=== PATIENT | female | born 1950 | race African-American/Black ===

== ENCOUNTER 2019-07-08 10:22 | Emergency (ER) | payer MEDICARE, SELFPAY ==
--- NOTE | ~2019-07-08 | US_ITS ---
EXAMINATION: US venous doppler [facility] DATE: 07/08/2019 11:06 INDICATION: Left lower limb swelling TECHNIQUE: Grayscale ultrasound images without and with compression and Doppler ultrasound images of the left lower extremity veins were obtained. COMPARISON: None. FINDINGS: Noncompressible occlusive appearing thrombus in the left popliteal and distal left femoral vein. The visualized portions of left common femoral vein, profunda (deep) femoral vein, proximal to mid femora l vein, peroneal veins, posterior tibial veins, gastrocnemius vein and greater saphenous vein outflow are patent. IMPRESSION: 1. Noncompressible occlusive appearing thrombus in the left popliteal and distal left femoral vein. Reviewed, dictated and finalized at location A. IMPRESSION: 1. Noncompressible occlusive appearing thrombus in the left popliteal and dist al left femoral vein.
[2019-07-08 10:25] VITALS: BP 163/91; PULSE 100; RESP 18; TEMP 36.2; O2SAT 98
--- NOTE | 2019-07-08 10:36 | ED.EXTPRO ---
HPI - Extremity Problem General Chief complaint: Extremity Problem,Nontraumatic Stated complaint: send by pcp for possible blood clot Time Seen by Provider: 07/08/19 10:23 Source: patient and RN notes reviewed Mode of arrival: ambulatory Limitations: no limitations History of Present Illness HPI Narrative: A 68 y/o female has arrived at the ED with c/o a possible blood clot in her LLE with symptoms that began 2 days ago. Pt recently saw her PCP Dr. Tran for a sprained ACL, and was told to come to the ED for her possible blood clot. Pt reports edema, peeling skin, erythema, and warmness in her LLE. Pt also reports pain in her left posterior knee. Pt states that she has past hx of these symptoms accompanying a DVT in her right leg, and notes she is concerned she may have a possible DVT currently.She reports that she had rhinorrhea last week, but it has resolved now.Pt currently denies SOB, rhinorrhea, fever, sweats, chills, hemoptysis, or chest pressure. Pt notes that she had a sinus infection a month ago and was prescribed antibiotics by Dr. Tran. Pt reports a Hx of HTN, HLD, a partial hysterectomy, lower back surgery, a tonsilectomy, and drinking occasionally. She denies having any Hx of CHF and smoking. Pt also denies any recent surgeries or travel. Pt is currently taking potassium and water pills. Complaint: extremity swelling (LLE) Onset (ago): day(s) (2) Location: left and lower extremity Associated symptoms: other (warmness in LLE, peeling skin in LLE, erythema in LLE, rhinorrhea (resolved), pain in left posterior knee) Context: history of DVT (Right leg) Related Data Home Medications Medication Instructions Recorded Confirmed aspirin 81 mg tablet,delayed 81 mg PO DAILY 05/18/19 release cartilage 40 mg-collagen II-boron tablet PO 05/18/19 5 mg-hyaluronate sod 3.3 mg tablet furosemide 20 mg tablet 20 mg PO .1-2 tablet 05/18/19 lisinopril 10 mg tablet 10 mg PO DAILY 05/18/19 potassium chloride 10 mEq 10 meq PO DAILY 05/18/19 capsule,extended release rosuvastatin 40 mg tablet 40 mg PO DAILY 05/18/19 silver sulfadiazine 1 % topical 1 applic TOPICAL BID gm 05/18/19 cream Allergies Allergy/AdvReac Type Severity Reaction Status Date / Time No Known Allergies Allergy Verified 07/08/19 10:37 Review of Systems Review of Systems: All systems reviewed & are unremarkable except as noted in HPI and below Constitutional: Constitutional: Denies chills and Denies fever(s) ENT: Reports nasal discharge (rhinorrhea (resolved)) Cardiovascular: Cardiovascular: Denies chest pain, Reports edema (LLE) and Denies dyspnea Respiratory: Respiratory: Denies hemoptysis Musculoskeletal: Musculoskeletal: Reports other (pain in posterior Left knee) Integumentary/Breasts: Skin/Breast: Reports erythema (LLE) and Reports other (warmness, skin peeling LLE) Endocrine: Endocrine: Denies excessive sweating PMFSH Past Medical History Medical History (Updated 07/08/19 @ 11:45 by Isaak Mcduffie MD) Arthritis Bilateral cataracts Essential (primary) hypertension Herniated disc lower back History of colon polyps Hx of deep venous thrombosis Hypercholesteremia Lumbar back pain with radiculopathy affecting left lower extremity Mixed hyperlipidemia 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 Post-menopausal Spinal stenosis at L4-L5 level Surgical History Surgical History (Updated 07/08/19 @ 11:13 by Poncho Mcelroy) History of back surgery History of tonsillectomy Hx of arthroscopy Hx of hysterectomy Family History Family History (Updated 07/08/19 @ 11:14 by Poncho Mcelroy) Mother Hypertension Sibling Breast cancer Other Cerebrovascular accident Diabetes mellitus Family history of arthritis Family history of cardiovascular disease Family history of coronary artery disease Family history of malignant neoplasm Family history of premature coronary heart disease Social History Social History Smoking status: Never s
--- NOTE | 2019-07-08 10:50 | PC.NURSE ---
unable to draw labs due to pt taken to us.
[2019-07-08 11:14] LABS: Basophils Percent Auto 0.7 % (0.2-1.2); Eosinophils Absolute Auto 0.1 K/mm3 (0-0.3); Eosinophils Percent Auto 1.9 % (0-4.4); Hematocrit 38.8 % (37.0-47.0); Hemoglobin 12.3 g/dL (12.0-15.0); Immature Granulocyte Absolute 0.01 K/mm3 (0.00-0.031); Immature Granulocyte Percent A 0.2 % (0-0.5); Lymphocytes Absolute Auto 1.61 K/mm3 (0.9-3.2); Lymphocytes Percent Auto 28.1 % (18.3-44.2); Mean Corpuscular HGB Conc 31.7 g/dl (32-36); Mean Corpuscular Hemoglobin 27.6 pg (26-34); Mean Corpuscular Volume 87.2 fl (80-100); Mean Platelet Volume 8.6 fl (7.4-10.4); Monocytes Absolute Auto 0.4 K/mm3 (0.1-0.6); Monocytes Percent Auto 6.8 % (2.6-8.5); Neutrophils Absolute Auto 3.6 K/mm3 (1.3-6.7); Neutrophils Percent Auto 62.3 % (45.5-73.1); Platelet Count Result 309 k/mm3 (150-375); Red Blood Count 4.45 M/mm3 (4.2-5.4); Red Cell Distribution Width 13.8 % (11.5-14.5); White Blood Count 5.7 K/mm3 (4.5-10.0)
[2019-07-08 11:24] LABS: Blood Urea Nitrogen 15 mg/dL (7-17); Calcium 9.5 mg/dL (8.4-10.2); Carbon Dioxide 25 mmol/L (22-30); Chloride 107 mmol/L (98-107); Estimated CRCL calculation 71 ml/min; Estimated Glomerular Filt Rate > 60; Glucose 95 mg/dL (65-105); Potassium 3.9 mmol/L (3.4-5.0); Sodium 137 mmol/L (137-145)
== END 2019-07-08 11:50 | disposition home or self-care (01) ==
PROVIDERS: Emergency Provider Emergency Medicine; PCP Internal Medicine
DX: I82.412 Acute embolism and thrombosis of left femoral vein (principal); I82.432 Acute embolism and thrombosis of left popliteal vein; M19.90 Unspecified osteoarthritis, unspecified site; I10 Essential (primary) hypertension; Z86.010 Personal history of colon polyps; E78.00 Pure hypercholesterolemia, unspecified; E78.2 Mixed hyperlipidemia; Z79.82 Long term (current) use of aspirin
CPT/HCPCS: 36415; 80048; 85025; 93971; 99284

== ENCOUNTER 2019-10-18 09:27 | Outpatient (CLI) | payer MEDICARE, SELFPAY ==
--- NOTE | ~2019-10-18 | XR_ITS ---
XR_CERV2-3V_CR DATE: 10/18/2019 10:06 INDICATION: Neck and back pain since fall 2 weeks ago TECHNIQUE: AP, open-mouth, odontoid, lateral views COMPARISON: None FINDINGS: There is mild reversal of cervical curvature. No fracture or dislocation or locked facet or prevertebral soft tissue swelling. 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 There is almost 2 mm anterolisthesis at C3-4. There is moderate loss of interspace height at C3-4, C4 -5 and C5-6. There is uncovertebral joint spurring, most prominent on the right at C5-6. 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 Reviewed, dictated and finalized at location B.
--- NOTE | ~2019-10-18 | XR_ITS ---
XR thoracic spine 3V DATE: 10/18/2019 10:06 INDICATION: Back pain TECHNIQUE: AP, lateral, swimmer views spine. COMPARISON: None FINDINGS: There is degenerative spurring of the thoracic spine. No fracture or bone destruction is ev ident. The thoracic pedicles are intact. No paraspinal soft tissue thickening. IMPRESSION: Degenerative spurring of the thoracic spine Reviewed, dictated and finalized at location B.
== END 2019-10-18 09:28 | disposition home or self-care (01) ==
PROVIDERS: PCP Internal Medicine; Visit Provider Internal Medicine
DX: M54.9 Dorsalgia, unspecified (principal); M77.8 Other enthesopathies, not elsewhere classified; M46.04 Spinal enthesopathy, thoracic region; M53.82 Other specified dorsopathies, cervical region; M43.22 Fusion of spine, cervical region; M50.320 Other cervical disc degeneration, mid-cervical region, unspecified level
CPT/HCPCS: 72040; 72072

== ENCOUNTER 2019-11-06 12:37 | Emergency (ER) | payer MEDICARE, SELFPAY ==
[2019-11-06] VITALS (9 sets, daily range): BP systolic 113–164; BP diastolic 69–84; PULSE 81–92; RESP 18–20; TEMP 37.1; O2SAT 97–100
--- NOTE | ~2019-11-06 | CT_ITS ---
EXAMINATION: CT abd pelvis lumbar w con DATE: 11/06/2019 13:50 INDICATION: Numbness from feet to chest TECHNIQUE: Computed tomography (CT) of the abdomen and pelvis and lumbar spine was performed with 100 cc Omnipaque 350 intravenous contrast. Automated exposure control and iterative reconstruction techn ique were employed. Exam dose: 1321.93 mGy-cm total exam DLP. COMPARISON: None. FINDINGS: There is discoid atelectasis and/or scarring in the right lower lobe. Normal heart size. No pericardial or pleural effusion. There are several up to 1 cm hepatic cysts. Otherwise the liver, gallbladder, bile and pancreatic du cts, pancreas and spleen are unremarkable. No renal mass lesion or urinary tract calculus or hydroureteronephrosis. There is diverticulosis of the colon; no evidence of diverticulitis. No bowel obstruction or intrape ritoneal free air. The urinary bladder is unremarkable. Status post hysterectomy. Normal caliber of the abdominal aorta. No intraperitoneal or retroperitoneal or pelvic mass lesion o r lymphadenopathy. Posterior spinal fusion and interbody fusion at L4-5. Severe degenerative disc disease at L5-S1. Osteitis pubis. IMPRESSION: Several 1 cm or smaller hepatic cysts Diverticulosis of the colon Status post hysterectomy Status post posterior and interbody spinal fusion at L4-5 Severe degenerative disc disease at L5-S1 Reviewed, dictated and finalized at Location [facility]. Reviewed, dictated and finalized at location A.
--- NOTE | 2019-11-06 13:02 | ECG_ITS ---
Measurements Intervals [place] Rate: 76 P: 59 TN: 186 QRS: 30 QRSD: 76 T: 76 QT: 365 QTc: 411 Interpretive Statements SINUS RHYTHM BASELINE ARTIFACT- II, III, AVR, AVF NORMAL ECG Electronically Signed On 11-06-2019 14:04:40 CDT by Obdulio Garcia D.O.
--- NOTE | 2019-11-06 13:04 | ED.ABDPAIN ---
HPI - Abdominal Pain General Chief Complaint: Weakness <ALICIA Culver Last Filed: 11/06/19 19:44> Stated Complaint: Numbness from Feet to Chest <ALICIA Culver Last Filed: 11/06/19 19:44> Time Seen by Provider: 11/06/19 12:51 <ALICIA Culver Last Filed: 11/06/19 19:44> Source: patient and old records reviewed <ALICIA Culver Last Filed: 11/06/19 19:44> Mode of arrival: ambulatory <ALICIA Culver Last Filed: 11/06/19 19:44> Limitations: no limitations <ALICIA Culver Last Filed: 11/06/19 19:44> History of Present Illness HPI narrative: Patient is a 69-year-old female who presents to emergency department for evaluation of numbness in the lower extremities up into the knee abdomen that has occurred over the last 2 weeks patient has been evaluated for low back pain with radicular symptoms by primary care in the last 2 months when she began to have radicular lumbar-like symptoms patient is also on Xarelto with a history of DVT in the left leg patient denies any new injury or trauma or illness patient know she had had constipation for which she took famy-lov-[id number] medication. Patient notes now she has more concerned with the sensation of numbness around the pelvis and up into the abdomen. Patient presents per private vehicle. Patient has been taking Tylenol with improvement of her pain which is worse in the lumbar region. Patient denies fever illness URI symptoms or sick contacts. Patient ambulates with a walking cane <ALICIA Culver Last Filed: 11/06/19 19:44> Related Data Home Medications: Home Medications Medication Instructions Recorded Confirmed cartilage 40 mg-collagen II-boron 1 tablet PO DAILY 05/18/19 10/26/19 5 mg-hyaluronate sod 3.3 mg tablet furosemide 20 mg tablet 20 mg PO DAILY tablet 05/18/19 10/26/19 lisinopril 10 mg tablet 10 mg PO DAILY 05/18/19 10/26/19 potassium chloride 10 mEq 10 meq PO DAILY 05/18/19 10/26/19 capsule,extended release rosuvastatin 40 mg tablet 40 mg PO DAILY 05/18/19 10/26/19 <Yfn Murcia PA-C - Last Filed: 11/06/19 19:44> Allergies/Adverse Reactions: Allergies Allergy/AdvReac Type Severity Reaction Status Date / Time No Known Allergies Allergy Verified 11/06/19 13:15 <Yfn Murcia PA-C - Last Filed: 11/06/19 19:44> Review of Systems Review of Systems: All systems reviewed & are unremarkable except as noted in HPI and below <Yfn Murcia PA-C - Last Filed: 11/06/19 19:44> [facility] Past Medical History Medical History: Medical History Arthritis Bilateral cataracts Essential (primary) hypertension Herniated disc lower back History of colon polyps Hx of deep venous thrombosis Hypercholesteremia Lumbar back pain with radiculopathy affecting left lower extremity Mixed hyperlipidemia On salvage determiner drug therapy Post-menopausal Spinal stenosis at L4-L5 level <Yfn Murcia PA-C - Last Filed: 11/06/19 19:44> Surgical History Surgical History: Surgical History History of back surgery History of tonsillectomy Hx of arthroscopy Hx of hysterectomy <Yfn Murcia PA-C - Last Filed: 11/06/19 19:44> Social History Social History: Social History Smoking status: Never smoker Second hand tobacco smoke exposure: No Alcohol intake: current Gender identity (if verbalized by the patient): Female <Yfn Murcia PA-C - Last Filed: 11/06/19 19:44> Exam Narrative: Exam Narrative: GENERAL: Well-appearing, obese, and in no acute distress. HEAD: Normocephalic, atraumatic. EYES: PERRLA and EOMI. ENT: Nares clear, no rhinorrhea or epistaxis. Mucous membranes moist. Oropharynx without tonsillar hypertrophy exudate or other lesions. NECK: Supple.
[2019-11-06 13:25] LABS: Basophils Percent Auto 0.4 % (0.2-1.2); Eosinophils Percent Auto 0.8 % (0-4.4); Hematocrit 38.2 % (37.0-47.0); Hemoglobin 12.6 g/dL (12.0-15.0); Immature Granulocyte Absolute 0.01 K/mm3 (0.00-0.031); Immature Granulocyte Percent A 0.2 % (0-0.5); Lymphocytes Percent Auto 28.3 % (18.3-44.2); Mean Corpuscular Hemoglobin 27.9 pg (26-34); Mean Corpuscular Volume 84.5 fl (80-100); Mean Platelet Volume 8.6 fl (7.4-10.4); Monocytes Absolute Auto 0.6 K/mm3 (0.1-0.6); Monocytes Percent Auto 10.6 % (2.6-8.5); Neutrophils Absolute Auto 3.2 K/mm3 (1.3-6.7); Neutrophils Percent Auto 59.7 % (45.5-73.1); Platelet Count Result 260 k/mm3 (150-375); Red Blood Count 4.52 M/mm3 (4.2-5.4); Red Cell Distribution Width 14.6 % (11.5-14.5); White Blood Count 5.3 K/mm3 (4.5-10.0)
[2019-11-06 13:35] LABS: INR 1.4; Prothrombin Time 16.3 Seconds (11.1-14.7)
[2019-11-06 13:36] LABS: Partial Thromboplastin Time 33.1 SECONDS (22.3-36.8)
[2019-11-06 13:39] LABS: Alanine Aminotransferase 29 U/L (4-35); Albumin Level 4.2 g/dL (3.5-5.1); Alkaline Phosphatase 188 U/L (38-126); Aspartate Amino Transferase 32 U/L (14-36); Bilirubin,Total 1.2 mg/dL (0.2-1.3); Blood Urea Nitrogen 11 mg/dL (7-17); Calcium 9.4 mg/dL (8.4-10.2); Carbon Dioxide 25 mmol/L (22-30); Chloride 104 mmol/L (98-107); Estimated CRCL calculation 79 ml/min; Estimated Glomerular Filt Rate > 60; Glucose 99 mg/dL (65-105); Sodium 137 mmol/L (137-145)
[2019-11-06 14:23] LABS: Erythrocyte Sedimentation Rate 86 mm/hr (0-20)
[2019-11-06 15:03] LABS: Add Urine Microscopic? YES; Appearance Urine Clear (Clear); Bacteria Urine Trace /hpf; Bilirubin Urine Negative (Negative); Blood Urine 1+ (Negative); Color Urine Colorless (Yellow); Glucose Urine UA Negative (Negative); Ketones Urine Negative (Negative); Leukocyte Esterase Ur Negative LEU/UL (Negative); Mucus Urine Rare /lpf; Nitrate Urine Negative (Negative); Protein Urine Negative (Negative); Squamous Epithelial Cell Urine Occasional /hpf (Few); Urobilinogen Urine Negative mg/dL (<2.0); WBC Urine 0-3 /hpf
[2019-11-06 15:04] LABS: Specific Grav Ur 1.058 (1.001-1.035)
--- NOTE | 2019-11-06 19:21 | PC.NURSE ---
CALL RECEIVED FROM [facility]. PT HAS BEEN ACCEPTED BY DR DI SARAVIA. ROOM [id number]. ATTEMPTED TO CALL REPORT TO GUIDO AT [phone]. RN UNAVAIL TO RECEIVE REORT AT THIS TIME. TO CALL RN BACK AT [phone]
--- NOTE | 2019-11-06 20:00 | PC.NURSE ---
REPORT CLALED TO GUIDO ALVARADO AT [phone]. ALL QUESTIONS ANSWERED. CALLED DISPATCH FOR EMS TO [facility]. ETA 90 MINS
--- NOTE | 2019-11-06 20:09 | PC.NURSE ---
Addendum entered by Jasmyne Andres 11/07/19 01:41: ALSO CALLED: ABDULAZIZ TERRELL (01:18) - DECLINED [facility] (01:19) - DECLINED [place] (01:21) - DECLINED Addendum entered by Jasmyne Andres 11/06/19 23:46: Mauricio called with updated ETA...approximately 02:00 Addendum entered by Jasmyne Andres 11/06/19 22:05: CALLED MAURICIO FOR ETA STATUS...APPROXIMATELY 2300 Original Note: CALLED TO TRANSPORT TO [facility] #[id number]... ETA 90 MINUTES
[2019-11-07 00:43] VITALS: BP 133/74; PULSE 87; RESP 16; O2SAT 96
[2019-11-07 01:20] VITALS: BP 125/81; PULSE 83; RESP 16; O2SAT 99
[2019-11-07 02:17] VITALS: BP 162/87; PULSE 85; RESP 16; O2SAT 99
== END 2019-11-07 02:18 | disposition short-term general hospital (02) ==
PROVIDERS: Emergency Medicine Emergency Medical Services; Emergency Provider General Practice; PCP Internal Medicine
DX: R20.2 Paresthesia of skin (principal); M54.5 Low back pain; K76.89 Other specified diseases of liver; K57.90 Diverticulosis of intestine, part unspecified, without perforation or abscess without bleeding; Z98.1 Arthrodesis status; M51.37 Other intervertebral disc degeneration, lumbosacral region
CPT/HCPCS: 36415; 72132; 74177; 80053; 81001; 85025; 85610; 85652; 85730; 86140; 93005; 96365; 99285; J0131; Q9967

== ENCOUNTER 2020-01-24 09:00 | Outpatient (RCR) | payer MEDICARE, SELFPAY ==
--- NOTE | 2019-11-28 13:08 | PCPTNOTE ---
I called surgeon's office, Dr Wylie, [facility]- to clarify any cervical precautions for pt; Our PT orders are from her general physician; Dr Wylie nurse stated pt's precautions: wear cervical collar unti 8-25-20, then can use PRN for pain control. No lifting over 5-10#, limited bend, twisting, lifting, push/pulling, can be WBAT on UE's. No neck ROM. I discussed pt with [employer] CONSULTANT Salima Quezada and PT who did the evaluation Mirta Cunningham. Mirta is PRN and not to be in the facility for a few days. We discussed the pt and she gave me permission to update the mobility goals. Pt's goals were updated by me, to reflect the above precautions from the cervical surgeon.
--- NOTE | 2019-11-29 16:39 | PCPTNOTE ---
PHYSICAL THERAPY UPDATED PLAN OF CARE 11-29-2019 Attending Provider: Belkis Singh, STRATEGIC MANAGER-C Patient:Jolie Banks Date of :1950 Jolie's plan of care has been updated, with the limitations and guidelines from her surgeon. And goals have been added for improving her LE strength and mobility skills. Thank you for referring Mrs. Banks to [facility]. Please review, sign, date and return this discharge summary FRANCESCA. I have been updated about the patient's current status and I agree with the updated plan of care. Referring Physician Date
--- NOTE | 2019-12-23 08:54 | PTOPEVAL ---
Thank you for referring Jolie Banks to [facility].? The patient is scheduled to be seen for therapy? 2 x/week for 5 weeks. Please review, sign, date and return this plan of care FRANCESCA. I agree with and certify that the following plan of care is medically necessary. Referring Physician Date Admitting Provider: Attending Provider: Belkis Singh, REJIC Physical Therapy Progress Note *PT Outpatient Evaluation Start: 11/23/19 10:30 Freq: Status: Active Protocol: Document 12/23/19 07:58 SADIQ (Rec: 12/23/19 08:54 CAP [id number]) Therapy Assessment Status Assessment Status Assessment Status Re-evaluation Outpatient Past Medical History Past Medical History No Past Medical/Surgical History Patient/Family Denies Significant Past Medical/ Surgical History Source of Past Medical History Patient Evaluation Information Problem Diagnosis Anterior cervical discectomy and fusion at C4/5 Onset November 07 2019 Additional Evaluation Detail Pt states she fell at home and had numbness and tingling in B hands end of September 2019. Pt was transferred out to [facility] where they did an MRI and performed anterior cervical discectomy and fusion on C4/5. Pt discharged from [facility] on November 09 Subjective Information Reports juan f UE cont to have Query Text:As Reported By Patient/ numbness. She also has spasms Family of trunk area that increases at the end of day. She cont to have numbness and tingling from groin into bilateral feet . She has progressed to [facility] for mobility and DC of cervical collar. She is not performing any cooking at home. She did complete the dishes for 15 min with increased LE fatigue. Her cont to perform most IADL's. Pain Assessment Timing of Pain Assessment Timing of Pain Assessment Re-assessment Pain Scale Pain Scale Used Numeric (1 - 10) Self Report Pain Assessment Generalized Reported Pain Level 6 Pain Description Numbness,Radiating,Tingling Pain Frequency Continuous Pain Behaviors None Pain Score
--- NOTE | 2020-01-24 10:58 | PTOPEVAL ---
Thank you for referring Jolie Banks to [facility].? Pt has received 16 therapy visits to address impairments related to her neck surgery. She has reached maximal potential with skilled therapy services at this time. Recommend she cont with use of walker due to decreased balance and walking speed. She is indep with her home exercise program. DC skilled physical therapy services at this time Please review, sign, date and return this plan of care FRANCESCA. I agree with and certify that the following plan of care is medically necessary. Referring Physician Date Attending Provider: ALIS Echavarria Referring Provider: *PT Outpatient Evaluation Start: 11/23/19 10:30 Freq: Status: Active Protocol: Document 01/24/20 09:03 SADIQ (Rec: 01/24/20 09:54 [facility] [id number]) Therapy Assessment Status Assessment Status Assessment Status Re-evaluation/ discharge note Evaluation Information Problem Diagnosis Anterior cervical discectomy and fusion at C4/5 Onset November 07 2019 Additional Evaluation Detail Pt states she fell at home and had numbness and tingling in B hands end of September 2019. Pt was transferred out to [facility] where they did an MRI and performed anterior cervical discectomy and fusion on C4/5. Pt discharged from [facility] on November 09 Subjective Information Reports juan f UE cont to have Query Text:As Reported By Patient/ numbness. Reports her UE cont Family to hurt with decreased sensation and roughness of her fingers. She cont to have trunk spasms of trunk area after sitting and attempting to stand. She cont to have numbness and tingling from groin into bilateral feet. She has returned to using the walker due to last fall at home. She will not use an AD in the bathroom. She is not performing any cooking at home. 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 Pain Assessment Timing of Pain Assessment Timing of Pain Assessment Re-assessment Pain Scale Pain Scale Used Numeric (1 - 10) Self Report Pain Assessment Generalized Reported Pain Level 8 Pain Description Aching,Numbness,Radiating,
== END 2020-01-27 10:48 | disposition home or self-care (01) ==
LOC: ANHPT 09:00
PROVIDERS: PCP Internal Medicine; Visit Provider Nurse Practitioner
DX: R20.0 Anesthesia of skin (principal); R20.2 Paresthesia of skin; Z98.890 Other specified postprocedural states
CPT/HCPCS: 97110; 97112; 97116; 97140; 97161; 97530

== ENCOUNTER 2020-08-09 08:04 | Outpatient (CLI) | payer MEDICARE, SELFPAY | END 2020-08-09 08:05 | disposition home or self-care (01) | LOC: ANHCOVIDVC 08:04 | PROVIDERS: PCP Internal Medicine | DX: Z23 Encounter for immunization (principal) | CPT/HCPCS: 0001A; 91300 ==

== ENCOUNTER 2020-08-30 07:57 | Outpatient (CLI) | payer MEDICARE, SELFPAY | END 2020-08-30 07:58 | disposition home or self-care (01) | LOC: ANHCOVIDVC 07:57 | PROVIDERS: PCP Internal Medicine | DX: Z23 Encounter for immunization (principal) | CPT/HCPCS: 0002A; 91300 ==

== ENCOUNTER 2020-12-07 08:30 | Outpatient (RCR) | payer MEDICARE, SELFPAY ==
--- NOTE | 2020-10-12 08:53 | PTOPEVAL ---
Thank you for referring Jolie Banks to [facility].? The patient is scheduled to be seen for therapy?2 x/week for 6 weeks. Please review, sign, date and return this plan of care FRANCESCA. I agree with and certify that the following plan of care is medically necessary. Referring Physician Date Attending Provider: David Herrera MD Arely Problem Diagnosis s/p cervical fusion Onset chronic Additional Evaluation Detail Pt had back surgery 05/24/20 for s/p neck fusion, right CTR 05/24/20 and cubital release and left CTR and cubital tunnel release 07/01. She received home health services for 2 months. Subjective Information She has been using the walker Query Text:As Reported By Patient/ for ~ 1 yr. She denies any Family falls in the past 6 months. She is able to perform light chores, ADL's, household mobility with walker. She is not driving. She c/o nerve pain in her hands and arms since surgery. She also c/o knee pain. She will usually sit for 2 hrs at a time or longer. She has 2 LUDWIN and 2 step in the house. Pain Assessment Self Report Pain Assessment Bilateral Leg(s) Reported Pain Level 0 Pain Description Aching,Soreness Pain Frequency Chronic,Intermittent Lowest Pain Intensity 0 Greatest Pain Intensity 7 Pain Aggravating Factors ADL's,Exercise/Activity Bilateral Arm(s) Reported Pain Level 9 Pain Description Numbness,Sharp,Tingling Pain Frequency Chronic,Continuous Lowest Pain Intensity 5 Greatest Pain Intensity 9 Pain Aggravating Factors ADL's,Exercise/Activity Cervical and Lumbar ROM Cervical ROM Cervical Flexion (0-60) 45 Query Text:Active in Degrees Cervical Extension (0-70) 40 Query Text:Active in Degrees Cervical Lateral Flexion Right (0-50) 20 Query Text:Active in Degrees Cervical Lateral Flexion Left (0-50) 25 Query Text:Active in Degrees Cervical ROM Comments limited from surgery Upper Extremity Range of Motion General Upper Extremity Range of Motion Reason Not Measured WFL/Left,WFL/Right Gross Upper Extremity Range of Motion no changes in pain with motion Comments Lower Extremity Muscle Strength Testing General Lower Extremity Strength Reason Not Measured
--- NOTE | 2020-11-15 10:46 | PTOPEVAL ---
Physical therapy progress note Thank you for referring Jolie Banks to [facility].? Jolie has attended 9 therapy visits to address functional limitations. She is progressing towards her therapy goals. She summary below for detail of progress. The patient is scheduled to be seen for therapy 1 x/week for 3 additional weeks. Please review, sign, date and return this plan of care FRANCESCA. I agree with and certify that the following plan of care is medically necessary. Referring Physician Date Admitting Provider: Dr. Irvin Tran MD Attending Provider: David Herrera MD Arely Diagnosis s/p cerivcal fusion Onset chronic Additional Evaluation Detail Pt had back surgery 05/24/20 for s/p neck fusion, right CTR 05/24/20 and cubital release and left CTR and cubital tunnel release 07/01. She received home health services for 2 months. Subjective Information She is using the cane at home Query Text:As Reported By Patient/ or short distance without AD. Family She is able to negotiate 2 steps at home without use of railing. She is able to perform light chores, ADL's. She is preforming light cooking task. Her does not want her performing heavier activities. She c/o nerve pain in her hands and arms since surgery. She also c/o knee pain. indep perform scar massage of juan f UE healed incisions. Pain Assessment Bilateral Leg(s) Reported Pain Level 1 Pain Description Aching Lowest Pain Intensity 1 Greatest Pain Intensity 7 Pain Aggravating Factors Exercise/Activity,Sitting, Walking,Weight Bearing/ Standing Bilateral Arm(s) Reported Pain Level 2 Pain Description Numbness,Sharp,Tingling Lowest Pain Intensity 2 Greatest Pain Intensity 8 Pain Aggravating Factors Exercise/Activity Lower Extremity Muscle Strength Testing General Lower Extremity Strength Gross Lower Extremity Strength seated right hip flex4+/5, knee ext: 5/5 and ankle DF: 5/ 5 seated left hip flex4+/5, knee ext: 5/5 and ankle DF: 5/ 5 sidelying hip abduction:3+/5,
--- NOTE | 2020-12-07 11:36 | PTOPEVAL ---
Physical Therapy Discharge Note Thank you [facility] She has received 12 therapy visits to address muscle weakness and functional limitations. As a result of therapy services she demonstrates improve strength, decreased fall risk, and improved mobility with ability to walk on all surfaces. She is indep with her HEP. Will DC skilled therapy services at this time. Please review, sign, date and return this discharge summary FRANCESCA. I agree with and certify that the following plan of care is medically necessary. Referring Physician Date Attending Provider: David Herrera MD Arely Problem Diagnosis s/p cervical fusion Onset chronic Additional Evaluation Detail Pt had back surgery 05/24/20 for s/p neck fusion, right CTR 05/24/20 and cubital release and left CTR and cubital tunnel release 07/01. She received home health services for 2 months. Subjective Information She is using the cane at home Query Text:As Reported By Patient/ and walker for distance in the Family community. She has been trying to do a walking program more consistently. Reports the resistance exercises increase her UE burning nerve pain. She is performing her HEP and scar massage. Pain Assessment Self Report Pain Assessment Bilateral Leg(s) Reported Pain Level 0 Pain Description Tightness Pain Frequency Chronic Lowest Pain Intensity 0 Greatest Pain Intensity 7 Bilateral Arm(s) Reported Pain Level 2 Pain Description Burning,Numbness,Tingling Pain Frequency Chronic Lowest Pain Intensity 2 Greatest Pain Intensity 8 Pain Aggravating Factors Exercise/Activity,Prolonged Position Special Tests-Lower Extremity Hip Special Tests Trendelenburg Sign Positive Left,Positive Right Hip Special Test Comments single leg stance: 1 sec intervals juan f without UE support, with 1 UE support: left: 26 sec, right: 22 sec Gait Assessment Gait Assessment Ambulation Assistive Devices None,Cane,Walker, Wheeled Ambulation Distance 135 Query Text:(Feet) Ambulation Destination In Corridor Ambulation Direction Forward Ambulation Surface Level Ambulation Ability Independent Additional Ambulation Comments arrived to session with walker
== END 2020-12-10 10:47 | disposition home or self-care (01) ==
LOC: ANHPT 08:30
PROVIDERS: PCP Internal Medicine
DX: Z48.89 Encounter for other specified surgical aftercare (principal); Z47.89 Encounter for other orthopedic aftercare; Z98.1 Arthrodesis status
CPT/HCPCS: 97110; 97112; 97116; 97140; 97162; 97530

== ENCOUNTER 2021-03-12 08:24 | Outpatient (CLI) | payer MEDICARE, SELFPAY ==
--- NOTE | ~2021-03-12 | MM_ITS ---
EXAMINATION: MM screening marcel BI w jahaira HISTORY: Screening mammogram TECHNIQUE: Craniocaudal and mediolateral oblique 3-D tomosynthesis images were obtained and synthetic 2-D images were generated. CAD analysis was submitted and interpreted. COMPARISON: 04/12/2019, 02/09/2017 bilateral screening and diagnostic mammogram examinations, respect ively BREAST PARENCHYMAL COMPOSITION: The breasts are almost entirely fatty. FINDINGS: .... Occasional bilateral benign calcifications... There is no evidence of suspicious mass, calcification, or architectural distortion to suggest malignancy in either breast. There has been no suspicious interval change. IMPRESSION: 1. No mammographic evidence of malignancy. 2. Recommend routine screening mammography in one year. BI-RADS Category 2: Benign finding(s). Reviewed, dictated and finalized at location A. 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
--- NOTE | ~2021-03-12 | DEXA_ITS ---
Bone Density Report Name: Jolie Banks Age: 70 Sex: Female Ethnicity: White Date of : 1950 Indication: postmenopausal; height loss; hysterectomy; Referring Provider: Belkis Singh Study: Bone densitometry was performed. Exam Date: March 12, 2021 Accession number: [id number] Bone Density: Region BMD T-score Z-score Classification AP Spine (L1, L2) 1.152 1.6 3.7 Normal Femoral Neck (Left) 0.782 -0.6 1.3 Normal Total Hip (Left) 1.051 0.9 2.5 Normal Total Hip Bilateral Avg 1.014 0.6 2.2 Normal Femoral Neck (Right) 0.756 -0.8 1.1 Normal Total Hip (Right) 0.975 0.3 1.9 Normal World Health Organization criteria for BMD impression classify patients as: Normal (T-score at or above -1.0), Osteopenia (T-score between -1.0 and -2.5), or Osteoporosis (T-score at or below -2.5). 10-year Fracture Risk: FRAX not reported because: All T-scores for Spine Total, Hip Total, Femoral Neck at or above -1.0 Previous Exams: Region Exam Age BMD T-score BMD Change BMD Change Date g/cm2 vs Baseline vs Previous AP Spine(L1, L2) 03/12/2021 70 1.152 1.6 -0.160(-12.2%) -0.160(-12.2%) 06/02/2015 64 1.312 3.0 Total Hip(Left) 03/12/2021 70 1.051 0.9 -0.113(-9.7%)* -0.113(-9.7%)* 06/02/2015 64 1.164 1.8 Total Hip(Right) 03/12/2021 70 0.975 0.3 -0.085(-8.1%)* -0.085(-8.1%)* 06/02/2015 64 1.061 1.0 *Denotes significance at 95% confidence level, LSC for AP Spine = 0.022 g/cm2, LSC for Total Hip = 0.027 g/cm2 Clinical Information Provided by Patient: Has the following medical conditions: Hysterectomy Patient maximum height was 63 Menopause Age: 48 No regular weight bearing exercise Onset of menses at age 10 Number of children 0 Impression: The patient has normal bone mass. The BMD for the AP Spine(L1, L2) decreased, changing by -12.2% since the last DXA exam. The BMD for the Total Hip(Left) decreased, changing by -9.7% since the last DXA exam. The BMD for the Total Hip(Right) decreased, changing by -8.1% since the last DXA exam. Discussion: BONE DENSITY IS ABOVE THE MINIMUM DESIRABLE LEVEL AT ALL SKELETAL SITES TESTED. This patient?s bone mineral density is above the minimum desirable level (T-score -1.0 or better) at all sites measured. The patient should follow a healthful lifestyle (good nutrition with adequate calcium and vitamin D, and appropriate weight-bearing exercise). Follow-Up: Consider repeating this study in 3 to 4 years to
== END 2021-03-12 08:25 | disposition home or self-care (01) ==
LOC: ANHIMG 08:26
PROVIDERS: PCP Internal Medicine; Visit Provider Nurse Practitioner
DX: Z12.31 Encounter for screening mammogram for malignant neoplasm of breast (principal); Z78.0 Asymptomatic menopausal state
CPT/HCPCS: 77063; 77067; 77080

== ENCOUNTER 2022-02-03 12:30 | Outpatient (CLI) | payer MEDICARE, SELFPAY ==
--- NOTE | ~2022-02-03 | US_ITS ---
EXAMINATION: US venous doppler LE RT DATE: 02/03/2022 13:48 INDICATION: Right lower limb edema TECHNIQUE: Bro scale images without and with compression and Doppler images of the right lower extre mity veins were obtained. COMPARISON: 04/30/2016 FINDINGS: The right common femoral vein, profunda femoral vein, femoral vein, popliteal vein, peronea l trunk, posterior tibial veins, and greater saphenous vein are patent. IMPRESSION: 1. Patent right lower extremity veins. No evidence of deep venous thrombosis. Reviewed, dictated and finalized at location A.
== END 2022-02-03 12:31 | disposition home or self-care (01) ==
LOC: ANHIMG 12:32
PROVIDERS: PCP Internal Medicine; Visit Provider Internal Medicine
DX: R60.9 Edema, unspecified (principal); Z86.718 Personal history of other venous thrombosis and embolism
CPT/HCPCS: 93971

== ENCOUNTER 2022-06-04 04:47 | Observation (INO) | payer MEDICARE, SELFPAY ==
[2022-06-04] VITALS (25 sets, daily range): BP systolic 107–156; BP diastolic 56–103; PULSE 65–96; RESP 9–20; TEMP 35.7–36.7; O2SAT 99–100; BMI 37.3
--- NOTE | ~2022-06-04 | CT_ITS ---
CT head without contrast Indication: Weakness Technique: Serial scans were obtained through the brain without the administration of contrast. Dose reduction technique was used on this scan by utilizing automated exposure control and iterative recon struction technique. The dose-length product (DLP) was 605.33 mGy-cm. Findings: There is no evidence of intracranial hemorrhage, mass lesion, or acute infarct. There is di ffuse dilatation of ventricular system, somewhat out of proportion to remaining subarachnoid spaces.. Minimal low attenuation regions are seen within the periventricular white matter bilaterally, likely representing changes from chronic microvascular ischemic disease. There is no evidence of edema, ma ss effect or midline shift. The visualized paranasal sinuses and mastoid air cells are clear. Impression: No intracranial hemorrhage, mass, or acute infarct. Suspected normal pressure hydrocephalus versus other communicating hydrocephalus. Minimal chronic white matter changes versus possibly transependymal edema. Reviewed, dictated and finalized at [facility]. 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 Suspected normal pressure hydrocephalus versus other communicating hydrocephalu s. Minimal chronic white matter changes versus possibly transependymal edema.
--- NOTE | ~2022-06-04 | XR_ITS ---
Portable chest x-ray Comparison: None Clinical History: Weakness Findings: Lungs are clear, without focal consolidation or pleural effusion. Cardiomediastinal silho uette is unremarkable. Bones and soft tissues are unremarkable. Impression: Normal chest. Reviewed, dictated and finalized at location . 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
--- NOTE | ~2022-06-04 | CT_ITS ---
Noncontrast CT scan of the cervical spine Technique: Multiple contiguous axial [address] images of the cervical spine were obtained and rec onstructed in 2D sagittal and coronal planes on the acquisition scanner. Dose reduction technique was used on this scan by utilizing automated exposure control, adjustment of the mA and/or kV according to patient size. Clinical History: Frequent falls Findings: No fractures or dislocations. There is posterior fusion from C3 through C6, with bilateral rods and transpedicular screws present. Laminectomies of C3, C4, and C5 are present. There is also a nterior fusion hardware from C4 to C5. There is fusion across the C4-C5 disc space. There is also par tial fusion across the C2-C3 disc space. There is moderate degenerative disc narrowing at the remaini ng intervertebral disc spaces in the cervical spine. No prevertebral soft tissue swelling. 4 mm left apical pulmonary nodule noted. Impression: No fracture or subluxation identified. Extensive postoperative changes of the cervical spine, as detailed above. 4 mm left apical pulmonary nodule. According to Fleischner Society criteria, no further follow-up req uired for a low-risk patient. For a high-risk patient, consider 12 month follow-up CT. Reviewed, dictated and finalized at location . [employer] Impression: No fracture or subluxation identified. Extensive postoperative changes of the cervical spine, as detailed above. 4 mm left apical pulmonary nodule. According to Fleischner Society criteria, no further follow-up required for a low-risk patient. For a high-risk patient, co nsider 12 month follow-up CT.
--- NOTE | ~2022-06-04 | US_ITS ---
Duplex Sonography of the bilateral lower extremities: Indication: Swelling Sagittal and transverse B-mode images as well as color-flow imaging were performed on the right and l eft femoral and popliteal veins. B-mode examination was done without and with compression in the tra nsverse plane. There is good visualization of the bilateral common femoral, proximal profunda femora l, superficial femoral, greater saphenous, and popliteal veins. There is nonocclusive thrombus in the left popliteal vein. This vessel is partially compressible. Remaining visualized deep venous structures bilaterally demonstrate normal flow and compressibility. Impression: Focal nonocclusive thrombus in the left popliteal vein. Reviewed, dictated and finalized at location M. IDE REPAIRER SPECIAL Impression: Focal nonocclusive thrombus in the left popliteal vein.
--- NOTE | 2022-06-04 04:54 | ECG_ITS ---
Measurements Intervals [place] Rate: 76 P: 62 [place]: 185 QRS: 21 QRSD: 78 T: 53 QT: 359 QTc: 406 Interpretive Statements SINUS RHYTHM NORMAL ECG COMPARED TO ECG 11/06/2019 13:21:05 NO SIGNIFICANT CHANGES Electronically Signed On 06-04-2022 13:41:00 STOPPER MAKER by Carlos Gonzalez M.D.
--- NOTE | 2022-06-04 05:10 | ED.GENADULT ---
HPI - General Adult General Chief complaint: Weakness Stated complaint: falls Time Seen by Provider: 06/04/22 04:55 History of Present Illness HPI narrative: Patient 71-year-old female who presents the emergency department with chief complaint of generalized weakness. Patient reports that she has been weaker than normal and her primary doctor has been scheduling her for some physical therapy. Family reports that today she got up and slid down the wall and they decided to call EMS. The port the patient's been a little bit less active than normal they deny fever denies vomiting denies diarrhea. Related Data Home Medications Medication Instructions Recorded Confirmed dorzolamide 22.3 mg-timolol 6.8 1 drp EACH EYE QAM AND QHS 01/28/22 03/17/22 mg/mL eye drops latanoprost 0.005 % eye drops 1 drp EACH EYE QPM 01/28/22 03/17/22 prednisolone acetate 1 % eye 1 drp EACH EYE Q12H 01/28/22 03/17/22 drops,suspension Allergies Allergy/AdvReac Type Severity Reaction Status Date / Time No Known Allergies Allergy Verified 03/14/22 13:44 Review of Systems Review of Systems: A 10 system review of systems was completed on the patient and is negative except for what is stated in the HPI. Nursing and ancillary documentation was reviewed. 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 Post-menopausal Spinal stenosis at L4-L5 level Surgical History Surgical History History of back surgery History of tonsillectomy Hx of arthroscopy Hx of hysterectomy Status post cervical discectomy Family History Family History Mother Hypertension Sibling Breast cancer Other Cerebrovascular accident Diabetes mellitus Family history of arthritis Family history of cardiovascular disease Family history of coronary artery disease Family history of malignant neoplasm Family history of premature coronary heart disease Social History Social History Smoking status: Never smoker Second hand tobacco smoke exposure: Yes Alcohol intake: current Alcohol use details: social Substance use: never Substance use type: does not use Lack of Transportation: No Lack of Food: Never True Current Housing: I Have Housing Concerned About Future Housing: No Difficulty Paying Gas/Electric Bills: No Difficulty Paying for Meds: No Currently Unemployed: No Education: High School Diploma/GED Difficulty w/ Childcare or Family Care: No Living arrangements: with family Occupation/Education: retired Gender identity (if verbalized by the patient): Female Sexual Orientation (if Verbalized by the Patient): Straight or Heterosexual Exam Narrative: GENERAL: Well-appearing, well-nourished, and in no acute distress. HEAD: Normocephalic, atraumatic. EYES: PERRLA and EOMI. ENT: Nares clear, no rhinorrhea or epistaxis. Mucous membranes moist. NECK: Supple. CHEST: Clear to auscultation. No respiratory distress. HEART: Regular rate and rhythm. No murmur heard. Normal peripheral pulses. ABDOMEN: Soft, nontender, nondistended, normal active bowel sounds. EXTREMITIES: Normal range of motion. No edema. SKIN: Warm, dry, no rash. NEURO: No focal deficits. Alert and oriented x3. PSYCH: Normal mood and affect. Course Vital Signs Vital signs: Vital Signs Temperature 36.4 C 06/04/22 04:50 Pulse Rate 76 06/04/22 04:50 Respiratory Rate 18 06/04/22 04:50 Blood Pressure 121/103 H 06/04/22 04:50 Pu
[2022-06-04 05:43] LABS: Basophils Percent Auto 0.6 % (0.2-1.2); Eosinophils Absolute Auto 0.1 K/mm3 (0-0.3); Eosinophils Percent Auto 1.2 % (0-4.4); Hematocrit 38.9 % (37.0-47.0); Hemoglobin 12.6 g/dL (12.0-15.0); Immature Granulocyte Absolute 0.02 K/mm3 (0.00-0.031); Immature Granulocyte Percent A 0.3 % (0-0.5); Lymphocytes Absolute Auto 1.42 K/mm3 (0.9-3.2); Lymphocytes Percent Auto 21.6 % (18.3-44.2); Mean Corpuscular HGB Conc 32.4 g/dl (32-36); Mean Corpuscular Hemoglobin 27.9 pg (26-34); Mean Corpuscular Volume 86.3 fl (80-100); Mean Platelet Volume 8.7 fl (7.4-10.4); Monocytes Absolute Auto 0.5 K/mm3 (0.1-0.6); Monocytes Percent Auto 7.6 % (2.6-8.5); Neutrophils Absolute Auto 4.5 K/mm3 (1.3-6.7); Neutrophils Percent Auto 68.7 % (45.5-73.1); Platelet Count Result 269 k/mm3 (150-375); Red Blood Count 4.51 M/mm3 (4.2-5.4); Red Cell Distribution Width 14.9 % (11.5-14.5); White Blood Count 6.6 K/mm3 (4.5-10.0)
[2022-06-04 05:52] LABS: Alanine Aminotransferase 15 U/L (6-35); Alkaline Phosphatase 125 U/L (38-126); Anion Gap 5 mmol/L (8-16); Aspartate Amino Transferase 22 U/L (14-36); Bilirubin,Total 0.8 mg/dL (0.2-1.3); Blood Urea Nitrogen 13 mg/dL (7-17); Calcium 9.5 mg/dL (8.4-10.2); Carbon Dioxide 27 mmol/L (22-30); Chloride 104 mmol/L (98-107); Estimated CRCL calculation 69 ml/min; Estimated Glomerular Filt Rate > 60; Glucose 94 mg/dL (65-110); Magnesium 2.2 mg/dL (1.6-2.3); Potassium 3.7 mmol/L (3.4-5.0); Sodium 136 mmol/L (137-145)
[2022-06-04 05:53] LABS: Lactic Acid Reflex 0.9 mmol/L (0.7-2.0)
[2022-06-04 05:59] LABS: INR 1.8; Prothrombin Time 20.4 Seconds (11.1-14.7)
[2022-06-04 06:00] LABS: Partial Thromboplastin Time 37.8 SECONDS (22.3-36.8)
[2022-06-04 06:01] LABS: NT Pro B Type Natriuretic Pept 97 pg/mL (19.9-100)
[2022-06-04 06:04] LABS: Troponin I < 0.012 ng/mL (0.000-0.034)
[2022-06-04 06:21] LABS: Procalcitonin 0.1 ng/mL
[2022-06-04 06:24] LABS: Influenza A QL RT-PCR Negative (Negative); Influenza B QL RT-PCR Negative (Negative); RSV RNA, RT-PCR Negative (Negative); SARS-CoV-2 RNA PCR Negative
--- NOTE | 2022-06-04 06:24 | PC.NURSE ---
Pt unable to provide urine sample but does not want a straight cath. Water given to pt per Dr. Paiz.
--- NOTE | 2022-06-04 07:10 | PC.NURSE ---
Patient report received from JENNY Rivera. All questions answered and care of patient assumed.
--- NOTE | 2022-06-04 07:11 | PC.NURSE ---
Nurse report given to Gregg RN and Urvashi ALVARADO
[2022-06-04 07:19] LABS: Appearance Urine Clear (Clear); Bilirubin Urine Negative (Negative); Blood Urine Negative (Negative); Color Urine Yellow (Yellow); Glucose Urine UA Negative (Negative); Ketones Urine Negative (Negative); Leukocyte Esterase Ur 1+ LEU/UL (Negative); Nitrate Urine Negative (Negative); Protein Urine Negative (Negative); Specific Grav Ur 1.015 (1.001-1.035); Urobilinogen Urine 0.2 mg/dL (<2.0)
[2022-06-04 07:27] LABS: Bacteria Urine Trace /hpf; RBC Urine 0-2 /hpf (0-2); Squamous Epithelial Cell Urine Many /hpf (Few)
[2022-06-04 07:33] LABS: Add Urine Microscopic? YES
--- NOTE | 2022-06-04 08:37 | PC.NURSE ---
Attempted to call patient's to update on admission status but unable to reach him. Patient aware.
--- NOTE | 2022-06-04 09:05 | PC.NURSE ---
This patient, Jolie Banks, was admitted to [facility] Surg Room 306-01. Patient/family oriented to hospital policies and general routines including ID bracelet, bed and alarms, visiting hours, pain management, procedures, bathroom and other care routines, personal items, smoking policy, room service/diet, and visiting hours. Report received from Gregg ALVARADO. Information on how to activate the Rapid Response Team has been discussed. Patient/Family are encouraged to report perceived risks to care and to ask questions if they do not understand what they are told or what they should do.
[2022-06-04 10:07] LABS: Troponin I < 0.012 ng/mL (0.000-0.034)
--- NOTE | 2022-06-04 13:50 | PM.IMHP ---
H&P: HPI History of Present Illness Date/Time: 06/04/22 13:50 Chief Complaint: Weakness Narrative: This is a 71-year-old female patient who resides with her . She came to the emergency room with chief complaint of generalized weakness. The patient stated that she has been weaker than normal and her primary care doctor's been scheduling her for some physical therapy. The patient reported that today she got up and then slid down the wall. EMS was activated. The patient has been a little bit less active than normal. She denies any fever chills or any cough. She denies any nausea vomiting or diarrhea. No decrease in appetite. Sodium was 136 with a normal baseline. Troponin nonreactive x2. The patient had 1+ leukocyte esterase with wbc's 10- 15. Many epithelial squamous cells noted. This may be a contaminate. Influenza a B RSV and COVID negative. The patient was given Rocephin in the emergency room. The patient is being admitted to observation status on the date of service of 06/04/2022 Review of Systems Review of Systems: See HPI All systems reviewed & are unremarkable except as noted in HPI and below Constitutional: Constitutional: Reports as per HPI and Reports no additional constitutional complaints Eyes: Eyes: Reports as per HPI and Reports no additional eye complaints ENT: Reports system reviewed and no additional complaints, except as documented and Reports Normal hearing present Cardiovascular: Cardiovascular: Reports no additional cardiovascular complaints Respiratory: Respiratory: Reports no additional respiratory complaints and Reports no additional respiratory complaints Gastrointestinal: Gastrointestinal: Reports as per HPI and Reports no additional gastrointestinal complaints Musculoskeletal: Musculoskeletal: Reports no additional musculoskeletal complaints Integumentary/Breasts: Skin/Breast: Reports system reviewed and no additional complaints, except as docu and Reports as per HPI Neurologic: Reports system reviewed and no additional complaints, except as documented, Reports as per HPI and Reports Normal hearing present Psychiatric: Psychiatric: Reports no additional psychiatric complaints and Reports as per HPI Endocrine: Endocrine: Reports no additional endocrine complaints Hematologic/Lymphatic: Hematologic/Lymphatic: Reports no additional hematologic/lymphatic complaints Allergic/Immunologic: Allergic/Immunologic: Reports no additional allergic/immunologic complaints [facility] Past Medical History Medical History (Updated 06/04/22 @ 16:45 by Farhana Rose NP) Arthritis Bilateral cataracts Essential (primary) hypertension Glaucoma Herniated disc lower back History of colon polyps Hx of deep venous thrombosis Hypercholesteremia Lumbar back pain with radiculopathy affecting left lower extremity Mixed hyperlipidemia 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 Post-menopausal Spinal stenosis at L4-L5 level Surgical History Surgical History (Updated 06/04/22 @ 16:37 by Farhana Rose NP) History of back surgery History of cataract extraction History of tonsillectomy Hx of arthroscopy Hx of hysterectomy Status post cervical discectomy Family History Family History Mother Diabetes mellitus Hypertension Cerebrovascular accident Sibling Breast cancer Family history of arthritis Other Family history of cardiovascular disease Family history of coronary artery disease Family history of malignant neoplasm Family history of premature coronary heart disease Social History Social History (Updated 06/04/22 @ 16:32 by Farhana Rose NP) Social History: The patient lives with her . She has no children. She is retired from [employer]. Her is a [employer] worker for healthcare. Code status full code Smoking status: Never smoker Second hand tobacco smoke exposure: Yes Alcohol intake: never Alcohol u
[2022-06-04 16:51] LABS: Glucose Point of Care 103 mg/dl (65-105)
[2022-06-04] MEDS: prednisoLONE ACETATE 1% OPHTH 5 ML 1 DROP RIGHT EYE (17:32)
[2022-06-04] MEDS: RIVAROXABAN 20 MG TABLET PO (17:32)
[2022-06-04] MEDS: ROSUVASTATIN 10 MG TABLET 40 MG PO (21:22)
[2022-06-04] MEDS: LATANOPROST 0.005% OP SOLN 2.5 ML BTL 1 DROP LEFT EYE (21:22)
[2022-06-04] MEDS: DORZOLAMIDE/TIMOLOL OPHTH SOL 10 ML BOTTLE 1 DROP EACH EYE (21:22)
[2022-06-05 04:42] VITALS: BP 124/80; PULSE 94; RESP 16; TEMP 36.7; O2SAT 100
[2022-06-05 06:28] LABS: Basophils Percent Auto 0.5 % (0.2-1.2); Eosinophils Absolute Auto 0.1 K/mm3 (0-0.3); Hematocrit 35.4 % (37.0-47.0); Hemoglobin 11.4 g/dL (12.0-15.0); Immature Granulocyte Absolute 0.02 K/mm3 (0.00-0.031); Immature Granulocyte Percent A 0.3 % (0-0.5); Lymphocytes Percent Auto 21.8 % (18.3-44.2); Mean Corpuscular HGB Conc 32.2 g/dl (32-36); Mean Corpuscular Hemoglobin 27.2 pg (26-34); Mean Corpuscular Volume 84.5 fl (80-100); Mean Platelet Volume 8.5 fl (7.4-10.4); Monocytes Absolute Auto 0.5 K/mm3 (0.1-0.6); Monocytes Percent Auto 7.9 % (2.6-8.5); Neutrophils Absolute Auto 4.1 K/mm3 (1.3-6.7); Neutrophils Percent Auto 68.5 % (45.5-73.1); Platelet Count Result 260 k/mm3 (150-375); Red Blood Count 4.19 M/mm3 (4.2-5.4); Red Cell Distribution Width 14.8 % (11.5-14.5)
[2022-06-05 06:40] LABS: Anion Gap 2 mmol/L (8-16); Blood Urea Nitrogen 12 mg/dL (7-17); Calcium 8.9 mg/dL (8.4-10.2); Carbon Dioxide 28 mmol/L (22-30); Chloride 102 mmol/L (98-107); Estimated CRCL calculation 68 ml/min; Estimated Glomerular Filt Rate > 60; Glucose 91 mg/dL (65-110); Hemoglobin A1C 5.7 % (<5.7); Lactic Acid Reflex 0.8 mmol/L (0.7-2.0); Potassium 3.7 mmol/L (3.4-5.0); Sodium 132 mmol/L (137-145)
[2022-06-05 06:41] LABS: Alanine Aminotransferase 14 U/L (6-35); Albumin Level 3.6 g/dL (3.5-5.1); Alkaline Phosphatase 118 U/L (38-126); Aspartate Amino Transferase 19 U/L (14-36); Bilirubin,Total 0.7 mg/dL (0.2-1.3); Magnesium 2.1 mg/dL (1.6-2.3)
[2022-06-05 08:03] LABS: Vitamin D 25 Hydroxy 29.8 ng/mL
--- NOTE | 2022-06-05 08:12 | PCPTNOTE ---
Pt was evaluated on 06/04/22 for PT. PT treatment orders were canceled the same day. New order for PT came through came through soon after. New PT order were cancelled (duplicate order) and treatment orders put back in.
[2022-06-05] MEDS: CHOLECALCIFEROL 1,000 UNITS TABLET 2000 UNITS PO (08:32)
[2022-06-05] MEDS: prednisoLONE ACETATE 1% OPHTH 5 ML 1 DROP RIGHT EYE ×2 (08:32→17:16)
[2022-06-05] MEDS: THIAMINE HCL 100 MG TABLET PO (08:32)
[2022-06-05] MEDS: DORZOLAMIDE/TIMOLOL OPHTH SOL 10 ML BOTTLE 1 DROP EACH EYE ×2 (08:32→20:42)
[2022-06-05 08:53] LABS: Folic Acid 5.7 ng/mL (2.76->20)
--- NOTE | 2022-06-05 11:14 | PM.IMPN ---
Progress Note: A&P Assessment and Plan (1) UTI (urinary tract infection): Code(s): N39.0 - Urinary tract infection, site not specified Status: Acute Assessment and Plan: Patient presented with c/o weakness. UA with 10-15 WBC, 1+ leukocytes, no nitrates and many epi cells. Treated with Rocephin 1 gram IV in ED. No leukocytosis, suprapubic or CVA tenderness. Hold antibiotics for now pending urine and blood culture results. (2) Generalized weakness: Code(s): R53.1 - Weakness Status: Acute Assessment and Plan: Likely secondary to deconditioning, possibly secondary to UTI. Continue PT and OT evaluation Care coordination following for SNF placement. TSH within normal limits, B12 327, Folate 5.7, Vit D 25-OH 29.8 (3) Prediabetes: Code(s): R73.03 - Prediabetes Status: Chronic Assessment and Plan: Check blood sugars a.c. and HS. Hypoglycemic protocol with sliding scale insulin. A1c 5.7%. Stable. (4) Mixed hyperlipidemia: Code(s): E78.2 - Mixed hyperlipidemia Status: Chronic Assessment and Plan: Chronic, continue with Crestor Monitor liver enzymes (5) Glaucoma: Qualifiers: Glaucoma type: unspecified Code(s): H40.9 - Unspecified glaucoma Status: Chronic Assessment and Plan: Chronic, Continue dorzolamide-timolol Q12 hours and latanoprost at HS. (6) DVT (deep venous thrombosis): Qualifiers: Affected thrombotic vein of extremity: femoral Chronicity: acute DVT location: lower extremity Laterality: left Qualified Code(s): I82.412 - Acute embolism and thrombosis of left femoral vein Code(s): I82.409 - Acute embolism and thrombosis of unspecified deep veins of unspecified lower extremity Status: Acute Assessment and Plan: H/O of DVT left femoral and popliteal veins 2019. Repeat US venous doppler negative in 01/2022. Venous doppler this admission shows focal nonocclusive thrombus thrombus in the left popliteal vein. She reports taking Xarelto as prescribed, dose is appropriate for DVT maintenance, and last refilled 04/26/22 for 90 days. Will transition to Eliquis 10 mg PO BID x 7 days, 5 mg PO BID following (7) Frequent falls: Code(s): R29.6 - Repeated falls Status: Acute Assessment and Plan: Secondary to generalized weakness. Management as above. Plan CODE STATUS: FULL CODE Disposition: plan to discharge to SNF Time Spent With Patient Time: 30 minutes time spent reviewing nursing and specialist documentation, labs, vitals, and patient assessment. Subjective Date/time seen: 06/05/22 11:14 Exam Narrative: General: No acute distress.? Well-developed older adult female sitting up in the chair. BMI 37 kg/m2. Mental Status/Psych: Awake, alert and oriented x3, forgetful, with clear speech. Neutral mood and affect. Pleasant and cooperative. Skin: Skin fair, warm, dry and intact without rashes or lesions. No open wounds. Good turgor.? HEENT: Normocephalic. Sclera is non-icteric. Pupils equal and round. Grossly normal hearing. Oral mucosa pink and moist. Oropharynx within normal limits. Neck: Supple. No JVD. Heart: S1 and S2 regular rate and rhythm. No murmurs, gallops, or rubs auscultated. Chest: Respirations even and unlabored. Lung sounds are clear to auscultation in all lobes bilaterally without wheezes, rhonchi, or rales. Abdomen: Soft, round and non-tender to palpation.? Bowel sounds present in all 4 quadrants. No suprapubic tenderness or CVA tenderness. Extremities:? Grossly normal ROM all extremities. +1 left pretibial edema. Radial and dorsalis pedis pulses +2 bilaterally. Neurological: No focal deficits. Cranial nerves 2-12 grossly intact.?No facial droop. Objective Data Vital Signs Vital Signs: Vital Signs - 24 hr 06/04/22 11:33 06/04/22 14:00 06/04/22 20:35 Temperature 96.3 F L 98.0 F Pulse Rate 87 96 Respiratory Rate 13 16
[2022-06-05 14:00] VITALS: BP 127/86; PULSE 81; RESP 20; TEMP 36.3; O2SAT 92
[2022-06-05 20:00] VITALS: PULSE 70; RESP 16; O2SAT 100
[2022-06-05] MEDS: ROSUVASTATIN 10 MG TABLET 40 MG PO (20:40)
[2022-06-05] MEDS: LATANOPROST 0.005% OP SOLN 2.5 ML BTL 1 DROP LEFT EYE (20:42)
[2022-06-05] MEDS: APIXABAN 5 MG TABLET 10 MG PO (21:00)
[2022-06-05 22:00] VITALS: BP 144/93; PULSE 70; RESP 16; TEMP 36.4; O2SAT 100
[2022-06-06 06:00] VITALS: BP 108/70; PULSE 90; RESP 16; TEMP 36.4; O2SAT 100
[2022-06-06 06:10] LABS: Hematocrit 35.5 % (37.0-47.0); Hemoglobin 11.3 g/dL (12.0-15.0); Mean Corpuscular HGB Conc 31.8 g/dl (32-36); Mean Corpuscular Hemoglobin 27.1 pg (26-34); Mean Corpuscular Volume 85.1 fl (80-100); Mean Platelet Volume 8.7 fl (7.4-10.4); Platelet Count Result 271 k/mm3 (150-375); Red Blood Count 4.17 M/mm3 (4.2-5.4)
[2022-06-06 08:32] LABS: Glucose Point of Care 102 mg/dl (65-105)
[2022-06-06] MEDS: THIAMINE HCL 100 MG TABLET PO (09:41)
[2022-06-06] MEDS: APIXABAN 5 MG TABLET 10 MG PO (09:41)
[2022-06-06] MEDS: prednisoLONE ACETATE 1% OPHTH 5 ML 1 DROP RIGHT EYE (09:41)
[2022-06-06] MEDS: CHOLECALCIFEROL 1,000 UNITS TABLET 2000 UNITS PO (09:41)
[2022-06-06] MEDS: DORZOLAMIDE/TIMOLOL OPHTH SOL 10 ML BOTTLE 1 DROP EACH EYE (09:42)
[2022-06-06 11:35] LABS: Glucose Point of Care 90 mg/dl (65-105)
[2022-06-06 14:10] VITALS: BP 127/75; PULSE 81; RESP 18; TEMP 36.6; O2SAT 100
--- NOTE | 2022-06-06 15:49 | PM.DS ---
DS: Admitting Diagnosis Discharge Date 06/06/2022 1549 Admitting Diagnosis UTI (urinary tract infection) Generalized weakness Prediabetes Mixed hyperlipidemia Hx of deep venous thrombosis DS: Discharge Diagnosis Discharge Diagnosis (1) UTI (urinary tract infection): Code(s): N39.0 - Urinary tract infection, site not specified Status: Acute Assessment and Plan: Patient presented with c/o weakness. UA with 10-15 WBC, 1+ leukocytes, no nitrates and many epi cells. Treated with Rocephin 1 gram IV in ED and given 1 dose upon admission. Antibiotic stopped 06/05/22 in absence of symptoms. No leukocytosis, suprapubic or CVA tenderness. Urine culture without growth. No further antibiotics needed. (2) Generalized weakness: Code(s): R53.1 - Weakness Status: Acute Assessment and Plan: Likely secondary to deconditioning, possibly secondary to UTI. Continue PT and OT evaluation Care coordination following for SNF placement. TSH within normal limits, B12 327, Folate 5.7, Vit D 25-OH 29.8 (3) Prediabetes: Code(s): R73.03 - Prediabetes Status: Chronic Assessment and Plan: Check blood sugars a.c. and HS. Hypoglycemic protocol with sliding scale insulin. A1c 5.7%. Stable. (4) Mixed hyperlipidemia: Code(s): E78.2 - Mixed hyperlipidemia Status: Chronic Assessment and Plan: Chronic, continue with Crestor Monitor liver enzymes (5) Glaucoma: Qualifiers: Glaucoma type: unspecified Code(s): H40.9 - Unspecified glaucoma Status: Chronic Assessment and Plan: Chronic, Continue dorzolamide-timolol Q12 hours and latanoprost at HS. (6) DVT (deep venous thrombosis): Qualifiers: Affected thrombotic vein of extremity: femoral Chronicity: acute DVT location: lower extremity Laterality: left Qualified Code(s): I82.412 - Acute embolism and thrombosis of left femoral vein Code(s): I82.409 - Acute embolism and thrombosis of unspecified deep veins of unspecified lower extremity Status: Acute Assessment and Plan: H/O of DVT left femoral and popliteal veins 2019. Repeat US venous doppler negative in 01/2022. Venous doppler this admission shows focal nonocclusive thrombus thrombus in the left popliteal vein. She reports taking Xarelto as prescribed, dose is appropriate for DVT maintenance, and last refilled 04/26/22 for 90 days. Transitioned and tolerating well Eliquis 10 mg PO BID x 7 days, 5 mg PO BID following (7) Frequent falls: Code(s): R29.6 - Repeated falls Status: Acute Assessment and Plan: Secondary to generalized weakness. Management as above. DS: Summary Hospital Course Reason for hospitalization: weakness Hospital Course: Patient is a 71-year-old female patient, from home. She came to the emergency room with chief complaint of generalized weakness.? The patient stated that she has been weaker than normal and her primary care doctor's been scheduling her for some physical therapy.? On the day of admission, she reported getting up and sliding down the wall.? EMS was activated.? The patient has been a little bit less active than normal.? She denied fever, chills, or any cough.? She denied nausea, vomiting, or diarrhea.? No decreased in appetite.? Sodium was 136 with a normal baseline.? Troponin nonreactive x2.? The patient had 1+ leukocyte esterase with wbc's 10- 15.? Many epithelial squamous cells noted.? Influenza a B RSV and COVID negative.? The patient was given Rocephin in the emergency room.? She was admitted to the medical floor and continued on IV Rocephin initially, however, the patient denied urinary symptoms and antibiotics were stopped. Urine culture was negative for bacterial growth. Blood cultures were negative to date. PT/OT was consulted and recommend rehab which the patient and spouse were agreeable to. Venous doppler US was obtained that showed new left
[2022-06-06 16:24] LABS: EDCOVIDSCREEN Negative (Negative)
== END 2022-06-06 16:50 ==
LOC: ANHED 07:29 → ANH3MEDSUR 08:34
PROVIDERS: Emergency Medicine; Nurse Practitioner; Nurse Practitioner Family; Admitting Provider Family Medicine; Emergency Provider Emergency Medicine; PCP Nurse Practitioner; Visit Provider Student in an Organized Health Care Education/Training Program
DX: N39.0 Urinary tract infection, site not specified (principal); R53.1 Weakness; R73.03 Prediabetes; H40.9 Unspecified glaucoma; I82.412 Acute embolism and thrombosis of left femoral vein; I82.432 Acute embolism and thrombosis of left popliteal vein; M19.90 Unspecified osteoarthritis, unspecified site; R29.6 Repeated falls; I10 Essential (primary) hypertension; Z20.822 Contact with and (suspected) exposure to COVID-19; E78.2 Mixed hyperlipidemia; R91.1 Solitary pulmonary nodule; M54.59 Other low back pain; M79.89 Other specified soft tissue disorders; M54.16 Radiculopathy, lumbar region; M48.061 Spinal stenosis, lumbar region without neurogenic claudication; F10.90 Alcohol use, unspecified, uncomplicated; Z79.52 Long term (current) use of systemic steroids; Z86.718 Personal history of other venous thrombosis and embolism; Z79.899 Other long term (current) drug therapy; Z82.61 Family history of arthritis; Z82.49 Family history of ischemic heart disease and other diseases of the circulatory system
CPT/HCPCS: 36415; 70450; 71045; 72125; 80053; 81001; 82306; 82607; 82746; 82948; 83036; 83605; 83735; 83880; 84145; 84443; 84484; 85025; 85027; 85610; 85730; 87040; 87086; 87426; 87637; 93005; 93970; 96365; 96366; 97110; 97116; 97161; 97165; 97530; 97535; 99285; A9270; C9803; G0378; J0696

== ENCOUNTER → 2023-02-18 07:44 | Outpatient (CLI) | payer MEDICARE, SELFPAY ==
--- NOTE | ~2023-02-18 | XR_ITS ---
Right Shoulder Technique: AP and axillary views were obtained. Clinical History: Pain Findings: No fracture or dislocation is seen. Osseous alignment is anatomic. Minimal degenerative amber nge of the glenohumeral and acromioclavicular joints noted.. Soft tissues are unremarkable. Impression: Minimal degenerative changes, as above. Reviewed, dictated and finalized at location . S AND SERVICE CONSULTANT Impression: Minimal degenerative changes, as above.
--- NOTE | ~2023-02-18 | XR_ITS ---
Left Knee Technique: AP, lateral, and sunrise views were obtained. Clinical History: Pain Findings: No fracture or dislocation is seen. Osseous alignment is anatomic. Mild to moderate tricomp artmental degenerative spurring is present. Soft tissues are unremarkable. No joint effusion is seen. Impression: [id number] tricompartmental degenerative spurring. Reviewed, dictated and finalized at location . L EXAMINER Impression: [id number] tricompartmental degenerative spurring.
--- NOTE | ~2023-02-18 | XR_ITS ---
Right Knee Technique: AP, lateral, and sunrise views were obtained. Clinical History: Pain Findings: No fracture or dislocation is seen. Osseous alignment is anatomic. Mild tricompartmental de generative spurring present. Soft tissues are unremarkable. No joint effusion is seen. Impression: Mild tricompartmental degenerative spurring. Reviewed, dictated and finalized at location . OMER SALES CONSULTANT Impression: Mild tricompartmental degenerative spurring.
== END ==
PROVIDERS: PCP Nurse Practitioner; Visit Provider Nurse Practitioner
DX: M19.011 Primary osteoarthritis, right shoulder (principal); M17.0 Bilateral primary osteoarthritis of knee
CPT/HCPCS: 73030; 73562

== ENCOUNTER 2023-03-09 07:58 | Outpatient (RCR) | payer MEDICARE, SELFPAY ==
--- NOTE | 2023-03-09 08:59 | OPREHPOC ---
Outpatient Therapy Plan of Care This is a Multidisciplinary Plan of Care that may contain components documented by all disciplines (PT, OT, and ST.) PT Problem 1 PT Problem #1 Knowledge Deficit PT Goal 1 Goal 1* indep with HEP 2* correct transfer techniques PT Problem 2 PT Problem #2 Pain PT Goal 1 Goal 1* monitor pain in knees during session PT Problem 3 PT Problem #3 Impaired Strength PT Goal 1 Goal 1* pt perform 20 reps of supine R and L LE exercises 2* sit/stand transfer with 1 UE use PT Problem 4 PT Problem #4 Impaired Functional Mobil PT Goal 1 Goal 1* TUG with wheeled walker 26 seconds 2* Tinetti balance/gait score of 21/28, to decrease fall risk
--- NOTE | 2023-03-09 09:00 | PTOPEVAL1 ---
Assessment and note entered by Bobbi Thomas, PT Evaluation Information Assessment Status Evaluation Diagnosis R shoulder, R and L knee pain Onset Dec 2022 Subjective Information having more falls, in the past 6 months about 6 times; getting out of bed, moving around her home; not sure why falling--? legs give out, legs under her and she lands on her knee; had xrays and there were not any fractures had PT about 1 year ago due to problems with legs; ACTIVITY: use wheeled walker all of the time; light meal prep, indep with bathing, dressing; have problems doing things due to legs tired and have to sit down; can use R arm but it hurts; does some sitting leg exercises; have entry ramp into her home and 2 steps into living room area GOAL: pain in legs and R arm to go away Reported Pain Level Pain Score 0,0: Self Report Additional Pain Score Comments pain range of both knees/legs in the past week 0-7 /10; pain range of R shoulder 0-10/10; Assessment PT Clinical Summary Shavonne has the diagnosis of R shoulder, R and L knee pain, with increased falls and decreased mobility. She reports 6 falls in the past 6 months--getting out of bed and walking. Lashonda- caregiver with pt today. Pt's is undergoing cancer treatments and he is the one that provides transportation for her. She does not go out into community. With the evaluation; she has decreased strength of both legs, with decreased mobility- using wheeled walker; TUG time of 34 seconds and Tinetti balance score of 14/28= high risk for falls; difficulty with supine/sit/stand transfers-- labored to perform. She has decreased R shoulder strength and ROM. Skilled PT services are indicated to increase LE strength, transfer and gait/balance skills, with education for safety, HEP. Plan of Care Interventions Gait Training,Hot Pack/Cold Pack,Neuro Re- education,Patient/Caregiver Education,Therapeutic
--- NOTE | 2023-04-10 11:12 | PTOPDC ---
Assessment and note entered by Bobbi Thomas, PT Discharge Information Assessment PT Clinical Summary Jolie received the PT evaluation on 03-09-23 and did not return for any further treatment. She will be discharged at this time. The goals were not addressed. Plan of Care PT Services Indicated No
== END 2023-04-10 14:25 | disposition home or self-care (01) ==
LOC: ANHPT 07:58
PROVIDERS: PCP Nurse Practitioner; Visit Provider Nurse Practitioner
DX: M25.511 Pain in right shoulder (principal); M25.561 Pain in right knee; M25.562 Pain in left knee
CPT/HCPCS: 97110; 97161

== ENCOUNTER 2023-05-23 05:09 | Inpatient (IN) | payer MEDICARE, SELFPAY ==
[2023-05-23] VITALS (20 sets, daily range): BP systolic 94–129; BP diastolic 52–84; PULSE 47–68; RESP 12–24; TEMP 36.6; O2SAT 98–100; BMI 46.3
--- NOTE | ~2023-05-23 | NM_ITS ---
EXAMINATION: NM renal flow and function DATE: 05/27/2023 14:17 INDICATION: Acute renal insufficiency TECHNIQUE: 7.7 mCi Tc-99m MAG3 was administered IV. The patient was scanned in the supine position. A posterior abdominal radionuclide angiogram was obtained. A subsequent time course of static images of the kidneys, ureters, and bladder was obtained. COMPARISON: CT dated 05/24/2023 FINDINGS: The posterior abdominal radionuclide angiogram and sequential static images show normal size, positio n, and morphology of the kidneys. Of note the calculated time to peak and peak to half peak values ar e obscured by the increased noise in the initial 2 minutes of imaging. The time to peak values are ob tained by direct visualization of the renograms are in the T1/2 for clearance is indirectly calculate d from the renogram curves following the initial 2 minutes of imaging. Peak renal parenchymal uptake was 4 min in left kidney and 4 min in right kidney (normal peak 3-5 minutes). The relative early jluis l uptake was 57% on the left and 43% on the right (<40% is abnormal). No abnormalities of the ureter s or bladder are seen. T1/2 for clearance of activity from the left kidney and proximal collecting system was 17 minutes. T1/2 for clearance of activity from the right kidney and proximal collecting system was 18 minutes. IMPRESSION: 1. Symmetric kidney function. 2. There delayed activity clearance from both kidneys without evident hydronephrosis on the scintigr aphic images were on the CT images from 3 days prior which suggests nonspecific nephropathy Reviewed, dictated and finalized at location A. SURGEON HELPER IMPRESSION: 1. Symmetric kidney function. 2. There delayed activity clearance from both kidneys without evident hydronep hrosis on the scintigraphic images were on the CT images from 3 days prior whic h suggests nonspecific nephropathy
--- NOTE | ~2023-05-23 | CT_ITS ---
Non-contrast CT scan of the Abdomen and Pelvis Clinical indication: Abdominal pain Technique: 2.5 mm axial scans were obtained through the abdomen and pelvis without intravenous or or al contrast. Dose reduction technique was used on this scan by utilizing automated exposure control a nd iterative reconstruction technique. The dose-length product (DLP) was 1439.25 mGy-cm. COMPARISON: 11/06/2019 Findings: Images through the lung bases reveal 6 mm pleural-based nodule the right lower lobe. There is right basilar atelectatic change. There is no evidence of renal or ureteral calculi. The kidneys and the ureters are nondilated. The liver, spleen, pancreas, gallbladder, and adrenals appear normal. There is no aortic aneurysm. There is no evidence of bowel obstruction. Images through the pelvis were performed. There is no evidence of ascites or lymphadenopathy. Urinary bladder unremarkable. Patient appears to be post hysterectomy. No pelvic mass seen. Impression: 6 mm right lower lobe pulmonary nodule. According to Fleischner Society criteria, for a low-risk kandi ent, follow-up CT scan in 6-12 months recommended, then consider additional 18-[address] For a hig h-risk patient, follow-up CT scans at both 6-12 months and 18-24 months are recommended. No other significant findings. Reviewed, dictated and finalized at location . ER/WAITRESS ROOM SERVICE Impression: 6 mm right lower lobe pulmonary nodule. According to Fleischner Society criteri a, for a low-risk patient, follow-up CT scan in 6-12 months recommended, then c onsider additional 18-[address] For a high-risk patient, follow-up CT scans at both 6-12 months and 18-24 months are recommended. No other significant findings.
--- NOTE | ~2023-05-23 | MR_ITS ---
EXAMINATION: MR pituitary wo/w con DATE: 05/27/2023 17:43 INDICATION: Diabetes insipidus. TECHNIQUE: Magnetic resonance imaging (MRI) of the abdomen was performed without and with 20 mL Multi Hemalatha intravenous contrast. COMPARISON: Head CT 06/04/2022 FINDINGS: The sella is enlarged, and the pituitary demonstrates a height of 4 mm, consistent with an empty sell a. The infundibulum is at midline. There is no intracranial hemorrhage, acute infarction, or abnormal intracranial mass lesion. There is chronic encephalomalacia in the anterior temporal lobes. There ar e scattered areas of nonspecific increased T2-weighted signal intensity in the cerebral white matter, which is within normal limits for the patient's age. The lateral and fourth ventricles are enlarged for the size of the sulci. There are likely changes of ocular lens replacement surgeries. The paranas al sinuses are clear. The mastoid air cells are normal. There are changes of anterior and posterior f usion procedures in cervical spine. IMPRESSION: 1. 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 2. Enlargement of the lateral and fourth ventricles. Correlate clinically for normal pressure hydroce phalus. 3. Empty sella. Reviewed, dictated and finalized at location A. NING CENTER COORDINATOR IMPRESSION: 1. 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 2. Enlargement of the lateral and fourth ventricles. Correlate clinically for n ormal pressure hydrocephalus. 3. Empty sella.
--- NOTE | ~2023-05-23 | US_ITS ---
EXAMINATION: US abdomen limited DATE: 05/26/2023 08:59 INDICATION: Abnormal liver function tests. TECHNIQUE: Multiple grayscale and Doppler ultrasound images of the abdomen were obtained. COMPARISON: CT abdomen and pelvis 09/22/2023 FINDINGS: The visualized portions of the head and body of the pancreas are normal. There is a 1.1 cm cyst in the liver. There is normal flow in main portal vein. The gallbladder is normal in size. No ga llstones or gallbladder wall thickening. There is no sonographic Delgado sign. The common duct is norm al and measures 5 mm. IMPRESSION: 1. No etiology for abnormal liver function tests. Reviewed, dictated and finalized at location A. ES INSPECTOR
--- NOTE | ~2023-05-23 | US_ITS ---
Renal-Bladder ultrasound Clinical History: Renal insufficiency Technique: Real-time sonographic imaging of the kidneys and urinary bladder was performed. Findings: The right kidney measures 8.9 cm in length and the left kidney measures 10.7 cm. There is n o hydronephrosis or renal calculus identified. Renal cortical echogenicity is within normal limits. N o renal mass lesion is identified. The urinary bladder is moderately distended at the time of this exam. No intraluminal echoes are iden tified. No abnormal wall thickening is seen. Impression: Unremarkable ultrasound of the kidneys and urinary bladder. Reviewed, dictated and finalized at location M. ER SPLICER Impression: Unremarkable ultrasound of the kidneys and urinary bladder.
--- NOTE | ~2023-05-23 | XR_ITS ---
EXAMINATION: XR knee RT 3V DATE: 05/23/2023 08:06 INDICATION: Right knee pain TECHNIQUE: Three views of the right knee were obtained. COMPARISON: 02/18/2023 FINDINGS: Alignment is normal. No fracture or osteochondral lesion. There is mild tricompartmental os teoarthritis characterized by tiny marginal osteophytes. There is a moderate-sized joint effusion. So ft tissue swelling surrounds the knee. IMPRESSION: 1. Osteoarthritis, joint effusion, and soft tissue swelling of the knee without acute osseous abnorma lity identified. Reviewed, dictated and finalized at location F. ADEN VESSEL PILOT IMPRESSION: 1. Osteoarthritis, joint effusion, and soft tissue swelling of the knee without acute osseous abnormality identified.
--- NOTE | ~2023-05-23 | XR_ITS ---
EXAMINATION: XR chest 1V portable INDICATION: Bradycardia TECHNIQUE: Portable AP chest at 0915 hours COMPARISON: 06/04/2022 FINDINGS: The lungs are free of acute opacities. No pleural effusion or pneumothorax. The cardiomedia stinal silhouette is normal. There are partially imaged surgical changes of the lower cervical spine. IMPRESSION: 1. No acute cardiopulmonary abnormality. Reviewed, dictated and finalized at location F. BIT ARTIST
--- NOTE | ~2023-05-23 | XR_ITS ---
EXAMINATION: XR shoulder LT min 2V DATE: 05/25/2023 15:10 INDICATION: Left shoulder pain. TECHNIQUE: 4 views of left shoulder were obtained. COMPARISON: None. FINDINGS: Bone alignment is normal. No fracture. There is mild osteoarthritis of glenohumeral joint a nd severe osteoarthritis of acromioclavicular joint. IMPRESSION: 1. Polyarticular osteoarthritis. Reviewed, dictated and finalized at location A. OCOPYING EQUIPMENT MECHANIC
--- NOTE | 2023-05-23 07:43 | ED.FALL ---
HPI - Fall General Chief Complaint: Fall Stated Complaint: GLF, right knee and shoulder pain Time Seen by Provider: 05/23/23 07:41 Source: patient History of Present Illness HPI Narrative: 72 years old white female came from home by ambulance with her , was walking out of the bathroom, a paper towel fell on the floor, bent over to catch it and holding the walker by the other hand, lost her balance and fell on her knees, complaining of right knee pain, denies any other injuries. She denies any fever, chills, nausea, vomiting, chest pain, shortness of breath, headache any pain or back pain. Patient declined to take any pain medication in the ED Related Data Home Medications Medication Instructions Recorded Confirmed latanoprost 0.005 % eye drops 1 drp LEFT EYE HS 01/28/22 02/18/23 prednisolone acetate 1 % eye 1 drp RIGHT EYE BID 01/28/22 02/18/23 drops,suspension dorzolamide 22.3 mg-timolol 6.8 1 drp EACH EYE Q12H 06/04/22 02/18/23 mg/mL eye drops Allergies Allergy/AdvReac Type Severity Reaction Status Date / Time No Known Allergies Allergy Verified 02/18/23 07:02 Review of Systems Review of Systems: All systems reviewed & are unremarkable except as noted in HPI and below PMFSH Past Medical History Medical History Arthritis Bilateral cataracts Essential (primary) hypertension Glaucoma Herniated disc lower back History of colon polyps Hx of deep venous thrombosis Hypercholesteremia Lumbar back pain with radiculopathy affecting left lower extremity Mixed hyperlipidemia On retirement drug therapy Post-menopausal Spinal stenosis at L4-L5 level Surgical History Surgical History History of back surgery History of carpal tunnel surgery History of cataract extraction History of decompression of ulnar nerve History of excision of lamina of cervical vertebra for decompression of spinal cord History of tonsillectomy Hx of arthroscopy Hx of hysterectomy Status post cervical discectomy Family History Family History Mother Diabetes mellitus Hypertension Cerebrovascular accident Sibling Breast cancer Family history of arthritis Other Family history of cardiovascular disease Family history of coronary artery disease Family history of malignant neoplasm Family history of premature coronary heart disease Social History Social History Social History: The patient lives with her . She has no children. She is retired from [employer]. 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 Code status full code Smoking status: Never smoker Second hand tobacco smoke exposure: Yes Alcohol intake: former Alcohol use details: social Substance use: never Substance use type: does not use Lack of Transportation: No Lack of Food: Never True Current Housing: I Have Housing Concerned About Future Housing: No Difficulty Paying Gas/Electric Bills: No Difficulty Paying for Meds: No Currently Unemployed: No Education: High School Diploma/GED Difficulty w/ Childcare or Family Care: No Living arrangements: with family Occupation/Education: retired Gender identity (if verbalized by the patient): Female Sexual Orientation (if Verbalized by the Patient): Straight or Heterosexual Spiritual care concerns: Yes (Jehovah witness) Exam Narrative: General appearance: Well-developed, well-nourished Skin: Normal color Head: Normocephalic, nontraumatic Eyes: Clear conjunctiva ENT: Oropharynx normal, ears normal, nose normal Neck: Supple, nontender Chest and respiratory: Airway patent, no respiratory distress, no accessory muscle use Heart: Bradycardia Abdomen: Soft, nontender, no organomegaly, quiet bowel sounds Vascular: Normal peripheral pulses, normal c
--- NOTE | 2023-05-23 09:09 | ECG_ITS ---
Measurements Intervals Council Rate: 49 P: 240 TX: 334 QRS: 35 QRSD: 82 T: 72 QT: 428 QTc: 386 Interpretive Statements SINUS RHYTHM NONSPECIFIC T-WAVE ABNORMALITY LOW QRS VOLTAGE IN PRECORDIAL LEADS [QRS DEFLECTION < 1.0 mV IN CHEST LEADS] ABNORMAL ECG COMPARED TO ECG 06/04/2022 04:54:36 NO SIGNIFICANT CHANGES Electronically Signed On 05-23-2023 10:21:01 DIRECTOR DERMATOLOGY by Carlos Gonzalez M.D.
[2023-05-23 10:03] LABS: Eosinophils Absolute Auto 0.2 K/mm3 (0-0.3); Eosinophils Percent Auto 4.1 % (0-4.4); Hematocrit 39.8 % (37.0-47.0); Hemoglobin 12.1 g/dL (12.0-15.0); Immature Granulocyte Absolute 0.01 K/mm3 (0.00-0.031); Immature Granulocyte Percent A 0.3 % (0-0.5); Lymphocytes Absolute Auto 1.63 K/mm3 (0.9-3.2); Mean Corpuscular HGB Conc 30.4 g/dl (32-36); Mean Corpuscular Hemoglobin 26.8 pg (26-34); Mean Corpuscular Volume 88.1 fl (80-100); Mean Platelet Volume 10.2 fl (7.4-10.4); Monocytes Absolute Auto 0.4 K/mm3 (0.1-0.6); Monocytes Percent Auto 11.3 % (2.6-8.5); Neutrophils Absolute Auto 1.6 K/mm3 (1.3-6.7); Neutrophils Percent Auto 41.3 % (45.5-73.1); Platelet Count Result 229 k/mm3 (150-375); Red Blood Count 4.52 M/mm3 (4.2-5.4); Red Cell Distribution Width 15.9 % (11.5-14.5); White Blood Count 3.9 K/mm3 (4.5-10.0)
[2023-05-23 10:14] LABS: INR 1.2; Prothrombin Time 16.2 Seconds (11.1-14.7)
[2023-05-23 10:18] LABS: Appearance Urine Cloudy (Clear); Bacteria Urine None Seen /hpf; Bilirubin Urine Negative (Negative); Blood Urine 3+ (Negative); Color Urine Yellow (Yellow); Glucose Urine UA Negative (Negative); Hyaline Casts Urine Present /lpf; Ketones Urine Negative (Negative); Leukocyte Esterase Ur Negative LEU/UL (Negative); Need Manual Microscopic Reviewed; Nitrate Urine Negative (Negative); Protein Urine 1+ mg/dL (Negative); RBC Urine 0-2 /hpf (0-2); Specific Grav Ur 1.003 (1.001-1.035); Squamous Epithelial Cell Urine None seen /hpf (Few); Urobilinogen Urine 0.2 mg/dL (<2.0); WBC Urine 0-5 /hpf
[2023-05-23 10:20] LABS: Add Urine Microscopic? YES
[2023-05-23 10:25] LABS: Troponin I < 0.012 ng/mL (0.000-0.034)
[2023-05-23] MEDS: SODIUM CHLORIDE 0.9% IV 1,000 ML 999 ML IV CONT (10:27)
[2023-05-23 10:29] LABS: Alanine Aminotransferase 52 U/L (6-35); Albumin Level 3.7 g/dL (3.5-5.1); Alkaline Phosphatase 155 U/L (38-126); Anion Gap 6 mmol/L (8-16); Aspartate Amino Transferase 119 U/L (14-36); Bilirubin,Total 0.9 mg/dL (0.2-1.3); Blood Urea Nitrogen 21 mg/dL (7-17); Calcium 10.4 mg/dL (8.4-10.2); Carbon Dioxide 27 mmol/L (22-30); Chloride 116 mmol/L (98-107); Estimated CRCL calculation 30 ml/min; Estimated Glomerular Filt Rate 33; Glucose 89 mg/dL (65-110); Potassium 3.6 mmol/L (3.4-5.0); Sodium 149 mmol/L (137-145)
--- NOTE | 2023-05-23 12:35 | ADMGEN ---
This patient, Jolie Banks, was admitted to Medical Room 349-01. Patient/family oriented to hospital policies and general routines including ID bracelet, bed and alarms, visiting hours, pain management, procedures, bathroom and other care routines, personal items, smoking policy, room service/diet, and visiting hours. Information on how to activate the Rapid Response Team has been discussed. Patient/Family are encouraged to report perceived risks to care and to ask questions if they do not understand what they are told or what they should do.
[2023-05-23] MEDS: SODIUM CHLORIDE 0.9% IV 1,000 ML 150 ML IV CONT ×2 (14:24→20:56)
--- NOTE | 2023-05-23 14:56 | PM.IMHP ---
H&P: HPI History of Present Illness Date/Time: 05/23/23 14:56 Chief Complaint: Mechanical fall Narrative: Patient is 72-year-old female who presented to the emergency department due to mechanical fall at home. Patient reports she walking with her walker and dropped her paper towels and turned to pick them up and fell hitting both knees. x-ray of right knee shows osteoarthritis, joint infusion, and soft tissue swelling without acute osseous abnormality. patient does have a past medical history of hypertension, DVT, and HLD. Evaluation in the ED showed patient to be bradycardic as low as 49. Labs also showed JAIRON with a Cr of 1.80. Patient denied any dizziness, syncope, SOB, CP, palpitations, or vision changes. will admit patient to [facility] bed and hold her metoprolol and start IV hydration for Jairon. 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 Post-menopausal Spinal stenosis at L4-L5 level Surgical History Surgical History History of back surgery History of carpal tunnel surgery History of cataract extraction History of decompression of ulnar nerve History of excision of lamina of cervical vertebra for decompression of spinal cord History of tonsillectomy Hx of arthroscopy Hx of hysterectomy Status post cervical discectomy Family History Family History Mother Diabetes mellitus Hypertension Cerebrovascular accident Sibling Breast cancer Family history of arthritis Other Family history of cardiovascular disease Family history of coronary artery disease Family history of malignant neoplasm Family history of premature coronary heart disease Social History Social History Social History: The patient lives with her . She has no children. She is retired from [email or web address]. Her is a durable power deputy prosecuting attorney for healthcare. Code status full code Smoking status: Never smoker Second hand tobacco smoke exposure: Yes Alcohol intake: former Alcohol use details: social Substance use: never Substance use type: does not use Do You Feel Safe in your Home?: Yes Lack of Transportation: No Lack of Food: Never True Current Housing: I Have Housing Concerned About Future Housing: No Difficulty Paying Gas/Electric Bills: No Difficulty Paying for Meds: No Currently Unemployed: No Education: High School Diploma/GED Difficulty w/ Childcare or Family Care: No Living arrangements: with family Occupation/Education: retired Gender identity (if verbalized by the patient): Female Sexual Orientation (if Verbalized by the Patient): Straight or Heterosexual Spiritual care concerns: Yes (Jehovah witness) Meds Home Medications and Allergies Home Medications Medication Instructions Recorded Confirmed Type latanoprost 0.005 % eye drops 1 drp LEFT EYE HS 01/28/22 05/23/23 History prednisolone acetate 1 % eye 1 drp RIGHT EYE DAILY 01/28/22 05/23/23 History drops,suspension cholecalciferol (vitamin D3) 50 50 mcg PO DAILY #90 tabs 04/29/22 05/23/23 Rx mcg (2,000 unit) tablet dorzolamide 22.3 mg-timolol 6.8 1 drp EACH EYE Q12H 06/04/22 05/23/23 History mg/mL eye drops metoprolol succinate 25 mg 25 mg PO BID #180 tabs 03/25/23 05/23/23 Rx tablet,extended release 24 hr apixaban 5 mg tablet (Eliquis) 5 mg PO BID 05/23/23 05/23/23 H
[2023-05-23 15:20] LABS: Magnesium 2.8 mg/dL (1.6-2.3)
[2023-05-23] MEDS: APIXABAN 5 MG TABLET PO (17:14)
[2023-05-23] MEDS: GABAPENTIN 300 MG CAPSULE PO (20:53)
[2023-05-23] MEDS: ROSUVASTATIN 20 MG TABLET 40 MG PO (20:53)
[2023-05-23] MEDS: THIAMINE HCL 100 MG TABLET PO (20:53)
[2023-05-23] MEDS: LATANOPROST 0.005% OP SOLN 2.5 ML BTL 1 DROP LEFT EYE (20:54)
[2023-05-23] MEDS: DORZOLAMIDE/TIMOLOL OPHTH SOL 10 ML BOTTLE 1 DROP EACH EYE (20:55)
[2023-05-23] MEDS: ACETAMINOPHEN 325 MG TABLET 650 MG PO (22:34)
[2023-05-24] VITALS (9 sets, daily range): BP systolic 115–150; BP diastolic 62–80; PULSE 50–75; RESP 14–18; TEMP 36.1–36.5; O2SAT 100
[2023-05-24] MEDS: SODIUM CHLORIDE 0.9% IV 1,000 ML 150 ML IV CONT (03:08)
[2023-05-24 06:13] LABS: Hematocrit 37.2 % (37.0-47.0); Hemoglobin 11.3 g/dL (12.0-15.0); Mean Corpuscular HGB Conc 30.4 g/dl (32-36); Mean Corpuscular Volume 88.8 fl (80-100); Platelet Count Result 225 k/mm3 (150-375); Red Blood Count 4.19 M/mm3 (4.2-5.4); White Blood Count 3.7 K/mm3 (4.5-10.0)
[2023-05-24 06:23] LABS: Hemoglobin A1C 5.7 % (<5.7)
[2023-05-24 06:27] LABS: Alanine Aminotransferase 41 U/L (6-35); Albumin Level 3.2 g/dL (3.5-5.1); Alkaline Phosphatase 156 U/L (38-126); Anion Gap 7 mmol/L (8-16); Aspartate Amino Transferase 95 U/L (14-36); Bilirubin,Total 0.6 mg/dL (0.2-1.3); Blood Urea Nitrogen 17 mg/dL (7-17); Calcium 9.7 mg/dL (8.4-10.2); Carbon Dioxide 20 mmol/L (22-30); Chloride 124 mmol/L (98-107); Estimated CRCL calculation 32 ml/min; Estimated Glomerular Filt Rate 36; Glucose 80 mg/dL (65-110); Potassium 2.9 mmol/L (3.4-5.0); Sodium 151 mmol/L (137-145)
--- NOTE | 2023-05-24 08:00 | ECG_ITS ---
Measurements Intervals Grant Rate: 47 P: 47 CO: 217 QRS: 48 QRSD: 82 T: 90 QT: 446 QTc: 395 Interpretive Statements SINUS BRADYCARDIA WITH FIRST DEGREE AV BLOCK WITH OCCASIONAL ECTOPIC PREMATURE COMPLEXES LOW QRS VOLTAGE IN PRECORDIAL LEADS [QRS DEFLECTION < 1.0 mV IN CHEST LEADS] NONSPECIFIC T-WAVE ABNORMALITY ABNORMAL ECG COMPARED TO ECG 05/23/2023 09:39:32 SINUS BRADYCARDIA NOW PRESENT FIRST DEGREE AV BLOCK NOW PRESENT Electronically Signed On 05-24-2023 8:22:32 DRILL DOCTOR by Carlos Gonzalez M.D.
--- NOTE | 2023-05-24 09:00 | PM.IMPN ---
Progress Note: A&P Assessment and Plan (1) Bradycardia, sinus: Code(s): R00.1 - Bradycardia, unspecified Status: Acute (2) JAIRON (acute kidney injury): Code(s): N17.9 - Acute kidney failure, unspecified Status: Acute (3) Mixed hyperlipidemia: Code(s): E78.2 - Mixed hyperlipidemia Status: Chronic (4) DVT (deep venous thrombosis): Qualifiers: Affected thrombotic vein of extremity: femoral Chronicity: acute DVT location: lower extremity Laterality: left Qualified Code(s): I82.412 - Acute embolism and thrombosis of left femoral vein Code(s): I82.409 - Acute embolism and thrombosis of unspecified deep veins of unspecified lower extremity Status: Acute (5) Essential (primary) hypertension: Code(s): I10 - Essential (primary) hypertension Status: Acute (6) Accident due to mechanical fall without injury: Code(s): W19.XXXA - Unspecified fall, initial encounter Status: Acute (7) Hypernatremia: Code(s): E87.0 - Hyperosmolality and hypernatremia Status: Acute Plan mechanical fall without injury -RT knee XRAY OA -PT/OT pending -EKG showing sinus Bradcardia -JAIRON secondary to dehydration Bradycardia -Hold metoprolol -Telemetry monitoring -EKG 05/24 still SB 47 with 1st degree - cardiology consulted - monitor electrolytes specially potassium and magnesium K+ >4.0/Mag >2.0 Acute Kidney Failure-Prerenal? - IV Discontinued -nephrology consulted -Renal US -NA 151 today -Avoid nephrotoxic drugs. -Monitor antihypertensive drug therapy. -Avoid NSAIDs. -Routine CMP monitoring GFR. -Monitor electrolytes especially potassium. -Antibiotic doses depending on creatinine clearance. -Cr 1.80 POA/1.7 -Routine follow-up with Nephrology as an outpatient. Hypernatremia -151 -K 2.9 -Cr 1.7 - nephrology consulted - serum osmole, urine osmo, and 24 hour urine pending -Possible diabetes insipidus -Renal US ordered HX DVT -resumed Eliquis Code status: Full code per patient DVT prophylaxis: Eliquis Stress ulcer prophylaxis: Protonix 40 daily PT/OT notes: PT/OT Pending Disposition: patient to the medical-surgical unit continuous telemetry monitoring will hold metoprolol PT/OT to continue Renal wrok-up and DI workup in progress will return home with when medically stable, nephrology consulted for further recommendations. Time Spent With Patient Time with patient: 25 - 35 minutes Subjective Date/time seen: 05/24/23 09:00 Interval history: Chief Complaint: Mechanical fall Narrative: Patient is 72-year-old female who presented to the emergency department due to mechanical fall at home.? Patient reports she walking with her walker and dropped her paper towels and turned to pick them up and fell hitting both knees. ? x-ray of right knee shows osteoarthritis, joint infusion, and soft tissue swelling without acute osseous abnormality. ? patient does have a past medical history of hypertension, DVT, and HLD.? Evaluation in the ED showed patient to be bradycardic as low as 49.? Labs also showed JAIRON with a Cr of 1.80.? Patient denied any dizziness, syncope, SOB, CP,? palpitations, or vision changes. ? will admit patient to [facility] bed and hold her metoprolol and start IV hydration for Jairon.? 05/24: Patient with hypernatremia 151, 2.9 K and Cr no improvement 1.7 some concern for DI, osmo and 24 HR urine pending, Nephrology consulted for further recommendations. Patient reports she drinks a large quantity of water at home. EKG this am showed SB 47 with BBB continue to hold Metoprolol and monitor on telemetry. Patient otherwise with no complaints Review of Systems Review of Systems: All systems reviewed & are unremarkable except as noted in HPI and below Exam Narrative: Physical Exam: -GENERAL: Alert and oriented x 3. Pleasant female in No acute distress. Well-nourished. -EYES: EOMI.
[2023-05-24] MEDS: prednisoLONE ACETATE 1% OPHTH 5 ML 1 DROP RIGHT EYE (09:41)
[2023-05-24] MEDS: CHOLECALCIFEROL 1,000 UNITS TABLET 2000 UNITS PO (09:41)
[2023-05-24] MEDS: PANTOPRAZOLE 40 MG TABLET PO (09:41)
[2023-05-24] MEDS: SERTRALINE HCL 25 MG TABLET PO (09:41)
[2023-05-24] MEDS: APIXABAN 5 MG TABLET PO ×2 (09:41→17:21)
[2023-05-24] MEDS: DORZOLAMIDE/TIMOLOL OPHTH SOL 10 ML BOTTLE 1 DROP EACH EYE ×2 (09:42→21:15)
[2023-05-24] MEDS: POTASSIUM CHLORIDE 20 MEQ PACKET (FOR LIQUID) PO (09:47)
[2023-05-24] MEDS: ACETAMINOPHEN 325 MG TABLET 650 MG PO ×2 (12:52→21:16)
--- NOTE | 2023-05-24 13:33 | PM.CNNEP ---
Assessment and Plan Assessment and plan (1) ELIZABETH (acute kidney injury): Code(s): N17.9 - Acute kidney failure, unspecified Status: Acute Assessment and Plan: renal function normal about a year ago unfortunately, no more recent labs to compare to follow-up on renal ultrasound check urine studies and CPK follow trend of repeat labs and UOP (2) Hypernatremia: Code(s): E87.0 - Hyperosmolality and hypernatremia Status: Acute Assessment and Plan: acute versus acute on chronic versus chronic?? may have been worsened by IV fluids/boluses of normal saline surprising this is an issue given she reports significant oral fluid/water intake possible diabetes insipidus? follow-up on serum and urine osmolality urine specific gravity somewhat suggestive follow-up on 24hr urine volume trial if D5W IVFs follow repeat sodium levels (3) Essential (primary) hypertension: Code(s): I10 - Essential (primary) hypertension Status: Chronic Assessment and Plan: reasonable control at this time follow trend of hemodynamics (4) Status post fall: Code(s): Z91.81 - History of falling Status: Acute Assessment and Plan: PT/OT following continue supportive therapy I will continue to follow the patient with you while she remains hospitalized and make further recommendations as deemed necessary. Thank you for allowing me to participate in care of this patient. History of Present Illness Reason for Consult Consult date: 05/24/23 Reason for consult: acute renal failure and hypernatremia Chief Complaint Chief complaint: Sinus Bradycardia,ELIZABETH,Dehydration,Multiple Falls History of Present Illness Narrative: The patient is a 72-year-old female with a past medical history as outlined below who presented to [facility] Emergency room status post fall. The patient states that she was walking with the assistance of her walker when she dropped some paper towels. She turned to pick them up and fell hitting both knees. Apparently, according to family, the patient has been having Arnold falls for a while and given this most recent one, she presented to the emergency room for further assessment. Workup and evaluation in the emergency room demonstrated the patient to be hemodynamically stable although she was somewhat bradycardic. Routine blood test demonstrated elevated creatinine of 1.80 mg/dL which is a change in comparison the labs done about a year ago. Her chemistry was also significant for hypernatremia. On further questioning, she reported no chest pain, shortness of breath, dizziness, palpitations, blurry vision, nausea, or vomiting. She was initiated on IV fluids and her metoprolol was placed on hold. Given her constellation of symptoms as well as her laboratory abnormalities, she was admitted to the hospital for further evaluation and therapy. Since her admission, her hypernatremia has worsened and her renal function remains unchanged. Renal consultation was requested due to her elevated creatinine and associated hypernatremia. Upon further questioning to the patient, she reports never being told that she had any issues or problems with her kidneys or for that matter any previous problems with her sodium level. She does report that she is always thirsty and drinks a lot a water to the point where even her family states that they think she is drinking too much water. She also reports significant urine output but she just assumed this was secondary to the fact that she was drinking somewhat water. She states that she is always thirsty because she always feels that her mouth and tongue are dry. She denies any hematuria, dysuria, flank pain, CVA tenderness, or foamy urine, but does admit she does have issues /problems with urinary incontinence. Currently, the time my evaluation, she appears to be in no acute distress.? Review of Systems
[2023-05-24 19:11] LABS: Albumin Level 3.4 g/dL (3.5-5.1); Anion Gap 4 mmol/L (8-16); Blood Urea Nitrogen 17 mg/dL (7-17); Calcium 9.9 mg/dL (8.4-10.2); Carbon Dioxide 25 mmol/L (22-30); Chloride 122 mmol/L (98-107); Estimated CRCL calculation 30 ml/min; Estimated Glomerular Filt Rate 33; Glucose 103 mg/dL (65-110); Phosphorus 3.9 mg/dL (2.5-4.5); Potassium 3.1 mmol/L (3.4-5.0); Sodium 151 mmol/L (137-145)
[2023-05-24] MEDS: GABAPENTIN 300 MG CAPSULE PO (21:16)
[2023-05-24] MEDS: ROSUVASTATIN 20 MG TABLET 40 MG PO (21:16)
[2023-05-24] MEDS: THIAMINE HCL 100 MG TABLET PO (21:16)
[2023-05-24] MEDS: LATANOPROST 0.005% OP SOLN 2.5 ML BTL 1 DROP LEFT EYE (21:17)
[2023-05-24] MEDS: POTASSIUM CHLORIDE 20 MEQ ER TABLET 40 MEQ PO (21:20)
[2023-05-24] MEDS: DEXTROSE 5% 1,000 ML 1,000 ML 100 ML IV CONT (21:20)
[2023-05-25] VITALS (10 sets, daily range): BP systolic 132–134; BP diastolic 81–90; PULSE 47–66; RESP 18–21; TEMP 36.1–36.5; O2SAT 100
[2023-05-25 05:54] LABS: Hematocrit 39.9 % (37.0-47.0); Hemoglobin 12.5 g/dL (12.0-15.0); Mean Corpuscular HGB Conc 31.3 g/dl (32-36); Mean Corpuscular Hemoglobin 27.4 pg (26-34); Mean Corpuscular Volume 87.5 fl (80-100); Mean Platelet Volume 9.7 fl (7.4-10.4); Platelet Count Result 233 k/mm3 (150-375); Red Blood Count 4.56 M/mm3 (4.2-5.4); Red Cell Distribution Width 16.1 % (11.5-14.5); White Blood Count 3.6 K/mm3 (4.5-10.0)
[2023-05-25 06:06] LABS: Alanine Aminotransferase 47 U/L (6-35); Albumin Level 3.5 g/dL (3.5-5.1); Alkaline Phosphatase 163 U/L (38-126); Anion Gap 7 mmol/L (8-16); Aspartate Amino Transferase 101 U/L (14-36); Bilirubin,Total 0.7 mg/dL (0.2-1.3); Blood Urea Nitrogen 16 mg/dL (7-17); Calcium 10.1 mg/dL (8.4-10.2); Carbon Dioxide 23 mmol/L (22-30); Chloride 121 mmol/L (98-107); Creatine Kinase 1201 U/L (30-135); Estimated CRCL calculation 30 ml/min; Estimated Glomerular Filt Rate 33; Glucose 86 mg/dL (65-110); Potassium 3.3 mmol/L (3.4-5.0); Sodium 151 mmol/L (137-145)
[2023-05-25 08:54] LABS: Lipase 25 U/L (23-300)
[2023-05-25] MEDS: SERTRALINE HCL 25 MG TABLET PO (08:59)
[2023-05-25] MEDS: CHOLECALCIFEROL 1,000 UNITS TABLET 2000 UNITS PO (08:59)
[2023-05-25] MEDS: PANTOPRAZOLE 40 MG TABLET PO (08:59)
[2023-05-25] MEDS: APIXABAN 5 MG TABLET PO ×2 (08:59→17:50)
[2023-05-25] MEDS: prednisoLONE ACETATE 1% OPHTH 5 ML 1 DROP RIGHT EYE (09:00)
[2023-05-25] MEDS: DORZOLAMIDE/TIMOLOL OPHTH SOL 10 ML BOTTLE 1 DROP EACH EYE ×2 (09:00→20:35)
[2023-05-25] MEDS: POTASSIUM CHLORIDE 20 MEQ ER TABLET 40 MEQ PO (09:11)
--- NOTE | 2023-05-25 11:01 | PM.CNCAR ---
Assessment and Plan Assessment and plan (1) Accident due to mechanical fall without injury: Code(s): W19.XXXA - Unspecified fall, initial encounter Status: Acute (2) Bradycardia, sinus: Code(s): R00.1 - Bradycardia, unspecified Status: Acute Plan This is a 72-year-old lady who reports a history of hypertension dyslipidemia and prior DVT with ongoing anticoagulation treatment. She has been falling frequently for approximately a year. This has become a more frequent problem recently. She is not experiencing episodes of syncope and I do not believe that her sinus bradycardia is playing a role in this. Her metoprolol has been stopped presumably because of this which I believe is appropriate. Her heart rate is currently 58 beats per minute her cardiac exam is otherwise unremarkable. At this point I do not have any additional cardiac recommendations as she is not having symptomatic bradycardia in my opinion. cardiology will sign off please ask if our services are needed Justo Hurtado MD [facility] History of Present Illness History of Present Illness Consult date/time: 05/25/23 11:01 Reason For Visit: Sinus Bradycardia,ELIZABETH,Dehydration,Multiple Falls Narrative: This is a 72-year-old woman I am seeing today at the request of the hospitalist because of bradycardia. Patient is unknown to me prior to this encounter. She is a lady that reports no prior knowledge of any cardiac problems. She says that she was brought to the hospital because of a fall that occurred over the weekend. She says that she has been falling for the last year on occasion several times in 2022 and that is becoming more frequent problem currently. During a recent weeks she had at least 5 or 6 falls. She uses a walker at home because of this lives at home with her . She says that her legs get weak at times she tripped over something and then she falls. She is clear in stating that she is not falling because of loss of consciousness lightheadedness syncope or presyncope. She reports no history of palpitations shortness of breath chest pain orthopnea or PND. She apparently has a history of chronic lower extremity venous insufficiency and has a history of prior DVT and for that reason is chronically being maintained on systemic anticoagulation with apixaban. Her principal medical problems otherwise consist of hypertension and dyslipidemia. It appears that when she was in the emergency room over the weekend she was bradycardic with a heart rate of about 50. She has been placed on telemetry and sinus bradycardia with heart rates in the high 40s to high 50s have a demonstrated most of the time there been no other arrhythmias no examples of significant pauses sinus node dysfunction or of AV node dysfunction. Her medical regimen for hypertension does consist of 50 mg per day of metoprolol which has been stopped on admission. There is no other pertinent history of which I am aware. Review of Systems Constitutional: Constitutional: Reports weakness Comments: Frequent falling as detailed above Eyes: Eyes: Reports no additional eye complaints ENT: Reports system reviewed and no additional complaints, except as documented Cardiovascular: Cardiovascular: Reports no additional cardiovascular complaints Respiratory: Respiratory: Reports no additional respiratory complaints Gastrointestinal: Gastrointestinal: Reports no additional gastrointestinal complaints Musculoskeletal: Comments: lower extremity weakness. Integumentary/Breasts: Skin/Breast: Reports system reviewed and no additional complaints, except as docu Neurologic: Reports as per HPI Endocrine: Endocrine: Reports no additional endocrine complaints Hematologic/Lymphatic: Hematologic/Lymphatic: Reports no additional hematologic/lymphatic complaints Allergic/Immunologic: Allergic/Immunologic: Reports no additional allergic/immunologic complaints PMFSH Past Medi
--- NOTE | 2023-05-25 11:05 | PM.PNNEP ---
Progress Note: A&P Assessment and Plan (1) ELIZABETH (acute kidney injury): Code(s): N17.9 - Acute kidney failure, unspecified Status: Acute Assessment and Plan: no significant change renal function normal about a year ago unfortunately, no more recent labs to compare to evaluation to date: urine electrolytes non-prerenal renal ultrasound okay CPK mildly elevated (not enough to affect renal function) urine eosinophils negative follow trend of repeat labs and UOP (2) Hypernatremia: Code(s): E87.0 - Hyperosmolality and hypernatremia Status: Acute Assessment and Plan: acute versus acute on chronic versus chronic?? may have been worsened by IV fluids/boluses of normal saline on admission surprising this is an issue given her reported significant oral fluid/water intake possible diabetes insipidus? follow-up on serum and urine osmolality urine specific gravity somewhat suggestive follow-up on 24hr urine volume continue D5W IVFs follow repeat sodium levels (3) Essential (primary) hypertension: Code(s): I10 - Essential (primary) hypertension Status: Chronic Assessment and Plan: reasonable control at this time follow trend of hemodynamics (4) Status post fall: Code(s): Z91.81 - History of falling Status: Acute Assessment and Plan: PT/OT following continue supportive therapy Will continue to follow Subjective Date/time seen: 05/25/23 11:05 Interval history: Follow-up for renal insufficiency (ELIZABETH versus ELIZABETH on CKD versus CKD?) and hypernatremia. Initiated on D5W IVFs given worsening hyernatremkia despite onservative therapy; no change in rean function/creatinine either; no apparent distress noted; no issues overnight or earlier this AM. Exam Narrative: General: elderly butWD/WN Amercian female in NAD Heart: normal S1 and S2; no rub Lungs: clear to auscultation Abdomen: soft, nontender, nondistended, positive bowel sounds Extremities: no cyanosis or clubbing; no edema Skin: warm and dry Objective Data Vital Signs Vital Signs: Vital Signs Temp Pulse Resp BP Pulse Ox O2 Del Method 05/25/23 10:50 100 Room Air 05/25/23 05:48 97.6 F 53 L 18 134/81 100 05/25/23 04:00 52 L 05/24/23 20:00 Room Air 05/25/23 00:00 54 L 05/24/23 20:00 57 L 05/24/23 20:59 97 F L 60 18 150/80 H 100 05/24/23 16:00 50 L 05/24/23 14:49 97.6 F 75 14 115/62 100 Intake/Output Intake/Output: Intake & Output 05/22/23 05/23/23 05/24/23 05/25/23 23:59 23:59 23:59 23:59 Intake Total 4320 2950 740 Output Total 1000 1550 Balance 4320 1950 -810 Meds/Results Medications: Active Medications Generic Name Dose Route Start Last Admin Trade Name Freq PRN Reason Stop Dose Admin Acetaminophen 650 mg 05/23/23 11:13 Acetaminophen 650 Mg Suppository RECTAL Q6H PRN Mild Pain (1-3) or Fever Acetaminophen 650 mg 05/23/23 12:51 05/24/23 21:16 Acetaminophen 325 Mg Tablet PO 650 mg Q4H PRN Administration Mild Pain (1-3) or Fever Apixaban 5 mg 05/23/23 17:00 05/25/23 08:59 Apixaban 5 Mg Tablet PO 5 mg BID ASHLEY Administration Dorzolamide/Timolol 1 drop 05/23/23 21:00 05/25/23 09:00 Dorzolamide/Timolol Ophth Yvonne 10 Ml Bottle EACH EYE 1 drop Q12H ASHLEY Administration Gabapentin 300 mg 05/23/23 21:00 05/24/23 21:16 Gabapentin 300 Mg Capsule PO 300 mg HS ASHLEY Administration Dextrose 1,000 mls @ 100 mls/hr 05/25/23 10:50 Dextrose 5% 1,000 Ml IV CONT .Q10H ASHLEY Latanoprost 1 drop 05/23/23 21:00 05/24/23 21:17 Latanoprost 0.005% Op Soln 2.5 Ml Btl LEFT EYE 1 drop HS ASHLEY Administration Ondansetron HCl 4 mg 05/23/23 12:51 Ondansetron Inj 4 Mg/2 Ml Vial IV PUSH Q6H PRN Nausea And Vomiting Pantoprazole Sodium 40 mg 05/24/23 09:00 05/25/23 08:59 Pantoprazole 40
--- NOTE | 2023-05-25 11:05 | P.PNNP_ITS ---
Progress Note: A&P Assessment and Plan (1) ELIZABETH (acute kidney injury): Code(s): N17.9 - Acute kidney failure, unspecified Status: Acute Assessment and Plan: * no significant change * renal function normal about a year ago * unfortunately, no more recent labs to compare to * evaluation to date: * urine electrolytes non-prerenal * renal ultrasound okay * CPK mildly elevated (not enough to affect renal function) * urine eosinophils negative * follow trend of repeat labs and UOP (2) Hypernatremia: Code(s): E87.0 - Hyperosmolality and hypernatremia Status: Acute Assessment and Plan: * acute versus acute on chronic versus chronic?? * may have been worsened by IV fluids/boluses of normal saline on admission * surprising this is an issue given her reported significant oral fluid/water intake * possible diabetes insipidus? * follow-up on serum and urine osmolality * urine specific gravity somewhat suggestive * follow-up on 24hr urine volume * continue D5W IVFs * follow repeat sodium levels (3) Essential (primary) hypertension: Code(s): I10 - Essential (primary) hypertension Status: Chronic Assessment and Plan: * reasonable control at this time * follow trend of hemodynamics (4) Status post fall: Code(s): Z91.81 - History of falling Status: Acute Assessment and Plan: * PT/OT following * continue supportive therapy Will continue to follow Subjective Date/time seen: 05/25/23 11:05 Interval history: Follow-up for renal insufficiency (ELIZABETH versus ELIZABETH on CKD versus CKD?) and hypernatremia. Initiated on D5W IVFs given worsening hyernatremkia despite onservative therapy; no change in rean function/creatinine either; no apparent distress noted; no issues overnight or earlier this AM. Exam Narrative: General: elderly butWD/WN Amercian female in NAD Heart: normal S1 and S2; no rub Lungs: clear to auscultation Abdomen: soft, nontender, nondistended, positive bowel sounds Extremities: no cyanosis or clubbing; no edema Skin: warm and dry Objective Data Vital Signs Vital Signs: Vital Signs Temp Pulse Resp BP Pulse Ox O2 Del Method 05/25/23 10:50 100 Room Air 05/25/23 05:48 97.6 F 53 L 18 134/81 100 05/25/23 04:00 52 L 05/24/23 20:00 Room Air 05/25/23 00:00 54 L 05/24/23 20:00 57 L 05/24/23 20:59 97 F L 60 18 150/80 H 100 05/24/23 16:00 50 L 05/24/23 14:49 97.6 F 75 14 115/62 100 Intake/Output Intake/Output: Intake & Output 05/22/23 05/23/23 05/24/23 05/25/23 23:59 23:59 23:59 23:59 Intake Total 4320 2950 740 Output Total 1000 1550 Balance 4320 1950 -810 Meds/Results Medications: Active Medications Generic Name Dose Route Start Last Admin Trade Name Freq PRN Reason Stop Dose Admin Acetaminophen 650 mg 05/23/23 11:13 Acetaminophen 650 Mg Suppository RECTAL Q6H PRN Mild Pain (1-3) or Fever Acetaminophen 650 mg 05/23/23 12:51 05/24/23 21:16 Acetaminophen 325 Mg Tablet PO 650 mg Q4H PRN Administration M
[2023-05-25 11:18] LABS: Creatinine Urine 10.8 mg/dL; Total Protein Urine Random 34 mg/dL; Ur Ttl Prot Creatinine Ratio 3.15 mg/mg (0-0.20)
[2023-05-25 11:21] LABS: Sodium Urine Random 26 meq/L; Total Volume Urine, Random 4700 mL
[2023-05-25 12:07] LABS: Urea Random Urine < 67 MG/DL
--- NOTE | 2023-05-25 13:55 | PM.IMPN ---
Progress Note: A&P Assessment and Plan (1) Bradycardia, sinus: Code(s): R00.1 - Bradycardia, unspecified Status: Acute (2) JAIRON (acute kidney injury): Code(s): N17.9 - Acute kidney failure, unspecified Status: Acute (3) Mixed hyperlipidemia: Code(s): E78.2 - Mixed hyperlipidemia Status: Chronic (4) DVT (deep venous thrombosis): Qualifiers: Affected thrombotic vein of extremity: femoral Chronicity: acute DVT location: lower extremity Laterality: left Qualified Code(s): I82.412 - Acute embolism and thrombosis of left femoral vein Code(s): I82.409 - Acute embolism and thrombosis of unspecified deep veins of unspecified lower extremity Status: Acute (5) Essential (primary) hypertension: Code(s): I10 - Essential (primary) hypertension Status: Acute (6) Accident due to mechanical fall without injury: Code(s): W19.XXXA - Unspecified fall, initial encounter Status: Acute (7) Hypernatremia: Code(s): E87.0 - Hyperosmolality and hypernatremia Status: Acute Plan mechanical fall without injury -RT knee XRAY OA -PT/OT pending -EKG showing sinus Bradcardia -JAIRON secondary to dehydration Bradycardia -Hold metoprolol -Telemetry monitoring -EKG 05/24 still SB 47 with 1st degree - cardiology consulted - monitor electrolytes specially potassium and magnesium K+ >4.0/Mag >2.0 Acute Kidney Failure-Prerenal? - D5W due to hypernatremia -nephrology consulted -Renal US no acute findings -NA 151 05/24 no improvement -Avoid nephrotoxic drugs. -Monitor antihypertensive drug therapy. -Avoid NSAIDs. -Routine CMP monitoring GFR. -Monitor electrolytes especially potassium. -Antibiotic doses depending on creatinine clearance. -Cr 1.80 POA/1.7/1.8 -Routine follow-up with Nephrology as an outpatient. Transaminitis -LFTs and alkphos trending up -CT ABD no acute issues -does not appear to be medication induced -US pending -Hep panel pending Hypernatremia -151 -K 2.9 -Cr 1.8 -D5W - nephrology consulted - serum osmole, urine osmo, and 24 hour urine pending -Renal US no acute findings HX DVT -resumed Eliquis LT Shoulder pain -LT XRAY pending -pain control -NSAIDS PRN -OT following Code status: Full code per patient DVT prophylaxis: Eliquis Stress ulcer prophylaxis: Protonix 40 daily PT/OT notes: PT/OT Pending Disposition: patient to the medical-surgical unit continuous telemetry monitoring will hold metoprolol PT/OT to continue Renal wrok-up in progress will return home with when medically stable, nephrology consulted for further recommendations. Time Spent With Patient Time with patient: 25 - 35 minutes Subjective Date/time seen: 05/25/23 13:55 Interval history: Chief Complaint: Mechanical fall Narrative: Patient is 72-year-old female who presented to the emergency department due to mechanical fall at home.? Patient reports she walking with her walker and dropped her paper towels and turned to pick them up and fell hitting both knees. ? x-ray of right knee shows osteoarthritis, joint infusion, and soft tissue swelling without acute osseous abnormality. ? patient does have a past medical history of hypertension, DVT, and HLD.? Evaluation in the ED showed patient to be bradycardic as low as 49.? Labs also showed JAIRON with a Cr of 1.80.? Patient denied any dizziness, syncope, SOB, CP,? palpitations, or vision changes. ? will admit patient to [facility] bed and hold her metoprolol and start IV hydration for Jairon.? 05/24: Patient with hypernatremia 151, 2.9 K and Cr no improvement 1.7 some concern for DI, osmo and 24 HR urine pending, Nephrology consulted for further recommendations. Patient reports she drinks a large quantity of water at home. EKG this am showed SB 47 with BBB continue to hold Metoprolol and monitor on telemetry. Patient otherwise with no complaints 05/25: Patient
[2023-05-25] MEDS: DEXTROSE 5% 1,000 ML 1,000 ML 100 ML IV CONT ×2 (15:45→20:35)
[2023-05-25 18:48] LABS: Anion Gap 6 mmol/L (8-16); Blood Urea Nitrogen 15 mg/dL (7-17); Calcium 10.2 mg/dL (8.4-10.2); Carbon Dioxide 23 mmol/L (22-30); Chloride 119 mmol/L (98-107); Estimated CRCL calculation 30 ml/min; Estimated Glomerular Filt Rate 33; Glucose 101 mg/dL (65-110); Potassium 3.9 mmol/L (3.4-5.0); Sodium 148 mmol/L (137-145)
[2023-05-25] MEDS: ACETAMINOPHEN 325 MG TABLET 650 MG PO (19:02)
[2023-05-25] MEDS: ROSUVASTATIN 20 MG TABLET 40 MG PO (20:35)
[2023-05-25] MEDS: THIAMINE HCL 100 MG TABLET PO (20:35)
[2023-05-25] MEDS: GABAPENTIN 300 MG CAPSULE PO (20:35)
[2023-05-25] MEDS: LATANOPROST 0.005% OP SOLN 2.5 ML BTL 1 DROP LEFT EYE (20:35)
[2023-05-26] VITALS (9 sets, daily range): BP systolic 118–135; BP diastolic 68–94; PULSE 52–71; RESP 15–21; TEMP 36.3–36.4; O2SAT 100
--- NOTE | 2023-05-26 | ECHO_ITS ---
Patient Info Name: Jolie Banks Age: 72 years : 1950 Gender: Female Ht: 62 in Wt: 250 lbs BSA: 2.30 m2 HR: 63 bpm BP: 132 / 83 mmHg Heart Rhythm: Sinus Rhythm Technical Quality: Poor Exam Date: 05/26/2023 11:28 AM Exam Location: Echo Lab Patient Status: Inpatient Admit Date: 05/25/2023 Staff Ordering Physician: Ni Gan APRN Surgical Scheduler: Brady Barriga RDCS Attending Provider: Ewa Otto MD Referring Physician: Malik SAUER; Exam Type: CA echo dop color flow w con Study Info Indications - bradycardia Complete two-dimensional, color flow and Doppler transthoracic echocardiogram is performed with contrast to opacify the left ventricle and to improve the deliniation of the left ventricle endocardial borders. Contrast/Agitated Saline Contrast/Ag. Saline: Definity Amount: 3.00 ml Reason for Poor Study: poor echocardiographic windows Summary 1. Left ventricular chamber dimension is normal. 2. Left ventricular systolic function is normal, estimated at 60-65%. 3. There is mildly increased left ventricular wall thickness. 4. The left ventricular diastolic function is grade I diastolic dysfunction. 5. Right ventricular systolic function is normal. 6. There is mild tricuspid valve regurgitation. Left Ventricle Left ventricular chamber dimension is normal. Left ventricular systolic function is normal, estimated at 60-65%. There is mildly increased left ventricular wall thickness. The left ventricular diastolic function is grade I diastolic dysfunction. Right Ventricle Right ventricular chamber dimension is normal. Right ventricular systolic function is normal. Left Atria Left atrial chamber dimension is normal. Right Atria Right atrial chamber dimension is normal. Atrial Septum Interatrial septum was not well visualized. Aortic Valve The aortic valve is not well visualized. There is no aortic valve stenosis. There is no aortic valve regurgitation. Pulmonic Valve The pulmonic valve is not well visualized. Mitral Valve There is trace mitral valve regurgitation. Tricuspid Valve There is mild tricuspid valve regurgitation. Pericardium/Pleural There is no pericardial effusion. Inferior Vena Cava Inferior vena cava is not well visualized. Aorta The aortic root size at the sinus of Valsalva is normal. Left Ventricular Outflow Tract Name Value Normal LVOT 2D LVOT Diameter 1.88 cm LVOT Doppler LVOT Peak Gradient 3 mmHg LVOT Mean Gradient 1 mmHg LVOT VTI 19.66 cm LVOT VTI/AV VTI Ratio 0.83 LVOT Stroke Volume 54.47 ml LVOT CO 2.61 l/min LVOT CI 1.14 L/min/m2 Pulmonic Valve Name Value Normal RVOT Doppler RVOT Peak Gradient 1 mmHg
[2023-05-26] MEDS: ACETAMINOPHEN 325 MG TABLET 650 MG PO ×2 (05:51→21:32)
[2023-05-26 07:00] LABS: Hematocrit 38.3 % (37.0-47.0); Hemoglobin 11.7 g/dL (12.0-15.0); Mean Corpuscular HGB Conc 30.5 g/dl (32-36); Mean Corpuscular Hemoglobin 26.9 pg (26-34); Mean Platelet Volume 9.9 fl (7.4-10.4); Platelet Count Result 210 k/mm3 (150-375); Red Blood Count 4.35 M/mm3 (4.2-5.4); Red Cell Distribution Width 16.2 % (11.5-14.5); White Blood Count 4.1 K/mm3 (4.5-10.0)
[2023-05-26 07:09] LABS: Alanine Aminotransferase 43 U/L (6-35); Albumin Level 3.3 g/dL (3.5-5.1); Alkaline Phosphatase 157 U/L (38-126); Anion Gap 4 mmol/L (8-16); Aspartate Amino Transferase 86 U/L (14-36); Bilirubin,Total 0.7 mg/dL (0.2-1.3); Blood Urea Nitrogen 16 mg/dL (7-17); Calcium 10.1 mg/dL (8.4-10.2); Carbon Dioxide 26 mmol/L (22-30); Chloride 120 mmol/L (98-107); Estimated CRCL calculation 28 ml/min; Estimated Glomerular Filt Rate 31; Glucose 90 mg/dL (65-110); Potassium 3.5 mmol/L (3.4-5.0); Sodium 150 mmol/L (137-145)
--- NOTE | 2023-05-26 10:47 | PM.PNNEP ---
Progress Note: A&P Assessment and Plan (1) ELIZABETH (acute kidney injury): Code(s): N17.9 - Acute kidney failure, unspecified Status: Acute Assessment and Plan: no significant change renal function normal about a year ago unfortunately, no more recent labs to compare to element of CKD present?? evaluation to date: urine electrolytes non-prerenal renal ultrasound okay CPK mildly elevated (not enough to affect renal function) proteinuria noted by 24hr urine check renal scan follow trend of repeat labs and UOP (2) Hypernatremia: Code(s): E87.0 - Hyperosmolality and hypernatremia Status: Acute Assessment and Plan: acute versus acute on chronic versus chronic?? may have been worsened by IV fluids/boluses of normal saline on admission surprising this is an issue given her reported significant oral fluid/water intake possible diabetes insipidus: urine specific gravity somewhat suggestive 24hr urine volume 4.7L (suggestive as well) serum and urine osmolality pending continue D5W IVFs follow repeat sodium levels (3) Essential (primary) hypertension: Code(s): I10 - Essential (primary) hypertension Status: Chronic Assessment and Plan: reasonable control at this time follow trend of hemodynamics (4) Status post fall: Code(s): Z91.81 - History of falling Status: Acute Assessment and Plan: PT/OT following continue supportive therapy Will continue to follow Subjective Date/time seen: 05/26/23 10:47 Interval history: Follow-up for renal insufficiency (ELIZABETH versus ELIZABETH on CKD versus CKD?) and hypernatremia. Despite D5W IVFs in the last 24 - 48 hours, sodium level remains elevated; nursing reports that she is drinking a lot of fluid as well; no other acute complaints other than her arthritis is acting up; no apparent distress noted. Exam Narrative: General: elderly butWD/WN Amercian female in NAD Heart: normal S1 and S2; no rub Lungs: clear to auscultation Abdomen: soft, nontender, nondistended, positive bowel sounds Extremities: no cyanosis or clubbing; no edema Skin: warm and intact Objective Data Vital Signs Vital Signs: Vital Signs Temp Pulse Resp BP Pulse Ox O2 Del Method 05/26/23 08:00 Room Air 05/26/23 08:00 71 05/26/23 06:00 97.3 F L 56 L 21 H 134/68 100 05/26/23 04:00 63 05/26/23 00:00 54 L 05/25/23 22:00 97.7 F 61 21 H 132/83 100 05/25/23 20:00 Room Air 05/25/23 20:00 57 L 05/25/23 16:00 52 L 05/25/23 14:00 97.0 F L 57 L 18 132/90 100 Intake/Output Intake/Output: Intake & Output 05/23/23 05/24/23 05/25/23 05/26/23 23:59 23:59 23:59 23:59 Intake Total 4320 2950 3320 800 Output Total 1000 1550 Balance 4320 1950 1770 800 Meds/Results Medications: Active Medications Generic Name Dose Route Start Last Admin Trade Name Freq PRN Reason Stop Dose Admin Acetaminophen 650 mg 05/23/23 11:13 Acetaminophen 650 Mg Suppository RECTAL Q6H PRN Mild Pain (1-3) or Fever Acetaminophen 650 mg 05/23/23 12:51 05/26/23 05:51 Acetaminophen 325 Mg Tablet PO 650 mg Q4H PRN Administration Mild Pain (1-3) or Fever Apixaban 5 mg 05/23/23 17:00 05/25/23 17:50 Apixaban 5 Mg Tablet PO 5 mg BID ASHLEY Administration Dorzolamide/Timolol 1 drop 05/23/23 21:00 05/25/23 20:35 Dorzolamide/Timolol Ophth Yvonne 10 Ml Bottle EACH EYE 1 drop Q12H ASHLEY Administration Gabapentin 300 mg 05/23/23 21:00 05/25/23 20:35 Gabapentin 300 Mg Capsule PO 300 mg HS ASHLEY Administration Dextrose 1,000 mls @ 100 mls/hr 05/25/23 10:50 05/25/23 20:35 Dextrose 5% 1,000 Ml IV CONT 100 mls/hr .Q10H ASHLEY Administration Latanoprost 1 drop 05/23/23 21:00 05/25/23 20:35 Latanoprost 0.005% Op Soln 2.5 Ml Btl LEFT EYE 1 drop HS ASHLEY Administration Ondansetron HCl 4 mg 05/23
--- NOTE | 2023-05-26 10:47 | P.PNNP_ITS ---
Progress Note: A&P Assessment and Plan (1) ELIZABETH (acute kidney injury): Code(s): N17.9 - Acute kidney failure, unspecified Status: Acute Assessment and Plan: * no significant change * renal function normal about a year ago * unfortunately, no more recent labs to compare to * element of CKD present?? * evaluation to date: * urine electrolytes non-prerenal * renal ultrasound okay * CPK mildly elevated (not enough to affect renal function) * proteinuria noted by 24hr urine * check renal scan * follow trend of repeat labs and UOP (2) Hypernatremia: Code(s): E87.0 - Hyperosmolality and hypernatremia Status: Acute Assessment and Plan: * acute versus acute on chronic versus chronic?? * may have been worsened by IV fluids/boluses of normal saline on admission * surprising this is an issue given her reported significant oral fluid/water intake * possible diabetes insipidus: * urine specific gravity somewhat suggestive * 24hr urine volume 4.7L (suggestive as well) * serum and urine osmolality pending * continue D5W IVFs * follow repeat sodium levels (3) Essential (primary) hypertension: Code(s): I10 - Essential (primary) hypertension Status: Chronic Assessment and Plan: * reasonable control at this time * follow trend of hemodynamics (4) Status post fall: Code(s): Z91.81 - History of falling Status: Acute Assessment and Plan: * PT/OT following * continue supportive therapy Will continue to follow Subjective Date/time seen: 05/26/23 10:47 Interval history: Follow-up for renal insufficiency (ELIZABETH versus ELIZABETH on CKD versus CKD?) and hypernatremia. Despite D5W IVFs in the last 24 - 48 hours, sodium level remains elevated; nursing reports that she is drinking a lot of fluid as well; no other acute complaints other than her arthritis is acting up; no apparent distress noted. Exam Narrative: General: elderly butWD/WN Amercian female in NAD Heart: normal S1 and S2; no rub Lungs: clear to auscultation Abdomen: soft, nontender, nondistended, positive bowel sounds Extremities: no cyanosis or clubbing; no edema Skin: warm and intact Objective Data Vital Signs Vital Signs: Vital Signs Temp Pulse Resp BP Pulse Ox O2 Del Method 05/26/23 08:00 Room Air 05/26/23 08:00 71 05/26/23 06:00 97.3 F L 56 L 21 H 134/68 100 05/26/23 04:00 63 05/26/23 00:00 54 L 05/25/23 22:00 97.7 F 61 21 H 132/83 100 05/25/23 20:00 Room Air 05/25/23 20:00 57 L 05/25/23 16:00 52 L 05/25/23 14:00 97.0 F L 57 L 18 132/90 100 Intake/Output Intake/Output: Intake & Output 05/23/23 05/24/23 05/25/23 05/26/23 23:59 23:59 23:59 23:59 Intake Total 4320 2950 3320 800 Output Total 1000 1550 Balance 4320 1950 1770 800 Meds/Results Medications: Active Medications Generic Name Dose Route Start Last Admin Trade Name Freq PRN Reason Stop Dose Admin Acetaminophen 650 mg 05/23/23 11:13 Acetaminophen 650 Mg Suppository RECTAL Q6H PRN Mild Pain (1-3) or Fever Acet
[2023-05-26] MEDS: PERFLUTREN LIPID MICROSPHERES 1.5 ML VIAL DILUTED TO 10 ML TOTAL VOLUME IV PUSH (11:45)
--- NOTE | 2023-05-26 12:11 | PM.IMPN ---
Progress Note: A&P Assessment and Plan (1) Bradycardia, sinus: Code(s): R00.1 - Bradycardia, unspecified Status: Acute (2) JAIRON (acute kidney injury): Code(s): N17.9 - Acute kidney failure, unspecified Status: Acute (3) Mixed hyperlipidemia: Code(s): E78.2 - Mixed hyperlipidemia Status: Chronic (4) DVT (deep venous thrombosis): Qualifiers: Affected thrombotic vein of extremity: femoral Chronicity: acute DVT location: lower extremity Laterality: left Qualified Code(s): I82.412 - Acute embolism and thrombosis of left femoral vein Code(s): I82.409 - Acute embolism and thrombosis of unspecified deep veins of unspecified lower extremity Status: Acute (5) Essential (primary) hypertension: Code(s): I10 - Essential (primary) hypertension Status: Acute (6) Accident due to mechanical fall without injury: Code(s): W19.XXXA - Unspecified fall, initial encounter Status: Acute (7) Hypernatremia: Code(s): E87.0 - Hyperosmolality and hypernatremia Status: Acute Plan mechanical fall without injury -RT knee XRAY OA -PT/OT pending -EKG showing sinus Bradcardia -JAIRON secondary to dehydration Bradycardia -Hold metoprolol -Telemetry monitoring -EKG 05/24 still SB 47 with 1st degree - cardiology consulted - monitor electrolytes specially potassium and magnesium K+ >4.0/Mag >2.0 Acute Kidney Failure-Prerenal? - D5W due to hypernatremia -nephrology consulted -Renal US no acute findings -NA 151 05/24 no improvement -Avoid nephrotoxic drugs. -Monitor antihypertensive drug therapy. -Avoid NSAIDs. -Routine CMP monitoring GFR. -Monitor electrolytes especially potassium. -Antibiotic doses depending on creatinine clearance. -Cr 1.80 POA/1.7/1.8/1.9 -Routine follow-up with Nephrology as an outpatient. Transaminitis -LFTs and alkphos trending up -CT ABD no acute issues -does not appear to be medication induced -US No issues -Hep panel pending Hypernatremia -150 today no improvement -Cr trending up -D5W - nephrology consulted - serum osmole, urine osmo, normal and 24 hour urine pending -Renal US no acute findings HX DVT -resumed Eliquis LT Shoulder pain -LT XRAY pending -pain control -NSAIDS PRN -OT following Code status: Full code per patient DVT prophylaxis: Eliquis Stress ulcer prophylaxis: Protonix 40 daily PT/OT notes: PT/OT Pending Disposition: Patient continues admission for JAIRON and hypernatremia nephrology following unknown etiology at this time. Patient to return home with at discharge. Time Spent With Patient Time with patient: 15 - 25 minutes Subjective Date/time seen: 05/26/23 12:11 Interval history: Chief Complaint: Mechanical fall Narrative: Patient is 72-year-old female who presented to the emergency department due to mechanical fall at home.? Patient reports she walking with her walker and dropped her paper towels and turned to pick them up and fell hitting both knees. ? x-ray of right knee shows osteoarthritis, joint infusion, and soft tissue swelling without acute osseous abnormality. ? patient does have a past medical history of hypertension, DVT, and HLD.? Evaluation in the ED showed patient to be bradycardic as low as 49.? Labs also showed JAIRON with a Cr of 1.80.? Patient denied any dizziness, syncope, SOB, CP,? palpitations, or vision changes. ? [facility] and hold her metoprolol and start IV hydration for Jairon.? 05/24: Patient with hypernatremia 151, 2.9 K and Cr no improvement 1.7 some concern for DI, osmo and 24 HR urine pending, Nephrology consulted for further recommendations. Patient reports she drinks a large quantity of water at home. EKG this am showed SB 47 with BBB continue to hold Metoprolol and monitor on telemetry. Patient otherwise with no complaints 05/25: Patient NA still 151 d5w started, nephrology following
--- NOTE | 2023-05-26 12:42 | IVDEFINITY ---
Prior to administration of IV Definity the patient was educated on the risks and benefits of the imaging enhancing agent including potential adverse side effects. The patient verbalized understanding. Allergies were verified. No exclusion criteria were identified and at least one of the following inclusion criteria were met: 1) physician request, 2) patient technically difficult to image (per the [place] [employer] guidelines of two or more segments not discernable within the apical view), or 3) questionable left ventricular function. ?
[2023-05-26] MEDS: PANTOPRAZOLE 40 MG TABLET PO (12:48)
[2023-05-26] MEDS: SERTRALINE HCL 25 MG TABLET PO (12:48)
[2023-05-26] MEDS: CHOLECALCIFEROL 1,000 UNITS TABLET 2000 UNITS PO (12:48)
[2023-05-26] MEDS: APIXABAN 5 MG TABLET PO ×2 (12:48→17:10)
[2023-05-26] MEDS: prednisoLONE ACETATE 1% OPHTH 5 ML 1 DROP RIGHT EYE (12:49)
[2023-05-26] MEDS: DORZOLAMIDE/TIMOLOL OPHTH SOL 10 ML BOTTLE 1 DROP EACH EYE ×2 (12:49→21:31)
[2023-05-26 13:22] LABS: Hepatitis B Surface Antigen Negative (Negative)
[2023-05-26 13:28] LABS: HAV RESULT Negative (Negative); Hepatitis B Core IgM Result Negative (Negative)
[2023-05-26 13:33] LABS: Influenza A QL RT-PCR Negative (Negative); Influenza B QL RT-PCR Negative (Negative); RSV RNA, RT-PCR Negative (Negative); SARS-CoV-2 RNA PCR Negative (Negative)
[2023-05-26 13:40] LABS: Hepatitis C Virus Antibody Negative (Negative)
--- NOTE | 2023-05-26 15:52 | PCCCNOTE ---
On 05/26/23, the student, [Macey Dinh], provided care and completed [facility] documentation on this patient. I have reviewed the student's documentation and agree with the findings.
[2023-05-26] MEDS: LATANOPROST 0.005% OP SOLN 2.5 ML BTL 1 DROP LEFT EYE (21:31)
[2023-05-26] MEDS: ROSUVASTATIN 20 MG TABLET 40 MG PO (21:32)
[2023-05-26] MEDS: THIAMINE HCL 100 MG TABLET PO (21:32)
[2023-05-26] MEDS: GABAPENTIN 300 MG CAPSULE PO (21:33)
[2023-05-27] VITALS (9 sets, daily range): BP systolic 125–139; BP diastolic 69–86; PULSE 56–69; RESP 16–21; TEMP 36.1–36.6; O2SAT 99–100
[2023-05-27 05:47] LABS: Hematocrit 37.1 % (37.0-47.0); Hemoglobin 11.3 g/dL (12.0-15.0); Mean Corpuscular HGB Conc 30.5 g/dl (32-36); Mean Corpuscular Hemoglobin 27.1 pg (26-34); Platelet Count Result 216 k/mm3 (150-375); Red Blood Count 4.17 M/mm3 (4.2-5.4); Red Cell Distribution Width 16.5 % (11.5-14.5); White Blood Count 3.5 K/mm3 (4.5-10.0)
[2023-05-27 06:01] LABS: Alanine Aminotransferase 44 U/L (6-35); Albumin Level 3.5 g/dL (3.5-5.1); Alkaline Phosphatase 146 U/L (38-126); Anion Gap 3 mmol/L (8-16); Aspartate Amino Transferase 97 U/L (14-36); Bilirubin,Total 0.7 mg/dL (0.2-1.3); Blood Urea Nitrogen 16 mg/dL (7-17); Calcium 10.5 mg/dL (8.4-10.2); Carbon Dioxide 27 mmol/L (22-30); Chloride 124 mmol/L (98-107); Estimated CRCL calculation 27 ml/min; Estimated Glomerular Filt Rate 30; Glucose 86 mg/dL (65-110); Potassium 3.5 mmol/L (3.4-5.0); Sodium 154 mmol/L (137-145)
--- NOTE | 2023-05-27 08:27 | P.CDI_ITS ---
CDI Query Clarification Request Documentation in the medical record indicates that this patient has: BMI 46.3 Based on your medical judgement, can you further clarify, if known, in the progress notes the diagnosis associated with these findings, such as: * Overweight * Obesity * Morbid Obesity * Other condition ( Please specify) * None of the above/ Not applicable <Ni Bruce RN - Last Filed: 05/27/23 08:33> Clarified Diagnosis Clarified Diagnosis: Morbid obesity <Vinh Garcia APRN - Last Filed: 05/27/23 11:00>
[2023-05-27] MEDS: APIXABAN 5 MG TABLET PO ×2 (09:18→17:59)
[2023-05-27] MEDS: SERTRALINE HCL 25 MG TABLET PO (09:18)
[2023-05-27] MEDS: DORZOLAMIDE/TIMOLOL OPHTH SOL 10 ML BOTTLE 1 DROP EACH EYE ×2 (09:18→21:10)
[2023-05-27] MEDS: PANTOPRAZOLE 40 MG TABLET PO (09:18)
[2023-05-27] MEDS: CHOLECALCIFEROL 1,000 UNITS TABLET 2000 UNITS PO (09:18)
[2023-05-27] MEDS: prednisoLONE ACETATE 1% OPHTH 5 ML 1 DROP RIGHT EYE (09:18)
[2023-05-27] MEDS: DEXTROSE 5% 1,000 ML 1,000 ML 100 ML IV CONT (09:23)
--- NOTE | 2023-05-27 13:40 | PM.PNNEP ---
Progress Note: A&P Assessment and Plan (1) ELIZABETH (acute kidney injury): Code(s): N17.9 - Acute kidney failure, unspecified Status: Acute Assessment and Plan: no significant change renal function normal about a year ago unfortunately, no more recent labs to compare to element of CKD present?? evaluation to date: urine electrolytes non-prerenal renal ultrasound okay CPK mildly elevated (not enough to affect renal function) proteinuria noted by 24hr urine follow-up on renal scan follow trend of repeat labs and UOP (2) Hypernatremia: Code(s): E87.0 - Hyperosmolality and hypernatremia Status: Acute Assessment and Plan: acute versus acute on chronic versus chronic?? may have been worsened by IV fluids/boluses of normal saline on admission surprising this is an issue given her reported significant oral fluid/water intake possible diabetes insipidus - evidence to date suggestive urine specific gravity on the low end of normal 24hr urine volume with a total of 4.7L serum and urine osmolality pending check MRI of brain continue D5W IVFs - will increase rate follow repeat sodium levels (3) Essential (primary) hypertension: Code(s): I10 - Essential (primary) hypertension Status: Chronic Assessment and Plan: reasonable control at this time follow trend of hemodynamics (4) Status post fall: Code(s): Z91.81 - History of falling Status: Acute Assessment and Plan: PT/OT following continue supportive therapy Discussed case extensively with RITO Levy Will continue to follow Subjective Date/time seen: 05/27/23 13:40 Interval history: Follow-up for renal insufficiency (ELIZABETH versus ELIZABETH on CKD versus CKD?) and hypernatremia. Sodium remains elevated despite D5W IVFs for the last few days; interestingly, she continues to feel quite thirsty despite IVFs along with significant oral fluid intake; no apparent distress voiced at the time pf my visit. Exam Narrative: General: elderly but WD/WN Amercian female in NAD Heart: normal S1 and S2; no rub Lungs: clear to auscultation Abdomen: soft, nontender, nondistended, positive bowel sounds Extremities: no cyanosis or clubbing; no edema Skin: no rash Objective Data Vital Signs Vital Signs: Vital Signs Temp Pulse Resp BP Pulse Ox O2 Del Method 05/27/23 13:33 97.0 F L 56 L 16 137/86 99 05/27/23 12:00 57 L 05/27/23 08:00 60 05/27/23 09:20 Room Air 05/27/23 06:00 97.8 F 56 L 21 H 125/69 100 05/27/23 04:00 69 05/27/23 00:00 57 L 05/26/23 23:47 97.5 F L 61 21 H 135/84 100 05/26/23 20:00 Room Air 05/26/23 20:00 58 L Intake/Output Intake/Output: Intake & Output 05/24/23 05/25/23 05/26/23 05/27/23 23:59 23:59 23:59 23:59 Intake Total 2950 3320 2470 480 Output Total 1000 1550 800 Balance 1950 1770 1670 480 Meds/Results Medications: Active Medications Generic Name Dose Route Start Last Admin Trade Name Freq PRN Reason Stop Dose Admin Acetaminophen 650 mg 05/23/23 11:13 Acetaminophen 650 Mg Suppository RECTAL Q6H PRN Mild Pain (1-3) or Fever Acetaminophen 650 mg 05/23/23 12:51 05/26/23 21:32 Acetaminophen 325 Mg Tablet PO 650 mg Q4H PRN Administration Mild Pain (1-3) or Fever Apixaban 5 mg 05/23/23 17:00 05/27/23 09:18 Apixaban 5 Mg Tablet PO 5 mg BID ASHLEY Administration Dorzolamide/Timolol 1 drop 05/23/23 21:00 05/27/23 09:18 Dorzolamide/Timolol Ophth Yvonne 10 Ml Bottle EACH EYE 1 drop Q12H ASHLEY Administration Gabapentin 300 mg 05/23/23 21:00 05/26/23 21:33 Gabapentin 300 Mg Capsule PO 300 mg HS ASHLEY Administration Dextrose 1,000 mls @ 150 mls/hr 05/25/23 10:50 05/27/23 09:23 Dextrose 5% 1,000 Ml IV CONT 100 mls/hr .Q6H40M ASHLEY Administration Latanoprost 1 drop 05/23/23 21:00 05/26/23 21:31
--- NOTE | 2023-05-27 13:40 | P.PNNP_ITS ---
Progress Note: A&P Assessment and Plan (1) ELIZABETH (acute kidney injury): Code(s): N17.9 - Acute kidney failure, unspecified Status: Acute Assessment and Plan: * no significant change * renal function normal about a year ago * unfortunately, no more recent labs to compare to * element of CKD present?? * evaluation to date: * urine electrolytes non-prerenal * renal ultrasound okay * CPK mildly elevated (not enough to affect renal function) * proteinuria noted by 24hr urine * follow-up on renal scan * follow trend of repeat labs and UOP (2) Hypernatremia: Code(s): E87.0 - Hyperosmolality and hypernatremia Status: Acute Assessment and Plan: * acute versus acute on chronic versus chronic?? * may have been worsened by IV fluids/boluses of normal saline on admission * surprising this is an issue given her reported significant oral fluid/water intake * possible diabetes insipidus - evidence to date suggestive * urine specific gravity on the low end of normal * 24hr urine volume with a total of 4.7L * serum and urine osmolality pending * check MRI of brain * continue D5W IVFs - will increase rate * follow repeat sodium levels (3) Essential (primary) hypertension: Code(s): I10 - Essential (primary) hypertension Status: Chronic Assessment and Plan: * reasonable control at this time * follow trend of hemodynamics (4) Status post fall: Code(s): Z91.81 - History of falling Status: Acute Assessment and Plan: * PT/OT following * continue supportive therapy Discussed case extensively with RITO Levy Will continue to follow Subjective Date/time seen: 05/27/23 13:40 Interval history: Follow-up for renal insufficiency (ELIZABETH versus ELIZABETH on CKD versus CKD?) and hypernatremia. Sodium remains elevated despite D5W IVFs for the last few days; interestingly, she continues to feel quite thirsty despite IVFs along with significant oral flu id intake; no apparent distress voiced at the time pf my visit. Exam Narrative: General: elderly but WD/WN Amercian female in NAD Heart: normal S1 and S2; no rub Lungs: clear to auscultation Abdomen: soft, nontender, nondistended, positive bowel sounds Extremities: no cyanosis or clubbing; no edema Skin: no rash Objective Data Vital Signs Vital Signs: Vital Signs Temp Pulse Resp BP Pulse Ox O2 Del Method 05/27/23 13:33 97.0 F L 56 L 16 137/86 99 05/27/23 12:00 57 L 05/27/23 08:00 60 05/27/23 09:20 Room Air 05/27/23 06:00 97.8 F 56 L 21 H 125/69 100 05/27/23 04:00 69 05/27/23 00:00 57 L 05/26/23 23:47 97.5 F L 61 21 H 135/84 100 05/26/23 20:00 Room Air 05/26/23 20:00 58 L Intake/Output Intake/Output: Intake & Output 05/24/23 05/25/23 05/26/23 05/27/23 23:59 23:59 23:59 23:59 Intake Total 2950 3320 2470 480 Output Total 1000 1550 800 Balance 1950 1770 1670 480 Meds/Results Medications: Active Medications Generic Name Dose Route Start Last Admin Trade Name Shabana PRN Reason Stop Dose Admin Acetaminophen 650 mg 05/23/23 11:13
--- NOTE | 2023-05-27 14:35 | PM.IMPN ---
Progress Note: A&P Assessment and Plan (1) Hypernatremia: Code(s): E87.0 - Hyperosmolality and hypernatremia Status: Acute Assessment and Plan: -154 today -Cr trending up -D5W continued -nephrology consulted appreciate recommendations -serum osmole, urine osmo, normal and 24 hour urine pending -Renal US no acute findings -Renal nuclear medicine scan showing delayed activity clearance -MRI for pituitary evaluation for positive DI (2) ELIZABETH (acute kidney injury): Code(s): N17.9 - Acute kidney failure, unspecified Status: Acute Assessment and Plan: -D5W due to hypernatremia -nephrology consulted And appreciate recommendations -Renal US no acute findings -Avoid nephrotoxic drugs. -Monitor electrolytes especially potassium. -Cr 1.80, 1.7, 1.8, 1.9, 2.0 -Routine follow-up with Nephrology as an outpatient. -renal nuc med scan (3) Bradycardia, sinus: Code(s): R00.1 - Bradycardia, unspecified Status: Acute Assessment and Plan: -Hold metoprolol -Telemetry monitoring -EKG 05/24 still SB 47 with 1st degree -cardiology consulted -monitor electrolytes specially potassium and magnesium K+ >4.0/Mag >2.0 (4) DVT (deep venous thrombosis): Qualifiers: Affected thrombotic vein of extremity: femoral Chronicity: acute DVT location: lower extremity Laterality: left Qualified Code(s): I82.412 - Acute embolism and thrombosis of left femoral vein Code(s): I82.409 - Acute embolism and thrombosis of unspecified deep veins of unspecified lower extremity Status: Acute Assessment and Plan: -resumed Eliquis (5) Essential (primary) hypertension: Code(s): I10 - Essential (primary) hypertension Status: Chronic (6) Accident due to mechanical fall without injury: Code(s): W19.XXXA - Unspecified fall, initial encounter Status: Acute Assessment and Plan: -RT knee XRAY OA -PT/OT Ordered for the patient. Plan for discharge home with home health. -EKG showing sinus Bradcardia -ELIZABETH secondary to dehydration Subjective Date/time seen: 05/27/23 14:35 Interval history: Patient feeling well today. She is is not experiencing any neurological symptoms of her elevated sodium. She does states that she is extremely thirsty and at home she had been drinking 10-15 16oz water bottles per day. She cannot recall if she has had increased urination. According to the nurse she has continued her excess thirst while here in the hospital even while on IV fluids. Discussed with structural shop helper for 25 minutes. Exam Narrative: GENERAL: Comfortable, no acute distress HENMT: moist mucous membranes EYES: EOM intact b/l NECK: no lymphadenopathy RESPIRATORY: clear to auscultation CARDIO: RRR GI: soft, nontender, bowel sounds present SKIN: no rashes EXTREMITIES: no edema, redness or tenderness Objective Data Vital Signs Vital Signs: Vital Signs - 24 hr 05/26/23 16:00 05/26/23 20:00 05/26/23 20:00 Temperature Pulse Rate 54 L 58 L Respiratory Rate Blood Pressure Pulse Oximetry Oxygen Delivery Room Air 05/26/23 23:47 05/27/23 00:00 05/27/23 04:00 Temperature 97.5 F L Pulse Rate 61 57 L 69 Respiratory Rate 21 H Blood Pressure 135/84 Pulse Oximetry 100 Oxygen Delivery 05/27/23 06:00 05/27/23 09:20 05/27/23 08:00 Temperature 97.8 F Pulse Rate 56 L 60 Respiratory Rate 21 H Blood Pressure 125/69 Pulse Oximetry 100 Oxygen Delivery Room Air 05/27/23 12:00 Temperature Pulse Rate 57 L Respiratory Rate Blood Pressure Pulse Oximetry Oxygen Delivery Intake/Output Intake/Output: Intake & Output 05/24/23 05/25/23 05/26/23 05/27/23 23:59 23:59 23:59 23:59 Intake Total 2950 3320 2470 480 Output Total 1000 1550 800 Balance 1950 1770 1670 480 Meds/Results Medications: Active Medications Generic Name Dose Route Start Last A
[2023-05-27 16:35] LABS: Osmolality, Urine 85 mOsm/kg (50-1200)
--- NOTE | 2023-05-27 18:46 | PC.NURSE ---
This nurse has reviewed the charting assessment for this pt.
[2023-05-27] MEDS: GABAPENTIN 300 MG CAPSULE PO (21:10)
[2023-05-27] MEDS: THIAMINE HCL 100 MG TABLET PO (21:10)
[2023-05-27] MEDS: ROSUVASTATIN 20 MG TABLET 40 MG PO (21:10)
[2023-05-27] MEDS: LATANOPROST 0.005% OP SOLN 2.5 ML BTL 1 DROP LEFT EYE (21:10)
[2023-05-27] MEDS: ACETAMINOPHEN 325 MG TABLET 650 MG PO (22:45)
[2023-05-27 23:11] LABS: Anion Gap 5 mmol/L (8-16); Blood Urea Nitrogen 17 mg/dL (7-17); Calcium 10.6 mg/dL (8.4-10.2); Carbon Dioxide 29 mmol/L (22-30); Chloride 117 mmol/L (98-107); Estimated CRCL calculation 30 ml/min; Estimated Glomerular Filt Rate 33; Glucose 89 mg/dL (65-110); Potassium 3.7 mmol/L (3.4-5.0); Sodium 151 mmol/L (137-145)
[2023-05-28] VITALS (7 sets, daily range): BP systolic 116–133; BP diastolic 63–71; PULSE 54–58; RESP 16–18; TEMP 36.1–36.7; O2SAT 98–100
[2023-05-28 05:41] LABS: Hematocrit 36.4 % (37.0-47.0); Hemoglobin 10.9 g/dL (12.0-15.0); Mean Corpuscular HGB Conc 29.9 g/dl (32-36); Mean Corpuscular Hemoglobin 26.8 pg (26-34); Mean Corpuscular Volume 89.7 fl (80-100); Mean Platelet Volume 9.5 fl (7.4-10.4); Platelet Count Result 201 k/mm3 (150-375); Red Blood Count 4.06 M/mm3 (4.2-5.4); Red Cell Distribution Width 16.4 % (11.5-14.5)
[2023-05-28 05:58] LABS: Alanine Aminotransferase 42 U/L (6-35); Albumin Level 3.2 g/dL (3.5-5.1); Alkaline Phosphatase 138 U/L (38-126); Anion Gap 3 mmol/L (8-16); Aspartate Amino Transferase 99 U/L (14-36); Bilirubin,Total 1.2 mg/dL (0.2-1.3); Blood Urea Nitrogen 17 mg/dL (7-17); Carbon Dioxide 29 mmol/L (22-30); Chloride 116 mmol/L (98-107); Estimated CRCL calculation 30 ml/min; Estimated Glomerular Filt Rate 33; Glucose 104 mg/dL (65-110); Potassium 3.6 mmol/L (3.4-5.0); Sodium 148 mmol/L (137-145)
[2023-05-28] MEDS: DEXTROSE 5% 1,000 ML 1,000 ML 150 ML IV CONT ×3 (06:48→20:32)
[2023-05-28] MEDS: APIXABAN 5 MG TABLET PO ×2 (08:54→17:49)
[2023-05-28] MEDS: SERTRALINE HCL 25 MG TABLET PO (08:54)
[2023-05-28] MEDS: CHOLECALCIFEROL 1,000 UNITS TABLET 2000 UNITS PO (08:54)
[2023-05-28] MEDS: PANTOPRAZOLE 40 MG TABLET PO (08:54)
[2023-05-28] MEDS: prednisoLONE ACETATE 1% OPHTH 5 ML 1 DROP RIGHT EYE (08:54)
[2023-05-28] MEDS: DORZOLAMIDE/TIMOLOL OPHTH SOL 10 ML BOTTLE 1 DROP EACH EYE ×2 (08:55→20:27)
--- NOTE | 2023-05-28 12:51 | PM.PNNEP ---
Progress Note: A&P Assessment and Plan (1) ELIZABETH (acute kidney injury): Code(s): N17.9 - Acute kidney failure, unspecified Status: Acute Assessment and Plan: no significant change renal function normal about a year ago unfortunately, no more recent labs to compare to element of CKD present?? evaluation to date: urine electrolytes non-prerenal renal ultrasound okay CPK mildly elevated (not enough to affect renal function) proteinuria noted by 24hr urine renal scan results noted will proceed with further serological testing follow trend of repeat labs and UOP (2) Hypernatremia: Code(s): E87.0 - Hyperosmolality and hypernatremia Status: Acute Assessment and Plan: acute versus acute on chronic versus chronic?? may have been worsened by IV fluids/boluses of normal saline on admission surprising this is an issue given her reported significant oral fluid/water intake possible diabetes insipidus - evidence to date suggestive urine specific gravity on the low end of normal 24hr urine volume with a total of 4.7L serum osmolality 316 with a urine osmolaltiy of 95 MRI of brain results noted...would this explain her elevated sodium level? Neurology consulted continue D5W IVFs - will try to decrease the rate later today depending on repeat sodium level follow repeat sodium levels (3) Essential (primary) hypertension: Code(s): I10 - Essential (primary) hypertension Status: Chronic Assessment and Plan: reasonable control at this time follow trend of hemodynamics (4) Status post fall: Code(s): Z91.81 - History of falling Status: Acute Assessment and Plan: PT/OT following continue supportive therapy Discussed case extensively with RITO Levy Will continue to follow. Subjective Date/time seen: 05/28/23 12:51 Interval history: Follow-up for renal insufficiency (ELIZABETH versus ELIZABETH on CKD versus CKD?) and hypernatremia. Some improvement in sodium with initiation of higher IVF rate; still remains quite thirsty and relates that her tongue feels quite dry; no new issues or events voiced at the time of my visit; no apparent distress. Exam Narrative: General: elderly but WD/WN Amercian female in NAD Heart: normal S1 and S2; no rub Lungs: clear to auscultation Abdomen: soft, nontender, nondistended, positive bowel sounds Extremities: no cyanosis or clubbing; no edema Skin: no nodules Objective Data Vital Signs Vital Signs: Vital Signs Temp Pulse Resp BP Pulse Ox O2 Del Method 05/28/23 08:00 58 L 05/28/23 09:00 98 Room Air 05/28/23 05:46 97.9 F 58 L 18 116/65 98 05/28/23 00:00 56 L 05/27/23 20:00 58 L 05/27/23 20:42 97.8 F 60 16 139/84 100 05/27/23 16:00 56 L 05/27/23 15:33 97.0 F L 56 L 16 137/86 99 Intake/Output Intake/Output: Intake & Output 05/25/23 05/26/23 05/27/23 05/28/23 23:59 23:59 23:59 23:59 Intake Total 3320 2470 3820 1100 Output Total 1550 800 150 300 Balance 1770 1670 3670 800 Meds/Results Medications: Active Medications Generic Name Dose Route Start Last Admin Trade Name Freq PRN Reason Stop Dose Admin Acetaminophen 650 mg 05/23/23 11:13 Acetaminophen 650 Mg Suppository RECTAL Q6H PRN Mild Pain (1-3) or Fever Acetaminophen 650 mg 05/23/23 12:51 05/27/23 22:45 Acetaminophen 325 Mg Tablet PO 650 mg Q4H PRN Administration Mild Pain (1-3) or Fever Apixaban 5 mg 05/23/23 17:00 05/28/23 08:54 Apixaban 5 Mg Tablet PO 5 mg BID ASHLEY Administration Dorzolamide/Timolol 1 drop 05/23/23 21:00 05/28/23 08:55 Dorzolamide/Timolol Ophth Yvonne 10 Ml Bottle EACH EYE 1 drop Q12H ASHLEY Administration Gabapentin 300 mg 05/23/23 21:00 05/27/23 21:10 Gabapentin 300 Mg Capsule PO 300 mg HS ASHLEY Administration Dextrose 1,000 mls @ 150 mls/hr 05/25/23 10:50
--- NOTE | 2023-05-28 12:51 | P.PNNP_ITS ---
Progress Note: A&P Assessment and Plan (1) ELIZABETH (acute kidney injury): Code(s): N17.9 - Acute kidney failure, unspecified Status: Acute Assessment and Plan: * no significant change * renal function normal about a year ago * unfortunately, no more recent labs to compare to * element of CKD present?? * evaluation to date: * urine electrolytes non-prerenal * renal ultrasound okay * CPK mildly elevated (not enough to affect renal function) * proteinuria noted by 24hr urine * renal scan results noted * will proceed with further serological testing * follow trend of repeat labs and UOP (2) Hypernatremia: Code(s): E87.0 - Hyperosmolality and hypernatremia Status: Acute Assessment and Plan: * acute versus acute on chronic versus chronic?? * may have been worsened by IV fluids/boluses of normal saline on admission * surprising this is an issue given her reported significant oral fluid/water intake * possible diabetes insipidus - evidence to date suggestive * urine specific gravity on the low end of normal * 24hr urine volume with a total of 4.7L * serum osmolality 316 with a urine osmolaltiy of 95 * MRI of brain results noted...would this explain her elevated sodium level? * Neurology consulted * continue D5W IVFs - will try to decrease the rate later today depending on repeat sodium level * follow repeat sodium levels (3) Essential (primary) hypertension: Code(s): I10 - Essential (primary) hypertension Status: Chronic Assessment and Plan: * reasonable control at this time * follow trend of hemodynamics (4) Status post fall: Code(s): Z91.81 - History of falling Status: Acute Assessment and Plan: * PT/OT following * continue supportive therapy Discussed case extensively with RITO Levy Will continue to follow. Subjective Date/time seen: 05/28/23 12:51 Interval history: Follow-up for renal insufficiency (ELIZABETH versus ELIZABETH on CKD versus CKD?) and hypernatremia. Some improvement in sodium with initiation of higher IVF rate; still remains quite thirsty and relates that her tongue feels quite dry; no new issues or events voiced at the time of my visit; no apparent distress. Exam Narrative: General: elderly but WD/WN Amercian female in NAD Heart: normal S1 and S2; no rub Lungs: clear to auscultation Abdomen: soft, nontender, nondistended, positive bowel sounds Extremities: no cyanosis or clubbing; no edema Skin: no nodules Objective Data Vital Signs Vital Signs: Vital Signs Temp Pulse Resp BP Pulse Ox O2 Del Method 05/28/23 08:00 58 L 05/28/23 09:00 98 Room Air 05/28/23 05:46 97.9 F 58 L 18 116/65 98 05/28/23 00:00 56 L 05/27/23 20:00 58 L 05/27/23 20:42 97.8 F 60 16 139/84 100 05/27/23 16:00 56 L 05/27/23 15:33 97.0 F L 56 L 16 137/86 99 Intake/Output Intake/Output: Intake & Output 05/25/23 05/26/23 05/27/23 05/28/23 23:59 23:59 23:59 23:59 Intake Total 3320 2470 3820 1100 Output Total 1550 800 150 300 Balance 1770 1670 3670 800 Meds/Results Medications: Active Medications Generic Name Dose
--- NOTE | 2023-05-28 16:03 | PM.IMPN ---
Progress Note: A&P Assessment and Plan (1) Hypernatremia: Code(s): E87.0 - Hyperosmolality and hypernatremia Status: Acute Assessment and Plan: -148 today -D5W continued -nephrology consulted appreciate recommendations -serum osmole of 316, urine Osmo of 85 -Patient did have high volume output during 24 hour urine test of almost 5 L -Excess amount of water consumption noted in patient's history. -Renal US no acute findings -Renal nuclear medicine scan showing delayed activity clearance -MRI showing normal pressure hydrocephalus. This was discussed with Neurosurgery and Neurology and Neurosurgery believes that this would not have anything to do with patient's current symptoms that can be worked up as an outpatient. (2) ELIZABETH (acute kidney injury): Code(s): N17.9 - Acute kidney failure, unspecified Status: Acute Assessment and Plan: -D5W due to hypernatremia -nephrology consulted And appreciate recommendations -Renal US no acute findings -Avoid nephrotoxic drugs. -Monitor electrolytes especially potassium. -Cr 1.80, 1.7, 1.8, 1.9, 2.0, 1.8 -Routine follow-up with Nephrology as an outpatient. -renal nuc med scan (3) Bradycardia, sinus: Code(s): R00.1 - Bradycardia, unspecified Status: Acute Assessment and Plan: -Hold metoprolol -Telemetry monitoring -EKG 05/24 still SB 47 with 1st degree -cardiology consulted -monitor electrolytes specially potassium and magnesium K+ >4.0/Mag >2.0 (4) DVT (deep venous thrombosis): Qualifiers: Affected thrombotic vein of extremity: femoral Chronicity: acute DVT location: lower extremity Laterality: left Qualified Code(s): I82.412 - Acute embolism and thrombosis of left femoral vein Code(s): I82.409 - Acute embolism and thrombosis of unspecified deep veins of unspecified lower extremity Status: Acute Assessment and Plan: -resumed Eliquis (5) Essential (primary) hypertension: Code(s): I10 - Essential (primary) hypertension Status: Chronic (6) Accident due to mechanical fall without injury: Code(s): W19.XXXA - Unspecified fall, initial encounter Status: Acute Assessment and Plan: -RT knee XRAY OA -PT/OT Ordered for the patient. Plan for discharge home with home health. -EKG showing sinus Bradcardia -ELIZABETH secondary to dehydration Subjective Date/time seen: 05/28/23 16:03 Interval history: Patient emotional today due to continual stay in hospital. Patient did have some abnormal MRI results that will require further workup. Have discussed also personally with Nephrology, Neurology and Neurosurgery. Neurosurgery does not believe patient need acute intervention at this time but can follow-up as an outpatient for possible normal pressure hydrocephalus. Neurosurgery did not believe it is causing patient's current symptoms at this time. Continue workup for diabetes insipidus at this time. Patient is experiencing some gait instability, incontinence and memory problems. Exam Narrative: GENERAL: Comfortable, no acute distress, obese HENMT: moist mucous membranes EYES: EOM intact b/l NECK: no lymphadenopathy RESPIRATORY: clear to auscultation CARDIO: RRR GI: soft, nontender, bowel sounds present SKIN: no rashes EXTREMITIES: no edema, redness or tenderness Objective Data Vital Signs Vital Signs: Vital Signs - 24 hr 05/27/23 20:42 05/27/23 20:00 05/28/23 00:00 Temperature 97.8 F Pulse Rate 60 58 L 56 L Respiratory Rate 16 Blood Pressure 139/84 Pulse Oximetry 100 Oxygen Delivery 05/28/23 05:46 05/28/23 09:00 05/28/23 08:00 Temperature 97.9 F Pulse Rate 58 L 58 L Respiratory Rate 18 Blood Pressure 116/65 Pulse Oximetry 98 98 Oxygen Delivery Room Air Intake/Output Intake/Output: Intake & Output 05/25/23 05/26/23 05/27/23 05/28/23 23:59 23:59 23:59 23:59 Intake Total 6337 0328
--- NOTE | 2023-05-28 18:41 | PC.NURSE ---
This nurse has reviewed the chart for this pt.
[2023-05-28] MEDS: THIAMINE HCL 100 MG TABLET PO (20:23)
[2023-05-28] MEDS: GABAPENTIN 300 MG CAPSULE PO (20:23)
[2023-05-28] MEDS: ROSUVASTATIN 20 MG TABLET 40 MG PO (20:23)
[2023-05-28] MEDS: LATANOPROST 0.005% OP SOLN 2.5 ML BTL 1 DROP LEFT EYE (20:26)
[2023-05-29 00:01] LABS: Anion Gap 5 mmol/L (8-16); Blood Urea Nitrogen 16 mg/dL (7-17); Calcium 9.6 mg/dL (8.4-10.2); Carbon Dioxide 27 mmol/L (22-30); Chloride 109 mmol/L (98-107); Estimated CRCL calculation 32 ml/min; Estimated Glomerular Filt Rate 36; Glucose 83 mg/dL (65-110); Potassium 3.4 mmol/L (3.4-5.0); Sodium 141 mmol/L (137-145)
[2023-05-29 05:16] VITALS: BP 110/72; PULSE 53; RESP 18; TEMP 36.1; O2SAT 100
[2023-05-29] MEDS: DEXTROSE 5% 1,000 ML 1,000 ML 100 ML IV CONT (05:31)
[2023-05-29 06:36] LABS: Hematocrit 34.4 % (37.0-47.0); Hemoglobin 10.6 g/dL (12.0-15.0); Mean Corpuscular HGB Conc 30.8 g/dl (32-36); Mean Corpuscular Hemoglobin 27.2 pg (26-34); Mean Corpuscular Volume 88.2 fl (80-100); Platelet Count Result 193 k/mm3 (150-375); Red Cell Distribution Width 16.1 % (11.5-14.5); White Blood Count 3.9 K/mm3 (4.5-10.0)
[2023-05-29 06:40] LABS: Creatine Kinase 361 U/L (30-135)
[2023-05-29 06:44] LABS: Alanine Aminotransferase 38 U/L (6-35); Albumin Level 3.2 g/dL (3.5-5.1); Alkaline Phosphatase 135 U/L (38-126); Anion Gap 3 mmol/L (8-16); Aspartate Amino Transferase 93 U/L (14-36); Bilirubin,Total 0.8 mg/dL (0.2-1.3); Blood Urea Nitrogen 15 mg/dL (7-17); Calcium 9.4 mg/dL (8.4-10.2); Carbon Dioxide 28 mmol/L (22-30); Chloride 110 mmol/L (98-107); Estimated CRCL calculation 32 ml/min; Estimated Glomerular Filt Rate 36; Glucose 86 mg/dL (65-110); Sodium 141 mmol/L (137-145)
[2023-05-29 06:49] LABS: Complement C3 124 mg/dL (88-165)
--- NOTE | 2023-05-29 08:17 | P.PNNP_ITS ---
Progress Note: A&P Assessment and Plan (1) ELIZABETH (acute kidney injury): Code(s): N17.9 - Acute kidney failure, unspecified Status: Acute Assessment and Plan: * the patient has acute kidney injury. * renal function normal about a year ago * unfortunately, no more recent labs to compare to * element of CKD present?? * evaluation to date: * urine electrolytes non-prerenal * renal ultrasound okay * CPK mildly elevated (not enough to affect renal function) * 3150 mg protein/24h in urine * renal scan results noted * Serology and immunofixation ordered * complements normal. * Will check a sed rate * creatinine came down just a little bit. * She seems better hydrated right now. * Since she is eating will cut down the fluids. * long discussion with the patient (2) Hypernatremia: Code(s): E87.0 - Hyperosmolality and hypernatremia Status: Acute Assessment and Plan: * acute versus acute on chronic versus chronic?? * By history it seems like the polyuria goes back about 6 months. * possible diabetes insipidus - evidence to date suggestive * urine specific gravity on the low end of normal * 24hr urine volume with a total of 4.7L * serum osmolality 316 with a urine osmolaltiy of 95 While sodium was elevated. * The not maximally dilute urine is possibly due to the renal insufficiency or her age. * MRI of brain results noted...would this explain her elevated sodium level? * Neurology consulted * TSH is normal * Prolactin was ordered. Will also check FSH, LH, cortisol level and ADH level. * The latter might not be helpful at this point because her sodium is normal but if it is high then we know it is not central DI. * Her sodium level is now normal. Will cut the D5W and half and see how she does. * follow repeat sodium levels (3) Essential (primary) hypertension: Code(s): I10 - Essential (primary) hypertension Status: Chronic Assessment and Plan: * Systolic between 101 40 (4) Status post fall: Code(s): Z91.81 - History of falling Status: Acute Assessment and Plan: * PT/OT following * continue supportive therapy Subjective Date/time seen: 05/29/23 08:17 Interval history: patient is alert. She feels okay today. She is eating and drinking. She says that she has been thirsty and getting up at night to urinate for about 6 months Exam Narrative: General: elderly but WD/WN Amercian female in NAD Heart: normal S1 and S2; no rub or gallop Lungs: clear Abdomen: soft, nontender, nondistended, positive bowel sounds Extremities: no cyanosis or clubbing; no edema Skin: no nodules Objective Data Vital Signs Vital Signs: Vital Signs - 24 hr 05/28/23 09:00 05/28/23 16:19 05/28/23 20:16 Temperature 98.1 F 97.0 F L Pulse Rate 58 L 54 L Respiratory Rate 16 18 Blood Pressure 127/63 133/71 Pulse Oximetry 98 100 100 Oxygen Delivery Room Air 05/28/23 20:00 05/29/23 05:16 Temperature 97.0 F L Pulse Rate 54 L 53 L Respiratory Rate 18 18 Blood Pressure 110/72 Pulse Oximetry 100 100 Oxygen Delivery Room Air Intake/Output Intake/Output: Intake & Output
--- NOTE | 2023-05-29 08:17 | PM.PNNEP ---
Progress Note: A&P Assessment and Plan (1) ELIZABETH (acute kidney injury): Code(s): N17.9 - Acute kidney failure, unspecified Status: Acute Assessment and Plan: the patient has acute kidney injury. renal function normal about a year ago unfortunately, no more recent labs to compare to element of CKD present?? evaluation to date: urine electrolytes non-prerenal renal ultrasound okay CPK mildly elevated (not enough to affect renal function) 3150 mg protein/24h in urine renal scan results noted Serology and immunofixation ordered complements normal. Will check a sed rate creatinine came down just a little bit. She seems better hydrated right now. Since she is eating will cut down the fluids. long discussion with the patient (2) Hypernatremia: Code(s): E87.0 - Hyperosmolality and hypernatremia Status: Acute Assessment and Plan: acute versus acute on chronic versus chronic?? By history it seems like the polyuria goes back about 6 months. possible diabetes insipidus - evidence to date suggestive urine specific gravity on the low end of normal 24hr urine volume with a total of 4.7L serum osmolality 316 with a urine osmolaltiy of 95 While sodium was elevated. The not maximally dilute urine is possibly due to the renal insufficiency or her age. MRI of brain results noted...would this explain her elevated sodium level? Neurology consulted TSH is normal Prolactin was ordered. Will also check FSH, LH, cortisol level and ADH level. The latter might not be helpful at this point because her sodium is normal but if it is high then we know it is not central DI. Her sodium level is now normal. Will cut the D5W and half and see how she does. follow repeat sodium levels (3) Essential (primary) hypertension: Code(s): I10 - Essential (primary) hypertension Status: Chronic Assessment and Plan: Systolic between 101 40 (4) Status post fall: Code(s): Z91.81 - History of falling Status: Acute Assessment and Plan: PT/OT following continue supportive therapy Subjective Date/time seen: 05/29/23 08:17 Interval history: patient is alert. She feels okay today. She is eating and drinking. She says that she has been thirsty and getting up at night to urinate for about 6 months Exam Narrative: General: elderly but WD/WN Amercian female in NAD Heart: normal S1 and S2; no rub or gallop Lungs: clear Abdomen: soft, nontender, nondistended, positive bowel sounds Extremities: no cyanosis or clubbing; no edema Skin: no nodules Objective Data Vital Signs Vital Signs: Vital Signs - 24 hr 05/28/23 09:00 05/28/23 16:19 05/28/23 20:16 Temperature 98.1 F 97.0 F L Pulse Rate 58 L 54 L Respiratory Rate 16 18 Blood Pressure 127/63 133/71 Pulse Oximetry 98 100 100 Oxygen Delivery Room Air 05/28/23 20:00 05/29/23 05:16 Temperature 97.0 F L Pulse Rate 54 L 53 L Respiratory Rate 18 18 Blood Pressure 110/72 Pulse Oximetry 100 100 Oxygen Delivery Room Air Intake/Output Intake/Output: Intake & Output 05/26/23 05/27/23 05/28/23 05/29/23 23:59 23:59 23:59 23:59 Intake Total 2470 3820 4090 1000 Output Total 800 150 900 Balance 1670 3670 3190 1000 Meds/Results Medications: Active Medications Generic Name Dose Route Start Last Admin Trade Name Freq PRN Reason Stop Dose Admin Acetaminophen 650 mg 05/23/23 11:13 Acetaminophen 650 Mg Suppository RECTAL Q6H PRN Mild Pain (1-3) or Fever Acetaminophen 650 mg 05/23/23 12:51 05/27/23 22:45 Acetaminophen 325 Mg Tablet PO 650 mg Q4H PRN Administration Mild Pain (1-3) or Fever Apixaban 5 mg 05/23/23 17:00 05/28/23 17:49 Apixaban 5 Mg Tablet PO 5 mg BID ASHLEY Administration Dorzolamide/Timolol 1 drop 05/23/23 21:00 05/28/23 20:27 Dorzolamide/Timolo
[2023-05-29] MEDS: CHOLECALCIFEROL 1,000 UNITS TABLET 2000 UNITS PO (08:47)
[2023-05-29] MEDS: APIXABAN 5 MG TABLET PO ×2 (08:47→17:22)
[2023-05-29] MEDS: PANTOPRAZOLE 40 MG TABLET PO (08:47)
[2023-05-29] MEDS: SERTRALINE HCL 25 MG TABLET PO (08:47)
[2023-05-29] MEDS: prednisoLONE ACETATE 1% OPHTH 5 ML 1 DROP RIGHT EYE (08:48)
[2023-05-29] MEDS: DORZOLAMIDE/TIMOLOL OPHTH SOL 10 ML BOTTLE 1 DROP EACH EYE ×2 (08:48→20:16)
[2023-05-29] MEDS: POTASSIUM CHLORIDE 20 MEQ ER TABLET 40 MEQ PO (08:51)
[2023-05-29 09:19] LABS: Cortisol Random 2.26 ug/dL
[2023-05-29 09:37] LABS: Anion Gap 4 mmol/L (8-16); Blood Urea Nitrogen 17 mg/dL (7-17); Calcium 9.5 mg/dL (8.4-10.2); Carbon Dioxide 28 mmol/L (22-30); Chloride 108 mmol/L (98-107); Estimated CRCL calculation 33 ml/min; Estimated Glomerular Filt Rate 38; Glucose 84 mg/dL (65-110); Sodium 140 mmol/L (137-145)
[2023-05-29 09:44] LABS: Potassium 3.6 mmol/L (3.4-5.0)
[2023-05-29] MEDS: POTASSIUM CHLORIDE INJ 40 MEQ in SODIUM CHLORIDE 0.9% IV 500 ML 130 MEQ IVPB (10:11)
--- NOTE | 2023-05-29 10:16 | WPDNEURCNPN ---
Assessment and Plan Assessment and plan (1) Status post fall: Code(s): Z91.81 - History of falling Status: Acute (2) Hypernatremia: Code(s): E87.0 - Hyperosmolality and hypernatremia Status: Acute (3) Cognitive dysfunction: Code(s): F09 - Unspecified mental disorder due to known physiological condition Status: Acute (4) Urinary incontinence: Code(s): R32 - Unspecified urinary incontinence Status: Acute Plan Jolie Banks is a 72 year old female with a history of spinal stenosis, lumbar radiculopathy, HLD, HTN, glaucoma, DVT presenting for recurrent falls, in the setting of cognitive impairment, and urinary incontinence. Constellation of symptoms along with imaging findings are concerning for normal pressure hydrocephalus. She does have some degree of mild cognitive impairment on exam, especially with short term memory recall. As for the hypernatremia, NPH seems unlikely to be the cause. ORTHO NURSE disease can cause cerebral salt wasting resulting in hyponatremia, but central diabetes insipidus would be related to hypothalamic/ pituitary dysfunction. Other causes can include TBI, neurosurgery, stroke, infiltrative disorder, or malignancy, none of which seem to be present in patient's history. A subset of patient's can have idiopathic central DI. - Will have patient follow-up as outpatient for NPH evaluation - Check B12, folate; B12 was in the lower end of normal last year - As for central DI evaluation -- if no other etiology is found, can check serum/CSF LENNY, AFP, beta hCG to evaluate for sarcoidosis and histiocytosis, both of which can cause infiltrative pituitary disease, CXR to evaluate for sarcoidosis, serum IgG4 level to evaluate for IgG4 related disease - If above testing is unrevealing -- can use PET to evaluate for bony lesions associated with Langerhans cell histocytosis, check rabphilin 3A antibodies which can cause autoimmune neurohypophysis Consult date: 05/30/23 Reason for consult: NPH, central cause of hypernatremia HPI: Jolie Banks is a 72 year old female with a history of spinal stenosis, lumbar radiculopathy, HLD, HTN, glaucoma, DVT presenting for recurrent falls. Patient presented to [place] ED where she was documented as AOx3. Her BP was in the 90s systolic. She had sinus bradycardia to the 50s. Labs weree significant for hypernatremia of 149 and she had evidence of ELIZABETH as well. On history patient does report polydipsia. Nephrology and hospitalists are trying to determine the cause of her hypernatremia -- possible related to diabetes insipidus. As part of work up for DI, MRI brain was obtained which showed enlargement of the bilateral lateral and fourth ventricle, raising concerning for normal pressure hydrocephalus. As above, there have been concerns for recurrent falls, some degree of cognitive impairment, and urinary incontinence. On discussion with the hospitalist, patient seems to be well oriented, but gives wrong answers to basic questions. She also mentioned that patient has lost bladder control with standing up during this admission. Sodium at its highest from this admission was 154 but is normal today at 140. B12 from 2022 was 327. Folate from 2022 was 5.7. TSH form this admission is normal. Of note, she had a CT head done in 2022 that was read as possible NPH. Per patient, her gait issues started in December 2022. She started to have falls around this time. She denies any lightheadedness, dizziness, numbness/tingling in her legs. She has been using a walker at home since December 2022. She is no longer able to help around the house due to her fall risk. She denies any tremors in her hands. 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 She feels that her short term memory is normal. As for urinary incontinence, this started in the end of 2022. She does not feel the urge to urinate, and then it just happens. It
--- NOTE | 2023-05-29 13:27 | PM.IMPN ---
Progress Note: A&P Assessment and Plan (1) Hypernatremia: Code(s): E87.0 - Hyperosmolality and hypernatremia Status: Acute Assessment and Plan: -nephrology consulted appreciate recommendation -serum osmole of 316, urine Osmo of 85 -Patient did have high volume output during 24 hour urine test of almost 5 L -Excess amount of water consumption noted in patient's history. -Renal US no acute findings -Renal nuclear medicine scan showing delayed activity clearance -MRI showing normal pressure hydrocephalus. This was discussed with Neurosurgery and Neurology and Neurosurgery believes that this would not have anything to do with patient's current symptoms that can be worked up as an outpatient. -141 today -discontinued d5w today and will trial how patient does without fluids. -pt suspected to have diabetes insipidus (2) ELIZABETH (acute kidney injury): Code(s): N17.9 - Acute kidney failure, unspecified Status: Acute Assessment and Plan: -nephrology consulted and appreciate recommendations -Renal US no acute findings -Avoid nephrotoxic drugs. -Monitor electrolytes especially potassium. -Cr 1.80, 1.7, 1.8, 1.9, 2.0, 1.8, 1.7 (3) Bradycardia, sinus: Code(s): R00.1 - Bradycardia, unspecified Status: Acute Assessment and Plan: -Hold metoprolol -Telemetry monitoring -EKG 05/24 still SB 47 with 1st degree -cardiology consulted -monitor electrolytes specially potassium and magnesium K+ >4.0/Mag >2.0 (4) DVT (deep venous thrombosis): Qualifiers: Affected thrombotic vein of extremity: femoral Chronicity: acute DVT location: lower extremity Laterality: left Qualified Code(s): I82.412 - Acute embolism and thrombosis of left femoral vein Code(s): I82.409 - Acute embolism and thrombosis of unspecified deep veins of unspecified lower extremity Status: Acute Assessment and Plan: -resumed Eliquis (5) Essential (primary) hypertension: Code(s): I10 - Essential (primary) hypertension Status: Chronic (6) Accident due to mechanical fall without injury: Code(s): W19.XXXA - Unspecified fall, initial encounter Status: Acute Assessment and Plan: -RT knee XRAY OA -PT/OT Ordered for the patient. Plan for discharge home with home health. -EKG showing sinus Bradcardia -ELIZABETH secondary to dehydration Subjective Date/time seen: 05/29/23 13:27 Interval history: patient doing well today with no complaints at this time. She continues to have increased thirst but appear/dry today. Discussed with Nephrology and will do trial of discontinuation of IV fluids see how patient's sodium response. If patient's sodium goes back up plan to do a trial of DDAVP. Still plan to do outpatient follow-up for patient's NPH findings. Exam Narrative: GENERAL: Comfortable, no acute distress, obese HENMT: semi-moist mucous membranes EYES: EOM intact b/l NECK: no lymphadenopathy RESPIRATORY: clear to auscultation CARDIO: RRR GI: soft, nontender, bowel sounds present SKIN: no rashes EXTREMITIES: no edema, redness or tenderness Objective Data Vital Signs Vital Signs: Vital Signs - 24 hr 05/28/23 16:19 05/28/23 20:16 05/28/23 20:00 Temperature 98.1 F 97.0 F L Pulse Rate 58 L 54 L 54 L Respiratory Rate 16 18 18 Blood Pressure 127/63 133/71 Pulse Oximetry 100 100 100 Oxygen Delivery Room Air 05/29/23 05:16 Temperature 97.0 F L Pulse Rate 53 L Respiratory Rate 18 Blood Pressure 110/72 Pulse Oximetry 100 Oxygen Delivery Intake/Output Intake/Output: Intake & Output 05/26/23 05/27/23 05/28/23 05/29/23 23:59 23:59 23:59 23:59 Intake Total 2470 3820 4090 1740 Output Total 800 150 900 300 Balance 1670 3670 3190 1440 Meds/Results Medications: Active Medications Generic Name Dose Route Start Last Admin Trade Name Freq PRN Reason Stop Dose Admin Acetaminophen 650 mg 05/23
[2023-05-29 14:00] VITALS: BP 112/63; PULSE 58; RESP 16; O2SAT 100
[2023-05-29 20:04] LABS: Sodium 142 mmol/L (137-145)
[2023-05-29 20:13] VITALS: BP 138/89; PULSE 65; RESP 16; TEMP 36.6; O2SAT 100
[2023-05-29] MEDS: THIAMINE HCL 100 MG TABLET PO (20:15)
[2023-05-29] MEDS: GABAPENTIN 300 MG CAPSULE PO (20:15)
[2023-05-29] MEDS: ROSUVASTATIN 20 MG TABLET 40 MG PO (20:15)
[2023-05-29] MEDS: LATANOPROST 0.005% OP SOLN 2.5 ML BTL 1 DROP LEFT EYE (20:16)
[2023-05-30 05:36] VITALS: BP 121/77; PULSE 58; RESP 16; TEMP 36.4; O2SAT 100
[2023-05-30 06:23] LABS: Alanine Aminotransferase 45 U/L (6-35); Albumin Level 3.4 g/dL (3.5-5.1); Alkaline Phosphatase 138 U/L (38-126); Anion Gap 4 mmol/L (8-16); Aspartate Amino Transferase 102 U/L (14-36); Bilirubin,Total 0.8 mg/dL (0.2-1.3); Blood Urea Nitrogen 17 mg/dL (7-17); Calcium 9.7 mg/dL (8.4-10.2); Carbon Dioxide 26 mmol/L (22-30); Chloride 115 mmol/L (98-107); Estimated CRCL calculation 33 ml/min; Estimated Glomerular Filt Rate 38; Glucose 82 mg/dL (65-110); Potassium 3.9 mmol/L (3.4-5.0); Sodium 145 mmol/L (137-145)
[2023-05-30 06:24] LABS: Hemoglobin 10.9 g/dL (12.0-15.0); Mean Corpuscular HGB Conc 30.3 g/dl (32-36); Mean Corpuscular Hemoglobin 27.1 pg (26-34); Mean Corpuscular Volume 89.6 fl (80-100); Mean Platelet Volume 10.2 fl (7.4-10.4); Platelet Count Result 196 k/mm3 (150-375); Red Blood Count 4.02 M/mm3 (4.2-5.4); White Blood Count 3.4 K/mm3 (4.5-10.0)
[2023-05-30 09:24] LABS: Erythrocyte Sedimentation Rate 59 mm/hr (0-20)
[2023-05-30] MEDS: PANTOPRAZOLE 40 MG TABLET PO (10:05)
[2023-05-30] MEDS: SERTRALINE HCL 25 MG TABLET PO (10:05)
[2023-05-30] MEDS: APIXABAN 5 MG TABLET PO ×2 (10:05→16:16)
[2023-05-30] MEDS: CHOLECALCIFEROL 1,000 UNITS TABLET 2000 UNITS PO (10:05)
[2023-05-30] MEDS: prednisoLONE ACETATE 1% OPHTH 5 ML 1 DROP RIGHT EYE (10:08)
[2023-05-30] MEDS: DORZOLAMIDE/TIMOLOL OPHTH SOL 10 ML BOTTLE 1 DROP EACH EYE ×2 (10:08→21:02)
--- NOTE | 2023-05-30 10:46 | P.PNNP_ITS ---
Progress Note: A&P Assessment and Plan (1) ELIZABETH (acute kidney injury): Code(s): N17.9 - Acute kidney failure, unspecified Status: Acute Assessment and Plan: * the patient has acute kidney injury . * renal function normal about a year ago * unfortunately, no more recent labs to compare to * She likely does have chronic kidney disease, as evidenced by the proteinuria. However we do not know her baseline creatinine. * evaluation to date: * urine electrolytes non-prerenal * renal ultrasound okay * CPK mildly elevated (not enough to affect renal function) * 3150 mg protein/24h in urine * renal scan results showed uptake without excretion consistent with ATN. * Serology and immunofixation ordered * complements normal. * creatinine seems to be reaching a plateau around 1.6. * She seems better hydrated right now. * Fluids were discontinued after discussion with RITO Levy yesterday. (2) Hypernatremia: Code(s): E87.0 - Hyperosmolality and hypernatremia Status: Acute Assessment and Plan: * acute versus acute on chronic versus chronic?? * By history it seems like the polyuria goes back about 6 months. * possible diabetes insipidus - evidence to date suggestive * urine specific gravity on the low end of normal * 24hr urine volume with a total of 4.7L * serum osmolality 316 with a urine osmolaltiy of 95 While sodium was elevated. * The not maximally dilute urine is possibly due to the renal insufficiency or her age. * MRI of brain results noted...would this explain her elevated sodium level? * Neurology consulted * TSH is normal * Prolactin was ordered. Will also check FSH, LH, cortisol level and ADH level. * The latter might not be helpful at this point because her sodium is normal but if it is high then we know it is not central DI. * Fluids were discontinued after discussion with RITO Levy yesterday. * long discussion with the patient Yesterday and today, as well as with RITO Levy yesterday. * the sodium level has risen somewhat from 141-145 without D5W. She is thirsty and is drinking fluid. Typically people with diabetes insipidus will drink to there baseline sodium which may be a little on the high side. So she will continue to have polyuria and polydipsia, the former because of the DI and the latter because of the thirst driven by the high sodium. * We do not know if this is nephrogenic or central DI. The empty sella could be I suggestion that it is central but we do not have an ADH level. * Therefore we do not know if DDAVP would work. * I weeks suggest waiting until the sodium level is above 145 and try the DDAVP and see if this works. Typically DDAVP is used for symptoms. We would give it in the evening to help reduce the number of trips to the bathroom. And then if the polyuria is unmanageable during the day we could add a daytime dose down the line as an outpatient. It will be preferable not to use it at all if the patient can maintain their sodium with their water drinking. The risk of DDAVP is hyponatremia if suddenly she stops drinking so was not a benign medicine and also may be expensive. Because we do not have a final diagnosis she should see an mushroom spawn maker to finish up the evaluation. If she does go home she will need frequent sodium draws probably daily for a few days and then every other day for a few days to monitor the sodium and see what happens and to manage dosing with DDAVP if it works at all. * Will see what her sodium is this evening. If it is above normal we can draw another ADH leve
--- NOTE | 2023-05-30 10:46 | PM.PNNEP ---
Progress Note: A&P Assessment and Plan (1) ELIZABETH (acute kidney injury): Code(s): N17.9 - Acute kidney failure, unspecified Status: Acute Assessment and Plan: the patient has acute kidney injury . renal function normal about a year ago unfortunately, no more recent labs to compare to She likely does have chronic kidney disease, as evidenced by the proteinuria. However we do not know her baseline creatinine. evaluation to date: urine electrolytes non-prerenal renal ultrasound okay CPK mildly elevated (not enough to affect renal function) 3150 mg protein/24h in urine renal scan results showed uptake without excretion consistent with ATN. Serology and immunofixation ordered complements normal. creatinine seems to be reaching a plateau around 1.6. She seems better hydrated right now. Fluids were discontinued after discussion with RITO Levy yesterday. (2) Hypernatremia: Code(s): E87.0 - Hyperosmolality and hypernatremia Status: Acute Assessment and Plan: acute versus acute on chronic versus chronic?? By history it seems like the polyuria goes back about 6 months. possible diabetes insipidus - evidence to date suggestive urine specific gravity on the low end of normal 24hr urine volume with a total of 4.7L serum osmolality 316 with a urine osmolaltiy of 95 While sodium was elevated. The not maximally dilute urine is possibly due to the renal insufficiency or her age. MRI of brain results noted...would this explain her elevated sodium level? Neurology consulted TSH is normal Prolactin was ordered. Will also check FSH, LH, cortisol level and ADH level. The latter might not be helpful at this point because her sodium is normal but if it is high then we know it is not central DI. Fluids were discontinued after discussion with RITO Levy yesterday. long discussion with the patient Yesterday and today, as well as with RITO Levy yesterday. the sodium level has risen somewhat from 141-145 without D5W. She is thirsty and is drinking fluid. Typically people with diabetes insipidus will drink to there baseline sodium which may be a little on the high side. So she will continue to have polyuria and polydipsia, the former because of the DI and the latter because of the thirst driven by the high sodium. We do not know if this is nephrogenic or central DI. The empty sella could be I suggestion that it is central but we do not have an ADH level. Therefore we do not know if DDAVP would work. I weeks suggest waiting until the sodium level is above 145 and try the DDAVP and see if this works. Typically DDAVP is used for symptoms. We would give it in the evening to help reduce the number of trips to the bathroom. And then if the polyuria is unmanageable during the day we could add a daytime dose down the line as an outpatient. It will be preferable not to use it at all if the patient can maintain their sodium with their water drinking. The risk of DDAVP is hyponatremia if suddenly she stops drinking so was not a benign medicine and also may be expensive. Because we do not have a final diagnosis she should see an inside contractor sales to finish up the evaluation. If she does go home she will need frequent sodium draws probably daily for a few days and then every other day for a few days to monitor the sodium and see what happens and to manage dosing with DDAVP if it works at all. Will see what her sodium is this evening. If it is above normal we can draw another ADH level and start DDAVP this evening. We can also check a urine osmolality a couple of hours after the DDAVP is given to see if it helps. (3) Essential (primary) hypertension: Code(s): I10 - Essential (primary) hypertension Status: Chronic Assessment and Plan: Systolic between 100 and 140 (4) Status post fall: Code(s): Z91.81 - History of falling Sta
--- NOTE | 2023-05-30 10:58 | PM.EVENT ---
Event Note Event Note Event Note: discussions with pt twice and with RITO Levy took 25 min besides clinical activities
[2023-05-30 14:00] VITALS: BP 133/69; PULSE 62; RESP 16; TEMP 36.2; O2SAT 100
--- NOTE | 2023-05-30 15:19 | PM.IMPN ---
Progress Note: A&P Assessment and Plan (1) Hypernatremia: Code(s): E87.0 - Hyperosmolality and hypernatremia Status: Acute Assessment and Plan: -nephrology consulted appreciate recommendation -serum osmole of 316, urine Osmo of 85 -Patient did have high volume output during 24 hour urine test of almost 5 L -Excess amount of water consumption noted in patient's history. -Renal US no acute findings -Renal nuclear medicine scan showing delayed activity clearance -MRI showing normal pressure hydrocephalus.? This was discussed with Neurosurgery and Neurology and Neurosurgery believes that this would not have anything to do with patient's current symptoms that can be worked up as an outpatient. -discontinued d5w 05/29/23 and will trial how patient does without fluids. -pt suspected to have diabetes insipidus -Na 145 today -trial of DDAVP once sodium above 145 (2) ELIZABETH (acute kidney injury): Code(s): N17.9 - Acute kidney failure, unspecified Status: Acute Assessment and Plan: -D5W due to hypernatremia -nephrology consulted And appreciate recommendations -Renal US no acute findings -Avoid nephrotoxic drugs. -Monitor electrolytes especially potassium. -Cr 1.80, 1.7, 1.8, 1.9, 2.0, 1.7, 1.6 -Routine follow-up with Nephrology as an outpatient. -renal nuc med scan (3) Bradycardia, sinus: Code(s): R00.1 - Bradycardia, unspecified Status: Acute Assessment and Plan: -Hold metoprolol -Telemetry monitoring -EKG 05/24 still SB 47 with 1st degree -cardiology consulted -monitor electrolytes specially potassium and magnesium K+ >4.0/Mag >2.0 (4) DVT (deep venous thrombosis): Qualifiers: Affected thrombotic vein of extremity: femoral Chronicity: acute DVT location: lower extremity Laterality: left Qualified Code(s): I82.412 - Acute embolism and thrombosis of left femoral vein Code(s): I82.409 - Acute embolism and thrombosis of unspecified deep veins of unspecified lower extremity Status: Acute Assessment and Plan: -resumed Eliquis (5) Essential (primary) hypertension: Code(s): I10 - Essential (primary) hypertension Status: Chronic (6) Accident due to mechanical fall without injury: Code(s): W19.XXXA - Unspecified fall, initial encounter Status: Acute Assessment and Plan: -RT knee XRAY OA -PT/OT Ordered for the patient. Plan for discharge home with home health. -EKG showing sinus Bradcardia -ELIZABETH secondary to dehydration Subjective Date/time seen: 05/30/23 15:19 Interval history: Patient doing well today. She remains stable. Continue supportive care at this time. Continue working with Nephrology and hopes to diagnose diabetes insipidus cause. Plan on DDAVP trial at some point during hospitalization. Exam Narrative: GENERAL: Comfortable, no acute distress, obese HENMT:dry mucous membranes EYES: EOM intact b/l NECK: no lymphadenopathy RESPIRATORY: clear to auscultation CARDIO: RRR GI: soft, nontender, bowel sounds present SKIN: no rashes EXTREMITIES: no edema, redness or tenderness Objective Data Vital Signs Vital Signs: Vital Signs - 24 hr 05/29/23 20:13 05/29/23 20:00 05/30/23 05:36 Temperature 97.9 F 97.6 F Pulse Rate 65 58 L Respiratory Rate 16 16 Blood Pressure 138/89 121/77 Pulse Oximetry 100 100 Oxygen Delivery Room Air Intake/Output Intake/Output: Intake & Output 05/27/23 05/28/23 05/29/23 05/30/23 23:59 23:59 23:59 23:59 Intake Total 3820 4090 2220 990 Output Total 150 900 300 Balance 3670 3190 1920 990 Meds/Results Medications: Active Medications Generic Name Dose Route Start Last Admin Trade Name Freq PRN Reason Stop Dose Admin Acetaminophen 650 mg 05/23/23 11:13 Acetaminophen 650 Mg Suppository RECTAL Q6H PRN Mild Pain (1-3) or Fever Acetaminophen 650 mg 05/23/23 12:51 05/27/23 22:45 Acetamin
[2023-05-30 19:37] LABS: Anion Gap 4 mmol/L (8-16); Blood Urea Nitrogen 16 mg/dL (7-17); Carbon Dioxide 29 mmol/L (22-30); Chloride 113 mmol/L (98-107); Estimated CRCL calculation 33 ml/min; Estimated Glomerular Filt Rate 38; Glucose 181 mg/dL (65-110); Potassium 3.5 mmol/L (3.4-5.0); Sodium 146 mmol/L (137-145)
[2023-05-30] MEDS: ROSUVASTATIN 20 MG TABLET 40 MG PO (21:01)
[2023-05-30] MEDS: GABAPENTIN 300 MG CAPSULE PO (21:01)
[2023-05-30] MEDS: DESMOPRESSIN ACETATE 0.1 MG TABLET PO (21:02)
[2023-05-30] MEDS: LATANOPROST 0.005% OP SOLN 2.5 ML BTL 1 DROP LEFT EYE (21:04)
[2023-05-30] MEDS: THIAMINE HCL 100 MG TABLET PO (21:04)
[2023-05-30 21:27] VITALS: BP 130/79; PULSE 62; RESP 16; TEMP 36.6; O2SAT 100
[2023-05-30] MEDS: ACETAMINOPHEN 325 MG TABLET 650 MG PO (23:31)
--- NOTE | 2023-05-31 03:40 | PC.NURSE ---
Patient needing UA x2. At this time this nurse is unable to obtain UAs due to multiple incontinent episodes.
[2023-05-31 06:00] VITALS: BP 100/62; PULSE 62; RESP 14; TEMP 36.8; O2SAT 100
[2023-05-31 06:05] LABS: Hematocrit 34.9 % (37.0-47.0); Hemoglobin 10.5 g/dL (12.0-15.0); Mean Corpuscular HGB Conc 30.1 g/dl (32-36); Mean Corpuscular Hemoglobin 27.1 pg (26-34); Mean Corpuscular Volume 89.9 fl (80-100); Platelet Count Result 187 k/mm3 (150-375); Red Blood Count 3.88 M/mm3 (4.2-5.4); White Blood Count 3.6 K/mm3 (4.5-10.0)
[2023-05-31 06:17] LABS: Albumin Level 3.3 g/dL (3.5-5.1); Anion Gap 4 mmol/L (8-16); Blood Urea Nitrogen 17 mg/dL (7-17); Calcium 9.7 mg/dL (8.4-10.2); Carbon Dioxide 27 mmol/L (22-30); Chloride 114 mmol/L (98-107); Estimated CRCL calculation 33 ml/min; Estimated Glomerular Filt Rate 38; Glucose 84 mg/dL (65-110); Phosphorus 4.4 mg/dL (2.5-4.5); Potassium 3.6 mmol/L (3.4-5.0); Sodium 145 mmol/L (137-145)
--- NOTE | 2023-05-31 09:40 | P.PNNP_ITS ---
Progress Note: A&P Assessment and Plan (1) ELIZABETH (acute kidney injury): Code(s): N17.9 - Acute kidney failure, unspecified Status: Acute Assessment and Plan: * the patient has acute kidney injury . * renal function normal about a year ago * unfortunately, no more recent labs to compare to * She likely does have chronic kidney disease, as evidenced by the proteinuria. However we do not know her baseline creatinine. * evaluation to date: * urine electrolytes non-prerenal * renal ultrasound okay * CPK mildly elevated (not enough to affect renal function) * 3150 mg protein/24h in urine * renal scan results showed uptake without excretion consistent with ATN. * Serology and immunofixation ordered * complements normal. * creatinine seems to be reaching a plateau around 1.6. * the patient is still off of IV fluids. * Consider a biopsy down the line to investigate the elevated creatinine and proteinuria? (2) Hypernatremia: Code(s): E87.0 - Hyperosmolality and hypernatremia Status: Acute Assessment and Plan: * acute versus acute on chronic versus chronic?? * By history it seems like the polyuria goes back about 6 months. * possible diabetes insipidus - evidence to date suggestive * urine specific gravity on the low end of normal * 24hr urine volume with a total of 4.7L * serum osmolality 316 with a urine osmolaltiy of 95 While sodium was elevated. * The not maximally dilute urine is possibly due to the renal insufficiency or her age. * MRI of brain results noted...would this explain her elevated sodium level? * Neurology consulted * TSH is normal * Prolactin was ordered. Will also check FSH, LH, cortisol level and ADH level. * The latter might not be helpful at this point because her sodium is normal but if it is high then we know it is not central DI. * Over the last few days the sodium was trending upwards. it chicho from 140- 145 and last evening it was up to 146 which is abnormal. Therefore she was not keeping up with her fluids to accommodate her high urine output from the DI. Since the sodium was high, I repeated the urine osmolality and checked a Copeptin which is a surrogate for an ADH level. ([facility] is are send out lab.) . This should help us whether this is nephrogenic versus central DI. I gave her a dose of DDAVP last night and her sodium this morning had come down even though she did not drink much fluid. So it seems like she responded fairly well. * We have to be careful not to over do the DDAVP. The primary focus is relief of symptoms as long as the sodium level stays okay. So I think she could probably go home on 0.1mg every evening. She will need to sodium levels frequently once she goes home to make sure that her sodium does not drop any more. * long discussion with the patient and will with RITO Levy * it looks like the urine output responded to the DDAVP. The sodium level opped from 146 (3) Essential (primary) hypertension: Code(s): I10 - Essential (primary) hypertension Status: Chronic Assessment and Plan: * Systolic between 100 and 140 (4) Status post fall: Code(s): Z91.81 - History of falling Status: Acute Assessment and Plan: * PT/OT following * fewer trips to the bathroom might help this. * continue supportive therapy Subjective Date/time seen: 05/31/23 09:40 Interval history: Jolie is feeling better today. She says she she is not quite is thirsty and als
--- NOTE | 2023-05-31 09:40 | PM.PNNEP ---
Progress Note: A&P Assessment and Plan (1) ELIZABETH (acute kidney injury): Code(s): N17.9 - Acute kidney failure, unspecified Status: Acute Assessment and Plan: the patient has acute kidney injury . renal function normal about a year ago unfortunately, no more recent labs to compare to She likely does have chronic kidney disease, as evidenced by the proteinuria. However we do not know her baseline creatinine. evaluation to date: urine electrolytes non-prerenal renal ultrasound okay CPK mildly elevated (not enough to affect renal function) 3150 mg protein/24h in urine renal scan results showed uptake without excretion consistent with ATN. Serology and immunofixation ordered complements normal. creatinine seems to be reaching a plateau around 1.6. the patient is still off of IV fluids. Consider a biopsy down the line to investigate the elevated creatinine and proteinuria? (2) Hypernatremia: Code(s): E87.0 - Hyperosmolality and hypernatremia Status: Acute Assessment and Plan: acute versus acute on chronic versus chronic?? By history it seems like the polyuria goes back about 6 months. possible diabetes insipidus - evidence to date suggestive urine specific gravity on the low end of normal 24hr urine volume with a total of 4.7L serum osmolality 316 with a urine osmolaltiy of 95 While sodium was elevated. The not maximally dilute urine is possibly due to the renal insufficiency or her age. MRI of brain results noted...would this explain her elevated sodium level? Neurology consulted TSH is normal Prolactin was ordered. Will also check FSH, LH, cortisol level and ADH level. The latter might not be helpful at this point because her sodium is normal but if it is high then we know it is not central DI. Over the last few days the sodium was trending upwards. it chicho from 140-145 and last evening it was up to 146 which is abnormal. Therefore she was not keeping up with her fluids to accommodate her high urine output from the DI. Since the sodium was high, I repeated the urine osmolality and checked a Copeptin which is a surrogate for an ADH level. ([facility] is are send out lab.) . This should help us whether this is nephrogenic versus central DI. I gave her a dose of DDAVP last night and her sodium this morning had come down even though she did not drink much fluid. So it seems like she responded fairly well. We have to be careful not to over do the DDAVP. The primary focus is relief of symptoms as long as the sodium level stays okay. So I think she could probably go home on 0.1mg every evening. She will need to sodium levels frequently once she goes home to make sure that her sodium does not drop any more. long discussion with the patient and will with RITO Levy it looks like the urine output responded to the DDAVP. The sodium level dropped from 146 (3) Essential (primary) hypertension: Code(s): I10 - Essential (primary) hypertension Status: Chronic Assessment and Plan: Systolic between 100 and 140 (4) Status post fall: Code(s): Z91.81 - History of falling Status: Acute Assessment and Plan: PT/OT following fewer trips to the bathroom might help this. continue supportive therapy Subjective Date/time seen: 05/31/23 09:40 Interval history: Jolie is feeling better today. She says she she is not quite is thirsty and also urinated fever times last night. The intake/ output says she only voided once overnight. Exam Narrative: General: elderly but WD/WN Amercian female in NAD Heart: normal S1 and S2; no rub or gallop Lungs: clear to auscultation Abdomen: soft, nontender, nondistended, positive bowel sounds Extremities: no cyanosis or clubbing; no edema Skin: no nodules or rash Objective Data Vital Signs Vital Signs: Vital Signs - 24 hr 05/30/23 1
[2023-05-31] MEDS: PANTOPRAZOLE 40 MG TABLET PO (10:02)
[2023-05-31] MEDS: SERTRALINE HCL 25 MG TABLET PO (10:02)
[2023-05-31] MEDS: CHOLECALCIFEROL 1,000 UNITS TABLET 2000 UNITS PO (10:02)
[2023-05-31] MEDS: APIXABAN 5 MG TABLET PO (10:02)
[2023-05-31] MEDS: prednisoLONE ACETATE 1% OPHTH 5 ML 1 DROP RIGHT EYE (10:03)
[2023-05-31] MEDS: DORZOLAMIDE/TIMOLOL OPHTH SOL 10 ML BOTTLE 1 DROP EACH EYE (10:03)
--- NOTE | 2023-05-31 12:18 | PM.DS ---
DS: Admitting Diagnosis Discharge Date 05/31/23 Admitting Diagnosis frequent falls, hypernatremia DS: Discharge Diagnosis Discharge Diagnosis (1) Hypernatremia: Code(s): E87.0 - Hyperosmolality and hypernatremia Status: Acute (2) ELIZABETH (acute kidney injury): Code(s): N17.9 - Acute kidney failure, unspecified Status: Acute (3) Bradycardia, sinus: Code(s): R00.1 - Bradycardia, unspecified Status: Acute (4) DVT (deep venous thrombosis): Qualifiers: Affected thrombotic vein of extremity: femoral Chronicity: acute DVT location: lower extremity Laterality: left Qualified Code(s): I82.412 - Acute embolism and thrombosis of left femoral vein Code(s): I82.409 - Acute embolism and thrombosis of unspecified deep veins of unspecified lower extremity Status: Acute (5) Essential (primary) hypertension: Code(s): I10 - Essential (primary) hypertension Status: Chronic (6) Accident due to mechanical fall without injury: Code(s): W19.XXXA - Unspecified fall, initial encounter Status: Acute DS: Summary Hospital Course Hospital Course: This is a 72-year-old female with a past medical history of glaucoma, urinary incontinence, pre diabetes, neuropathy and DVT history that presents to the ED on 05/23/2023 due to having a fall at home. Patient had been having increased falls and patient's wanted her to be evaluated at the hospital. She was found to be bradycardic creatinine of 1.8 and hypernatremic with sodium of 149. patient was started on IV D5W and Nephrology was consulted. Patient also exhibited symptoms of extreme thirst drinking approximately 15 16 oz water bottles daily. patient had complete kidney workup including labs, ultrasound and 24 hour urine. Patient also had urine and serum osmolalities drawn. It was suspected that patient was experiencing symptoms of diabetes insipidus. Brain MRI performed which showed signs of normal pressure hydrocephalus. Neurosurgery was called and they stated that this is an outpatient workup. NPH could be what patient experiencing in addition to DI due to her frequent falls, slight confusion the patient's family said that she has early-onset dementia as well as incontinence. Patient was started on DDAVP in the evenings and her polydipsia improved as well as her Serum sodium. patient was closely followed by Nephrology during hospital stay. Is agreed upon that patient will be discharged with strict orders to repeat labs for 3 days straight and a close follow-up with Nephrology as well as a endocrinology referral. Her labs and vital signs are stable and she is medically clear for discharge at this time. Time Spent with Patient Time attestation: Total time spent providing and/or coordinating discharge services: Exam Narrative: GENERAL: Comfortable, no acute distress, obese HENMT: moist mucous membranes EYES: EOM intact b/l NECK: no lymphadenopathy RESPIRATORY: clear to auscultation CARDIO: RRR GI: soft, nontender, bowel sounds present SKIN: no rashes EXTREMITIES: no edema, redness or tenderness DS: Data Data Completed and Pending Labs on day of discharge: Labs from last 24 hours 05/31/23 05/31/23 05/31/23 10:38 10:22 05:35 WBC 3.6 L RBC 3.88 L Hgb 10.5 L Hct 34.9 L MCV 89.9 MCH 27.1 MCHC 30.1 L RDW 16.0 H Plt Count 187 MPV 10.0 Sodium Pending 145 Potassium Pending 3.6 Chloride Pending 114 H Carbon Dioxide Pending 27 Anion Gap Pending 4 L BUN Pending 17 Creatinine Pending 1.60 H Estim Creat Clear Calc Pending 33 Estimated GFR Pending 38 L Glucose Pending 84 Calcium Pending 9.7 Phosphorus 4.4 Albumin 3.3 L Copeptin Urine Osmolality Pending 05/30/23 05/30/23 19:21 05:30 WBC RBC Hgb Hct MCV MCH MCHC RDW Plt Count MPV Sodium 146 H Potassium 3.5 Chloride 113 H Carbo
[2023-05-31 13:57] LABS: Kappa\\Lambda Light Chains 1.86 (0.26-1.65); Lambda Light Chain 32.8 mg/L (5.7-26.3)
[2023-06-02 03:44] LABS: Angiotensin Converting Enzyme 19.7 U/L (9-67)
[2023-06-02 10:26] LABS: Osmolality, Urine 267 mOsm/kg (50-1200)
[2023-06-02 13:29] LABS: Albumin 2.9 g/dL (3.8-4.8); Alpha 1 Globulin 0.3 g/dL (0.2-0.3); Alpha 2 Globulin 0.7 g/dL (0.5-0.9); Beta 1 Globulin 0.3 g/dL (0.4-0.6); Gamma Globulin 1.2 g/dL (0.8-1.7); Protein, Total 5.8 g/dL (6.1-8.1)
[2023-06-02 14:25] LABS: Complement Total CH50 >60 U/mL (31-60)
[2023-06-02 19:38] LABS: Adrenocorticotropic Hormone 9 pg/mL (6-50)
[2023-06-03 06:35] LABS: Prolactin 84.2 ng/mL (***)
[2023-06-03 06:35] LABS: FSH <0.7 mIU/mL (***); LH <0.2 mIU/mL (***)
--- NOTE | 2023-06-03 15:28 | PCCCNOTE ---
Addendum entered by INDIANA Umanzor 06/05/23 08:40: 06/05 Received call from [facility] Rep Gallego who reports she has received SNF authorization reference #[id number] and had several questions, answers were provided. Further clinicals were faxed to [facility]. Daly aware that SNF request is still in review. He was provided with Ellen Crawford at [facility] phone number to discuss private pay rates. Original Note: Received call from Dodie at [facility] who reports they attempted to reach out to pt. and her Daly on 06/01 and was informed that pt. has had multiple falls since returning home and he wishes to seek rehab/NH placement instead of Home Health services. Left message for Daly at [phone]. Received call back from Daly who is wanting SNF placement. Explained process and he reports he is not willing to private pay, he wants pt.'s insurance to cover. Sent SNF list but did explain if [facility] denies unfortunately there would be out of pocket costs. He then ended the call. 06/03 Received call from Daly requesting CC fax referral to [facility] and attempt for SNF authorization. Spoke with Ellen at [facility] and faxed referral. She will reach out to Daly and submit for insurance authorization on their end. PASRR was completed and letter faxed to [facility].
[2023-06-03 21:49] LABS: Anti Glomerular Basement Memb <1.0 AI (<1.0)
[2023-06-04 00:05] LABS: Creatinine, Random Urine 19 mg/dL (20-275); Total Protein/Creatinine Ratio 1053 mg/g creat (24-184)
[2023-06-06 14:29] LABS: ANCA Screen P-ANCA POS (Negative)
[2023-06-06 14:30] LABS: Anti Nuclear Antibody Pattern Mitotic, NuMA-like
[2023-06-06 14:41] LABS: P-ANCA Titer Reflex Chg Test YES
[2023-06-11 13:57] LABS: Copeptin 5.4 pmol/L (< OR = 13.7)
== END 2023-05-31 14:08 | disposition home health service (06) | DRG 644 ==
LOC: ANHED 11:13 → ANH3MED 12:08
PROVIDERS: Internal Medicine Nephrology; Nurse Practitioner Family; Admitting Provider General Practice; Emergency Provider Emergency Medicine; PCP Nurse Practitioner; Visit Provider Internal Medicine Critical Care Medicine
DX: E23.2 Diabetes insipidus (principal); N17.9 Acute kidney failure, unspecified; Z68.42 Body mass index [BMI] 45.0-49.9, adult; E86.0 Dehydration; E66.01 Morbid (severe) obesity due to excess calories; E78.2 Mixed hyperlipidemia; F03.90 Unspecified dementia, unspecified severity, without behavioral disturbance, psychotic disturbance, mood disturbance, and anxiety; H40.9 Unspecified glaucoma; I10 Essential (primary) hypertension; M17.11 Unilateral primary osteoarthritis, right knee; R00.1 Bradycardia, unspecified; R74.01 Elevation of levels of liver transaminase levels; M19.012 Primary osteoarthritis, left shoulder; R29.6 Repeated falls; R93.89 Abnormal findings on diagnostic imaging of other specified body structures; R26.9 Unspecified abnormalities of gait and mobility; R32 Unspecified urinary incontinence; W19.XXXA Unspecified fall, initial encounter; Z98.49 Cataract extraction status, unspecified eye; Z86.718 Personal history of other venous thrombosis and embolism; Z79.01 Long term (current) use of anticoagulants; Z79.899 Other long term (current) drug therapy; Z20.822 Contact with and (suspected) exposure to COVID-19; Z90.710 Acquired absence of both cervix and uterus
CPT/HCPCS: 36415; 70553; 71045; 73030; 73562; 74176; 76705; 76775; 78707; 80048; 80053; 80069; 80074; 81001; 81050; 82024; 82164; 82248; 82533; 82550; 82570; 83001; 83002; 83036; 83520; 83690; 83735; 83883; 83930; 83935; 84146; 84155; 84156; 84165; 84166; 84295; 84300; 84443; 84484; 84540; 85025; 85027; 85610; 85652; 85730; 86036; 86038; 86039; 86160; 86162; 86225; 86235; 86255; 86334; 86335; 87637; 93005; 96361; 96365; 96366; 96376; 97110; 97116; 97161; 97165; 97530; 97535; 99285; A9270; A9562; A9577; C8929; G0378; J3480; J7030; J7040; J7070; Q9957

== ENCOUNTER 2023-06-01 05:26 | Emergency (ER) | payer MEDICARE, SELFPAY ==
[2023-06-01] VITALS (9 sets, daily range): BP systolic 107–165; BP diastolic 42–84; PULSE 61–66; RESP 12–22; TEMP 36.8; O2SAT 96–100
--- NOTE | ~2023-06-01 | CT_ITS ---
Non-contrast Head CT History: Head injury COMPARISON: 06/04/2022 Technique: Axial non-contrast imaging of the brain was performed. Dose reduction technique was used on this scan by utilizing automated exposure control and iterative reconstruction technique. The dose -length product (DLP) was 605.33 mGy-cm. Findings: There is no evidence of intracranial hemorrhage, mass lesion, or acute infarct. Brain par enchyma appears normal. The ventricles and subarachnoid spaces are normal in size. The calvarium ap pears normal. The visualized paranasal sinuses and mastoid air cells are clear. Impression: No significant abnormality seen. Reviewed, dictated and finalized at location . ICAL DATA ASSISTANT Impression: No significant abnormality seen.
[2023-06-01 08:38] LABS: Basophils Percent Auto 0.6 % (0.2-1.2); Eosinophils Absolute Auto 0.1 K/mm3 (0-0.3); Eosinophils Percent Auto 2.1 % (0-4.4); Hematocrit 33.6 % (37.0-47.0); Hemoglobin 10.3 g/dL (12.0-15.0); Immature Granulocyte Absolute 0.01 K/mm3 (0.00-0.031); Immature Granulocyte Percent A 0.2 % (0-0.5); Lymphocytes Absolute Auto 1.55 K/mm3 (0.9-3.2); Lymphocytes Percent Auto 32.8 % (18.3-44.2); Mean Corpuscular HGB Conc 30.7 g/dl (32-36); Mean Corpuscular Hemoglobin 27.2 pg (26-34); Mean Corpuscular Volume 88.7 fl (80-100); Mean Platelet Volume 9.6 fl (7.4-10.4); Monocytes Absolute Auto 0.6 K/mm3 (0.1-0.6); Monocytes Percent Auto 12.9 % (2.6-8.5); Neutrophils Absolute Auto 2.4 K/mm3 (1.3-6.7); Neutrophils Percent Auto 51.4 % (45.5-73.1); Platelet Count Result 177 k/mm3 (150-375); Red Blood Count 3.79 M/mm3 (4.2-5.4); Red Cell Distribution Width 15.9 % (11.5-14.5); White Blood Count 4.7 K/mm3 (4.5-10.0)
[2023-06-01 08:49] LABS: Alanine Aminotransferase 38 U/L (6-35); Albumin Level 3.4 g/dL (3.5-5.1); Alkaline Phosphatase 147 U/L (38-126); Anion Gap 3 mmol/L (8-16); Aspartate Amino Transferase 96 U/L (14-36); Bilirubin,Total 0.8 mg/dL (0.2-1.3); Blood Urea Nitrogen 17 mg/dL (7-17); Calcium 9.7 mg/dL (8.4-10.2); Carbon Dioxide 28 mmol/L (22-30); Chloride 110 mmol/L (98-107); Estimated CRCL calculation 32 ml/min; Estimated Glomerular Filt Rate 36; Glucose 87 mg/dL (65-110); Potassium 3.5 mmol/L (3.4-5.0); Sodium 141 mmol/L (137-145)
[2023-06-01 08:52] LABS: INR 1.5; Prothrombin Time 18.8 Seconds (11.1-14.7)
[2023-06-01 08:53] LABS: Partial Thromboplastin Time 39.5 SECONDS (22.3-36.8)
[2023-06-01 10:10] LABS: Add Urine Microscopic? YES; Appearance Urine Clear (Clear); Bacteria Urine None Seen /hpf; Bilirubin Urine Negative (Negative); Blood Urine Negative (Negative); Color Urine Yellow (Yellow); Glucose Urine UA Negative (Negative); Ketones Urine Negative (Negative); Leukocyte Esterase Ur Negative LEU/UL (Negative); Nitrate Urine Negative (Negative); Protein Urine 1+ mg/dL (Negative); RBC Urine 0-2 /hpf (0-2); Specific Grav Ur 1.008 (1.001-1.035); Squamous Epithelial Cell Urine None seen /hpf (Few); Urobilinogen Urine 0.2 mg/dL (<2.0); WBC Urine 0-5 /hpf; pH Urine 5.5 (5.0-9.0)
[2023-06-01] MEDS: SODIUM CHLORIDE 0.9% IV 1,000 ML 999 ML IV CONT (11:26)
--- NOTE | 2023-06-01 12:59 | ED.GENADULT ---
HPI - General Adult General Chief complaint: Fall Stated complaint: r knee pain Time Seen by Provider: 06/01/23 07:02 History of Present Illness HPI narrative: Patient is a 72-year-old female who presents ER with weakness in right knee pain. Patient was just discharged from rehab yesterday. Her physical therapy note shows she could ambulate 80 ft. She reports she has had weakness since had a fall where she struck her knee. She also believes that she struck her head but did not lose consciousness. She has no fevers or chills or sweats. She reports no other acute changes since going home. Related Data Home Medications Medication Instructions Recorded Confirmed latanoprost 0.005 % eye drops 1 drp LEFT EYE HS 01/28/22 05/23/23 prednisolone acetate 1 % eye 1 drp RIGHT EYE DAILY 01/28/22 05/23/23 drops,suspension dorzolamide 22.3 mg-timolol 6.8 1 drp EACH EYE Q12H 06/04/22 05/23/23 mg/mL eye drops apixaban 5 mg tablet (Eliquis) 5 mg PO BID 05/23/23 05/23/23 docusate sodium 100 mg PO DAILY 05/23/23 05/23/23 gabapentin 300 mg capsule 300 mg PO HS 05/23/23 05/23/23 rosuvastatin 40 mg tablet 40 mg PO HS 05/23/23 05/23/23 sertraline 25 mg tablet 25 mg PO QAM 05/23/23 05/23/23 thiamine HCl (vitamin B1) 100 mg 100 mg PO HS 05/23/23 05/23/23 tablet Allergies Allergy/AdvReac Type Severity Reaction Status Date / Time No Known Allergies Allergy Verified 05/23/23 13:03 Review of Systems Review of Systems: All systems reviewed & are unremarkable except as noted in HPI and below Constitutional: Constitutional: Reports fatigue and Reports weakness ENT: Reports system reviewed and no additional complaints, except as documented Respiratory: Respiratory: Reports no additional respiratory complaints Gastrointestinal: Gastrointestinal: Reports no additional gastrointestinal complaints Musculoskeletal: Musculoskeletal: Denies back pain, Denies myalgias, Reports arthralgias and Denies joint swelling Neurologic: Denies syncope, Denies headache(s), Denies focal weakness and Denies numbness [facility] Past Medical History Medical History Arthritis Bilateral cataracts Essential (primary) hypertension Glaucoma Herniated disc lower back History of colon polyps Hx of deep venous thrombosis Hypercholesteremia Lumbar back pain with radiculopathy affecting left lower extremity Mixed hyperlipidemia 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 Post-menopausal Spinal stenosis at L4-L5 level Surgical History Surgical History History of back surgery History of carpal tunnel surgery History of cataract extraction History of decompression of ulnar nerve History of excision of lamina of cervical vertebra for decompression of spinal cord History of tonsillectomy Hx of arthroscopy Hx of hysterectomy Status post cervical discectomy Family History Family History Mother Diabetes mellitus Hypertension Cerebrovascular accident Sibling Breast cancer Family history of arthritis Other Family history of cardiovascular disease Family history of coronary artery disease Family history of malignant neoplasm Family history of premature coronary heart disease Social History Social History Social History: The patient lives with her . She has no children. She is retired from [employer]. Her is a durable power county attorney for healthcare. Code status full code Smoking status: Never smoker Second hand tobacco smoke exposure: Yes Alcohol intake: former Alcohol use details: social Substance use: never Substance use type: does not use Do You Feel Safe in your Home?: Yes Lack of Transportation: No Lack of Food: Never True Current Housing: I Have Housing Concerned About Future Housing: No Difficulty Paying Gas/E
--- NOTE | 2023-06-01 13:56 | PC.NURSE ---
Called pts to see about a ride home since pt is up for discharged. Pts stated, she couldn't even stand up this morning. This RN explained lab results and head CT results to pts . This RN also told pts that the pt was able to ambulate with a walker, pts then hung up on this RN.
--- NOTE | 2023-06-01 14:47 | PC.NURSE ---
Pt ambulated with walker without difficulty.
== END 2023-06-01 14:49 | disposition home or self-care (01) ==
PROVIDERS: Emergency Provider Emergency Medicine; PCP Nurse Practitioner
DX: R53.1 Weakness (principal); I10 Essential (primary) hypertension; E78.2 Mixed hyperlipidemia; H40.9 Unspecified glaucoma; M19.90 Unspecified osteoarthritis, unspecified site; Z86.010 Personal history of colon polyps; Z86.718 Personal history of other venous thrombosis and embolism; Z98.49 Cataract extraction status, unspecified eye; Z90.710 Acquired absence of both cervix and uterus; Z79.01 Long term (current) use of anticoagulants
CPT/HCPCS: 36415; 70450; 80053; 81001; 85025; 85610; 85730; 96360; 99284; J7030

== ENCOUNTER 2023-07-03 07:26 | Inpatient (IN) | payer MEDICARE, SELFPAY ==
[2023-07-03] VITALS (62 sets, daily range): BP systolic 90–151; BP diastolic 35–109; PULSE 57–86; RESP 12–33; TEMP 34–36.9; O2SAT 90–100; BMI 44.3
--- NOTE | ~2023-07-03 | MR_ITS ---
EXAMINATION: MR brain/brain stem wo/w con DATE: 07/07/2023 17:36 INDICATION: Confusion. TECHNIQUE: Magnetic resonance imaging (MRI) of the brain and brainstem was performed without and with 20 mL MultiHance intravenous contrast. COMPARISON: Head CT 07/03/2023, brain MRI 05/27/2023 FINDINGS: There are scattered areas of nonspecific increased T2-weighted signal intensity in the cere bral white matter, which is within normal limits for the patient's age. There is an empty sella. Ther e is no intracranial hemorrhage, acute infarction, or abnormal intracranial mass lesion. The lateral and fourth ventricles are enlarged out of portion of the size of the sulci. There is mild mucosal thi ckening in the ethmoid sinuses. There are likely changes of ocular lens replacement surgeries. The ma stoid air cells are normal. IMPRESSION: 1. Stable ventriculomegaly. Correlate clinically for normal pressure hydrocephalus. Reviewed, dictated and finalized at location A. IMPRESSION: 1. Stable ventriculomegaly. Correlate clinically for normal pressure hydrocepha joel.
--- NOTE | ~2023-07-03 | CT_ITS ---
EXAMINATION: CT brain wo con DATE: 07/03/2023 08:36 INDICATION: Altered mental status. Found unresponsive. TECHNIQUE: Computed tomography (CT) of the head was performed without intravenous contrast. The mA wa s adjusted according to patient size. Iterative reconstruction technique was employed. Exam dose: 98 3.67 mGy-cm total exam DLP. COMPARISON: June 01, 2023 CT brain FINDINGS: There is moderately prominent dilatation of the cerebral ventricles and relative effacement of the cortical sulci bilaterally. Consider communicating hydrocephalus, which may be associated wit h a classic triad of dementia, gait disturbance and urinary incontinence. Clinical correlation is adv ised. No intracranial mass lesion or hemorrhage, midline shift or mass effect is noted. No subdural or epidural hematoma. No fracture or bone destruction of the cranial vault. The mastoid air cells and paranasal sinuses are normally developed and aerated. IMPRESSION: Prominence of cerebral ventricles and effaced cortical sulci; recommend clinical correla tion for possible communicating hydrocephalus No acute intracranial finding Reviewed, dictated and finalized at Location [facility]. Reviewed, dictated and finalized at location B. IMPRESSION: Prominence of cerebral ventricles and effaced cortical sulci; candace mmend clinical correlation for possible communicating hydrocephalus No acute intracranial finding
--- NOTE | ~2023-07-03 | XR_ITS ---
XR chest 1V DATE: 07/03/2023 08:42 INDICATION: Altered mental status TECHNIQUE: AP chest on 07/03/2023 at 0839 hours COMPARISON: 05/23/2023 portable AP chest FINDINGS: There is cardiomegaly. Mild infiltrate or atelectasis, left lower lung. No other pulmonary infiltrate or consolidation, pulmonary vascular congestion or pleural effusion or pneumothorax. Postoperative change from cervical and lumbar spinal fusion. IMPRESSION: Cardiomegaly Mild infiltrate or atelectasis, left lower lung Reviewed, dictated and finalized at location B.
--- NOTE | ~2023-07-03 | XR_ITS ---
EXAMINATION: XR tibia fibula LT 2V DATE: 07/09/2023 13:36 INDICATION: Left alvarado pain. TECHNIQUE: 2 views of left tibia and fibula were obtained. COMPARISON: Left knee radiographs 02/18/2023 FINDINGS: Bone alignment is normal. No fracture. There is moderate left knee osteoarthritis. IMPRESSION: 1. Moderate left knee osteoarthritis. Reviewed, dictated and finalized at location A.
--- NOTE | 2023-07-03 07:37 | ECG_ITS ---
Measurements Intervals [place] Rate: 57 P: 56 [place]: 204 QRS: 41 QRSD: 85 T: 153 QT: 414 QTc: 406 Interpretive Statements SINUS BRADYCARDIA BORDERLINE AV CONDUCTION DELAY LOW VOLTAGE IN PRECORDIAL LEADS BORDERLINE ST-T WAVE ABNORMALITY- ANTEROLAT/INF LEADS BASELINE ARTIFACT- I, II, III, AVR, AVL, AVF, V1-V6 BORDERLINE ECG COMPARED TO ECG 05/24/2023 08:09:38 HEART RATE HAS INCREASED Electronically Signed On 07-03-2023 7:55:31 CDT by Obdulio Garcia D.O.
--- NOTE | 2023-07-03 07:46 | ED.AMS ---
HPI - Altered Mental Status General Chief Complaint: Altered Mental Status Stated Complaint: ams Limitations: altered mental status History of Present Illness HPI narrative: HPI limited by the patient's altered mental status This is a 72-year-old female, with history of renal failure and DVT on Eliquis, on DNR comfort orders, brought in by EMS from her nursing for altered mental status. EMS reports nursing staff woke and dressed the patient approximately an hour half prior to arrival. Approximately 45 minutes prior to arrival, they re-evaluated the patient and found her unresponsive and reportedly pulseless. EMS reports nursing staff started CPR with recovery of a pulse. On their arrival, EMS reports the patient is moving all 4 extremities and would not hold still for vitals. Related Data Home Medications Medication Instructions Recorded Confirmed latanoprost 0.005 % eye drops 1 drp LEFT EYE HS 01/28/22 07/03/23 prednisolone acetate 1 % eye 1 drp RIGHT EYE HS 01/28/22 07/03/23 drops,suspension dorzolamide 22.3 mg-timolol 6.8 1 drp EACH EYE Q12H 06/04/22 07/03/23 mg/mL eye drops apixaban 5 mg tablet (Eliquis) 5 mg PO BID 05/23/23 07/03/23 docusate sodium 100 mg PO DAILY 05/23/23 07/03/23 gabapentin 300 mg capsule 300 mg PO HS 05/23/23 07/03/23 rosuvastatin 40 mg tablet 40 mg PO HS 05/23/23 07/03/23 sertraline 25 mg tablet 25 mg PO QAM 05/23/23 07/03/23 thiamine HCl (vitamin B1) 100 mg 100 mg PO HS 05/23/23 07/03/23 tablet Allergies Allergy/AdvReac Type Severity Reaction Status Date / Time No Known Allergies Allergy Verified 05/23/23 13:03 Review of Systems Review of Systems: Unable to obtain review of systems due to altered mental status [facility] Past Medical History Medical History (Updated 07/03/23 @ 14:40 by Kady Yuan PA-C) Arthritis Deep venous thrombosis 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 Post-menopausal Prediabetes Spinal stenosis at L4-L5 level Surgical History Surgical History (Updated 07/03/23 @ 14:14 by Kady Yuan PA-C) History of back surgery History of carpal tunnel surgery History of cataract extraction History of cervical discectomy History of colonoscopy with polypectomy History of decompression of ulnar nerve History of excision of lamina of cervical vertebra for decompression of spinal cord History of hysterectomy History of tonsillectomy Family History Family History Mother Diabetes mellitus Hypertension Cerebrovascular accident Sibling Breast cancer Family history of arthritis Other Family history of cardiovascular disease Family history of coronary artery disease Family history of malignant neoplasm Family history of premature coronary heart disease Social History Social History (Updated 07/03/23 @ 14:39 by Kady Yuan PA-C) Social History: Surrogate medical decision maker: Daly Jaramillo, spouse. Code status: Do not resuscitate. Smoking status: Never smoker Second hand tobacco smoke exposure: Yes Alcohol intake: never Alcohol use details: social Substance use: never Substance use type: does not use Do You Feel Safe in your Home?: Yes Lack of Transportation: No Lack of Food: Never True Current Housing: I Have Housing Concerned About Future Housing: No Difficulty Paying Gas/Electric Bills: No Difficulty Paying for Meds: No Currently Unemployed: No Education: High School Diploma/GED Difficulty w/ Childcare or Family Care: No Living arrangements: with family Occupation/Education: retired Spiritual care concerns: Yes (Jain) Exam Narrative: GENERAL: Well-d
[2023-07-03 07:48] LABS: Glucose Point of Care 76 mg/dl (65-105)
[2023-07-03] MEDS: SODIUM CHLORIDE 0.9% IV 3,300 ML/1,000 ML BAG 999 ML IV CONT ×3 (08:00→10:17)
[2023-07-03] MEDS: DEXTROSE 50% 25 GM/50 ML SYRINGE IV PUSH (08:08)
[2023-07-03 08:29] LABS: Appearance Urine Cloudy (Clear); Bacteria Urine 4+ /hpf; Bilirubin Urine Negative (Negative); Blood Urine Trace (Negative); Color Urine Yellow (Yellow); Glucose Urine UA Negative (Negative); Ketones Urine Negative (Negative); Leukocyte Esterase Ur 3+ LEU/UL (Negative); Nitrate Urine Positive (Negative); Non Pathogenic Casts 0-2; Protein Urine 1+ mg/dL (Negative); RBC Urine 0-2 /hpf (0-2); Specific Grav Ur 1.006 (1.001-1.035); Squamous Epithelial Cell Urine None Seen /hpf (Few); Urobilinogen Urine 0.2 mg/dL (<2.0); WBC Urine >100 /hpf (0-3); pH Urine 6.5 (5.0-9.0)
[2023-07-03 08:50] LABS: Glucose Point of Care 123 mg/dl (65-105)
[2023-07-03 08:51] LABS: Add Urine Microscopic? YES
--- NOTE | 2023-07-03 09:31 | PC.NURSE ---
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
[2023-07-03 09:32] LABS: Eosinophils Absolute Auto 0.1 K/mm3 (0-0.3); Eosinophils Percent Auto 3.8 % (0-4.4); Hematocrit 31.4 % (37.0-47.0); Hemoglobin 9.4 g/dL (12.0-15.0); Lymphocytes Absolute Auto 1.11 K/mm3 (0.9-3.2); Lymphocytes Percent Auto 38.5 % (18.3-44.2); Mean Corpuscular HGB Conc 29.9 g/dl (32-36); Mean Corpuscular Hemoglobin 26.9 pg (26-34); Monocytes Absolute Auto 0.4 K/mm3 (0.1-0.6); Monocytes Percent Auto 12.2 % (2.6-8.5); Neutrophils Absolute Auto 1.3 K/mm3 (1.3-6.7); Neutrophils Percent Auto 44.5 % (45.5-73.1); Platelet Count Result 259 k/mm3 (150-375); Red Blood Count 3.49 M/mm3 (4.2-5.4); Red Cell Distribution Width 16.9 % (11.5-14.5); White Blood Count 2.9 K/mm3 (4.5-10.0)
[2023-07-03 09:42] LABS: Acetaminophen < 10 ug/mL (10-30); Alanine Aminotransferase 14 U/L (6-35); Albumin Level 2.9 g/dL (3.5-5.1); Alkaline Phosphatase 237 U/L (38-126); Ammonia < 9 umol/L (9-30); Anion Gap 0 mmol/L (8-16); Aspartate Amino Transferase 40 U/L (14-36); Bilirubin,Total 0.6 mg/dL (0.2-1.3); Blood Urea Nitrogen 8 mg/dL (7-17); Calcium 8.8 mg/dL (8.4-10.2); Carbon Dioxide 29 mmol/L (22-30); Chloride 110 mmol/L (98-107); Creatine Kinase 100 U/L (30-135); Estimated Glomerular Filt Rate > 60; Ethanol < 10 mg/dL (<10); Glucose 107 mg/dL (65-110); Potassium 3.3 mmol/L (3.4-5.0); Salicylate < 1.0 mg/dL (2-20); Sodium 139 mmol/L (137-145)
[2023-07-03 09:43] LABS: Lactic Acid Reflex 1.1 mmol/L (0.7-2.0)
[2023-07-03 09:43] LABS: Barbiturate Screen Urine Negative (Negative)
[2023-07-03 09:45] LABS: Cannabinoid Screen Urine Negative (Negative); Opiate Screen Urine Negative (Negative)
[2023-07-03 09:49] LABS: Benzodiazepines Screen Urine Negative (Negative)
[2023-07-03 09:53] LABS: Troponin I < 0.012 ng/mL (0.000-0.034)
[2023-07-03 09:54] LABS: Platelet Estimate Adequate (Adequate)
[2023-07-03 09:56] LABS: Amphetamine Screen Urine Negative (Negative); Cocaine Screen Urine Negative (Negative); Methadone Screen Urine Negative (Negative); Phencyclidine Screen Urine Negative (Negative)
[2023-07-03 09:57] LABS: Hypochromasia 1+; Ovalocytes 1+
[2023-07-03 09:58] LABS: Schistocytes None Seen
--- NOTE | 2023-07-03 10:19 | PC.NURSE ---
Dr. Jaquez verbal order to give 3000ml of NS
--- NOTE | 2023-07-03 10:36 | PC.NURSE ---
Per ERP Dr. Jaquez, only 3000mls fluids given, do not give additional 300mls.
[2023-07-03 12:38] LABS: Glucose Point of Care 65 mg/dl (65-105)
--- NOTE | 2023-07-03 12:43 | PC.NURSE ---
pt drinking applejuice for BS of 65, ERP Dr Jaquez aware.
[2023-07-03 13:13] LABS: Glucose Point of Care 77 mg/dl (65-105)
--- NOTE | 2023-07-03 13:54 | PC.NURSE ---
Patient more awake and alert.
--- NOTE | 2023-07-03 14:09 | PM.IMHP ---
H&P: HPI History of Present Illness Date/Time: 07/03/23 14:45 Chief Complaint: Unresponsive. Narrative: This is a 72-year-old female with prediabetes, deep venous thrombosis on apixaban, suspected normal pressure hydrocephalus, diabetes insipidus, glaucoma, and neuropathy who presented to the emergency department via EMS from her nursing facility for evaluation after she was found unresponsive. She is not able to provide an accurate history and a majority the following is obtained via a review of her EMR. According to documentation she seemed to be in her usual state of health this morning when jail staff got her up in dressed for the day. About 45 minutes thereafter she was found unresponsive and reportedly pulseless. Nursing staff started CPR with recovery of a pulse within an unknown length of time. On EMS arrival she was alert, moving all 4 extremities, and would not hold still for vital signs. At the time my evaluation she is alert and oriented to person. She is not alert to situation and can provide no history as to how she has been feeling the last couple of days or how she got here today. She falls asleep during the middle of our conversations but arouses easily. She denies headache, chest pain, shortness of breath, abdominal pain, nausea, vomiting, diarrhea, and dysuria. On arrival to the ED her blood pressure was 90/60, pulse 60, respiratory 20, SpO2 100% on room air, and temperature was 95.5?. She was given 30 mg/kg normal saline bolus with improvement in her blood pressures. Initial workup was significant for a WBC count of 2.9, hemoglobin 9.4, potassium 3.3, creatinine 1.00, lactic acid 1.1, troponin less than 0.012. Urine was positive for nitrates, leukocyte esterase, 4+ bacteria, and greater than [address] showed prominence of cerebral ventricles and face cortical sulci with no acute findings. Chest x-ray showed cardiomegaly with mild infiltrate or atelectasis of the left lower lung. EKG showed sinus bradycardia with borderline AV conduction delay and borderline ST T-wave abnormalities in the anterolateral/inferior leads which appear unchanged compared to prior tracings. She was given a dose of ceftriaxone is being admitted in this setting for further treatment and evaluation. Of note, the patient was hospitalized last month after presenting to the emergency department for evaluation of increased falls. At that time she was found to have an acute kidney injury, hypernatremia (presumed diabetes insipidus), and findings of suspected normal pressure hydrocephalus with enlarged ventricles an empty sella. Many lab tests were pending at the time of her discharge and is noted that her BECCA screen came back positive with a titer of 1:160 in a mytotic, NuMA-like pattern and a positive p-ANCA with a titer of 1:320. She was also noted to have increased free light chains. Review of Systems Review of Systems: Unable to be obtained accurately given clinical condition. 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 Post-menopausal Prediabetes Spinal stenosis at L4-L5 level Surgical History Surgical History (Updated 07/03/23 @ 14:14 by Kady Yuan PA-C) History of back surgery History of carpal tunnel surgery History of cataract extraction History of cervical discectomy History of colonoscopy with polypectomy History of decompression of ulnar nerve History of excision of lamina of cervical vertebra for decompression of spinal cord History of hysterectomy History of tonsillectomy Family History Family History (Reviewed 07/03/23 @ 14:14 by Acosta
[2023-07-03 15:11] LABS: Glucose Point of Care 77 mg/dl (65-105)
--- NOTE | 2023-07-03 15:12 | PC.NURSE ---
Marco avalos placed on patient due to low rectal temp. Provider and charge entry specialist aware
--- NOTE | 2023-07-03 15:40 | PC.NURSE ---
Temp sensing regalado placed per verbal order from provider
--- NOTE | 2023-07-03 18:29 | ADMGEN ---
This patient, Jolie Banks, was admitted to IMU Room 206-02. Patient/family oriented to hospital policies and general routines including ID bracelet, bed and alarms, visiting hours, pain management, procedures, bathroom and other care routines, personal items, smoking policy, room service/diet, and visiting hours. Information on how to activate the Rapid Response Team has been discussed. Patient/Family are encouraged to report perceived risks to care and to ask questions if they do not understand what they are told or what they should do.
[2023-07-03 20:01] LABS: Alveolar/Arterial O2 Gradient 28.4 mmHg; Base Excess ABG 0.8 mEq/l (+/-2.0); Carboxyhemoglobin 0.3 % THb (0-2.0); Fractional Inspired Oxygen 21 %; HCO3 ABG 25.2 mEq/l (22.0-26.0); Methemoglobin ABG 0.4 %THb (0-1.5); Oxygen Content ABG 14.1 %vol (16.0-22.0); Oxygen Saturation ABG 95.2 % (95.0-100.0); Oxyhemoglobin 93.8 % THb (90.0-100.0); PCO2 ABG 39.6 mmHg (35.0-45.0); PO2 ABG 73.9 mmHg (80.0-100.0); PO2 FiO2 Ratio Arterial Blood 3.52 %; Reduced Hemoglobin 5.5 %THb (0-5.0); Total Hemoglobin 10.6 g/dL (12.0-18.0); pH ABG 7.422 (7.350-7.450)
[2023-07-03 20:13] LABS: Device ROOM AIR; Modified Allen's Test Pass; Site Drawn RIGHT BRACHIAL
[2023-07-03 20:22] LABS: Ammonia < 9 umol/L (9-30)
[2023-07-03] MEDS: ROSUVASTATIN 10 MG TABLET 40 MG PO (23:12)
[2023-07-03] MEDS: THIAMINE HCL 100 MG TABLET PO (23:13)
[2023-07-03] MEDS: prednisoLONE ACETATE 1% OPHTH 5 ML 1 DROP RIGHT EYE (23:14)
[2023-07-03] MEDS: LATANOPROST 0.005% OP SOLN 2.5 ML BTL 1 DROP LEFT EYE (23:14)
[2023-07-03] MEDS: DORZOLAMIDE/TIMOLOL OPHTH SOL 10 ML BOTTLE 1 DROP EACH EYE (23:14)
[2023-07-04] VITALS (14 sets, daily range): BP systolic 107–126; BP diastolic 57–80; PULSE 80–91; RESP 16–20; TEMP 36.1–36.8; O2SAT 95–100
[2023-07-04 04:39] LABS: Basophils Percent Auto 0.7 % (0.2-1.2); Eosinophils Absolute Auto 0.1 K/mm3 (0-0.3); Eosinophils Percent Auto 1.7 % (0-4.4); Hemoglobin 10.1 g/dL (12.0-15.0); Immature Granulocyte Absolute 0.01 K/mm3 (0.00-0.031); Immature Granulocyte Percent A 0.2 % (0-0.5); Lymphocytes Absolute Auto 1.17 K/mm3 (0.9-3.2); Lymphocytes Percent Auto 28.8 % (18.3-44.2); Mean Corpuscular HGB Conc 30.6 g/dl (32-36); Mean Corpuscular Hemoglobin 27.4 pg (26-34); Mean Corpuscular Volume 89.4 fl (80-100); Mean Platelet Volume 8.8 fl (7.4-10.4); Monocytes Absolute Auto 0.4 K/mm3 (0.1-0.6); Monocytes Percent Auto 9.1 % (2.6-8.5); Neutrophils Absolute Auto 2.4 K/mm3 (1.3-6.7); Neutrophils Percent Auto 59.5 % (45.5-73.1); Platelet Count Result 289 k/mm3 (150-375); Red Blood Count 3.69 M/mm3 (4.2-5.4); Red Cell Distribution Width 16.8 % (11.5-14.5); White Blood Count 4.1 K/mm3 (4.5-10.0)
[2023-07-04 04:55] LABS: Anion Gap 5 mmol/L (8-16); Blood Urea Nitrogen 7 mg/dL (7-17); CRP 5.3 mg/dL (<1.0); Calcium 9.5 mg/dL (8.4-10.2); Carbon Dioxide 26 mmol/L (22-30); Chloride 114 mmol/L (98-107); Estimated CRCL calculation 51 ml/min; Estimated Glomerular Filt Rate > 60; Glucose 74 mg/dL (65-110); Magnesium 2.1 mg/dL (1.6-2.3); Potassium 3.4 mmol/L (3.4-5.0); Sodium 145 mmol/L (137-145)
[2023-07-04 05:17] LABS: Erythrocyte Sedimentation Rate 108 mm/hr (0-20)
--- NOTE | 2023-07-04 09:22 | P.PNIM_ITS ---
Progress Note: A&P Assessment and Plan (1) Unresponsive episode: Code(s): R40.4 - Transient alteration of awareness Status: Acute (2) Urinary tract infection: Code(s): N39.0 - Urinary tract infection, site not specified Status: Acute (3) Altered mental status: Qualifiers: Altered mental status type: delirium Qualified Code(s): R41.0 - Disorientation, unspecified Code(s): R41.82 - Altered mental status, unspecified Status: Acute (4) Positive P-ANCA titer: Code(s): R76.8 - Other specified abnormal immunological findings in serum Status: Acute (5) Normocytic anemia: Code(s): D64.9 - Anemia, unspecified Status: Acute (6) Chronic anticoagulation: 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 She is not able to provide an accurate history and a majority the following is obtained via a review of her EMR. According to documentation she seemed to be in her usual state of health this morning when detention staff got her up in dressed for the day. About 45 minutes thereafter she was found unresponsive and reportedly pulseless. Nursing staff started CPR with recovery of a pulse within an unknown length of time. On EMS arrival she was alert, moving all 4 extremities, and would not hold still for vital signs. At the time my evaluation she is alert and oriented to person. She is not alert to situation and can provide no history as to how she has been feeling the last couple of days or how she got here today. She falls asleep during the middle of our conversations but arouses easily. She denies headache, chest pain, shortness of breath, abdominal pain, nausea, vomiting, diarrhea, and dysuria. On arrival to the ED her blood pressure was 90/60, pulse 60, respiratory 20, SpO2 100% on room air, and temperature was 95.5?. She was given 30 mg/kg normal saline bolus with improvement in her blood pressures. Initial workup was significant for a WBC count of 2.9, hemoglobin 9.4, potassium 3.3, creatinine 1.00, lactic acid 1.1, troponin less than 0.012. Urine was positive for nitrates, leukocyte esterase, 4+ bacteria, and greater than [address] showed prominence of cerebral ventricles and face cortical sulci with no acute findings. Chest x-ray showed cardiomegaly with mild infiltrate or atelectasis of the left lower lung. EKG showed sinus bradycardia with borderline AV conduction delay and borderline ST T-wave abnormalities in the anterolateral/inferior leads which appear unchanged compared to prior tracings. She was given a dose of ceftriaxone is being admitted in this setting for further treatment and evaluation. Of note, the patient was hospitalized last month after presenting to the emergency department for evaluation of increased falls. At that time she was found to have an acute kidney injury, hypernatremia (presumed diabetes insipidus), and findings of suspected normal pressure hydrocephalus with enlarged ventricles an empty sella. Many lab tests were pending at the time of her discharge and is noted that her BECCA screen came back positive with a titer of 1:160 in a mytotic, NuMA-like pattern and a positive p-ANCA with a titer of 1:320. She was also noted to have increased free light chains. At baseline she is reportedly alert and oriented x4 however she is alert to self only at the time of my evaluation.
--- NOTE | 2023-07-04 15:06 | WPDNEURCNPN ---
Assessment and Plan Assessment and plan (1) Unresponsive episode: Code(s): R40.4 - Transient alteration of awareness Status: Acute Plan 1. Episode of being found unresponsive but at this stage she is awake alert and follow the instruction rule out the possibility of unwitnessed seizure question has been raised regarding possible clue of ventriculomegaly on the CT scan which is chronic process at this stage does not need to pursue further with more information to be obtained from the family 2. Will need observation today and we will obtain the EEG if any change in status is noted further investigation will be ordered. Consult date: 07/04/23 HPI: Jolie Banks is a 72 year old female Admitted to the hospital through the emergency room for the complaints of change in the mental status with ongoing diagnosis of 1. Renal failure 2. DVT for which patient receiving Eliquis and 3. DNR with comfort orders she was brought in by the EMS from the correction for the complaint of change in the mental status reportedly nursing staff woke and dressed her an hour before arrival to the ER he was found to be unresponsive and pulseless this started the CPR with recovery of the pulse he was able to move all 4 extremities on arrival of the EMS. Her medications at that time included apixaban 5mg twice a day, gabapentin 3mg at night, rosuvastatin 40mg at night, sertraline 25mg in the morning and thiamine 100mg at night, she has ongoing history of diabetes mellitus with hypertension, coma, and spinal stenosis at the level of L4-5 but she has undergone multiple surgeries as outlined particularly lower back surgery, cervical surgery, and abdominal surgery as well she has never alcohol drinker she does not smoke and on initial exam in the emergency room she was found to have sluggish in responses but able to move all 4 extremities, her initia vital signs were normal, CBC was abnormal with WBC is 2.9 hemoglobin 9.4, BMP with potassium 3.3, UA abnormal in the drug screen negative EKG revealed no atrial fibrillation except sinus bradycardia and CT scan of the head documented only prominence of the cerebral ventricles and E faced cortical sulci but no evidence of epidural or subdural raise the question about the communicating hydrocephalus chest x-ray with mild cardiomegaly PMFSH Past Medical History Medical History Arthritis Deep venous thrombosis 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 Post-menopausal Prediabetes Spinal stenosis at L4-L5 level Surgical History Surgical History History of back surgery History of carpal tunnel surgery History of cataract extraction History of cervical discectomy History of colonoscopy with polypectomy History of decompression of ulnar nerve History of excision of lamina of cervical vertebra for decompression of spinal cord History of hysterectomy History of tonsillectomy Family History Family History Mother Diabetes mellitus Hypertension Cerebrovascular accident Sibling Breast cancer Family history of arthritis Other Family history of cardiovascular disease Family history of coronary artery disease Family history of malignant neoplasm Family history of premature coronary heart disease Social History Social History Social History: Surrogate medical decision maker: Daly Jaramillo, spouse. Code status: Do not resuscitate. Smoking status: Never smoker Second hand tobacco smoke exposure: Yes Alcohol intake: never Alcohol use details: social Substance use
[2023-07-04] MEDS: POTASSIUM CHLORIDE INJ 40 MEQ in SODIUM CHLORIDE 0.9% IV 500 ML 130 MEQ IVPB (15:55)
[2023-07-04 16:12] LABS: Cortisol Baseline 5.98 ug/dL
[2023-07-04] MEDS: prednisoLONE ACETATE 1% OPHTH 5 ML 1 DROP RIGHT EYE (21:00)
[2023-07-04] MEDS: DORZOLAMIDE/TIMOLOL OPHTH SOL 10 ML BOTTLE 1 DROP EACH EYE (21:00)
[2023-07-04] MEDS: LATANOPROST 0.005% OP SOLN 2.5 ML BTL 1 DROP LEFT EYE (21:00)
[2023-07-05] VITALS (18 sets, daily range): BP systolic 103–130; BP diastolic 56–73; PULSE 72–100; RESP 12–20; TEMP 36.1–37.7; O2SAT 97–100
[2023-07-05] MEDS: ACETAMINOPHEN 325 MG TABLET 650 MG PO (04:05)
[2023-07-05 05:03] LABS: Basophils Percent Auto 0.4 % (0.2-1.2); Eosinophils Absolute Auto 0.1 K/mm3 (0-0.3); Hematocrit 33.9 % (37.0-47.0); Hemoglobin 10.6 g/dL (12.0-15.0); Immature Granulocyte Absolute 0.01 K/mm3 (0.00-0.031); Immature Granulocyte Percent A 0.2 % (0-0.5); Lymphocytes Absolute Auto 1.71 K/mm3 (0.9-3.2); Mean Corpuscular HGB Conc 31.3 g/dl (32-36); Mean Corpuscular Hemoglobin 26.9 pg (26-34); Monocytes Absolute Auto 0.6 K/mm3 (0.1-0.6); Monocytes Percent Auto 12.1 % (2.6-8.5); Neutrophils Absolute Auto 2.5 K/mm3 (1.3-6.7); Neutrophils Percent Auto 51.3 % (45.5-73.1); Platelet Count Result 311 k/mm3 (150-375); Red Blood Count 3.94 M/mm3 (4.2-5.4); Red Cell Distribution Width 16.9 % (11.5-14.5); White Blood Count 4.9 K/mm3 (4.5-10.0)
[2023-07-05 05:17] LABS: Alanine Aminotransferase 15 U/L (6-35); Albumin Level 3.4 g/dL (3.5-5.1); Alkaline Phosphatase 310 U/L (38-126); Anion Gap 7 mmol/L (8-16); Aspartate Amino Transferase 41 U/L (14-36); Bilirubin,Total 0.7 mg/dL (0.2-1.3); Blood Urea Nitrogen 8 mg/dL (7-17); Carbon Dioxide 21 mmol/L (22-30); Chloride 120 mmol/L (98-107); Estimated CRCL calculation 43 ml/min; Estimated Glomerular Filt Rate 53; Glucose 81 mg/dL (65-110); Magnesium 2.2 mg/dL (1.6-2.3); Potassium 3.5 mmol/L (3.4-5.0); Sodium 148 mmol/L (137-145)
--- NOTE | 2023-07-05 07:54 | PC.NURSE ---
at 500 this RN entered the patient room due to the tele monitor and begin to assess the patient. patient denied distress and noted to be shivering. Patient did have fever given Tylenol. business performance advisor entered the patient room came out of the patient room and stated the leads are everywhere and went to a second RN to discuss the tele monitor. Leads where checked at 2000 assessment. Sitter was noted at the bedside until 2300 see tele strips. Lead where changed per storage battery charger and this RN checked leads. Temp resolved no further shivering noted.
[2023-07-05] MEDS: SERTRALINE HCL 25 MG TABLET PO (09:19)
[2023-07-05] MEDS: DOCUSATE SODIUM 100 MG CAPSULE PO (09:20)
[2023-07-05] MEDS: PANTOPRAZOLE 40 MG TABLET PO (09:21)
[2023-07-05] MEDS: DEXTROSE 5%/0.45% SOD CHL 1,000 ML 75 ML IV CONT ×2 (10:42→23:27)
[2023-07-05] MEDS: METOPROLOL SUCCINATE EXT REL 25 MG TABCR PO (16:16)
[2023-07-05] MEDS: DORZOLAMIDE/TIMOLOL OPHTH SOL 10 ML BOTTLE 1 DROP EACH EYE ×2 (16:16→20:08)
[2023-07-05] MEDS: ROSUVASTATIN 10 MG TABLET 40 MG PO (20:08)
[2023-07-05] MEDS: prednisoLONE ACETATE 1% OPHTH 5 ML 1 DROP RIGHT EYE (20:09)
[2023-07-05] MEDS: THIAMINE HCL 100 MG TABLET PO (20:09)
[2023-07-05] MEDS: LATANOPROST 0.005% OP SOLN 2.5 ML BTL 1 DROP LEFT EYE (20:09)
[2023-07-06] VITALS (12 sets, daily range): BP systolic 93–148; BP diastolic 54–79; PULSE 64–79; RESP 16–20; TEMP 35.8–36.8; O2SAT 99–100
[2023-07-06 05:09] LABS: Basophils Percent Auto 0.8 % (0.2-1.2); Eosinophils Absolute Auto 0.1 K/mm3 (0-0.3); Hematocrit 33.7 % (37.0-47.0); Hemoglobin 10.2 g/dL (12.0-15.0); Immature Granulocyte Absolute 0.01 K/mm3 (0.00-0.031); Immature Granulocyte Percent A 0.2 % (0-0.5); Lymphocytes Absolute Auto 1.57 K/mm3 (0.9-3.2); Lymphocytes Percent Auto 31.7 % (18.3-44.2); Mean Corpuscular HGB Conc 30.3 g/dl (32-36); Mean Corpuscular Hemoglobin 26.8 pg (26-34); Mean Corpuscular Volume 88.5 fl (80-100); Mean Platelet Volume 9.1 fl (7.4-10.4); Monocytes Absolute Auto 0.6 K/mm3 (0.1-0.6); Monocytes Percent Auto 12.1 % (2.6-8.5); Neutrophils Absolute Auto 2.6 K/mm3 (1.3-6.7); Neutrophils Percent Auto 53.2 % (45.5-73.1); Platelet Count Result 280 k/mm3 (150-375); Red Blood Count 3.81 M/mm3 (4.2-5.4); Red Cell Distribution Width 17.4 % (11.5-14.5)
[2023-07-06 05:19] LABS: Alanine Aminotransferase 14 U/L (6-35); Albumin Level 3.3 g/dL (3.5-5.1); Alkaline Phosphatase 275 U/L (38-126); Anion Gap 4 mmol/L (8-16); Aspartate Amino Transferase 39 U/L (14-36); Bilirubin,Total 0.6 mg/dL (0.2-1.3); Blood Urea Nitrogen 7 mg/dL (7-17); Calcium 9.9 mg/dL (8.4-10.2); Carbon Dioxide 26 mmol/L (22-30); Chloride 117 mmol/L (98-107); Estimated CRCL calculation 39 ml/min; Estimated Glomerular Filt Rate 49; Glucose 101 mg/dL (65-110); Magnesium 2.1 mg/dL (1.6-2.3); Potassium 3.3 mmol/L (3.4-5.0); Sodium 147 mmol/L (137-145)
[2023-07-06] MEDS: DORZOLAMIDE/TIMOLOL OPHTH SOL 10 ML BOTTLE 1 DROP EACH EYE ×2 (09:07→21:28)
[2023-07-06] MEDS: PANTOPRAZOLE 40 MG TABLET PO (09:07)
[2023-07-06] MEDS: POTASSIUM CHLORIDE 20 MEQ ER TABLET 40 MEQ PO (09:07)
[2023-07-06] MEDS: CHOLECALCIFEROL 1,000 UNITS TABLET 2000 UNITS PO (09:07)
[2023-07-06] MEDS: SERTRALINE HCL 25 MG TABLET PO (09:07)
[2023-07-06] MEDS: DOCUSATE SODIUM 100 MG CAPSULE PO (09:07)
[2023-07-06] MEDS: METOPROLOL SUCCINATE EXT REL 25 MG TABCR PO ×2 (09:07→17:11)
--- NOTE | 2023-07-06 09:40 | WPDNEUROPN ---
Progress Note: A&P Assessment and Plan (1) Unresponsive episode: Code(s): R40.4 - Transient alteration of awareness Status: Acute (2) Normal pressure hydrocephalus: Onset Date: 05/2023 Code(s): G91.2 - (Idiopathic) normal pressure hydrocephalus Status: Acute (3) Altered mental status: Qualifiers: Altered mental status type: delirium Qualified Code(s): R41.0 - Disorientation, unspecified Code(s): R41.82 - Altered mental status, unspecified Status: Acute (4) Acute UTI: Code(s): N39.0 - Urinary tract infection, site not specified Status: Acute Plan Ms. Jaramillo is a 72 year old female assisted resident with a history of prediabetes, DVT, suspected NPH, diabetes insipidus, glaucoma presenting for evaluation of episode of unresponsiveness. She was ultimately found to have a UTI. There have been ongoing concerns for NPH given patients cognitive issues and gait instability. Her last MRI brain was done in May 2023, and has not been done during this admission. She is already established with a Neurologist at [facility] for her cognitive concerns, per . The episode of unresponsiveness likely unrelated to NPH concerns, but could be related to UTI. Recommend routine EEG and MRI brain during this admission given the acute clinical change since last imaging that was done. If testing is unrevealing, recommend close follow-up with her Neurologist. Subjective Date/time seen: 07/06/23 09:40 Interval history: Ms. Jaramillo is a 72 year old female assisted resident with a history of prediabetes, DVT, suspected NPH, diabetes insipidus, glaucoma presenting for evaluation of episode of unresponsiveness. On day of presentation, patient appeared to be in her typical state of health. However, later in the morning, she was found unresponsive and reportedly pulseless. Nursing staff started CPR. EMS was called and on their arrival, she was alert and moving all four extremities. It is unclear how long patient was pulseless. In the ED her BP was 90/60. Her temperature was 95.5 degrees F. Her UA was concerning for UTI. Brain CT showed prominent cerebral ventricles wit effacement of cortical sulci, concerning for possible NPH. EKG showed sinus bradycardia. Of note, patient was hospitalized last month after presenting to ER for increased falls. She had an MRI brain done in May 2022 that showed findings suggestive of NPH - enlarged ventricle and empty sella. From this admission, B12, folate and TSH levels have been normal. is at beside. He reports that patient is already established with a Neurologist at [facility] for evaluation of dementia. Review of Systems Review of Systems: All systems reviewed & are unremarkable except as noted in HPI and below Exam Const: General: comfortable and no acute distress HENMT: Mouth: Yes moist mucous membranes Eyes: Pupils: Equal, round and reactive pupils present EOM: EOMs intact bilaterally Resp: Effort & Inspection: normal respiratory effort Skin: General skin exam: normal color Neuro: Other: AOx2 (self and location) -- recognized her and was able to tell his name, Pupils equal and reactive bilaterally, EOMI, face symmetric, moving upper extremities against gravity and resistance, and some antigravity movement in the lower extremities -- LLe 4/5 and RLE 3/5. Sensation appears to be symmetric as well. Able to perform FNF without ataxia. Did not speak much, but no obvious aphasic. Gait deferred. Extrem: Other: RLE with discoloration from reportedly prior cellulitis Psych: Other: flat affect Objective Data Vital Signs Vital Signs: Vital Signs - 24 hr 07/05/23 12:00 07/05/23 16:16 07/05/23 16:00 Temperature 36.3 C L 36.3 C L Pulse Rate 85 85 84 Respiratory Rate 12 12 Blood Pressure 113/56 L 107/68 Pulse Oximetry 99 99 07/05/23 10:00 07/05/23 12:00 07/05/23 14:00 Temperat
[2023-07-06] MEDS: DEXTROSE 5%/0.45% SOD CHL 1,000 ML 75 ML IV CONT (15:21)
--- NOTE | 2023-07-06 20:32 | PC.NURSE ---
2031: Daly Benjamin, next of kin, notified of patient moving to [facility].
[2023-07-06] MEDS: THIAMINE HCL 100 MG TABLET PO (21:27)
[2023-07-06] MEDS: APIXABAN 5 MG TABLET PO (21:27)
[2023-07-06] MEDS: CEPHALEXIN 500 MG CAPSULE PO (21:28)
[2023-07-06] MEDS: ACETAMINOPHEN 325 MG TABLET 650 MG PO (21:28)
[2023-07-06] MEDS: prednisoLONE ACETATE 1% OPHTH 5 ML 1 DROP RIGHT EYE (21:28)
[2023-07-06] MEDS: LATANOPROST 0.005% OP SOLN 2.5 ML BTL 1 DROP LEFT EYE (21:28)
[2023-07-06] MEDS: ROSUVASTATIN 10 MG TABLET 40 MG PO (21:28)
[2023-07-06 21:38] LABS: Glucose Point of Care 73 mg/dl (65-105)
[2023-07-07 05:15] VITALS: BP 121/86; PULSE 64; RESP 20; TEMP 36.6; O2SAT 100
[2023-07-07] MEDS: CEPHALEXIN 500 MG CAPSULE PO ×3 (06:08→20:35)
[2023-07-07 07:04] LABS: Basophils Percent Auto 0.4 % (0.2-1.2); Eosinophils Absolute Auto 0.2 K/mm3 (0-0.3); Eosinophils Percent Auto 3.9 % (0-4.4); Hematocrit 32.5 % (37.0-47.0); Hemoglobin 9.7 g/dL (12.0-15.0); Immature Granulocyte Absolute 0.01 K/mm3 (0.00-0.031); Immature Granulocyte Percent A 0.2 % (0-0.5); Lymphocytes Absolute Auto 1.73 K/mm3 (0.9-3.2); Lymphocytes Percent Auto 37.4 % (18.3-44.2); Mean Corpuscular HGB Conc 29.8 g/dl (32-36); Mean Corpuscular Hemoglobin 27.3 pg (26-34); Mean Corpuscular Volume 91.5 fl (80-100); Mean Platelet Volume 8.9 fl (7.4-10.4); Monocytes Absolute Auto 0.6 K/mm3 (0.1-0.6); Monocytes Percent Auto 12.8 % (2.6-8.5); Neutrophils Absolute Auto 2.1 K/mm3 (1.3-6.7); Neutrophils Percent Auto 45.3 % (45.5-73.1); Nucleated Red Blood Cells Perc 0.4 % (0.0-0.2); Platelet Count Result 216 k/mm3 (150-375); Red Blood Count 3.55 M/mm3 (4.2-5.4); Red Cell Distribution Width 17.7 % (11.5-14.5); White Blood Count 4.6 K/mm3 (4.5-10.0)
[2023-07-07 07:28] LABS: Alanine Aminotransferase 13 U/L (6-35); Albumin Level 3.2 g/dL (3.5-5.1); Alkaline Phosphatase 262 U/L (38-126); Anion Gap 5 mmol/L (8-16); Aspartate Amino Transferase 41 U/L (14-36); Bilirubin,Total 0.6 mg/dL (0.2-1.3); Blood Urea Nitrogen 6 mg/dL (7-17); Calcium 9.3 mg/dL (8.4-10.2); Carbon Dioxide 22 mmol/L (22-30); Chloride 111 mmol/L (98-107); Estimated CRCL calculation 43 ml/min; Estimated Glomerular Filt Rate 53; Glucose 80 mg/dL (65-110); Magnesium 2.1 mg/dL (1.6-2.3); Potassium 3.7 mmol/L (3.4-5.0); Sodium 138 mmol/L (137-145)
[2023-07-07] MEDS: SERTRALINE HCL 25 MG TABLET PO (08:58)
[2023-07-07] MEDS: PANTOPRAZOLE 40 MG TABLET PO (08:58)
[2023-07-07] MEDS: METOPROLOL SUCCINATE EXT REL 25 MG TABCR PO ×2 (08:58→16:25)
[2023-07-07] MEDS: DOCUSATE SODIUM 100 MG CAPSULE PO (08:59)
[2023-07-07] MEDS: APIXABAN 5 MG TABLET PO ×2 (08:59→20:35)
[2023-07-07] MEDS: DORZOLAMIDE/TIMOLOL OPHTH SOL 10 ML BOTTLE 1 DROP EACH EYE ×2 (08:59→20:43)
[2023-07-07] MEDS: CHOLECALCIFEROL 1,000 UNITS TABLET 2000 UNITS PO (08:59)
--- NOTE | 2023-07-07 12:18 | PM.IMPN ---
Progress Note: A&P Assessment and Plan (1) Unresponsive episode: Code(s): R40.4 - Transient alteration of awareness Status: Acute (2) Urinary tract infection: Code(s): N39.0 - Urinary tract infection, site not specified Status: Acute (3) Altered mental status: Qualifiers: Altered mental status type: delirium Qualified Code(s): R41.0 - Disorientation, unspecified Code(s): R41.82 - Altered mental status, unspecified Status: Acute (4) Positive P-ANCA titer: Code(s): R76.8 - Other specified abnormal immunological findings in serum Status: Acute (5) Normocytic anemia: Code(s): D64.9 - Anemia, unspecified Status: Acute (6) Chronic anticoagulation: Code(s): Z79.01 - nursing home (current) use of anticoagulants Status: Acute Plan This is a 72-year-old female with prediabetes, deep venous thrombosis on apixaban, suspected normal pressure hydrocephalus, diabetes insipidus, glaucoma, and neuropathy who presented to the emergency department via EMS from her nursing facility for evaluation after she was found unresponsive. She is not able to provide an accurate history and a majority the following is obtained via a review of her EMR. According to documentation she seemed to be in her usual state of health this morning when senior care staff got her up in dressed for the day. About 45 minutes thereafter she was found unresponsive and reportedly pulseless. Nursing staff started CPR with recovery of a pulse within an unknown length of time. On EMS arrival she was alert, moving all 4 extremities, and would not hold still for vital signs. At the time my evaluation she is alert and oriented to person. She is not alert to situation and can provide no history as to how she has been feeling the last couple of days or how she got here today. She falls asleep during the middle of our conversations but arouses easily. She denies headache, chest pain, shortness of breath, abdominal pain, nausea, vomiting, diarrhea, and dysuria. On arrival to the ED her blood pressure was 90/60, pulse 60, respiratory 20, SpO2 100% on room air, and temperature was 95.5?. She was given 30 mg/kg normal saline bolus with improvement in her blood pressures. Initial workup was significant for a WBC count of 2.9, hemoglobin 9.4, potassium 3.3, creatinine 1.00, lactic acid 1.1, troponin less than 0.012. Urine was positive for nitrates, leukocyte esterase, 4+ bacteria, and greater than [address] showed prominence of cerebral ventricles and face cortical sulci with no acute findings. Chest x-ray showed cardiomegaly with mild infiltrate or atelectasis of the left lower lung. EKG showed sinus bradycardia with borderline AV conduction delay and borderline ST T-wave abnormalities in the anterolateral/inferior leads which appear unchanged compared to prior tracings. She was given a dose of ceftriaxone is being admitted in this setting for further treatment and evaluation. Of note, the patient was hospitalized last month after presenting to the emergency department for evaluation of increased falls. At that time she was found to have an acute kidney injury, hypernatremia (presumed diabetes insipidus), and findings of suspected normal pressure hydrocephalus with enlarged ventricles an empty sella. Many lab tests were pending at the time of her discharge and is noted that her BECCA screen came back positive with a titer of 1:160 in a mytotic, NuMA-like pattern and a positive p-ANCA with a titer of 1:320. She was also noted to have increased free light chains. At baseline she is reportedly alert and oriented x4 however she is alert to self only at the time of my evaluation. She was hypothermic on arrival to the ED and she has had a few blood pressures at the lower end of normal. She is currently under a Santos Hugger and blood pressures have improved with IV fluids. Urinalysis is consistent with urinary tract infection and she has
--- NOTE | 2023-07-07 12:39 | WPDNEUROLOGY ---
Neurology EEG Report General Information Date of Study: 07/07/23 TEST eeg DIAGNOSIS Confusion CONDITION OF RECORDING awake drowsy and sleep EEG NUMBER [id number] CLINICAL HISTORY patient does not know why she is here in the hospice. EEG DESCRIPTION Background rhythm consists of low to medium voltage 3 to 4 hertz per 2nd delta admixed with 5 to 7 hertz per 2nd theta activity during wakefulness. Bilateral symmetrical sleep activity is noted with fair anteroposterior gradient and also multiple movements artifacts. Hyperventilation not done . Photic stimulation not done. Non paroxysmal. Nonfocal. Nonlateralizing. IMPRESSION Abnormal record due to the presence of the bihemispheric theta and delta activity. These abnormalities are suggestive of 0 underlying organic or metabolic encephalopathy. there is no evidence of any paroxysmal activity ,clinical correlation recommend.
[2023-07-07 14:00] VITALS: BP 119/60; PULSE 62; RESP 16; TEMP 35.7; O2SAT 100
[2023-07-07 16:25] VITALS: PULSE 64
[2023-07-07] MEDS: ACETAMINOPHEN 325 MG TABLET 650 MG PO (17:41)
[2023-07-07 20:25] VITALS: BP 129/77; PULSE 70; RESP 18; TEMP 36.6; O2SAT 100
[2023-07-07] MEDS: THIAMINE HCL 100 MG TABLET PO (20:35)
[2023-07-07] MEDS: ROSUVASTATIN 10 MG TABLET 40 MG PO (20:36)
[2023-07-07] MEDS: prednisoLONE ACETATE 1% OPHTH 5 ML 1 DROP RIGHT EYE (20:40)
[2023-07-07] MEDS: LATANOPROST 0.005% OP SOLN 2.5 ML BTL 1 DROP LEFT EYE (20:42)
[2023-07-08 05:15] VITALS: BP 132/80; PULSE 60; RESP 20; TEMP 36.6; O2SAT 100
[2023-07-08] MEDS: CEPHALEXIN 500 MG CAPSULE PO ×2 (05:48→13:25)
[2023-07-08 07:39] LABS: Basophils Percent Auto 0.7 % (0.2-1.2); Eosinophils Absolute Auto 0.2 K/mm3 (0-0.3); Eosinophils Percent Auto 4.3 % (0-4.4); Hematocrit 36.8 % (37.0-47.0); Hemoglobin 11.1 g/dL (12.0-15.0); Immature Granulocyte Absolute 0.01 K/mm3 (0.00-0.031); Immature Granulocyte Percent A 0.2 % (0-0.5); Lymphocytes Absolute Auto 1.53 K/mm3 (0.9-3.2); Lymphocytes Percent Auto 36.2 % (18.3-44.2); Mean Corpuscular HGB Conc 30.2 g/dl (32-36); Mean Corpuscular Hemoglobin 26.9 pg (26-34); Mean Corpuscular Volume 89.1 fl (80-100); Mean Platelet Volume 9.4 fl (7.4-10.4); Monocytes Absolute Auto 0.5 K/mm3 (0.1-0.6); Monocytes Percent Auto 10.6 % (2.6-8.5); Nucleated Red Blood Cells Perc 0.5 % (0.0-0.2); Platelet Count Result 251 k/mm3 (150-375); Red Blood Count 4.13 M/mm3 (4.2-5.4); Red Cell Distribution Width 17.3 % (11.5-14.5); White Blood Count 4.2 K/mm3 (4.5-10.0)
[2023-07-08 07:54] LABS: Alanine Aminotransferase 17 U/L (6-35); Albumin Level 3.4 g/dL (3.5-5.1); Alkaline Phosphatase 284 U/L (38-126); Anion Gap 8 mmol/L (4-12); Aspartate Amino Transferase 60 U/L (14-36); Bilirubin,Total 0.7 mg/dL (0.2-1.3); Blood Urea Nitrogen 8 mg/dL (7-17); Calcium 9.6 mg/dL (8.4-10.2); Carbon Dioxide 23 mmol/L (22-30); Chloride 109 mmol/L (98-107); Estimated CRCL calculation 42 ml/min; Estimated Glomerular Filt Rate 53; Glucose 77 mg/dL (65-110); Magnesium 2.2 mg/dL (1.6-2.3); Potassium 3.5 mmol/L (3.4-5.0); Sodium 140 mmol/L (137-145)
[2023-07-08 08:40] VITALS: O2SAT 100
[2023-07-08] MEDS: PANTOPRAZOLE 40 MG TABLET PO (08:40)
[2023-07-08] MEDS: DOCUSATE SODIUM 100 MG CAPSULE PO (08:40)
[2023-07-08] MEDS: METOPROLOL SUCCINATE EXT REL 25 MG TABCR PO ×2 (08:40→16:20)
[2023-07-08] MEDS: APIXABAN 5 MG TABLET PO (08:40)
[2023-07-08] MEDS: SERTRALINE HCL 25 MG TABLET PO (08:40)
[2023-07-08] MEDS: CHOLECALCIFEROL 1,000 UNITS TABLET 2000 UNITS PO (08:40)
[2023-07-08] MEDS: DORZOLAMIDE/TIMOLOL OPHTH SOL 10 ML BOTTLE 1 DROP EACH EYE ×2 (08:41→21:26)
--- NOTE | 2023-07-08 12:22 | PM.IMPN ---
Progress Note: A&P Assessment and Plan (1) Unresponsive episode: Code(s): R40.4 - Transient alteration of awareness <Nicole Briseno, Student - Last Filed: 07/08/23 14:40> Status: Acute <Nicole Briseno, Student - Last Filed: 07/08/23 14:40> Assessment and Plan: Per chart review, she seemed to be in her usual state of health (the morning before she came to the hospital) when [facility] staff got her up in dressed for the day. About 45 minutes thereafter she was found unresponsive and reportedly pulseless. Nursing staff started CPR with recovery of a pulse within an unknown length of time. On EMS arrival she was alert, moving all 4 extremities, and would not hold still for vital signs. 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 infection vs. seizure New CT brain showed no acute findings, enlarged ventricles with findings concerning for underlying NPH Initial ABG was within normal limits Neurology consulted EEG ordered -- Abnormal record due to the presence of the bihemispheric theta and delta activity.? These abnormalities are suggestive of underlying organic or metabolic encephalopathy per neurology report MRI brain showed stable ventriculomegaly and old infarcts ACTH and morning cortisol is low -- could suggest adrenal insufficiency with known empty sella syndrome BPs were low on arrival but have uptrended to normal limits TSH is normal Follow-up on cortisol level <Nicole Briseno, Student - Last Filed: 07/08/23 14:40> Per chart review, she seemed to be in her usual state of health (the morning before she came to the hospital) when [facility] staff got her up in dressed for the day. About 45 minutes thereafter she was found unresponsive and reportedly pulseless. Nursing staff started CPR with recovery of a pulse within an unknown length of time. On EMS arrival she was alert, moving all 4 extremities, and would not hold still for vital signs. 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 infection vs. seizure New CT brain showed no acute findings, enlarged ventricles with findings concerning for underlying NPH Initial ABG was within normal limits Neurology consulted EEG ordered -- Abnormal record due to the presence of the bihemispheric theta and delta activity.? These abnormalities are suggestive of underlying organic or metabolic encephalopathy per neurology report MRI brain showed stable ventriculomegaly; Sella Turcica MRI showing chronic encephalomalacia in the ant temproal lobes ACTH and morning cortisol was low last admission -- could suggest adrenal insufficiency with known empty sella syndrome triggered by UTI BPs were low on arrival but have uptrended to normal limits. Temperature more stable TSH is normal Perform cosyntropin stimulation test. Repeat ACTH. May need hydrocortisone treatment. <Mike Morton MD - Last Filed: 07/08/23 18:42> (2) Urinary tract infection: Code(s): N39.0 - Urinary tract infection, site not specified <Tatum Ramos - Last Filed: 07/08/23 14:40> Status: Acute <Nicole Briseno Student - Last Filed: 07/08/23 14:40> Assessment and Plan: Patient reports no urinary symptoms UA shows 3+ LE, >100 WBCs, and 4+ bacteria Urine culture grew E. Coli Blood culture shows NGTD Started on ceftriaxone (07/02-07/05) Switched to Keflex (07/05-07/07) D/C keflex today 06/12
[2023-07-08 13:56] VITALS: BP 130/86; PULSE 64; RESP 16; TEMP 35.6; O2SAT 98
[2023-07-08 16:20] VITALS: PULSE 70
[2023-07-08 20:00] VITALS: PULSE 64; RESP 16; O2SAT 99
[2023-07-08 20:40] VITALS: BP 124/94; PULSE 64; RESP 16; TEMP 36.7; O2SAT 99
[2023-07-08] MEDS: ROSUVASTATIN 10 MG TABLET 40 MG PO (21:23)
[2023-07-08] MEDS: DESMOPRESSIN ACETATE 0.1 MG TABLET PO (21:23)
[2023-07-08] MEDS: THIAMINE HCL 100 MG TABLET PO (21:23)
[2023-07-08] MEDS: LATANOPROST 0.005% OP SOLN 2.5 ML BTL 1 DROP LEFT EYE (21:26)
[2023-07-08] MEDS: prednisoLONE ACETATE 1% OPHTH 5 ML 1 DROP RIGHT EYE (21:27)
[2023-07-08] MEDS: ACETAMINOPHEN 325 MG TABLET 650 MG PO (21:33)
[2023-07-09 05:00] VITALS: BP 135/67; PULSE 63; RESP 18; TEMP 36.4; O2SAT 100
[2023-07-09] MEDS: COSYNTROPIN 0.25 MG/ML VIAL IV PUSH (05:23)
[2023-07-09 05:35] LABS: Basophils Percent Auto 0.8 % (0.2-1.2); Eosinophils Absolute Auto 0.2 K/mm3 (0-0.3); Eosinophils Percent Auto 3.9 % (0-4.4); Hematocrit 33.7 % (37.0-47.0); Hemoglobin 10.5 g/dL (12.0-15.0); Immature Granulocyte Absolute 0.02 K/mm3 (0.00-0.031); Immature Granulocyte Percent A 0.5 % (0-0.5); Lymphocytes Percent Auto 39.1 % (18.3-44.2); Mean Corpuscular HGB Conc 31.2 g/dl (32-36); Mean Corpuscular Hemoglobin 27.2 pg (26-34); Mean Corpuscular Volume 87.3 fl (80-100); Mean Platelet Volume 9.1 fl (7.4-10.4); Monocytes Absolute Auto 0.4 K/mm3 (0.1-0.6); Monocytes Percent Auto 10.7 % (2.6-8.5); Neutrophils Absolute Auto 1.7 K/mm3 (1.3-6.7); Platelet Count Result 212 k/mm3 (150-375); Red Blood Count 3.86 M/mm3 (4.2-5.4); Red Cell Distribution Width 17.4 % (11.5-14.5); White Blood Count 3.8 K/mm3 (4.5-10.0)
[2023-07-09 05:48] LABS: Alanine Aminotransferase 15 U/L (6-35); Albumin Level 3.2 g/dL (3.5-5.1); Alkaline Phosphatase 267 U/L (38-126); Anion Gap 4 mmol/L (4-12); Aspartate Amino Transferase 50 U/L (14-36); Bilirubin,Total 0.6 mg/dL (0.2-1.3); Blood Urea Nitrogen 9 mg/dL (7-17); Calcium 9.7 mg/dL (8.4-10.2); Carbon Dioxide 26 mmol/L (22-30); Chloride 106 mmol/L (98-107); Estimated CRCL calculation 42 ml/min; Estimated Glomerular Filt Rate 53; Glucose 92 mg/dL (65-110); Potassium 3.4 mmol/L (3.4-5.0); Sodium 136 mmol/L (137-145)
[2023-07-09 06:18] LABS: Cortisol Baseline 1.72 ug/dL
--- NOTE | 2023-07-09 08:42 | PM.IMPN ---
Progress Note: A&P Assessment and Plan (1) Unresponsive episode: Code(s): R40.4 - Transient alteration of awareness <Nicole Briseno, Student - Last Filed: 07/09/23 13:48> Status: Acute <Nicole Briseno, Student - Last Filed: 07/09/23 13:48> Assessment and Plan: Per chart review, she seemed to be in her usual state of health (the morning before she came to the hospital) when group home staff got her up in dressed for the day. About 45 minutes thereafter she was found unresponsive and reportedly pulseless. Nursing staff started CPR with recovery of a pulse within an unknown length of time. On EMS arrival she was alert, moving all 4 extremities, and would not hold still for vital signs. 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 infection vs. seizure New CT brain showed no acute findings, enlarged ventricles with findings concerning for underlying NPH Initial ABG was within normal limits Neurology consulted EEG ordered -- Abnormal record due to the presence of the bihemispheric theta and delta activity.? These abnormalities are suggestive of underlying organic or metabolic encephalopathy per neurology report MRI brain showed stable ventriculomegaly; Sella Turcica MRI showing chronic encephalomalacia in the ant temporal lobes ACTH and morning cortisol was low last admission -- could suggest adrenal insufficiency with known empty sella syndrome triggered by UTI BPs were low on arrival but have uptrended to normal limits. Temperature more stable TSH is normal Perform cosyntropin stimulation test. Repeat ACTH. May need hydrocortisone treatment. Cosyntropin stim test: Baseline cortisol was low at 1.72, 30 mints (11.20), and 60 mins (13.30) Test suggests adrenal insufficiency; repeat ACTH will determine further delineation of the insufficiency ESR of 109 Repeat ACTH pending Start hydrocortisone PT/OT <Nicole Briseno, Student - Last Filed: 07/09/23 13:48> Per chart review, she seemed to be in her usual state of health (the morning before she came to the hospital) when group home staff got her up in dressed for the day. About 45 minutes thereafter she was found unresponsive and reportedly pulseless. Nursing staff started CPR with recovery of a pulse within an unknown length of time. On EMS arrival she was alert, moving all 4 extremities, and would not hold still for vital signs. 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 infection vs. seizure New CT brain showed no acute findings, enlarged ventricles with findings concerning for underlying NPH Initial ABG was within normal limits Neurology consulted EEG ordered -- Abnormal record due to the presence of the bihemispheric theta and delta activity.? These abnormalities are suggestive of underlying organic or metabolic encephalopathy per neurology report MRI brain showed stable ventriculomegaly; Sella Turcica MRI showing chronic encephalomalacia in the ant temporal lobes ACTH and morning cortisol was low last admission -- could suggest adrenal insufficiency with known empty sella syndrome triggered by UTI BPs were low on arrival but have uptrended to normal limits. Temperature more stable TSH is normal Cosyntropin stim test: Baseline cortisol was low at 1.72, 30 mints (11.20), and 60 mins (13.30) Test suggests adrenal insufficiency; repeat ACTH will determine further delineation of the insufficiency ESR of
[2023-07-09 08:46] LABS: Erythrocyte Sedimentation Rate 109 mm/hr (0-20)
[2023-07-09] MEDS: METOPROLOL SUCCINATE EXT REL 25 MG TABCR PO ×2 (09:15→17:21)
[2023-07-09] MEDS: PANTOPRAZOLE 40 MG TABLET PO (09:15)
[2023-07-09] MEDS: SERTRALINE HCL 25 MG TABLET PO (09:15)
[2023-07-09] MEDS: DORZOLAMIDE/TIMOLOL OPHTH SOL 10 ML BOTTLE 1 DROP EACH EYE ×2 (09:15→20:35)
[2023-07-09] MEDS: DOCUSATE SODIUM 100 MG CAPSULE PO (09:15)
[2023-07-09] MEDS: CHOLECALCIFEROL 1,000 UNITS TABLET 2000 UNITS PO (09:15)
--- NOTE | 2023-07-09 10:39 | PM.CNNEP ---
Assessment and Plan Assessment and plan (1) Proteinuria: Code(s): R80.9 - Proteinuria, unspecified Status: Acute Assessment and Plan: The patient has proteinuria. She also has a variable creatinine. The patient has a positive BECCA but a negative DNA. She also has a positive ANCA level. Her urinalysis this admission is active because she has a UTI but generally only has proteinuria Because of the proteinuria plus the positive ANCA level think we ought to do a kidney biopsy. This would have to wait until her UTI is treated though. So will wait until next week. Since the creatinine is stable I think it is okay to wait. Will follow the creatinine over the weekend. Recheck a urinalysis on and probably biopsy on Thursday if things are clearer. 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 She has a low FSH and LH and also adrenal insufficiency. I think that the diabetes insipidus and these phenomena are all because of her empty sella syndrome. I think it would be prudent for her to see an sourcing engineer as an outpatient to address all these issues. She has mild adrenal insufficiency with a peak cortisol level of less than 18 but above 10. She does not have hyperkalemia nor hyponatremia nor persistent hypotension so she may not need prednisone supplements. For her DI she should get DDAVP to control her polyuria. Just 1 dose at bedtime seems to control her sodium level pretty well. (3) Mixed hyperlipidemia: Code(s): E78.2 - Mixed hyperlipidemia Status: Chronic Assessment and Plan: The patient is on rosuvastatin (4) Essential (primary) hypertension: Code(s): I10 - Essential (primary) hypertension Status: Chronic Assessment and Plan: Blood pressure is well controlled (5) UTI (urinary tract infection): Code(s): N39.0 - Urinary tract infection, site not specified Status: Acute Assessment and Plan: The patient is on ceftriaxone (6) Confusion: Code(s): R41.0 - Disorientation, unspecified Status: Acute Assessment and Plan: The patient has normal pressure hydrocephalus and now has a UTI probably contributing to her mental status changes. Ultimately evaluation of this is up to the hospitalists. History of Present Illness Reason for Consult Consult date: 07/09/23 Chief Complaint Chief complaint: UTI/Sepsis/AMS History of Present Illness Narrative: Jolie is a very pleasant 72-year-old lady who has hypernatremia, possible diabetes insipidus, proteinuria, history of acute kidney injury, DVT, number pressure hydrocephalus, hypertension, glaucoma, hyperlipidemia, prediabetes, anal stenosis. The patient was in the hospital in May with hypernatremia. She was evaluated and found to have diabetes insipidus. She was treated with nightly DDAVP orally. The DDAVP seem to improve her sodium level by discharge. She was sent home. She was instructed to see Dr. Gutierrez as an outpatient and also to see endocrinology to finish out the diagnosis of the DDAVP. She did get another sodium level checked later in May and was okay. I do not think she came to see Dr. Spain ago as an outpatient. The patient was admitted to the hospital on the because of unresponsiveness. She was at a healthcare facility. Nursing staff started CPR and center here. She was evaluated in the ER. Her blood pressure was low. Her sodium was normal on admission. It did rise a couple days later and now the patient is back on her DDAVP in the sodium level is normal. MRI of the brain showed empty sella. FSH and LH were both low. Cortrosyn stim test was suboptimal. TSH was normal. Acth was 9 but at that particular point in time her sodium level was normal. Her creatinine on admission was 1.0.
[2023-07-09] MEDS: HYDROCORTISONE 5 MG TABLET PO ×2 (13:36→17:21)
[2023-07-09 14:00] VITALS: BP 130/70; PULSE 63; RESP 18; TEMP 36.4; O2SAT 94
--- NOTE | 2023-07-09 15:30 | PCPTNOTE ---
Attempted PT evaluation, pt very concern about a baby being at the end of her bed. Therapist attempted to orient pt, but pt too focused on baby being at the end of the bed to participate in skilled therapy. RN aware.
[2023-07-09] MEDS: DESMOPRESSIN ACETATE 0.1 MG TABLET PO (20:33)
[2023-07-09] MEDS: ROSUVASTATIN 10 MG TABLET 40 MG PO (20:33)
[2023-07-09] MEDS: APIXABAN 5 MG TABLET PO (20:33)
[2023-07-09] MEDS: THIAMINE HCL 100 MG TABLET PO (20:33)
[2023-07-09] MEDS: prednisoLONE ACETATE 1% OPHTH 5 ML 1 DROP RIGHT EYE (20:35)
[2023-07-09] MEDS: LATANOPROST 0.005% OP SOLN 2.5 ML BTL 1 DROP LEFT EYE (20:35)
[2023-07-09 21:40] VITALS: BP 122/78; PULSE 65; RESP 16; TEMP 36.6; O2SAT 100
[2023-07-10 00:32] LABS: Appearance Urine Clear (Clear); Bacteria Urine None Seen /hpf; Bilirubin Urine Negative (Negative); Blood Urine 1+ (Negative); Color Urine Yellow (Yellow); Glucose Urine UA Negative (Negative); Ketones Urine Negative (Negative); Leukocyte Esterase Ur Negative LEU/UL (Negative); Nitrate Urine Negative (Negative); Protein Urine 2+ mg/dL (Negative); RBC Urine 0-2 /hpf (0-2); Specific Grav Ur 1.014 (1.001-1.035); Squamous Epithelial Cell Urine Occasional /hpf (Few); WBC Urine 0-5 /hpf (0-3); pH Urine 7.5 (5.0-9.0)
[2023-07-10 00:37] LABS: Add Urine Microscopic? YES
[2023-07-10 01:13] LABS: Creatinine Urine 57.8 mg/dL; Total Protein Urine Random 179 mg/dL
[2023-07-10 04:30] VITALS: BP 137/73; PULSE 63; RESP 18; TEMP 36.1; O2SAT 100
[2023-07-10 07:15] LABS: Albumin Level 3.4 g/dL (3.5-5.1); Anion Gap 3 mmol/L (4-12); Blood Urea Nitrogen 10 mg/dL (7-17); Calcium 9.3 mg/dL (8.4-10.2); Carbon Dioxide 26 mmol/L (22-30); Chloride 102 mmol/L (98-107); Estimated CRCL calculation 49 ml/min; Estimated Glomerular Filt Rate > 60; Glucose 89 mg/dL (65-110); Phosphorus 3.1 mg/dL (2.5-4.5); Potassium 3.3 mmol/L (3.4-5.0); Sodium 131 mmol/L (137-145)
[2023-07-10] MEDS: POTASSIUM CHLORIDE 20 MEQ ER TABLET 40 MEQ PO (08:50)
[2023-07-10] MEDS: DOCUSATE SODIUM 100 MG CAPSULE PO (08:50)
[2023-07-10] MEDS: APIXABAN 5 MG TABLET PO ×2 (08:50→20:23)
[2023-07-10 08:51] VITALS: PULSE 63
[2023-07-10] MEDS: CHOLECALCIFEROL 1,000 UNITS TABLET 2000 UNITS PO (08:51)
[2023-07-10] MEDS: SERTRALINE HCL 25 MG TABLET PO (08:51)
[2023-07-10] MEDS: PANTOPRAZOLE 40 MG TABLET PO (08:51)
[2023-07-10] MEDS: METOPROLOL SUCCINATE EXT REL 25 MG TABCR PO ×2 (08:51→17:08)
[2023-07-10] MEDS: HYDROCORTISONE 10 MG TABLET PO (08:51)
[2023-07-10] MEDS: DORZOLAMIDE/TIMOLOL OPHTH SOL 10 ML BOTTLE 1 DROP EACH EYE ×2 (08:52→20:23)
--- NOTE | 2023-07-10 09:37 | PM.PNNEP ---
Progress Note: A&P Assessment and Plan (1) Proteinuria: Code(s): R80.9 - Proteinuria, unspecified Status: Acute Assessment and Plan: The patient has proteinuria. This is in the nephrotic range. She also has a variable creatinine. Today it returned to normal The patient has a positive BECCA but a negative DNA. She also has a positive ANCA level. Her urinalysis this admission is active because she has a UTI but generally only has proteinuria Because of the proteinuria plus the positive ANCA level think we ought to do a kidney biopsy. Will repeat the urinalysis to see how it is doing. 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 She has a low FSH and LH and also adrenal insufficiency. I think that the diabetes insipidus and these phenomena are all because of her empty sella syndrome. I think it would be prudent for her to see an caretaker as an outpatient to address all these issues. She has mild adrenal insufficiency with a peak cortisol level of less than 18 but above 10. She does not have hyperkalemia nor hyponatremia nor persistent hypotension so she may not need prednisone supplements. Her sodium level was low today. Will change the desmopressin to every other day (3) Mixed hyperlipidemia: Code(s): E78.2 - Mixed hyperlipidemia Status: Chronic Assessment and Plan: The patient is on rosuvastatin (4) Essential (primary) hypertension: Code(s): I10 - Essential (primary) hypertension Status: Chronic Assessment and Plan: Blood pressure is well controlled (5) UTI (urinary tract infection): Code(s): N39.0 - Urinary tract infection, site not specified Status: Acute Assessment and Plan: The patient is on ceftriaxone (6) Confusion: Code(s): R41.0 - Disorientation, unspecified Status: Acute Assessment and Plan: The patient has normopressure hydrocephalus and now has a UTI probably contributing to her mental status changes. Ultimately evaluation of this is up to the hospitalists. Subjective Date/time seen: 07/10/23 09:37 Interval history: Patient is feeling okay. Eating okay. Breathing okay. Review of Systems Cardiovascular: Cardiovascular: Reports no additional cardiovascular complaints Respiratory: Respiratory: Reports no additional respiratory complaints Gastrointestinal: Gastrointestinal: Reports no additional gastrointestinal complaints Genitourinary: Genitourinary: Reports no additional female genitourinary complaints Exam Narrative: WDWN in NAD skin no rash head ncat lungs clear cor reg no rub abd BS+ nontender and soft ext no edema. Objective Data Vital Signs Vital Signs: Vital Signs - 24 hr 07/09/23 14:00 07/09/23 20:00 07/09/23 21:40 Temperature 97.6 F 97.9 F Pulse Rate 63 65 Respiratory Rate 18 16 Blood Pressure 130/70 122/78 Pulse Oximetry 94 100 Oxygen Delivery Room Air 07/10/23 04:30 07/10/23 08:51 Temperature 97 F L Pulse Rate 63 63 Respiratory Rate 18 Blood Pressure 137/73 Pulse Oximetry 100 Oxygen Delivery Intake/Output Intake/Output: Intake & Output 07/07/23 07/08/23 07/09/23 07/10/23 23:59 23:59 23:59 23:59 Intake Total 138 812 8658 150 Output Total 1300 2800 500 475 Balance -910 -2428 2296 -325 Meds/Results Medications: Active Medications Generic Name Dose Route Start Last Admin Trade Name Freq PRN Reason Stop Dose Admin Acetaminophen 650 mg 07/03/23 21:50 07/08/23 21:33 Acetaminophen 325 Mg Tablet PO 650 mg Q6H PRN Administration Mild Pain (1-3) or Fever Apixaban 5 mg 07/06/23 21:00 07/10/23 08:50 Apixaban 5 Mg Tablet PO 5 mg Q12HR ASHLEY Administration Desmopressin Solo
--- NOTE | 2023-07-10 10:45 | PM.IMPN ---
Progress Note: A&P Assessment and Plan (1) Unresponsive episode: Code(s): R40.4 - Transient alteration of awareness <Nicole Mataryanne, Student - Last Filed: 07/10/23 15:33> Status: Acute <Nicole Briseno, Student - Last Filed: 07/10/23 15:33> Assessment and Plan: Per chart review, she seemed to be in her usual state of health (the morning before she came to the hospital) when detention staff got her up in dressed for the day. About 45 minutes thereafter she was found unresponsive and reportedly pulseless. Nursing staff started CPR with recovery of a pulse within an unknown length of time. On EMS arrival she was alert, moving all 4 extremities, and would not hold still for vital signs. 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 These abnormalities are suggestive of underlying organic or metabolic encephalopathy per neurology report -- likely from UTI MRI brain showed stable ventriculomegaly; Sella Turcica MRI showing chronic encephalomalacia in the ant temporal lobes ACTH and morning cortisol was low last admission -- could suggest adrenal insufficiency with known empty sella syndrome triggered by UTI BPs were low on arrival but have uptrended to normal limits. Temperature more stable TSH is normal Cosyntropin stim test: Baseline cortisol was low at 1.72, 30 mints (11.20), and 60 mins (13.30) Test suggests adrenal insufficiency; repeat ACTH will determine further delineation of the insufficiency ESR of 109 Start hydrocortisone on 07/08 since she was HoTN on admission and possible the cause of her unresponsive episode PT/OT Continue treatment for UTI and adrenal insufficiency Continue to monitor mental status <Nicole Li Suzanna, Student - Last Filed: 07/10/23 15:33> (2) Urinary tract infection: Code(s): N39.0 - Urinary tract infection, site not specified <Nicole Briseno, Student - Last Filed: 07/10/23 15:33> Status: Acute <Nicole Briseno, Student - Last Filed: 07/10/23 15:33> Assessment and Plan: Patient reports no urinary symptoms UA shows 3+ LE, >100 WBCs, and 4+ bacteria Urine culture grew E. Coli Blood culture shows NGTD Started on ceftriaxone (07/02-07/05) Switched to Keflex (07/05-07/07) but changed back to Rocephin to complete coarse given the HoTN and altered mental status making this potentially more than simple cystitis Continue Rocephin <Nicole Briseno, Student - Last Filed: 07/10/23 15:33> (3) Altered mental status: Qualifiers: Altered mental status type: delirium Qualified Code(s): R41.0 - Disorientation, unspecified <Nicole Briseno, Student - Last Filed: 07/10/23 15:33> Code(s): R41.82 - Altered mental status, unspecified <Nicole Briseno, Student - Last Filed: 07/10/23 15:33> Status: Acute <Nicole Briseno, Student - Last Filed: 07/10/23 15:33> Assessment and Plan: Consider related to UTI causing HoTN and hypothermia with exaggerated response due to adrenal insufficiency HoTN in turn could be the etiology of her episode of unresponsiveness As above <Nicole Briseno, Student - Last Filed: 07/10/23 15:33> (4) Positive P-ANCA titer: Code(s): R76.8 - Other specified abnormal immunological findings in serum <Nicole Briseno, Student - Last Filed: 07/10/23 15:33> Status: A
[2023-07-10 14:00] VITALS: BP 142/83; PULSE 60; RESP 18; O2SAT 100
--- NOTE | 2023-07-10 15:04 | WPDNEUROPN ---
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 Patient has an appointment to be seen at [facility]. I personally feel that we can start her on Aricept or Namenda or both and start the physical therapy for gait strengthening however I shall leave this up to you Concha glad to discuss this further with you. Subjective Date/time seen: 07/10/23 15:04 Interval history: the patient has history of memory loss and passing out spell and change in mental status at BT urinary tract infection. CT scan of brain as was MRI of the brain has shown findings suggestive of mild norm with hydrocephalus. She apparently has an appointment to be seen at [facility]. Patient is not able to tell me much else and was not around at this time. She has a urinary catheter in place and she does not know if she has any problems before the catheter was placed. She is quite vague about her ability to walk or having any memory problems. Review of Systems Review of Systems: ROS unobtainable: Yes other ( Unreliable) Exam Narrative: follicles alert however seems to be vague in answering questions. She is unable to tell me the month or the year her current whereabouts. No aphasia or dysarthria. Extraocular movements are intact. She is able to move her both upper and lower limbs. No cogwheeling or involuntary movements are seen. Objective Data Vital Signs Vital Signs: Vital Signs - 24 hr 07/09/23 20:00 07/09/23 21:40 07/10/23 04:30 Temperature 36.6 C 36.1 C L Pulse Rate 65 63 Respiratory Rate 16 18 Blood Pressure 122/78 137/73 Pulse Oximetry 100 100 Oxygen Delivery Room Air 07/10/23 08:51 07/10/23 09:29 07/10/23 08:50 Temperature Pulse Rate 63 Respiratory Rate Blood Pressure Pulse Oximetry Oxygen Delivery Room Air Room Air 07/10/23 14:00 Temperature Pulse Rate 60 Respiratory Rate 18 Blood Pressure 142/83 H Pulse Oximetry 100 Oxygen Delivery Intake/Output Intake/Output: Intake & Output 07/07/23 07/08/23 07/09/2307/09/24 23:59 23:59 23:59 23:59 Intake Total 639 614 1034 390 Output Total 1300 2800 500 569 [facility]929 -[id number] 2296 -09 Meds/Results Medications: Active Medications Generic Name Dose Route Start Last Admin Trade Name Freq PRN Reason Stop Dose Admin Acetaminophen 650 mg 07/03/23 21:50 07/08/23 21:33 Acetaminophen 325 Mg Tablet PO 650 mg Q6H PRN Administration Mild Pain (1-3) or Fever Apixaban 5 mg 07/06/23 21:00 07/10/23 08:50 Apixaban 5 Mg Tablet PO 5 mg Q12HR ASHLEY Administration Desmopressin Acetate 0.1 mg 07/12/23 20:00 Desmopressin Acetate 0.1 Mg Tablet PO Q48HR ASHLEY Dextrose 12.5 gm 07/09/23 12:39 Dextrose 50% 25 Gm/50 Ml Syringe IV PUSH PRN PRN Hypoglycemia Protocol Docusate Sodium 100 mg 07/04/23 09:00 07/10/23 08:50 Docusate Sodium 100 Mg Capsule PO 100 mg DAILY ASHLEY Administration Dorzolamide/Timolol 1 drop 07/03/23 21:55 07/10/23 08:52 Dorzolamide/Timolol Ophth Yvonne 10 Ml Bottle EACH EYE 1 drop Q12HR ASHLEY Administration Glucagon 1 mg 07/09/23 12:39 Glucagon For Inj 1 Mg Vial IM PRN PRN Hypoglycemia Protocol Glucose 15 gm 07/09/23 12:39 Glucose Oral Gel 15 Gm Of Glucse In 37.5 Gm Tube PO PRN PRN Hypoglycemia Protocol Hydrocortisone 10 mg 07/10/23 08:00 07/10/23 08:51 Hydrocortisone 10 Mg Tablet PO 10 mg DAILY@0800 ASHLEY Administration Hydrocortisone 5 mg 07/09/23 16:00 07/09/23 17:21 Hydrocortisone 5 Mg Tablet PO 5 mg 1600 ASHLEY Administration Ceftriaxone Sodium 1 gm in 50 m
[2023-07-10 17:08] VITALS: PULSE 64
[2023-07-10] MEDS: HYDROCORTISONE 5 MG TABLET PO (17:08)
[2023-07-10] MEDS: ROSUVASTATIN 10 MG TABLET 40 MG PO (20:23)
[2023-07-10] MEDS: THIAMINE HCL 100 MG TABLET PO (20:23)
[2023-07-10] MEDS: LATANOPROST 0.005% OP SOLN 2.5 ML BTL 1 DROP LEFT EYE (20:23)
[2023-07-10] MEDS: prednisoLONE ACETATE 1% OPHTH 5 ML 1 DROP RIGHT EYE (20:23)
[2023-07-10 21:52] VITALS: BP 111/59; PULSE 83; RESP 20; TEMP 36.4; O2SAT 100
[2023-07-11 05:13] VITALS: BP 128/82; PULSE 62; RESP 18; TEMP 35.7; O2SAT 100
[2023-07-11 07:04] LABS: Hematocrit 33.6 % (37.0-47.0); Hemoglobin 10.5 g/dL (12.0-15.0); Mean Corpuscular HGB Conc 31.3 g/dl (32-36); Mean Corpuscular Hemoglobin 26.7 pg (26-34); Mean Corpuscular Volume 85.5 fl (80-100); Mean Platelet Volume 9.6 fl (7.4-10.4); Platelet Count Result 268 k/mm3 (150-375); Red Blood Count 3.93 M/mm3 (4.2-5.4); Red Cell Distribution Width 15.9 % (11.5-14.5); White Blood Count 5.3 K/mm3 (4.5-10.0)
[2023-07-11 07:17] LABS: Albumin Level 3.6 g/dL (3.5-5.1); Anion Gap 4 mmol/L (4-12); Blood Urea Nitrogen 13 mg/dL (7-17); Calcium 9.6 mg/dL (8.4-10.2); Carbon Dioxide 26 mmol/L (22-30); Chloride 106 mmol/L (98-107); Estimated CRCL calculation 50 ml/min; Estimated Glomerular Filt Rate > 60; Glucose 90 mg/dL (65-110); Magnesium 2.2 mg/dL (1.6-2.3); Potassium 3.5 mmol/L (3.4-5.0); Sodium 136 mmol/L (137-145)
[2023-07-11] MEDS: CHOLECALCIFEROL 1,000 UNITS TABLET 2000 UNITS PO (08:55)
[2023-07-11 08:56] VITALS: PULSE 65
[2023-07-11] MEDS: DOCUSATE SODIUM 100 MG CAPSULE PO (08:56)
[2023-07-11] MEDS: METOPROLOL SUCCINATE EXT REL 25 MG TABCR PO (08:56)
[2023-07-11] MEDS: APIXABAN 5 MG TABLET PO (08:56)
[2023-07-11] MEDS: ACETAMINOPHEN 325 MG TABLET 650 MG PO (08:56)
[2023-07-11] MEDS: HYDROCORTISONE 10 MG TABLET PO (08:56)
[2023-07-11] MEDS: PANTOPRAZOLE 40 MG TABLET PO (08:56)
[2023-07-11] MEDS: SERTRALINE HCL 25 MG TABLET PO (08:56)
[2023-07-11] MEDS: DORZOLAMIDE/TIMOLOL OPHTH SOL 10 ML BOTTLE 1 DROP EACH EYE (09:10)
--- NOTE | 2023-07-11 09:41 | PM.PNNEP ---
Progress Note: A&P Assessment and Plan (1) Proteinuria: Code(s): R80.9 - Proteinuria, unspecified Status: Acute Assessment and Plan: The patient has proteinuria. This is in the nephrotic range. She also has a variable creatinine. Today it returned to normal The patient has a positive BECCA but a negative DNA. She also has a positive ANCA level. Her urinalysis this admission is active because she has a UTI but generally only has proteinuria Because of the proteinuria plus the positive ANCA level think we ought to do a kidney biopsy. Will repeat the urinalysis tomorrow morning to see how it is doing. She is not on any blood thinner consider a biopsy on Thursday or Thursday. 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 She has a low FSH and LH and also adrenal insufficiency. I think that the diabetes insipidus and these phenomena are all because of her empty sella syndrome. I think it would be prudent for her to see an boarder steam as an outpatient to address all these issues. She has mild adrenal insufficiency with a peak cortisol level of less than 18 but above 10. She does not have hyperkalemia nor hyponatremia nor persistent hypotension so she may not need prednisone supplements. The sodium level is up to 136. Will continue every other day desmopressin. Start date is tomorrow evening. (3) Mixed hyperlipidemia: Code(s): E78.2 - Mixed hyperlipidemia Status: Chronic Assessment and Plan: The patient is on rosuvastatin (4) Essential (primary) hypertension: Code(s): I10 - Essential (primary) hypertension Status: Chronic Assessment and Plan: Blood pressure is well controlled (5) UTI (urinary tract infection): Code(s): N39.0 - Urinary tract infection, site not specified Status: Acute Assessment and Plan: The patient is on ceftriaxone (6) Confusion: Code(s): R41.0 - Disorientation, unspecified Status: Acute Assessment and Plan: The patient has normopressure hydrocephalus and now has a UTI probably contributing to her mental status changes. Ultimately evaluation of this is up to the hospitalists. Subjective Date/time seen: 07/11/23 09:41 Interval history: The patient feels okay. Lying in bed comfortably. Exam Narrative: WDWN in NAD skin no rash head ncat lungs clear bilaterally cor reg no rub abd BS+ nontender and soft ext no edema or cyanosis. Objective Data Vital Signs Vital Signs: Vital Signs - 24 hr 07/10/23 14:00 07/10/23 17:08 07/10/23 21:52 Temperature 97.5 F L Pulse Rate 60 64 83 Respiratory Rate 18 20 Blood Pressure 142/83 H 111/59 L Pulse Oximetry 100 100 Oxygen Delivery 07/10/23 20:00 07/11/23 05:13 07/11/23 08:56 Temperature 96.3 F L Pulse Rate 62 65 Respiratory Rate 18 Blood Pressure 128/82 Pulse Oximetry 100 Oxygen Delivery Room Air Intake/Output Intake/Output: Intake & Output 07/08/23 07/09/23 07/10/23 07/11/23 23:59 23:59 23:59 23:59 Intake Total 372 2846 1380 50 Output Total 2800 500 1475 350 Balance -2428 2346 -95 -300 Meds/Results Medications: Active Medications Generic Name Dose Route Start Last Admin Trade Name Freq PRN Reason Stop Dose Admin Acetaminophen 650 mg 07/03/23 21:50 07/11/23 08:56 Acetaminophen 325 Mg Tablet PO 650 mg Q6H PRN Administration Mild Pain (1-3) or Fever Apixaban 5 mg 07/06/23 21:00 07/11/23 08:56 Apixaban 5 Mg Tablet PO 5 mg Q12HR ASHLEY Administration Desmopressin Acetate 0.1 mg 07/12/23 20:00 Desmopressin Acetate 0.1 Mg Tablet PO Q48HR ASHLEY Dextrose 12.5 gm 07/09/23 12:39 Dextrose 50% 25 Gm/50 Ml Syringe IV PUSH PRN PRN Hypoglycemia Protocol Docus
--- NOTE | 2023-07-11 10:27 | PM.DS ---
DS: Admitting Diagnosis Discharge Date 07/11/23 Admitting Diagnosis Unresponsive DS: Discharge Diagnosis Discharge Diagnosis (1) Unresponsive episode: Code(s): R40.4 - Transient alteration of awareness Status: Acute (2) Urinary tract infection: Code(s): N39.0 - Urinary tract infection, site not specified Status: Acute (3) Altered mental status: Qualifiers: Altered mental status type: delirium Qualified Code(s): R41.0 - Disorientation, unspecified Code(s): R41.82 - Altered mental status, unspecified Status: Acute (4) Positive P-ANCA titer: Code(s): R76.8 - Other specified abnormal immunological findings in serum Status: Acute (5) Normal pressure hydrocephalus: Onset Date: 05/2023 Code(s): G91.2 - (Idiopathic) normal pressure hydrocephalus Status: Acute (6) Diabetes insipidus: Onset Date: 05/2023 Code(s): E23.2 - Diabetes insipidus Status: Acute (7) Adrenal insufficiency: Code(s): E27.40 - Unspecified adrenocortical insufficiency Status: Acute (8) Urine retention: Code(s): R33.9 - Retention of urine, unspecified Status: Acute DS: Summary Hospital Course Reason for hospitalization: 72yo female with PMHx of NPH and DI presents after being found unresponsive at residential. Please see H&P for details. Hospital Course: Patient brought in for unresponsiveness and possible Code Blue. After ROSC, patient was very active and EMS had trouble obtaining vital signs. Patient was HoTN and hypothermic on arrival treated with IV fluids and jaden hugger in the ED. Troponin was negative. Patient here last month and found to have ELIZABETH, hypernatremia (presumed DI), findings of suspected NPH with empty sella syndrome. UA concerning for UTI. Rocephin started. Urine culture grew E. Coli sensitive to Rocephin. Blood culture shows NGTD. For her confusion, CT brain showed no acute findings but continued to show enlarged ventricles with findings concerning for underlying NPH. Initial ABG was within normal limits. Neurology consulted and EEG performed: Abnormal record due to the presence of the bihemispheric theta and delta activity.? These abnormalities are suggestive of underlying organic or metabolic encephalopathy. Possibly related to the UTI. MRI brain showed stable ventriculomegaly; Last admission, S[facility] MRI showing chronic encephalomalacia in the anterior temporal lobes. TSH normal. Cortisol was low last admission (2.26). Concern that she has adrenal insufficiency with crisis triggered by UTI causing the HoTN and hypothermia. Random cortisol was 5.98 on admission but was low on repeat. Cosyntropin stim test performed with baseline cortisol was low at 1.72, 30 min (11.2), and 60 min (13.3) -- cortisol <3 at baseline and <14 with ACTH stim test c/w with adrenal insufficiency. ACTH pending wut was low-normal last admission. Adrenal insufficiency by testing and symptomatic due to UTI with know cause of empty sella syndrome so opted for treatment. She was started on hydrocortisone. Many lab tests were pending at the time of her discharge last month: BECCA screen came back positive with a titer of 1:160 in a mytotic, NuMA-like pattern and a positive p-ANCA with a titer of 1:320. She was also noted to have increased free light chains. SIF, UIF negative for bands. Sm Ab, GBM, anti-DNA and mitochondrial Ab negative. ESR 109. Patient does have mild renal insufficiency with proteinuria. Nephrology consult and appreciate their input. Discussed with nephrology who felt renal bx being considered once her UTI is cleared. Discussed with patient and . states patient is set up for a neuro follow-up for her possible normal pressure hydrocephalus with an appointment in October. Patient's sodium was normal on admission but climbed to 148. She was not on the Desmopressin. She was treated with D5-1/2NS and desmopressin resumed. Morgan
[2023-07-11 10:40] VITALS: O2SAT 96
[2023-07-11 13:41] LABS: SARS-CoV-2 RNA PCR Negative (Negative)
[2023-07-11 14:39] VITALS: BP 118/71; PULSE 57; RESP 20; TEMP 36.6; O2SAT 100
[2023-07-13 11:21] LABS: Adrenocorticotropic Hormone 7 pg/mL (6-50)
--- NOTE | 2023-07-14 07:55 | PC.NURSE ---
ACTH- 7. (6-50 ) Dr. Praveen solis.
== END 2023-07-11 16:45 | DRG 690 ==
LOC: ANHED 10:38 → ANH2MED 15:11 → ANHIMU 16:59 → ANH3MEDSUR 07-06 21:13
PROVIDERS: Internal Medicine Nephrology; Physician Assistant; Admitting Provider Internal Medicine; Emergency Provider Preventive Medicine Aerospace Medicine; PCP Nurse Practitioner; Visit Provider Internal Medicine
DX: N39.0 Urinary tract infection, site not specified (principal); E23.2 Diabetes insipidus; N17.9 Acute kidney failure, unspecified; E87.0 Hyperosmolality and hypernatremia; G91.2 (Idiopathic) normal pressure hydrocephalus; E27.40 Unspecified adrenocortical insufficiency; Z68.41 Body mass index [BMI] 40.0-44.9, adult; B96.20 Unspecified Escherichia coli [E. coli] as the cause of diseases classified elsewhere; D64.9 Anemia, unspecified; E78.2 Mixed hyperlipidemia; M19.90 Unspecified osteoarthritis, unspecified site; H40.9 Unspecified glaucoma; M48.061 Spinal stenosis, lumbar region without neurogenic claudication; R68.0 Hypothermia, not associated with low environmental temperature; E87.6 Hypokalemia; G62.9 Polyneuropathy, unspecified; R76.8 Other specified abnormal immunological findings in serum; G30.9 Alzheimer's disease, unspecified; E23.6 Other disorders of pituitary gland; F02.80 Dementia in other diseases classified elsewhere, unspecified severity, without behavioral disturbance, psychotic disturbance, mood disturbance, and anxiety; R80.9 Proteinuria, unspecified; R33.9 Retention of urine, unspecified; I10 Essential (primary) hypertension; R91.1 Solitary pulmonary nodule; R40.4 Transient alteration of awareness; Z66 Do not resuscitate; Z11.52 Encounter for screening for COVID-19; Z79.01 Long term (current) use of anticoagulants; Z86.718 Personal history of other venous thrombosis and embolism
CPT/HCPCS: 36415; 36600; 70450; 70553; 71045; 73590; 80048; 80053; 80069; 80307; 81001; 82024; 82140; 82375; 82533; 82550; 82570; 82607; 82805; 82948; 83050; 83605; 83735; 84156; 84443; 84484; 85025; 85027; 85652; 86140; 87040; 87077; 87086; 87088; 87186; 87635; 93005; 95816; 96361; 96365; 96366; 96367; 96375; 97110; 97161; 97166; 99285; A9270; A9577; G0378; J0696; J0834; J3480; J7030; J7040

== ENCOUNTER 2023-07-13 08:12 | Emergency (ER) | payer MEDICARE, SELFPAY ==
--- NOTE | ~2023-07-13 | CT_ITS ---
EXAMINATION: CT brain wo con DATE: 07/13/2023 10:58 INDICATION: Head injury. TECHNIQUE: Computed tomography (CT) of the head was performed without intravenous contrast. The mA wa s adjusted according to patient size. Iterative reconstruction technique was employed. The dose-lengt h product was 605.33 mGy-cm. COMPARISON: Head CT 07/03/2023 FINDINGS: There is no intracranial hemorrhage, acute infarction, or abnormal intracranial mass lesion . There are scattered areas of low attenuation in the cerebral white matter, which is within normal l imits for the patient's age. The ventricles are normal in size. There are likely changes of ocular le ns replacement surgeries. There is an implant lateral to right ocular globe. There is mild mucosal th ickening in the ethmoid sinuses. The mastoid air cells are normal. There is right frontal scalp soft tissue swelling. IMPRESSION: 1. Normal aging brain. Reviewed, dictated and finalized at location A. IMPRESSION: 1. Normal aging brain.
[2023-07-13 07:58] VITALS: BP 107/81; PULSE 56; RESP 12; TEMP 36.6; O2SAT 100
--- NOTE | 2023-07-13 08:12 | ECG_ITS ---
Measurements Intervals [place] Rate: 54 P: 52 GA: 210 QRS: 23 QRSD: 82 T: 52 QT: 427 QTc: 405 Interpretive Statements SINUS BRADYCARDIA WITH FIRST DEGREE AV BLOCK LOW QRS VOLTAGE IN PRECORDIAL LEADS [QRS DEFLECTION < 1.0 mV IN CHEST LEADS] NONSPECIFIC T-WAVE ABNORMALITY COMPARED TO ECG 07/03/2023 07:44:55 NO SIGNIFICANT CHANGES Electronically Signed On 07-14-2023 8:42:49 CDT by Rudy Carrillo M.D.
[2023-07-13 09:12] VITALS: BP 82/61; PULSE 58; RESP 18; O2SAT 96
[2023-07-13 09:45] LABS: Appearance Urine Cloudy (Clear); Bacteria Urine None Seen /hpf; Bilirubin Urine Negative (Negative); Blood Urine 1+ (Negative); Color Urine Yellow (Yellow); Glucose Urine UA Negative (Negative); Hyaline Casts Urine Present /lpf; Ketones Urine Negative (Negative); Leukocyte Esterase Ur 2+ LEU/UL (Negative); Need Manual Microscopic Reviewed; Nitrate Urine Negative (Negative); Non Pathogenic Casts >20; Protein Urine 2+ mg/dL (Negative); RBC Urine 0-2 /hpf (0-2); Specific Grav Ur 1.012 (1.001-1.035); Squamous Epithelial Cell Urine Few /hpf (Few); Urobilinogen Urine 0.2 mg/dL (<2.0); WBC Urine 21-50 /hpf (0-3)
[2023-07-13 09:51] LABS: Add Urine Microscopic? YES
--- NOTE | 2023-07-13 10:36 | ED.FALL ---
HPI - Fall General Chief Complaint: Fall Stated Complaint: fall Time Seen by Provider: 07/13/23 08:13 Source: EMS Mode of arrival: EMS Limitations: dementia History of Present Illness HPI Narrative: 72-year-old with a history of hypertension, DVT, dementia was brought in from a long term with complaints of fall this morning. Patient was forewarned face down. Upon arrival to the ER patient denies having any headache neck pain or chest pain. She is not quite sure how she fell or not she remembers falling. Related Data Home Medications Medication Instructions Recorded Confirmed latanoprost 0.005 % eye drops 1 drp LEFT EYE HS 01/28/22 07/03/23 prednisolone acetate 1 % eye 1 drp RIGHT EYE HS 01/28/22 07/03/23 drops,suspension dorzolamide 22.3 mg-timolol 6.8 1 drp EACH EYE Q12H 06/04/22 07/03/23 mg/mL eye drops docusate sodium 100 mg PO DAILY 05/23/23 07/03/23 gabapentin 300 mg capsule 300 mg PO HS 05/23/23 07/03/23 rosuvastatin 40 mg tablet 40 mg PO HS 05/23/23 07/03/23 sertraline 25 mg tablet 25 mg PO QAM 05/23/23 07/03/23 thiamine HCl (vitamin B1) 100 mg 100 mg PO HS 05/23/23 07/03/23 tablet Allergies Allergy/AdvReac Type Severity Reaction Status Date / Time No Known Allergies Allergy Verified 05/23/23 13:03 Review of Systems Review of Systems: ROS unobtainable: Yes unobtainable due to medical condition [facility] Past Medical History Medical History Arthritis Deep venous thrombosis 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 Post-menopausal Prediabetes Spinal stenosis at L4-L5 level Surgical History Surgical History History of back surgery History of carpal tunnel surgery History of cataract extraction History of cervical discectomy History of colonoscopy with polypectomy History of decompression of ulnar nerve History of excision of lamina of cervical vertebra for decompression of spinal cord History of hysterectomy History of tonsillectomy Family History Family History Mother Diabetes mellitus Hypertension Cerebrovascular accident Sibling Breast cancer Family history of arthritis Other Family history of cardiovascular disease Family history of coronary artery disease Family history of malignant neoplasm Family history of premature coronary heart disease Social History Social History Social History: Surrogate medical decision maker: Daly Jaramillo, spouse. Code status: Do not resuscitate. Smoking status: Never smoker Second hand tobacco smoke exposure: Yes Alcohol intake: never Alcohol use details: social Substance use: never Substance use type: does not use Do You Feel Safe in your Home?: Yes Lack of Transportation: No Lack of Food: Never True Current Housing: I Have Housing Concerned About Future Housing: No Difficulty Paying Gas/Electric Bills: No Difficulty Paying for Meds: No Currently Unemployed: No Education: High School Diploma/GED Difficulty w/ Childcare or Family Care: No Living arrangements: with family Occupation/Education: retired Spiritual care concerns: Yes (Christian) Exam Narrative: GENERAL: Well-appearing, well-nourished, and in no acute distress. HEAD: Normocephalic, atraumatic. small frontal hematoma EYES: PERRLA and EOMI. ENT: Nares clear, no rhinorrhea or epistaxis. Mucous membranes moist. NECK: Supple. CHEST: Clear to auscultation. No respiratory distress. HEART: Regular rate and rhythm. No murmur heard. Normal peripheral pulses. ABDO
== END 2023-07-13 11:20 ==
PROVIDERS: Emergency Provider Family Medicine; PCP Nurse Practitioner
DX: S00.83XA Contusion of other part of head, initial encounter (principal); I10 Essential (primary) hypertension; F03.90 Unspecified dementia, unspecified severity, without behavioral disturbance, psychotic disturbance, mood disturbance, and anxiety; E78.2 Mixed hyperlipidemia; H40.9 Unspecified glaucoma; R73.03 Prediabetes; M19.90 Unspecified osteoarthritis, unspecified site; Z66 Do not resuscitate; Z86.718 Personal history of other venous thrombosis and embolism; Z98.49 Cataract extraction status, unspecified eye; Z90.710 Acquired absence of both cervix and uterus; Z77.22 Contact with and (suspected) exposure to environmental tobacco smoke (acute) (chronic); R00.1 Bradycardia, unspecified; I44.0 Atrioventricular block, first degree; W19.XXXA Unspecified fall, initial encounter
CPT/HCPCS: 70450; 81001; 87086; 87088; 93005; 99284

== ENCOUNTER 2023-07-16 08:40 | Emergency (ER) | payer MEDICARE, SELFPAY ==
[2023-07-16 08:53] VITALS: BP 102/76; PULSE 52; RESP 16; TEMP 36.8; O2SAT 100
[2023-07-16 09:31] LABS: Appearance Urine Clear (Clear); Bilirubin Urine Negative (Negative); Blood Urine 1+ (Negative); Color Urine Yellow (Yellow); Glucose Urine UA Negative (Negative); Ketones Urine Negative (Negative); Leukocyte Esterase Ur 2+ LEU/UL (Negative); Nitrate Urine Negative (Negative); Protein Urine 1+ mg/dL (Negative); Specific Grav Ur 1.013 (1.001-1.035); Urobilinogen Urine 0.2 mg/dL (<2.0)
[2023-07-16 09:33] LABS: Alanine Aminotransferase 39 U/L (6-35); Albumin Level 3.6 g/dL (3.5-5.1); Alkaline Phosphatase 261 U/L (38-126); Anion Gap 4 mmol/L (4-12); Aspartate Amino Transferase 85 U/L (14-36); Bilirubin,Total 0.7 mg/dL (0.2-1.3); Blood Urea Nitrogen 11 mg/dL (7-17); Calcium 9.4 mg/dL (8.4-10.2); Carbon Dioxide 29 mmol/L (22-30); Chloride 103 mmol/L (98-107); Estimated Glomerular Filt Rate > 60; Glucose 84 mg/dL (65-110); Lipase 29 U/L (23-300); Potassium 3.2 mmol/L (3.4-5.0); Sodium 136 mmol/L (137-145)
[2023-07-16 09:35] VITALS: BP 108/70; PULSE 52; RESP 16; TEMP 36.4; O2SAT 100
[2023-07-16 09:38] LABS: Basophils Percent Auto 0.8 % (0.2-1.2); Eosinophils Absolute Auto 0.1 K/mm3 (0-0.3); Eosinophils Percent Auto 1.9 % (0-4.4); Hematocrit 32.7 % (37.0-47.0); Hemoglobin 10.2 g/dL (12.0-15.0); Immature Granulocyte Absolute 0.01 K/mm3 (0.00-0.031); Immature Granulocyte Percent A 0.2 % (0-0.5); Lymphocytes Absolute Auto 1.34 K/mm3 (0.9-3.2); Lymphocytes Percent Auto 25.2 % (18.3-44.2); Mean Corpuscular HGB Conc 31.2 g/dl (32-36); Mean Corpuscular Hemoglobin 27.1 pg (26-34); Mean Platelet Volume 9.7 fl (7.4-10.4); Monocytes Absolute Auto 0.5 K/mm3 (0.1-0.6); Monocytes Percent Auto 8.6 % (2.6-8.5); Neutrophils Absolute Auto 3.4 K/mm3 (1.3-6.7); Neutrophils Percent Auto 63.3 % (45.5-73.1); Platelet Count Result 297 k/mm3 (150-375); Red Blood Count 3.76 M/mm3 (4.2-5.4); Red Cell Distribution Width 16.7 % (11.5-14.5); White Blood Count 5.3 K/mm3 (4.5-10.0)
[2023-07-16 09:49] LABS: Add Urine Microscopic? YES
[2023-07-16 09:51] LABS: Bacteria Urine Trace /hpf; Mucus Urine Few /lpf; RBC Urine 0-2 /hpf (0-2); Squamous Epithelial Cell Urine Few /hpf (Few); WBC Clumps Urine Present /hpf
[2023-07-16 09:52] LABS: Hyaline Casts Urine 0-2 /lpf
[2023-07-16 10:16] VITALS: BP 109/71; PULSE 51; RESP 16; TEMP 36.6; O2SAT 97
[2023-07-16 10:32] VITALS: BP 113/68; PULSE 52; RESP 16
--- NOTE | 2023-07-16 10:41 | ED.AMS ---
HPI - Altered Mental Status General Chief Complaint: Altered Mental Status Stated Complaint: altered LOC Time Seen by Provider: 07/16/23 08:41 History of Present Illness HPI narrative: Patient is a 72-year-old female who presents ER from senior care for reports of increased confusion. Patient has dementia and is oriented x2 at this time. No reports of pain. She does have a chronic indwelling Costa. She had an E coli infection weeks ago. Urine culture from 07/12 is negative. No additional complaints. Related Data Home Medications Medication Instructions Recorded Confirmed latanoprost 0.005 % eye drops 1 drp LEFT EYE HS 01/28/22 07/03/23 prednisolone acetate 1 % eye 1 drp RIGHT EYE HS 01/28/22 07/03/23 drops,suspension dorzolamide 22.3 mg-timolol 6.8 1 drp EACH EYE Q12H 06/04/22 07/03/23 mg/mL eye drops docusate sodium 100 mg PO DAILY 05/23/23 07/03/23 gabapentin 300 mg capsule 300 mg PO HS 05/23/23 07/03/23 rosuvastatin 40 mg tablet 40 mg PO HS 05/23/23 07/03/23 sertraline 25 mg tablet 25 mg PO QAM 05/23/23 07/03/23 thiamine HCl (vitamin B1) 100 mg 100 mg PO HS 05/23/23 07/03/23 tablet Allergies Allergy/AdvReac Type Severity Reaction Status Date / Time No Known Allergies Allergy Verified 05/23/23 13:03 Review of Systems Review of Systems: ROS unobtainable: Yes unobtainable due to mental status PMFSH Past Medical History Medical History Arthritis Deep venous thrombosis 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 Post-menopausal Prediabetes Spinal stenosis at L4-L5 level Surgical History Surgical History History of back surgery History of carpal tunnel surgery History of cataract extraction History of cervical discectomy History of colonoscopy with polypectomy History of decompression of ulnar nerve History of excision of lamina of cervical vertebra for decompression of spinal cord History of hysterectomy History of tonsillectomy Family History Family History Mother Diabetes mellitus Hypertension Cerebrovascular accident Sibling Breast cancer Family history of arthritis Other Family history of cardiovascular disease Family history of coronary artery disease Family history of malignant neoplasm Family history of premature coronary heart disease Social History Social History Social History: Surrogate medical decision maker: Daly Jaramillo, spouse. Code status: Do not resuscitate. Smoking status: Never smoker Second hand tobacco smoke exposure: Yes Alcohol intake: never Alcohol use details: social Substance use: never Substance use type: does not use Do You Feel Safe in your Home?: Yes Lack of Transportation: No Lack of Food: Never True Current Housing: I Have Housing Concerned About Future Housing: No Difficulty Paying Gas/Electric Bills: No Difficulty Paying for Meds: No Currently Unemployed: No Education: High School Diploma/GED Difficulty w/ Childcare or Family Care: No Living arrangements: with family Occupation/Education: retired Spiritual care concerns: Yes (Yarsani) Exam Narrative: GENERAL: Well-appearing, well-nourished, and in no acute distress. HEAD: Normocephalic, atraumatic. ENT: Mucous membranes moist. NECK: Supple. CHEST: Clear to auscultation. No respiratory distress. HEART: Regular rate and rhythm. Normal peripheral pulses. ABDOMEN: Soft, nontender, nondistended. EXTREMITIES: Normal range of motion. No edema. SKIN: Warm, dry, no rash. NE
[2023-07-16 11:31] VITALS: BP 112/78; PULSE 53; RESP 14; TEMP 36.8
[2023-07-16 11:56] VITALS: BP 121/83; PULSE 52; RESP 16; TEMP 36.6; O2SAT 98
== END 2023-07-16 12:09 ==
PROVIDERS: Emergency Provider Emergency Medicine; PCP Nurse Practitioner
DX: N39.0 Urinary tract infection, site not specified (principal); E78.2 Mixed hyperlipidemia; E23.2 Diabetes insipidus; M19.90 Unspecified osteoarthritis, unspecified site; H40.9 Unspecified glaucoma; Z66 Do not resuscitate; Z86.718 Personal history of other venous thrombosis and embolism; Z86.010 Personal history of colon polyps; Z98.49 Cataract extraction status, unspecified eye; Z90.710 Acquired absence of both cervix and uterus; Z79.01 Long term (current) use of anticoagulants
CPT/HCPCS: 36415; 80053; 81001; 83690; 85025; 87077; 87086; 87186; 99283

== ENCOUNTER 2023-07-17 09:02 | Inpatient (IN) | payer MEDICARE, SELFPAY ==
[2023-07-17] VITALS (36 sets, daily range): BP systolic 88–143; BP diastolic 42–123; PULSE 54–82; RESP 12–24; TEMP 33.6–36.6; O2SAT 95–100
--- NOTE | ~2023-07-17 | CT_ITS ---
EXAMINATION: CT brain wo con DATE: 07/17/2023 10:42 INDICATION: Altered mental state. Loss of consciousness. Dementia. TECHNIQUE: Computed tomography (CT) of the head was performed without intravenous contrast. The mA wa s adjusted according to patient size. Iterative reconstruction technique was employed. Exam dose: 60 5.33 mGy-cm total exam DLP. COMPARISON: July 13, 2023 CT brain FINDINGS: Prominent bilateral carotid siphon internal carotid artery calcifications. There is nonspecific diminished attenuation of the cerebral white matter, likely due to chronic small vessel ischemic changes. There is prominence of the fourth, third and lateral ventricles without apparent obstruction; recomme nd clinical correlation to exclude communicating hydrocephalus, which is associated with a classic tr iad of dementia, gait disturbance and urinary incontinence. No intracranial mass lesion or hemorrhage, midline shift or mass effect. Included mastoid air cells and paranasal sinuses are unremarkable. No fracture or bone destruction of the cranial vault. IMPRESSION: Prominent size of the fourth, third and lateral ventricles without apparent obstruction; recommend clinical correlation for possible communicating hydrocephalus Cerebral atherosclerosis and chronic small vessel ischemic changes of the cerebral white matter Reviewed, dictated and finalized at [facility]. Reviewed, dictated and finalized at [facility]. IMPRESSION: Prominent size of the fourth, third and lateral ventricles without apparent obstruction; recommend clinical correlation for possible communicatin g hydrocephalus Cerebral atherosclerosis and chronic small vessel ischemic changes of the cereb ral white matter
--- NOTE | 2023-07-17 09:18 | ECG_ITS ---
Measurements Intervals [place] Rate: 57 P: 39 SC: 198 QRS: 30 QRSD: 80 T: 62 QT: 417 QTc: 408 Interpretive Statements POOR DATA QUALITY/BASELINE ARTIFACT SINUS BRADYCARDIA WITH 1ST DEGREE AV BLOCK NONSPECIFIC ST & T-WAVE ABNORMALITY ABNORMAL ECG COMPARED TO ECG 07/13/2023 08:19:10 NO SIGNIFICANT CHANGES Electronically Signed On 07-17-2023 12:31:59 CDT by Justo Hurtado M.D.
[2023-07-17 09:24] LABS: Glucose Point of Care 84 mg/dl (65-105)
--- NOTE | 2023-07-17 09:26 | ED.AMS ---
HPI - Altered Mental Status General Chief Complaint: Altered Mental Status <Reagan Mascorro APRN - Last Filed: 07/17/23 17:45> Stated Complaint: AMS <Reagan Mascorro APRN - Last Filed: 07/17/23 17:45> Time Seen by Provider: 07/17/23 09:10 <Reagan Mascorro APRN - Last Filed: 07/17/23 17:45> Source: patient <Reagan Mascorro APRN - Last Filed: 07/17/23 17:45> Mode of arrival: ambulatory <Reagan Mascorro APRN - Last Filed: 07/17/23 17:45> Limitations: no limitations <Reagan Mascorro APRN - Last Filed: 07/17/23 17:45> History of Present Illness HPI narrative: Jolie is a 72-year-old female patient presenting to the emergency room today with complaints of altered mental status. Patient is coming from a local long-term via EMS with complaints of a short period of unresponsiveness while the patient was at the nurse's station sitting in wheelchair. They report that the patient was not responsive in then afterwards acting confused. No prior history of seizures. Patient was in the ER yesterday for similar symptoms and was discharged home. Initial blood sugar was 100 for EMS. Patient is alert oriented x2 at this time-per her normal. Patient just had CT of the brain completed on July 12 and it shows a normal aging brain. Was discharged yesterday for urinary tract infection. Was placed on cephalexin patient has chronic indwelling Costa catheter. <Reagan Mascorro APRN - Last Filed: 07/17/23 17:45> Related Data Home Medications: Home Medications Medication Instructions Recorded Confirmed latanoprost 0.005 % eye drops 1 drp LEFT EYE HS 01/28/22 07/03/23 prednisolone acetate 1 % eye 1 drp RIGHT EYE HS 01/28/22 07/03/23 drops,suspension dorzolamide 22.3 mg-timolol 6.8 1 drp EACH EYE Q12H 06/04/22 07/03/23 mg/mL eye drops docusate sodium 100 mg PO DAILY 05/23/23 07/03/23 gabapentin 300 mg capsule 300 mg PO HS 05/23/23 07/03/23 rosuvastatin 40 mg tablet 40 mg PO HS 05/23/23 07/03/23 sertraline 25 mg tablet 25 mg PO QAM 05/23/23 07/03/23 thiamine HCl (vitamin B1) 100 mg 100 mg PO HS 05/23/23 07/03/23 tablet <Reagan Mascorro APRN - Last Filed: 07/17/23 17:45> Allergies/Adverse Reactions: Allergies Allergy/AdvReac Type Severity Reaction Status Date / Time No Known Allergies Allergy Verified 05/23/23 13:03 <Reagan Mascorro APRN - Last Filed: 07/17/23 17:45> Review of Systems Review of Systems: Pertinent positives per HPI. Patient denies any fever, chills, rash, headache, visual changes, dizziness, cough, runny nose, sore throat, shortness of breath, chest pain, palpitations, nausea, vomiting, diarrhea, constipation, abdominal pain <Reagan Mascorro APRN - Last Filed: 07/17/23 17:45> PMF Past Medical History Medical History: Medical History Arthritis Deep venous thrombosis 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 Post-menopausal Prediabetes Spinal stenosis at L4-L5 level <Reagan Mascorro APRN - Last Filed: 07/17/23 17:45> Surgical History Surgical History: Surgical History History of back surgery History of carpal tunnel surgery History of cataract extraction History of cervical discectomy History of colonoscopy with polypectomy History of decompression of ulnar nerve History of excision of lamina of cervical vertebra for decompression of spinal cord History of hysterectomy History of tonsillectomy <Reagan Mascorro APRN - Last Filed: 07/17/23 17:45> Family History Family History: Family History (Reviewed 07/17/23 @ 10:16
[2023-07-17 09:50] LABS: Appearance Urine Cloudy (Clear); Bacteria Urine None Seen /hpf; Bilirubin Urine Negative (Negative); Blood Urine 2+ (Negative); Color Urine Yellow (Yellow); Glucose Urine UA Negative (Negative); Ketones Urine Negative (Negative); Leukocyte Esterase Ur 2+ LEU/UL (Negative); Need Manual Microscopic Reviewed; Nitrate Urine Negative (Negative); Non Pathogenic Casts >20; Protein Urine 2+ mg/dL (Negative); Specific Grav Ur 1.018 (1.001-1.035); Squamous Epithelial Cell Urine Few /hpf (Few); Urobilinogen Urine 0.2 mg/dL (<2.0); WBC Urine 51-100 /hpf (0-3)
[2023-07-17 09:54] LABS: Add Urine Microscopic? YES
[2023-07-17] MEDS: SODIUM CHLORIDE 0.9% IV 1,000 ML 999 ML IV CONT ×2 (10:01→10:35)
[2023-07-17 10:14] LABS: Basophils Percent Auto 0.7 % (0.2-1.2); Eosinophils Absolute Auto 0.1 K/mm3 (0-0.3); Eosinophils Percent Auto 1.6 % (0-4.4); Hematocrit 31.3 % (37.0-47.0); Hemoglobin 9.8 g/dL (12.0-15.0); Immature Granulocyte Absolute 0.01 K/mm3 (0.00-0.031); Immature Granulocyte Percent A 0.2 % (0-0.5); Lymphocytes Absolute Auto 0.98 K/mm3 (0.9-3.2); Lymphocytes Percent Auto 22.4 % (18.3-44.2); Mean Corpuscular HGB Conc 31.3 g/dl (32-36); Mean Corpuscular Hemoglobin 27.1 pg (26-34); Mean Corpuscular Volume 86.5 fl (80-100); Mean Platelet Volume 9.1 fl (7.4-10.4); Monocytes Absolute Auto 0.4 K/mm3 (0.1-0.6); Monocytes Percent Auto 8.4 % (2.6-8.5); Neutrophils Absolute Auto 2.9 K/mm3 (1.3-6.7); Neutrophils Percent Auto 66.7 % (45.5-73.1); Platelet Count Result 270 k/mm3 (150-375); Red Blood Count 3.62 M/mm3 (4.2-5.4); White Blood Count 4.4 K/mm3 (4.5-10.0)
[2023-07-17 10:34] LABS: Alanine Aminotransferase 36 U/L (6-35); Albumin Level 3.5 g/dL (3.5-5.1); Alkaline Phosphatase 256 U/L (38-126); Anion Gap 2 mmol/L (4-12); Aspartate Amino Transferase 77 U/L (14-36); Bilirubin,Total 0.6 mg/dL (0.2-1.3); Blood Urea Nitrogen 11 mg/dL (7-17); Calcium 9.6 mg/dL (8.4-10.2); Carbon Dioxide 30 mmol/L (22-30); Chloride 106 mmol/L (98-107); Estimated CRCL calculation 57 ml/min; Estimated Glomerular Filt Rate > 60; Glucose 81 mg/dL (65-110); Sodium 138 mmol/L (137-145)
--- NOTE | 2023-07-17 10:36 | PC.NURSE ---
Pt to CT scan via stretcher at this time.
[2023-07-17 10:44] LABS: Troponin I < 0.012 ng/mL (0.000-0.034)
[2023-07-17 10:50] LABS: Amphetamine Screen Urine Negative (Negative); Barbiturate Screen Urine Negative (Negative); Benzodiazepines Screen Urine Negative (Negative); Cannabinoid Screen Urine Negative (Negative); Cocaine Screen Urine Negative (Negative); Methadone Screen Urine Negative (Negative); Opiate Screen Urine Negative (Negative); Phencyclidine Screen Urine Negative (Negative)
[2023-07-17 12:06] LABS: Lactic Acid Reflex 0.8 mmol/L (0.7-2.0)
[2023-07-17] MEDS: POTASSIUM CHLORIDE 20 MEQ PACKET (FOR LIQUID) 40 MEQ PO (13:26)
--- NOTE | 2023-07-17 16:12 | PM.IMHP ---
H&P: HPI History of Present Illness Date/Time: 07/17/23 16:12 Chief Complaint: AMS Narrative: 72 y/o F presents here with AMS with PMH of DVT, diabetes insipidus (05/2023), HTN, HLD, normal pressure hydrocephalus (05/2023), and prediabetes. Patient presented here from [place] via EMS for further evaluation of AMS and brief unresponsive episode. Patient was sitting in her wheelchair near the nurse's station when she stopped responding, was more confused after she aroused. No history of seizures. No tonic-clonic movements, gaze deviation, or abnormal movements reported to EMS. Patient's baseline orientation is alert and orientated x2. Seen here yesterday and was diagnosed with a UTI and discharged home with Keflex 500 mg b.i.d. (#7). After arrival to the ED, patient was at baseline (A/Ox2). Patient has had unresponsive episodes previously with last admission for similar from 07/03/23-07/11/23. HPI obtained through chart review due to patient's current mental status. Initial VS at presentation:97.8? F, HR 82, RR 16, 132/93, and 98% on RA. ED workup showed: WBC 4.4, Hgb 9.8, K 3.0, creatinine 0.9 with GFR >60, AST 77, ALT 36, alk-phos 256, and initial troponin negative. UA consistent with UTI. UDS negative. CT brain showed prominent size of the 4th, 3rd, and lateral ventricles that apparent obstruction, possible communicating hydrocephalus. Previously seen on 07/13/2023, per Radiology review. Review of Systems Review of Systems: ROS unobtainable: Yes unobtainable due to mental status [facility] Past Medical History Medical History Arthritis Deep venous thrombosis 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 Post-menopausal Prediabetes Spinal stenosis at L4-L5 level Surgical History Surgical History History of back surgery History of carpal tunnel surgery History of cataract extraction History of cervical discectomy History of colonoscopy with polypectomy History of decompression of ulnar nerve History of excision of lamina of cervical vertebra for decompression of spinal cord History of hysterectomy History of tonsillectomy Family History Family History Mother Diabetes mellitus Hypertension Cerebrovascular accident Sibling Breast cancer Family history of arthritis Other Family history of cardiovascular disease Family history of coronary artery disease Family history of malignant neoplasm Family history of premature coronary heart disease Social History Social History Social History: Surrogate medical decision maker: Daly Clint, spouse. Code status: Do not resuscitate. Smoking status: Never smoker Second hand tobacco smoke exposure: No Alcohol intake: never Alcohol use details: social Substance use: never Substance use type: does not use Do You Feel Safe in your Home?: Yes Lack of Transportation: No Lack of Food: Never True Current Housing: I Have Housing Concerned About Future Housing: No Difficulty Paying Gas/Electric Bills: No Difficulty Paying for Meds: No Currently Unemployed: No Education: High School Diploma/GED Difficulty w/ Childcare or Family Care: No Living arrangements: with family Occupation/Education: retired Spiritual care concerns: No Meds Home Medications and Allergies Home Medications Medication Instructions Recorded Confirmed Type latanoprost 0.005 % eye drops 1 drp LEFT EYE HS 01/28/22 07/17/23 History prednisolone acetate 1 % eye 1 drp RIGHT EYE HS 01/28/22
--- NOTE | 2023-07-17 16:40 | PC.NURSE ---
This patient, Jolie Banks, was admitted to [facility] Room 333-01. Patient/family oriented to hospital policies and general routines including ID bracelet, bed and alarms, visiting hours, pain management, procedures, bathroom and other care routines, personal items, smoking policy, room service/diet, and visiting hours. Information on how to activate the Rapid Response Team has been discussed. Patient/Family are encouraged to report perceived risks to care and to ask questions if they do not understand what they are told or what they should do.
[2023-07-17] MEDS: DORZOLAMIDE/TIMOLOL OPHTH SOL 10 ML BOTTLE 1 DROP EACH EYE (21:40)
[2023-07-17] MEDS: HYDROCORTISONE 5 MG TABLET PO (21:48)
[2023-07-17 22:09] LABS: Glucose Point of Care 76 mg/dl (65-105)
[2023-07-17] MEDS: DEXTROSE 5%/LACTATED RINGERS 500 ML 100 ML IV CONT (22:30)
[2023-07-17 23:34] LABS: Glucose Point of Care 82 mg/dl (65-105)
[2023-07-18] VITALS: TEMP 36.1
[2023-07-18] MEDS: LATANOPROST 0.005% OP SOLN 2.5 ML BTL 1 DROP LEFT EYE ×2 (00:37→21:30)
[2023-07-18 04:34] VITALS: BP 119/67; PULSE 84; RESP 16; TEMP 36.6; O2SAT 97
[2023-07-18 06:05] LABS: Basophils Percent Auto 0.7 % (0.2-1.2); Eosinophils Absolute Auto 0.1 K/mm3 (0-0.3); Hematocrit 32.5 % (37.0-47.0); Hemoglobin 10.2 g/dL (12.0-15.0); Immature Granulocyte Absolute 0.01 K/mm3 (0.00-0.031); Immature Granulocyte Percent A 0.2 % (0-0.5); Lymphocytes Absolute Auto 0.86 K/mm3 (0.9-3.2); Lymphocytes Percent Auto 21.2 % (18.3-44.2); Mean Corpuscular HGB Conc 31.4 g/dl (32-36); Mean Corpuscular Hemoglobin 26.9 pg (26-34); Mean Corpuscular Volume 85.8 fl (80-100); Monocytes Absolute Auto 0.3 K/mm3 (0.1-0.6); Monocytes Percent Auto 7.6 % (2.6-8.5); Neutrophils Absolute Auto 2.8 K/mm3 (1.3-6.7); Neutrophils Percent Auto 68.3 % (45.5-73.1); Platelet Count Result 285 k/mm3 (150-375); Red Blood Count 3.79 M/mm3 (4.2-5.4); Red Cell Distribution Width 17.2 % (11.5-14.5); White Blood Count 4.1 K/mm3 (4.5-10.0)
[2023-07-18 06:17] LABS: Alanine Aminotransferase 29 U/L (6-35); Albumin Level 3.2 g/dL (3.5-5.1); Alkaline Phosphatase 229 U/L (38-126); Anion Gap 6 mmol/L (4-12); Aspartate Amino Transferase 55 U/L (14-36); Bilirubin,Total 0.5 mg/dL (0.2-1.3); Blood Urea Nitrogen 8 mg/dL (7-17); Calcium 9.4 mg/dL (8.4-10.2); Carbon Dioxide 25 mmol/L (22-30); Chloride 116 mmol/L (98-107); Estimated CRCL calculation 57 ml/min; Estimated Glomerular Filt Rate > 60; Glucose 92 mg/dL (65-110); Magnesium 2.3 mg/dL (1.6-2.3); Phosphorus 4.4 mg/dL (2.5-4.5); Potassium 3.7 mmol/L (3.4-5.0); Sodium 147 mmol/L (137-145)
[2023-07-18 06:51] LABS: Cortisol Random 5.99 ug/dL
--- NOTE | 2023-07-18 07:36 | P.PNIM_ITS ---
Progress Note: A&P Assessment and Plan (1) Unresponsive episode: Code(s): R40.4 - Transient alteration of awareness Status: Acute (2) Altered mental status: Qualifiers: Altered mental status type: disorientation Qualified Code(s): R41.0 - Disorientation, unspecified Code(s): R41.82 - Altered mental status, unspecified Status: Acute (3) Urinary tract infection: Qualifiers: Hematuria presence: with hematuria Urinary tract infection type: acute cystitis Qualified Code(s): N30.01 - Acute cystitis with hematuria Code(s): N39.0 - Urinary tract infection, site not specified Status: Acute (4) Adrenal insufficiency: Code(s): E27.40 - Unspecified adrenocortical insufficiency Status: Acute (5) Normal pressure hydrocephalus: Onset Date: 05/2023 Code(s): G91.2 - (Idiopathic) normal pressure hydrocephalus Status: Acute (6) Essential (primary) hypertension: Code(s): I10 - Essential (primary) hypertension Status: Chronic Plan Altered mental status with reports of unresponsiveness * troponin <0.012 * EKG, initial: sinus bradycardia with first-degree AV block, nonspecific ST and T-wave abnormality, when compared to EKG done on 07/13/2023 there are no significant changes. * Head CT 1. Prominent size of the fourth, third and lateral ventricles without molly arent obstruction; recommend clinical correlation for possible communicating hydrocephalus 2. Cerebral atherosclerosis and chronic small vessel ischemic changes of the cerebral white matter * ED spoke with Dr. Nash at [facility], reviewed imaging and unchanged from prior on Dec 2022, believes it is chronic NPH * has suspected NPH w/empty sella syndrome * MRI, previous (07/08/23): Stable ventriculomegaly. Correlate clinically for normal pressure hydrocephalus. * EEG, previous (07/07/23): Abnormal record due to the presence of the bihemispheric theta and delta activity.? * UA UTI * ceftriaxone IV pending cultures * TSH, previous (07/03/23): 2.420 * repeat cortisol 5.99 * started on hydrocortisone on 07/08 * neurochecks QShift UTI * Urine cultures Proteus mirabilis * Continue IV hydration. * Monitor CBC, CMP watch for sepsis. * Monitor vital signs. * Rocephin switched to Bactrim per sensitivities * Start probiotics to prevent antibiotic induced diarrhea * Monitor for obstructive uropathy and pyelonephritis Adrenal insufficiency * dx with adrenal insufficiency during last admission, * cosyntropin stim test, previous (07/09/23): Baseline cortisol was low at 1.72, 30 min (11.2), and 60 min (13.3) * suspected secondary to empty sella syndrome * started on hydrocortisone 10 mg at 0900 and 5 mg PO at 1600 daily, continue * random cortisol 07/17: 5.99 * Hypothermia prior to arrival beear hugger placed missed am dose improved 98 F * POC glucose Q6H, hypoglycemia protocol ordered Hydrocephalus * Normal Pressure * CT Head: Prominent size of the fourth, third and lateral ventricles without apparent obstruction; recommend clinical correlation for possible communicating hydrocephalus * unchanged from prior in Dec per patient's neurosurgical team ([facility]). ED provider spoke with Dr. Nash. * neurochecks Qshit * has follow-up with Neuro Surgery at [place] Diabetes insipidus * Moniter NA levels 147 * Resumed Desmopressin MWF * gave one dose now patient missed her Thursday dose HX HTN: was hypotensive on arrival holding metoprolol HX vitamin-D deficiency: Resume supplement HX DVT: Resume patient's
--- NOTE | 2023-07-18 07:36 | PM.IMPN ---
Progress Note: A&P Assessment and Plan (1) Unresponsive episode: Code(s): R40.4 - Transient alteration of awareness Status: Acute (2) Altered mental status: Qualifiers: Altered mental status type: disorientation Qualified Code(s): R41.0 - Disorientation, unspecified Code(s): R41.82 - Altered mental status, unspecified Status: Acute (3) Urinary tract infection: Qualifiers: Hematuria presence: with hematuria Urinary tract infection type: acute cystitis Qualified Code(s): N30.01 - Acute cystitis with hematuria Code(s): N39.0 - Urinary tract infection, site not specified Status: Acute (4) Adrenal insufficiency: Code(s): E27.40 - Unspecified adrenocortical insufficiency Status: Acute (5) Normal pressure hydrocephalus: Onset Date: 05/2023 Code(s): G91.2 - (Idiopathic) normal pressure hydrocephalus Status: Acute (6) Essential (primary) hypertension: Code(s): I10 - Essential (primary) hypertension Status: Chronic Plan Altered mental status with reports of unresponsiveness troponin <0.012 EKG, initial: sinus bradycardia with first-degree AV block, nonspecific ST and T-wave abnormality, when compared to EKG done on 07/13/2023 there are no significant changes. Head CT 1. Prominent size of the fourth, third and lateral ventricles without apparent obstruction; recommend clinical correlation for possible communicating hydrocephalus 2. Cerebral atherosclerosis and chronic small vessel ischemic changes of the cerebral white matter ED spoke with Dr. Nash at [facility], reviewed imaging and unchanged from prior on Dec 2022, believes it is chronic NPH has suspected NPH w/empty sella syndrome MRI, previous (07/08/23): Stable ventriculomegaly. Correlate clinically for normal pressure hydrocephalus. EEG, previous (07/07/23): Abnormal record due to the presence of the bihemispheric theta and delta activity.? UA UTI ceftriaxone IV pending cultures TSH, previous (07/03/23): 2.420 repeat cortisol 5.99 started on hydrocortisone on 07/08 neurochecks QShift UTI Urine cultures Proteus mirabilis Continue IV hydration. Monitor CBC, CMP watch for sepsis. Monitor vital signs. Rocephin switched to Bactrim per sensitivities Start probiotics to prevent antibiotic induced diarrhea Monitor for obstructive uropathy and pyelonephritis Adrenal insufficiency dx with adrenal insufficiency during last admission, cosyntropin stim test, previous (07/09/23): Baseline cortisol was low at 1.72, 30 min (11.2), and 60 min (13.3) suspected secondary to empty sella syndrome started on hydrocortisone 10 mg at 0900 and 5 mg PO at 1600 daily, continue random cortisol 4/6: 5.99 Hypothermia prior to arrival beear hugger placed missed am dose improved 98 F POC glucose Q6H, hypoglycemia protocol ordered Hydrocephalus Normal Pressure CT Head: Prominent size of the fourth, third and lateral ventricles without apparent obstruction; recommend clinical correlation for possible communicating hydrocephalus unchanged from prior in Dec per patient's neurosurgical team ([facility]). ED provider [facility] at [place] Diabetes insipidus Moniter NA levels 147 Resumed Desmopressin MWF gave one dose now patient missed her Thursday dose HX HTN: was hypotensive on arrival holding metoprolol HX vitamin-D deficiency: Resume supplement HX DVT: Resume patient's Eliquis Code status: Full code per patient DVT prophylaxis: Eliquis Stress ulcer prophylaxis: Protonix 40 daily PT/OT notes: PT/OT pending Disposition: Patient continues admission to the medical-surgical unit for further evaluation and treatment altered mental status and unresponsive episode x1. Currently symptoms have resolved and her sodium levels are 147 patient does have history diabetes insipidus. P.T
[2023-07-18 08:00] VITALS: PULSE 84; RESP 16; O2SAT 97
[2023-07-18] MEDS: METOPROLOL SUCCINATE EXT REL 25 MG TABCR PO ×2 (08:34→21:29)
[2023-07-18] MEDS: APIXABAN 5 MG TABLET PO ×2 (08:34→21:28)
[2023-07-18] MEDS: SERTRALINE HCL 25 MG TABLET PO (08:34)
[2023-07-18] MEDS: HYDROCORTISONE 10 MG TABLET PO (08:34)
[2023-07-18] MEDS: PANTOPRAZOLE 40 MG TABLET PO (08:34)
[2023-07-18] MEDS: CHOLECALCIFEROL 1,000 UNITS TABLET 2000 UNITS PO (08:34)
[2023-07-18] MEDS: DOCUSATE SODIUM 100 MG CAPSULE PO (08:34)
[2023-07-18] MEDS: polyethylene glycoL 3350 17 GM POWD.PACK PO (08:36)
[2023-07-18] MEDS: DORZOLAMIDE/TIMOLOL OPHTH SOL 10 ML BOTTLE 1 DROP EACH EYE ×2 (08:36→21:30)
[2023-07-18] MEDS: DESMOPRESSIN ACETATE 0.1 MG TABLET PO (08:36)
[2023-07-18] MEDS: SODIUM CHLORIDE 0.9% IV 1,000 ML 125 ML IV CONT ×2 (11:39→21:27)
[2023-07-18 11:55] LABS: Glucose Point of Care 87 mg/dl (65-105)
[2023-07-18 14:30] VITALS: BP 115/66; PULSE 86; RESP 16; TEMP 37.2; O2SAT 99
[2023-07-18] MEDS: SULFAMETHOXAZOLE/TRIMETHOPRIM 800/160 MG DS TABLET 1 TAB PO ×2 (15:12→21:28)
[2023-07-18] MEDS: HYDROCORTISONE 5 MG TABLET PO (15:12)
[2023-07-18 20:00] VITALS: O2SAT 100
[2023-07-18] MEDS: ROSUVASTATIN 10 MG TABLET 40 MG PO (21:28)
[2023-07-18] MEDS: GABAPENTIN 300 MG CAPSULE PO (21:28)
[2023-07-18] MEDS: THIAMINE HCL 100 MG TABLET PO (21:28)
[2023-07-18 21:33] VITALS: BP 110/69; PULSE 79; RESP 20; TEMP 36.6; O2SAT 100
[2023-07-19 00:21] LABS: Glucose Point of Care 94 mg/dl (65-105)
[2023-07-19 00:21] LABS: Glucose Point of Care 68 mg/dl (65-105)
[2023-07-19 06:00] VITALS: BP 111/68; PULSE 72; RESP 16; TEMP 36.6; O2SAT 98
[2023-07-19 06:03] LABS: Glucose Point of Care 73 mg/dl (65-105)
[2023-07-19 07:39] LABS: Glucose Point of Care 79 mg/dl (65-105)
[2023-07-19 08:09] LABS: Hematocrit 32.2 % (37.0-47.0); Hemoglobin 10.1 g/dL (12.0-15.0); Mean Corpuscular HGB Conc 31.4 g/dl (32-36); Mean Corpuscular Hemoglobin 26.9 pg (26-34); Mean Corpuscular Volume 85.9 fl (80-100); Mean Platelet Volume 9.1 fl (7.4-10.4); Platelet Count Result 278 k/mm3 (150-375); Red Blood Count 3.75 M/mm3 (4.2-5.4); Red Cell Distribution Width 17.6 % (11.5-14.5); White Blood Count 3.9 K/mm3 (4.5-10.0)
[2023-07-19 08:23] LABS: Alanine Aminotransferase 29 U/L (6-35); Albumin Level 3.1 g/dL (3.5-5.1); Alkaline Phosphatase 225 U/L (38-126); Anion Gap 6 mmol/L (4-12); Aspartate Amino Transferase 67 U/L (14-36); Bilirubin,Total 0.5 mg/dL (0.2-1.3); Blood Urea Nitrogen 8 mg/dL (7-17); Calcium 9.4 mg/dL (8.4-10.2); Carbon Dioxide 24 mmol/L (22-30); Chloride 115 mmol/L (98-107); Estimated CRCL calculation 44 ml/min; Estimated Glomerular Filt Rate 53; Glucose 85 mg/dL (65-110); Potassium 3.3 mmol/L (3.4-5.0); Sodium 145 mmol/L (137-145)
[2023-07-19] MEDS: DORZOLAMIDE/TIMOLOL OPHTH SOL 10 ML BOTTLE 1 DROP EACH EYE ×2 (09:00→20:36)
[2023-07-19] MEDS: CHOLECALCIFEROL 1,000 UNITS TABLET 2000 UNITS PO (09:05)
[2023-07-19] MEDS: PANTOPRAZOLE 40 MG TABLET PO (09:06)
[2023-07-19] MEDS: SERTRALINE HCL 25 MG TABLET PO (09:06)
[2023-07-19] MEDS: POTASSIUM CHLORIDE 20 MEQ PACKET (FOR LIQUID) 40 MEQ PO (09:06)
[2023-07-19] MEDS: APIXABAN 5 MG TABLET PO ×2 (09:06→20:34)
[2023-07-19] MEDS: polyethylene glycoL 3350 17 GM POWD.PACK PO (09:06)
[2023-07-19] MEDS: DOCUSATE SODIUM 100 MG CAPSULE PO (09:06)
[2023-07-19] MEDS: SULFAMETHOXAZOLE/TRIMETHOPRIM 800/160 MG DS TABLET 1 TAB PO ×2 (09:06→20:34)
[2023-07-19] MEDS: HYDROCORTISONE 10 MG TABLET PO (09:06)
--- NOTE | 2023-07-19 09:08 | PCOTNOTE ---
Attempted OT eval. Pt is not appropriate at this time. Pt is very confused and declines wanting to get up. Per RN, pt is still confused and family reports she has only been getting up by wheelchair, in which she has struggled with this past week. Will follow and attempt OT eval again.
[2023-07-19] MEDS: METOPROLOL SUCCINATE EXT REL 25 MG TABCR PO ×2 (09:12→20:34)
[2023-07-19 12:54] LABS: Glucose Point of Care 69 mg/dl (65-105)
[2023-07-19 13:14] LABS: Glucose Point of Care 100 mg/dl (65-105)
[2023-07-19 14:00] VITALS: BP 114/68; PULSE 71; RESP 22; TEMP 36; O2SAT 99
--- NOTE | 2023-07-19 14:07 | P.PNIM_ITS ---
Progress Note: A&P Assessment and Plan (1) Unresponsive episode: Code(s): R40.4 - Transient alteration of awareness Status: Acute (2) Altered mental status: Qualifiers: Altered mental status type: disorientation Qualified Code(s): R41.0 - Disorientation, unspecified Code(s): R41.82 - Altered mental status, unspecified Status: Acute (3) Urinary tract infection: Qualifiers: Hematuria presence: with hematuria Urinary tract infection type: acute cystitis Qualified Code(s): N30.01 - Acute cystitis with hematuria Code(s): N39.0 - Urinary tract infection, site not specified Status: Acute (4) Adrenal insufficiency: Code(s): E27.40 - Unspecified adrenocortical insufficiency Status: Acute (5) Normal pressure hydrocephalus: Onset Date: 05/2023 Code(s): G91.2 - (Idiopathic) normal pressure hydrocephalus Status: Acute (6) Essential (primary) hypertension: Code(s): I10 - Essential (primary) hypertension Status: Chronic Plan Altered mental status with reports of unresponsiveness * troponin <0.012 * EKG, initial: sinus bradycardia with first-degree AV block, nonspecific ST and T-wave abnormality, when compared to EKG done on 07/13/2023 there are no significant changes. * Head CT 1. Prominent size of the fourth, third and lateral ventricles without molly arent obstruction; recommend clinical correlation for possible communicating hydrocephalus 2. Cerebral atherosclerosis and chronic small vessel ischemic changes of the cerebral white matter * ED spoke with Dr. Nash at [facility], reviewed imaging and unchanged from prior on Dec 2022, believes it is chronic NPH * has suspected NPH w/empty sella syndrome * MRI, previous (07/08/23): Stable ventriculomegaly. Correlate clinically for normal pressure hydrocephalus. * EEG, previous (07/07/23): Abnormal record due to the presence of the bihemispheric theta and delta activity.? * UA UTI * ceftriaxone IV pending cultures * TSH, previous (07/03/23): 2.420 * repeat cortisol 5.99 * started on hydrocortisone on 07/08 * neurochecks QShift UTI * Urine cultures Proteus mirabilis * Continue IV hydration. * Monitor CBC, CMP watch for sepsis. * Monitor vital signs. * Rocephin switched to Bactrim per sensitivities * Start probiotics to prevent antibiotic induced diarrhea * Monitor for obstructive uropathy and pyelonephritis Adrenal insufficiency * dx with adrenal insufficiency during last admission, * cosyntropin stim test, previous (07/09/23): Baseline cortisol was low at 1.72, 30 min (11.2), and 60 min (13.3) * suspected secondary to empty sella syndrome * started on hydrocortisone 10 mg at 0900 and 5 mg PO at 1600 daily, continue * random cortisol 07/17: 5.99 * Hypothermia prior to arrival beear hugger placed missed am dose improved 98 F * POC glucose Q6H, hypoglycemia protocol ordered Hydrocephalus * Normal Pressure * CT Head: Prominent size of the fourth, third and lateral ventricles without apparent obstruction; recommend clinical correlation for possible communicating hydrocephalus * unchanged from prior in Dec per patient's neurosurgical team ([facility]). ED provider spoke with Dr. Nash. * neurochecks Qshit * has follow-up with Neuro Surgery at [place] Diabetes insipidus * Moniter NA levels 147 >145 * Resumed Desmopressin MWF * gave one dose now patient missed her Thursday dose HX HTN: was hypotensive on arrival holding metoprolol HX vitamin-D deficiency: Resume supplement HX DVT: Resume patie
--- NOTE | 2023-07-19 14:07 | PM.IMPN ---
Progress Note: A&P Assessment and Plan (1) Unresponsive episode: Code(s): R40.4 - Transient alteration of awareness Status: Acute (2) Altered mental status: Qualifiers: Altered mental status type: disorientation Qualified Code(s): R41.0 - Disorientation, unspecified Code(s): R41.82 - Altered mental status, unspecified Status: Acute (3) Urinary tract infection: Qualifiers: Hematuria presence: with hematuria Urinary tract infection type: acute cystitis Qualified Code(s): N30.01 - Acute cystitis with hematuria Code(s): N39.0 - Urinary tract infection, site not specified Status: Acute (4) Adrenal insufficiency: Code(s): E27.40 - Unspecified adrenocortical insufficiency Status: Acute (5) Normal pressure hydrocephalus: Onset Date: 05/2023 Code(s): G91.2 - (Idiopathic) normal pressure hydrocephalus Status: Acute (6) Essential (primary) hypertension: Code(s): I10 - Essential (primary) hypertension Status: Chronic Plan Altered mental status with reports of unresponsiveness troponin <0.012 EKG, initial: sinus bradycardia with first-degree AV block, nonspecific ST and T-wave abnormality, when compared to EKG done on 07/13/2023 there are no significant changes. Head CT 1. Prominent size of the fourth, third and lateral ventricles without apparent obstruction; recommend clinical correlation for possible communicating hydrocephalus 2. Cerebral atherosclerosis and chronic small vessel ischemic changes of the cerebral white matter ED spoke with Dr. Nash at [facility], reviewed imaging and unchanged from prior on Dec 2022, believes it is chronic NPH has suspected NPH w/empty sella syndrome MRI, previous (07/08/23): Stable ventriculomegaly. Correlate clinically for normal pressure hydrocephalus. EEG, previous (07/07/23): Abnormal record due to the presence of the bihemispheric theta and delta activity.? UA UTI ceftriaxone IV pending cultures TSH, previous (07/03/23): 2.420 repeat cortisol 5.99 started on hydrocortisone on 07/08 neurochecks QShift UTI Urine cultures Proteus mirabilis Continue IV hydration. Monitor CBC, CMP watch for sepsis. Monitor vital signs. Rocephin switched to Bactrim per sensitivities Start probiotics to prevent antibiotic induced diarrhea Monitor for obstructive uropathy and pyelonephritis Adrenal insufficiency dx with adrenal insufficiency during last admission, cosyntropin stim test, previous (07/09/23): Baseline cortisol was low at 1.72, 30 min (11.2), and 60 min (13.3) suspected secondary to empty sella syndrome started on hydrocortisone 10 mg at 0900 and 5 mg PO at 1600 daily, continue random cortisol 4/6: 5.99 Hypothermia prior to arrival beear hugger placed missed am dose improved 98 F POC glucose Q6H, hypoglycemia protocol ordered Hydrocephalus Normal Pressure CT Head: Prominent size of the fourth, third and lateral ventricles without apparent obstruction; recommend clinical correlation for possible communicating hydrocephalus unchanged from prior in Dec per patient's neurosurgical team ([facility]). ED provider spoke with Dr[facility] at [place] Diabetes insipidus Moniter NA levels 147 >145 Resumed Desmopressin MWF gave one dose now patient missed her Thursday dose HX HTN: was hypotensive on arrival holding metoprolol HX vitamin-D deficiency: Resume supplement HX DVT: Resume patient's Eliquis Code status: Full code per patient DVT prophylaxis: Eliquis Stress ulcer prophylaxis: Protonix 40 daily PT/OT notes: PT/OT pending Disposition: Patient continues admission to the medical-surgical unit for further evaluation and treatment altered mental status and unresponsive episode x1. Currently symptoms have resolved except for visual hallucination of a baby in her bed no other A/V hallucina
[2023-07-19] MEDS: HYDROCORTISONE 5 MG TABLET PO (16:31)
[2023-07-19] MEDS: SODIUM CHLORIDE 0.9% IV 1,000 ML 125 ML IV CONT (16:31)
[2023-07-19 16:58] LABS: Glucose Point of Care 83 mg/dl (65-105)
[2023-07-19 20:00] VITALS: O2SAT 99
[2023-07-19] MEDS: GABAPENTIN 300 MG CAPSULE PO (20:34)
[2023-07-19] MEDS: ROSUVASTATIN 10 MG TABLET 40 MG PO (20:34)
[2023-07-19] MEDS: THIAMINE HCL 100 MG TABLET PO (20:34)
[2023-07-19] MEDS: LATANOPROST 0.005% OP SOLN 2.5 ML BTL 1 DROP LEFT EYE (20:36)
[2023-07-19 21:19] VITALS: BP 119/67; PULSE 73; RESP 20; TEMP 36.5; O2SAT 100
[2023-07-20] MEDS: SODIUM CHLORIDE 0.9% IV 1,000 ML 125 ML IV CONT ×2 (03:16→12:31)
[2023-07-20 04:01] LABS: Glucose Point of Care 97 mg/dl (65-105)
[2023-07-20 06:00] VITALS: BP 126/59; PULSE 67; RESP 16; TEMP 36.9; O2SAT 100
[2023-07-20 06:56] LABS: Glucose Point of Care 69 mg/dl (65-105)
[2023-07-20 06:56] LABS: Glucose Point of Care 80 mg/dl (65-105)
[2023-07-20 06:59] LABS: Glucose Point of Care 66 mg/dl (65-105)
[2023-07-20 07:16] LABS: Glucose Point of Care 83 mg/dl (65-105)
[2023-07-20] MEDS: polyethylene glycoL 3350 17 GM POWD.PACK PO (08:32)
[2023-07-20 08:33] VITALS: PULSE 64
[2023-07-20] MEDS: SULFAMETHOXAZOLE/TRIMETHOPRIM 800/160 MG DS TABLET 1 TAB PO (08:33)
[2023-07-20] MEDS: DESMOPRESSIN ACETATE 0.1 MG TABLET PO (08:33)
[2023-07-20] MEDS: APIXABAN 5 MG TABLET PO (08:33)
[2023-07-20] MEDS: HYDROCORTISONE 10 MG TABLET PO (08:33)
[2023-07-20] MEDS: DOCUSATE SODIUM 100 MG CAPSULE PO (08:33)
[2023-07-20] MEDS: SERTRALINE HCL 25 MG TABLET PO (08:33)
[2023-07-20] MEDS: METOPROLOL SUCCINATE EXT REL 25 MG TABCR PO (08:33)
[2023-07-20] MEDS: PANTOPRAZOLE 40 MG TABLET PO ×2 (08:33)
[2023-07-20] MEDS: CHOLECALCIFEROL 1,000 UNITS TABLET 2000 UNITS PO (08:34)
[2023-07-20] MEDS: DORZOLAMIDE/TIMOLOL OPHTH SOL 10 ML BOTTLE 1 DROP EACH EYE (08:34)
[2023-07-20 09:02] LABS: Hematocrit 31.8 % (37.0-47.0); Hemoglobin 9.9 g/dL (12.0-15.0); Mean Corpuscular HGB Conc 31.1 g/dl (32-36); Mean Corpuscular Hemoglobin 27.1 pg (26-34); Mean Corpuscular Volume 87.1 fl (80-100); Mean Platelet Volume 9.2 fl (7.4-10.4); Platelet Count Result 289 k/mm3 (150-375); Red Blood Count 3.65 M/mm3 (4.2-5.4); Red Cell Distribution Width 17.7 % (11.5-14.5); White Blood Count 5.8 K/mm3 (4.5-10.0)
[2023-07-20 09:17] LABS: Anion Gap 5 mmol/L (4-12); Blood Urea Nitrogen 6 mg/dL (7-17); Calcium 9.8 mg/dL (8.4-10.2); Carbon Dioxide 25 mmol/L (22-30); Chloride 116 mmol/L (98-107); Estimated CRCL calculation 40 ml/min; Estimated Glomerular Filt Rate 49; Glucose 83 mg/dL (65-110); Potassium 3.7 mmol/L (3.4-5.0); Sodium 146 mmol/L (137-145)
[2023-07-20 11:16] LABS: Glucose Point of Care 152 mg/dl (65-105)
[2023-07-20 14:00] VITALS: BP 110/56; PULSE 62; RESP 12; TEMP 35.8; O2SAT 100
--- NOTE | 2023-07-20 14:48 | P.DS_ITS ---
DS: Admitting Diagnosis Discharge Date 07/20/2023 Admitting Diagnosis Transient alteration of awareness/UTI/Adrenal insufficiency/normal pressure hydrocephalus DS: Discharge Diagnosis Discharge Diagnosis (1) Unresponsive episode: Code(s): R40.4 - Transient alteration of awareness Status: Acute (2) Altered mental status: Qualifiers: Altered mental status type: disorientation Qualified Code(s): R41.0 - Disorientation, unspecified Code(s): R41.82 - Altered mental status, unspecified Status: Acute (3) Urinary tract infection: Qualifiers: Hematuria presence: with hematuria Urinary tract infection type: acute cystitis Qualified Code(s): N30.01 - Acute cystitis with hematuria Code(s): N39.0 - Urinary tract infection, site not specified Status: Acute (4) Adrenal insufficiency: Code(s): E27.40 - Unspecified adrenocortical insufficiency Status: Acute (5) Normal pressure hydrocephalus: Onset Date: 05/2023 Code(s): G91.2 - (Idiopathic) normal pressure hydrocephalus Status: Acute (6) Essential (primary) hypertension: Code(s): I10 - Essential (primary) hypertension Status: Chronic Plan Altered mental status with reports of unresponsiveness * troponin <0.012 * EKG, initial: sinus bradycardia with first-degree AV block, nonspecific ST and T-wave abnormality, when compared to EKG done on 07/13/2023 there are no significant changes. * Head CT 1. Prominent size of the fourth, third and lateral ventricles without apparent obstruction; recommend clinical correlation for possible communicating hydrocephalus 2. Cerebral atherosclerosis and chronic small vessel ischemic changes of the cerebral white matter * ED spoke with Dr. Nash at [facility], reviewed imaging and unchanged from prior on Dec 2022, believes it is chronic NPH * has suspected NPH w/empty sella syndrome * MRI, previous (07/08/23): Stable ventriculomegaly. Correlate clinically for normal pressure hydrocephalus. * EEG, previous (07/07/23): Abnormal record due to the presence of the bihemispheric theta and delta activity.? * UA UTI * ceftriaxone IV pending cultures * TSH, previous (07/03/23): 2.420 * repeat cortisol 5.99 * started on hydrocortisone on 07/08 * neurochecks QShift UTI * Urine cultures Proteus mirabilis * Continue IV hydration. * Monitor CBC, CMP watch for sepsis. * Monitor vital signs. * Rocephin switched to Bactrim per sensitivities * Start probiotics to prevent antibiotic induced diarrhea * Monitor for obstructive uropathy and pyelonephritis Adrenal insufficiency * dx with adrenal insufficiency during last admission, * cosyntropin stim test, previous (07/09/23): Baseline cortisol was low at 1.72, 30 min (11.2), and 60 min (13.3) * suspected secondary to empty sella syndrome * started on hydrocortisone 10 mg at 0900 and 5 mg PO at 1600 daily, continue * random cortisol 07/17: 5.99 * Hypothermia prior to arrival beear hugger placed missed am dose improved 98 F * POC glucose Q6H, hypoglycemia protocol ordered Hydrocephalus * Normal Pressure * CT Head: Prominent size of the fourth, third and lateral ventricles without apparent obstruction; recommend clinical correlation for possible communicating hydrocephalus * unchanged from prior in Dec per patient's neurosurgical team ([facility]). ED provider spoke with Dr. Nash. * neurochecks Qshit * has follow-up with Neuro Surgery at [place] Diabetes insipidus * Moniter NA levels 147 >145 * Resumed Alexx
--- NOTE | 2023-07-20 14:48 | PM.DS ---
DS: Admitting Diagnosis Discharge Date 07/20/2023 Admitting Diagnosis Transient alteration of awareness/UTI/Adrenal insufficiency/normal pressure hydrocephalus DS: Discharge Diagnosis Discharge Diagnosis (1) Unresponsive episode: Code(s): R40.4 - Transient alteration of awareness Status: Acute (2) Altered mental status: Qualifiers: Altered mental status type: disorientation Qualified Code(s): R41.0 - Disorientation, unspecified Code(s): R41.82 - Altered mental status, unspecified Status: Acute (3) Urinary tract infection: Qualifiers: Hematuria presence: with hematuria Urinary tract infection type: acute cystitis Qualified Code(s): N30.01 - Acute cystitis with hematuria Code(s): N39.0 - Urinary tract infection, site not specified Status: Acute (4) Adrenal insufficiency: Code(s): E27.40 - Unspecified adrenocortical insufficiency Status: Acute (5) Normal pressure hydrocephalus: Onset Date: 05/2023 Code(s): G91.2 - (Idiopathic) normal pressure hydrocephalus Status: Acute (6) Essential (primary) hypertension: Code(s): I10 - Essential (primary) hypertension Status: Chronic Plan Altered mental status with reports of unresponsiveness troponin <0.012 EKG, initial: sinus bradycardia with first-degree AV block, nonspecific ST and T-wave abnormality, when compared to EKG done on 07/13/2023 there are no significant changes. Head CT 1. Prominent size of the fourth, third and lateral ventricles without apparent obstruction; recommend clinical correlation for possible communicating hydrocephalus 2. Cerebral atherosclerosis and chronic small vessel ischemic changes of the cerebral white matter ED spoke with Dr. 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 Correlate clinically for normal pressure hydrocephalus. EEG, previous (07/07/23): Abnormal record due to the presence of the bihemispheric theta and delta activity.? UA UTI ceftriaxone IV pending cultures TSH, previous (07/03/23): 2.420 repeat cortisol 5.99 started on hydrocortisone on 07/08 neurochecks QShift UTI Urine cultures Proteus mirabilis Continue IV hydration. Monitor CBC, CMP watch for sepsis. Monitor vital signs. Rocephin switched to Bactrim per sensitivities Start probiotics to prevent antibiotic induced diarrhea Monitor for obstructive uropathy and pyelonephritis Adrenal insufficiency dx with adrenal insufficiency during last admission, cosyntropin stim test, previous (07/09/23): Baseline cortisol was low at 1.72, 30 min (11.2), and 60 min (13.3) suspected secondary to empty sella syndrome started on hydrocortisone 10 mg at 0900 and 5 mg PO at 1600 daily, continue random cortisol 07/17: 5.99 Hypothermia prior to arrival beear hugger placed missed am dose improved 98 F POC glucose Q6H, hypoglycemia protocol ordered Hydrocephalus Normal Pressure CT Head: Prominent size of the fourth, third and lateral ventricles without apparent obstruction; recommend clinical correlation for possible communicating hydrocephalus unchanged from prior in Dec per patient's neurosurgical team ([facility]). ED provider spoke [facility] at [place] Diabetes insipidus Moniter NA levels 147 >145 Resumed Desmopressin MWF gave one dose now patient missed her Thursday dose HX HTN: was hypotensive on arrival holding metoprolol HX vitamin-D deficiency: Resume supplement HX DVT: Resume patient's Eliquis Disposition: Patient discharged to SNF has a scheduled follow-up with neurology in October. DS: Summary Hospital Course Reason for hospitalization: Transient alteration of awareness/UTI/Adrenal insufficiency/normal pressure hydr
[2023-07-20] MEDS: HYDROCORTISONE 5 MG TABLET PO (16:10)
[2023-07-20 16:29] LABS: Glucose Point of Care 99 mg/dl (65-105)
[2023-07-20 16:38] LABS: SARS-CoV-2 RNA PCR Negative (Negative)
--- NOTE | 2023-07-20 20:40 | PC.NURSE ---
Patient picked up via [facility] to discharge back to [facility]. Aisha nurse reported that she called report to facility prior to shift change.
== END 2023-07-20 20:20 | DRG 690 ==
LOC: ANHED 09:51 → ANH3MEDSUR 15:38
PROVIDERS: Student in an Organized Health Care Education/Training Program; Admitting Provider Internal Medicine; Emergency Provider Nurse Practitioner Family; PCP Nurse Practitioner; Visit Provider Nurse Practitioner Family
DX: N39.0 Urinary tract infection, site not specified (principal); E23.2 Diabetes insipidus; E27.40 Unspecified adrenocortical insufficiency; G91.2 (Idiopathic) normal pressure hydrocephalus; I10 Essential (primary) hypertension; D64.9 Anemia, unspecified; E78.5 Hyperlipidemia, unspecified; E78.00 Pure hypercholesterolemia, unspecified; M19.90 Unspecified osteoarthritis, unspecified site; M48.061 Spinal stenosis, lumbar region without neurogenic claudication; R40.4 Transient alteration of awareness; R44.1 Visual hallucinations; Z79.01 Long term (current) use of anticoagulants; Z11.52 Encounter for screening for COVID-19; Z86.010 Personal history of colon polyps; Z86.718 Personal history of other venous thrombosis and embolism; B96.4 Proteus (mirabilis) (morganii) as the cause of diseases classified elsewhere
CPT/HCPCS: 36415; 70450; 80048; 80053; 80307; 81001; 82533; 82948; 83605; 83690; 83735; 84100; 84484; 85025; 85027; 87077; 87086; 87186; 87635; 93005; 96361; 96365; 96376; 97110; 97162; 97165; 97530; 99283; 99285; A9270; G0378; J0696; J7030; J7121

== ENCOUNTER 2023-12-03 20:44 | Inpatient (IN) | payer MEDICARE, MEDICAID, SELFPAY ==
[2023-12-03] VITALS (9 sets, daily range): BP systolic 151–168; BP diastolic 88–98; PULSE 50–55; RESP 13–19; TEMP 33.1–33.2; O2SAT 97–99
--- NOTE | ~2023-12-03 | CT_ITS ---
Non-contrast Head CT History: Increased somnolence COMPARISON: 12/01/2023 Technique: Axial non-contrast imaging of the brain was performed. Dose reduction technique was used on this scan by utilizing automated exposure control and iterative reconstruction technique. The dose -length product (DLP) was 605.33 mGy-cm. Findings: There is no evidence of intracranial hemorrhage, mass lesion, or acute infarct. Brain par enchyma appears normal. Mild ventricular dilatation is unchanged, with stable ventriculostomy shunt c atheter. The visualized paranasal sinuses and mastoid air cells are clear. Impression: No acute abnormality. Stable mild diffuse ventricular dilatation with ventriculostomy shunt catheter in place. Reviewed, dictated and finalized at location . Impression: No acute abnormality. Stable mild diffuse ventricular dilatation with ventriculostomy shunt catheter in place.
--- NOTE | ~2023-12-03 | CT_ITS ---
EXAMINATION: CT abdomen pelvis wo con DATE: 12/03/2023 23:21 INDICATION: Back pain fall from wheelchair TECHNIQUE: Computed tomography (CT) of the abdomen and pelvis was performed without intravenous contr ast. Automated exposure control and iterative reconstruction technique were employed. The dose-length product was 1517.94 mGy-cm. COMPARISON: 05/24/2023, 11/06/2019. FINDINGS: Lower thorax: 7 mm peripheral right lower lobe nodule. Dependent atelectasis. Cardiomegaly. Liver: Normal. Biliary/Gallbladder: Gallbladder is partially collapsed but otherwise normal in appearance. No bile d uct dilation. Pancreas: Moderate fatty infiltration. Spleen: Normal. Adrenals:No mass. Kidneys: No suspicious mass, obstructing stone, or hydronephrosis. GI tract: No small or large bowel dilation. Normal appendix. Diverticulosis without diverticulitis. Mesentery/Peritoneum: No ascites, mass, or free air. Retroperitoneum: No mass. Atherosclerotic abdominal aortic and/or arterial calcifications. Pelvis: Mostly empty urinary bladder with mild wall thickening. Costa catheter in place. A right-side d ASSURANCE SENIOR MANAGER shunt terminates in the left upper pelvis anterior to the bladder. Absent uterus. Bilateral ovar ies not confidently visualized. Soft Tissues: Soft tissues and body wall unremarkable. Bones: No acute osseous finding. Uncomplicated appearing posterior lumbar fusion hardware. IMPRESSION: No acute abdominopelvic process detected. 7 mm right lower lobe pulmonary nodule, stable over the intervening 6 months. Consider follow-up low- dose noncontrast CT of the chest in 12-18 months. Reviewed, dictated and finalized at location K. IMPRESSION: No acute abdominopelvic process detected. 7 mm right lower lobe pulmonary nodule, stable over the intervening 6 months. C onsider follow-up low-dose noncontrast CT of the chest in 12-18 months.
--- NOTE | ~2023-12-03 | CT_ITS ---
EXAMINATION: CT brain wo con DATE: 12/10/2023 15:27 INDICATION: Hypothermia. TECHNIQUE: Computed tomography (CT) of the head was performed without intravenous contrast. The mA wa s adjusted according to patient size. Iterative reconstruction technique was employed. The dose-lengt h product was 605.33 mGy-cm. COMPARISON: Head CT 12/08/2023, 12/03/2023, 07/17/2023, brain MRI 07/07/23 FINDINGS: There are scattered areas of low attenuation in the cerebral white matter, which is within normal limits for the patient's age. There is no intracranial hemorrhage or abnormal intracranial mas s lesion. The lateral and third ventricles are normal in size. The fourth ventricle is enlarged. Ther e is a right-sided ventriculostomy catheter with tip at the septum pellucidum. There is encephalomala isa in the right parietal occipital region along the catheter. There are likely changes of ocular arnoldo s replacement surgeries. There is mild mucosal thickening in the ethmoid sinuses. The mastoid air mirian ls are normal. IMPRESSION: 1. Stable enlargement of the fourth ventricle 2. Encephalomalacia again seen along the right parietal occipital ventriculostomy catheter that has i ts tip at the septum pellucidum. Reviewed, dictated and finalized at location A. IMPRESSION: 1. Stable enlargement of the fourth ventricle 2. Encephalomalacia again seen along the right parietal occipital ventriculosto my catheter that has its tip at the septum pellucidum.
--- NOTE | ~2023-12-03 | CT_ITS ---
EXAMINATION: CT brain wo con DATE: 12/03/2023 23:12 INDICATION: head injury . TECHNIQUE: Computed tomography (CT) of the head was performed without intravenous contrast. The mA wa s adjusted according to patient size. Iterative reconstruction technique was employed. The dose-lengt h product was 605.33 mGy-cm. COMPARISON: 07/17/2023. FINDINGS: No acute intracranial hemorrhage or extra-axial fluid collection. No hydrocephalus, mass, or herniation. No acute ischemic infarct. Unremarkable dural venous sinus attenuation. No acute osseous abnormality. Right temporal subcutaneous contusion. The aerated spaces are clear. Moderate atrophy and chronic white matter change. Atherosclerotic intracranial calcification. Bilater al lens replacements. Right parietal approach UNIT TRUST MANAGER shunt, tip indents and displaces the septum pellucid um. IMPRESSION: No acute intracranial process. Reviewed, dictated and finalized at location K.
--- NOTE | ~2023-12-03 | US_ITS ---
Limited Abdominal Sonogram: Real-time sonographic imaging of the right upper quadrant was performed. Clinical History: Abnormal LFTs Findings: The liver appears echogenic, with no evidence of solid mass lesion or bile duct dilatation . Main portal vein demonstrates normal direction of flow. Small left hepatic lobe cyst noted. The gal lbladder is well distended, and appears normal with no evidence of gallstone or wall thickening. The common bile duct measures 5 mm. The visualized pancreas, aorta, and IVC are unremarkable. Impression: Diffuse fatty infiltration of the liver. Reviewed, dictated and finalized at location M. Impression: Diffuse fatty infiltration of the liver.
--- NOTE | ~2023-12-03 | XR_ITS ---
Portable chest x-ray Comparison: 12/03/2023 Clinical History: Hypothermia Findings: There is minimal bibasilar haziness, nonspecific. MVA REACTOR OPERATOR HEAD shunt noted. Cardiomediastinal silho uette is stable. Bones and soft tissues are unremarkable. Impression: Minimal bibasilar haziness. Correlate for minimal pulmonary edema or atypical infection. Reviewed, dictated and finalized at [facility] [place]. Impression: Minimal bibasilar haziness. Correlate for minimal pulmonary edema or atypical i nfection.
--- NOTE | ~2023-12-03 | US_ITS ---
EXAMINATION: US carotid duplex BI DATE: 12/06/2023 13:53 INDICATION: Cerebrovascular accident. TECHNIQUE: Grayscale, color Doppler, and pulsed Doppler images of the cervical carotid arteries were obtained. The degree of vessel stenosis is placed in one of the following categories: normal, <50%, 5 0-69%, >=70% but less than near-occlusion, near-occlusion, or total occlusion. Note that percent sten osis relative to normal distal artery lumen diameter is indirectly measured from velocity measurement s as described by Ludwin, et al. Radiology 2003; 229:340-346. COMPARISON: None. FINDINGS: RIGHT: The right common carotid artery (CCA) peak systolic velocity (PSV) is 52 cm/s. The right internal car otid artery (ICA) PSV is 59 cm/s. The right ICA end-diastolic velocity (EDV) is 17 cm/s. The right IC A/CCA PSV ratio is 1.1. Grayscale and color Doppler images yield an estimate of <50% diameter reducti on from plaque in the ICA. There is antegrade flow in the right vertebral artery. LEFT: The left CCA PSV is 46 cm/s. The left ICA PSV is 53 cm/s. The left ICA EDV is 17 cm/s. The left ICA/C CA PSV ratio is 1.2. Grayscale and color Doppler images yield an estimate of <50% diameter reduction from plaque in the ICA. There is antegrade flow in the left vertebral artery. IMPRESSION: 1. <50% stenosis in the right internal carotid artery. 2. <50% stenosis in the left internal carotid artery. Reviewed, dictated and finalized at location [facility].
--- NOTE | ~2023-12-03 | XR_ITS ---
EXAMINATION: XR chest 1V portable Exam Date/Time: 12/03/2023 21:45 CDT HISTORY: Fall from wheelchair, AMS Comparison: 07/03/2023. RESULT: Lines, tubes, and devices: None. Lungs and pleura: Mild diffuse reticular opacities. Ill-defined subsegmental airspace disease in the left lower lung. Cardiomediastinal silhouette: Stable. Other: No acute osseous or upper abdominal finding. IMPRESSION: Small focus of atelectasis/consolidation in the left lower lung. Senescent change versus mild interst itial edema. Reviewed, dictated and finalized at location [facility]. IMPRESSION: Small focus of atelectasis/consolidation in the left lower lung. Senescent deleon ge versus mild interstitial edema.
--- NOTE | 2023-12-03 20:55 | ECG_ITS ---
Test Date: 2023-12-03 21:27:59 Measurements Intervals [place] Rate: 49 P: 79 CT: 256 QRS: 37 QRSD: 91 T: 140 QT: 481 QTc: 435 Interpretive Statements BASELINE ARTIFACT, REDUCED ECG QUALITY SINUS BRADYCARDIA WITH FIRST DEGREE AV BLOCK LOW QRS VOLTAGE IN PRECORDIAL LEADS [QRS DEFLECTION < 1.0 mV IN CHEST LEADS] NONSPECIFIC T-WAVE ABNORMALITY ABNORMAL ECG No previous ECG available for comparison Electronically Signed On 12-04-2023 12:48:01 CDT by Justo Hurtado M.D.
--- NOTE | 2023-12-03 22:00 | PC.NURSE ---
Temp sensing regalado placed. Temp reading 91.6. MD Chencho aware and advised to start fluids, blankets, and bear hugger.
[2023-12-03] MEDS: SODIUM CHLORIDE 0.9% IV 1,000 ML 999 ML (22:07)
[2023-12-03 22:22] LABS: Basophils Percent Auto 0.3 % (0.2-1.2); Eosinophils Percent Auto 0.3 % (0-4.4); Hemoglobin 11.3 g/dL (12.0-15.0); Immature Granulocyte Absolute 0.02 K/mm3 (0.00-0.031); Immature Granulocyte Percent A 0.3 % (0-0.5); Lymphocytes Absolute Auto 0.84 K/mm3 (0.9-3.2); Lymphocytes Percent Auto 11.1 % (18.3-44.2); Mean Corpuscular HGB Conc 34.2 g/dl (32-36); Mean Corpuscular Hemoglobin 28.9 pg (26-34); Mean Corpuscular Volume 84.4 fl (80-100); Mean Platelet Volume 9.4 fl (7.4-10.4); Monocytes Absolute Auto 0.3 K/mm3 (0.1-0.6); Monocytes Percent Auto 3.6 % (2.6-8.5); Neutrophils Absolute Auto 6.4 K/mm3 (1.3-6.7); Neutrophils Percent Auto 84.4 % (45.5-73.1); Platelet Count Result 187 k/mm3 (150-375); Red Blood Count 3.91 M/mm3 (4.2-5.4); Red Cell Distribution Width 16.1 % (11.5-14.5); White Blood Count 7.6 K/mm3 (4.5-10.0)
[2023-12-03 22:32] LABS: Lipase 27 U/L (23-300); Magnesium 1.6 mg/dL (1.6-2.3)
[2023-12-03 22:33] LABS: Alanine Aminotransferase 197 U/L (6-35); Albumin Level 4.2 g/dL (3.5-5.1); Alkaline Phosphatase 313 U/L (38-126); Anion Gap 8 mmol/L (4-12); Aspartate Amino Transferase 162 U/L (14-36); Bilirubin,Total 0.9 mg/dL (0.2-1.3); Blood Urea Nitrogen 17 mg/dL (7-17); Calcium 9.2 mg/dL (8.4-10.2); Carbon Dioxide 31 mmol/L (22-30); Chloride 83 mmol/L (98-107); Estimated CRCL calculation 82 ml/min; Estimated Glomerular Filt Rate > 60; Glucose 88 mg/dL (65-110); INR 1.3; Lactic Acid Reflex 0.6 mmol/L (0.7-2.0); Potassium 4.6 mmol/L (3.4-5.0); Prothrombin Time 16.4 Seconds (11.1-14.7); Sodium 122 mmol/L (137-145)
[2023-12-03 22:34] LABS: Partial Thromboplastin Time 42.8 Seconds (22.3-36.8)
[2023-12-03 22:39] LABS: Add Urine Microscopic? YES; Appearance Urine Clear (Clear); Bacteria Urine None Seen /hpf; Bilirubin Urine Negative (Negative); Blood Urine 2+ (Negative); Color Urine Yellow (Yellow); Glucose Urine UA Negative (Negative); Ketones Urine Negative (Negative); Leukocyte Esterase Ur Trace LEU/UL (Negative); Need Manual Microscopic Reviewed; Nitrate Urine Negative (Negative); Non Pathogenic Casts 0-2; Protein Urine 2+ mg/dL (Negative); RBC Urine >100 /hpf (0-2); Specific Grav Ur 1.008 (1.001-1.035); Squamous Epithelial Cell Urine None Seen /hpf (Few); Urobilinogen Urine 0.2 mg/dL (<2.0); pH Urine 7.5 (5.0-9.0)
[2023-12-03 22:44] LABS: Troponin I < 0.012 ng/mL (0.000-0.034)
--- NOTE | 2023-12-03 22:52 | ED.GENADULT ---
HPI - General Adult General Chief complaint: Altered Mental Status Stated complaint: altered mental status Time Seen by Provider: 12/03/23 20:48 History of Present Illness HPI narrative: Patient is a 73-year-old female who presents emergency department with chief complaint of fall from wheelchair the patient has been a little bit more confused than normal and the staff is concerned that she may have a UTI the patient slid out of her wheelchair today and hit the back of her head. History is somewhat limited as the patient is alert oriented x2 Related Data Home Medications Medication Instructions Recorded Confirmed latanoprost 0.005 % eye drops 1 drp LEFT EYE HS 01/28/22 11/12/23 prednisolone acetate 1 % eye 1 drp RIGHT EYE HS 01/28/22 11/12/23 drops,suspension dorzolamide 22.3 mg-timolol 6.8 1 drp EACH EYE Q12H 06/04/22 11/12/23 mg/mL eye drops docusate sodium 100 mg PO DAILY 05/23/23 11/12/23 rosuvastatin 40 mg tablet 40 mg PO HS 05/23/23 11/12/23 sertraline 25 mg tablet 25 mg PO QAM 05/23/23 11/12/23 thiamine HCl (vitamin B1) 100 mg 100 mg PO HS 05/23/23 11/12/23 tablet atorvastatin 80 mg tablet 80 mg PO DAILY 08/20/23 11/12/23 cefdinir 300 mg capsule 300 mg PO Q12H 08/20/23 11/12/23 desmopressin 0.1 mg tablet 0.1 mg PO .MWF 08/20/23 11/12/23 hydrocortisone 10 mg tablet 5 mg PO DAILY@0800 08/20/23 11/12/23 omeprazole 20 mg capsule,delayed 20 mg PO DAILY 08/20/23 11/12/23 release sennosides 8.6 mg-docusate sodium 1 tab-cap PO QAM 08/20/23 11/12/23 50 mg tablet (Senna Plus) acetaminophen 500 mg tablet 1,000 mg PO Q6H PRN 11/12/23 (Tylenol Extra Strength) bisacodyl 5 mg tablet,delayed 10 mg PO ONCE PRN 11/12/23 release gabapentin 300 mg capsule 300 mg PO TID 11/12/23 11/12/23 lidocaine 5 % topical patch 1 patch topical DAILY 11/12/23 memantine 5 mg tablet 5 mg PO BID 11/12/23 11/12/23 oxycodone 5 mg tablet 5 mg PO Q4H PRN 11/12/23 ramelteon 8 mg tablet 8 mg PO .PRN 11/12/23 sennosides 8.6 mg-docusate sodium 1 tab-cap PO DAILY 11/12/23 50 mg capsule (Senna Plus) Allergies Allergy/AdvReac Type Severity Reaction Status Date / Time No Known Allergies Allergy Verified 11/12/23 09:30 Review of Systems Review of Systems: A 10 system review of systems was completed on the patient and is negative except for what is stated in the HPI. Nursing and ancillary documentation was reviewed. [facility] Past Medical History Medical History Arthritis Deep venous thrombosis 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 Post-menopausal Prediabetes Spinal stenosis at L4-L5 level Surgical History Surgical History History of back surgery History of carpal tunnel surgery History of cataract extraction History of cervical discectomy History of colonoscopy with polypectomy History of decompression of ulnar nerve History of excision of lamina of cervical vertebra for decompression of spinal cord History of hysterectomy History of tonsillectomy Family History Family History Mother Diabetes mellitus Hypertension Cerebrovascular accident Sibling Breast cancer Family history of arthritis Other Family history of cardiovascular disease Family history of coronary artery disease Family history of malignant neoplasm Family history of premature coronary heart disease Social History Social History Social History: Surrogate medical decision maker: Daly Jaramillo, spouse. Code status: Do not resuscitate. Smoking status: Never smoker Second hand tobacco smoke exposure: No Alcohol intake: never Alcohol use details: social Substance use: never Substance use type: does not use Do You Feel Safe in your Home?: Yes Lack of Transportation: No Lack of Food: Never True Current Housing: I Have Housing Concerned About Future Housing: No Difficulty Paying Gas/Electric Bills: No Difficulty Paying for Meds: No Currently Unemployed: No Education: High School Diploma/GED Difficulty w/ Childcare or Family Care: No Living arrangements: with family Occupation/Education: retired Gender identity (if verbalized by the patient): Female Spiritual care concerns: No Course Vital Signs Vital signs: Vital Signs Pulse Rate 55 L 12/03/23 20:45 Respiratory Rate 14 12/03/23 20:45 Oxygen Delivery Room Air 12/03/23 20:45 Temperature 33.2 C L 12/03/23 23:33 Pulse Rate 50 L 12/03/23 23:33 Respiratory Rate 13 12/03/23 23:33 Blood Pressure 162/94 H 12/03/23 23:33 Pulse Oximetry 99 12/03/23 23:33 Oxygen Delivery Room Air 12/03/23 22:18 Medical Decision Making MDM Narrative Medical decision making narrative: Differential diagnosis includes UTI, head injury, ureterolithiasis, intra-abdominal infection Laboratory studies were obtained on the patient showed a normal CBC white count of 7.6 electrolytes showed a sodium 122 BUN was 17 creatinine 0.7 liver enzymes were slightly elevated with an AST of 162 and ALT 197. Troponin was negative procalcitonin 0.1 urinalysis showed 11-20 white blood cells and greater than 100 rbc's in the urine CT head showed no acute abnormality Chest x-ray showed no focal infiltrate CT scan of the abdomen pelvis showed no obstructing stone but did show a 7 mm pulmonary nodule Vital Signs Vital Signs: Vital Signs Pulse Rate 55 L 12/03/23 20:45 Respiratory Rate 14 12/03/23 20:45 Oxygen Delivery Room Air 12/03/23 20:45 Temperature 33.2 C L 12/03/23 23:33 Pulse Rate 50 L 12/03/23 23:33 Respiratory Rate 13 12/03/23 23:33 Blood Pressure 162/94 H 12/03/23 23:33 Pulse Oximetry 99 12/03/23 23:33 Oxygen Delivery Room Air 12/03/23 22:18 Lab Data 12/03/23 22:06 12/03/23 22:06 Labs: Lab Results 12/03/23 Range/Units 22:06 WBC 7.6 (4.5-10.0) K/mm3 RBC 3.91 L (4.2-5.4) M/mm3 Hgb 11.3 L (12.0-15.0) g/dL Hct 33.0 L (37.0-47.0) % MCV 84.4 (80-100) fl MCH 28.9 (26-34) pg MCHC 34.2 (32-36) g/dl RDW 16.1 H (11.5-14.5) % Plt Count 187 (150-375) k/mm3 MPV 9.4 (7.4-10.4) fl Immature Gran % (Auto) 0.3 (0-0.5) % Neut % (Auto) 84.4 H (45.5-73.1) % Lymph % (Auto) 11.1 L (18.3-44.2) % C[place]shaw % (Auto) 3.6 (2.6-8.5) % Eos % (Auto) 0.3 (0-4.4) % Baso % (Auto) 0.3 (0.2-1.2) % Lymph # (Auto) 0.84 L (0.9-3.2) K/mm3 Crenshaw # (Auto) 0.3 (0.1-0.6) K/mm3 Eos # (Auto) 0.0 (0-0.3) K/mm3 Baso # (Auto) 0.0 (0.0-0.1) K/mm3 Abs Immat Gran (auto) 0.02 (0.00-0.031) K/mm3 Absolute Neuts (auto) 6.4 (1.3-6.7) K/mm3 Absolute Nucleated RBC 0.000 (0.0-0.012) K/mm3 Nucleated RBC % 0.0 (0.0-0.2) % PT 16.4 H (11.1-14.7) Seconds INR 1.3 APTT 42.8 H (22.3-36.8) Seconds Sodium 122 L (137-145) mmol/L Potassium 4.6 (3.4-5.0) mmol/L Chloride 83 L (98-107) mmol/L Carbon Dioxide 31 H (22-30) mmol/L Anion Gap 8 (4-12) mmol/L BUN 17 D (7-17) mg/dL Creatinine 0.70 (0.7-1.0) mg/dL Estim Creat Clear Calc 82 ml/min Estimated GFR > 60 (59 - ) Glucose 88 (65-110) mg/dL Lactic Acid 0.6 L (0.7-2.0) mmol/L Calcium 9.2 (8.4-10.2) mg/dL Magnesium 1.6 (1.6-2.3) mg/dL Total Bilirubin 0.9 (0.2-1.3) mg/dL AST 162 H (14-36) U/L ALT 197 H (6-35) U/L Alkaline Phosphatase 313 H (38-126) U/L Troponin I < 0.012 (0.000-0.034) ng/mL Total Protein 8.0 (6.3-8.2) g/dL Albumin 4.2 (3.5-5.1) g/dL Lipase 27 (23-300) U/L Procalcitonin 0.1 ng/mL Urine Color Yellow (Yellow) Urine Appearance Clear (Clear) Urine pH 7.5 (5.0-9.0) Ur Specific Page 1.008 (1.001-1.035) Urine Protein 2+ H (Negative) mg/dL Urine Glucose (UA) Negative (Negative) mg/dL Urine Ketones Negative (Negative) mg/dL Ur Blood (Man) 2+ H (Negative) Urine Nitrate Negative (Negative) Urine Bilirubin Negative (Negative) Urine Urobilinogen 0.2 (<2.0) mg/dL Add Ur Microanalysis Reviewed Leukocyte Esterase Rfl Trace H (Negative) BIANKA/UL Urine RBC >100 H (0-2) /hpf Urine WBC 11-20 H (0-3) /hpf Ur Squamous Epith Cells None seen (Few) /hpf Urine Bacteria None seen /hpf Urine Casts 0-2 Discharge Plan Discharge Clinical Impression: Acute UTI, Sepsis Patient Disposition: Still a Patient Condition: Stable Prescriptions: No Action lidocaine 5 % adhesive patch,medicated 1 patch topical DAILY Rx Instructions: leave on most painful area for up to 12 hrs Senna Plus 8.6-50 mg capsule 1 tab-cap PO DAILY oxycodone 5 mg tablet 5 mg PO Q4H PRN bisacodyl 5 mg tablet,delayed release (DR/EC) 10 mg PO ONCE PRN ramelteon 8 mg tablet 8 mg PO .PRN acetaminophen [Tylenol Extra Strength] 500 mg tablet 1,000 mg PO Q6H PRN latanoprost 0.005 % drops 1 drp LEFT EYE HS prednisolone acetate 1 % drops,suspension 1 drp RIGHT EYE HS cefdinir 300 mg capsule 300 mg PO Q12H hydrocortisone 10 mg tablet 5 mg PO DAILY@0800 desmopressin 0.1 mg tablet 0.1 mg PO .MWF atorvastatin 80 mg tablet 80 mg PO DAILY omeprazole 20 mg capsule,delayed release(DR/EC) 20 mg PO DAILY sennosides-docusate sodium [Senna Plus] 8.6-50 mg tablet 1 tab-cap PO QAM memantine 5 mg tablet 5 mg PO BID dorzolamide-timolol 22.3-6.8 mg/mL drops 1 drp EACH EYE Q12H polyethylene glycol 3350 [Miralax] 17 gram Powder In Packet 17 g PO QAM Qty: 30 0RF hydrocortisone [Cortef] 10 mg Tablet 5 mg PO 1600 Qty: 30 0RF Eliquis 5 mg tablet 5 mg PO Q12H Qty: 60 0RF sulfamethoxazole-trimethoprim 800-160 mg Tablet 1 tab PO Q12HR Qty: 9 0RF thiamine HCl (vitamin B1) 100 mg tablet 100 mg PO HS sertraline 25 mg tablet 25 mg PO QAM rosuvastatin 40 mg tablet 40 mg PO HS docusate sodium tablet 100 mg PO DAILY pantoprazole 40 mg Tablet,Delayed Release (Dr/Ec) 40 mg PO QAM Qty: 30 0RF gabapentin 300 mg capsule 300 mg PO TID cholecalciferol (vitamin D3) 50 mcg (2,000 unit) tablet 50 mcg PO DAILY Qty: 90 1RF metoprolol succinate 25 mg tablet extended release 24 hr 25 mg PO BID Qty: 180 1RF Follow-up/Referrals: Gerson Sykes APRN [Primary Care Provider] -
[2023-12-03 23:41] LABS: Procalcitonin 0.1 ng/mL
[2023-12-04] VITALS (19 sets, daily range): BP systolic 109–142; BP diastolic 57–91; PULSE 54–78; RESP 16–20; TEMP 33.7–36.5; O2SAT 97–100; BMI 38.2
[2023-12-04] MEDS: PIPERACILLN/TAZ 3.375GM/NS50ML 3.375 GM/50 ML BAG IVPB ×2 (00:40→05:19)
[2023-12-04] MEDS: SODIUM CHLORIDE 0.9% IV 1,000 ML 75 ML IV CONT ×2 (00:47→13:40)
--- NOTE | 2023-12-04 01:00 | P.HP_ITS ---
H&P: HPI History of Present Illness Date/Time: 12/04/23 01:00 Chief Complaint: ams Narrative: This is a 73-year-old care home resident past medical history significant for dyslipidemia, renal insufficiency, glaucoma, deep vein thrombosis, hypertension, dementia, spinal stenosis, normal-pressure hydrocephalus, diabetes insipidus. Patient was brought to the emergency room for evaluation due to altered mental status and found to be hypothermic. Preliminary workup was significant for urinalysis with numerous WBCs present patient found to have a core temperature of 94?. Patient has been started on broad-spectrum antibiotics admitted for further evaluation , management and treatment EXAMINATION: XR chest 1V portable Exam Date/Time: 12/03/2023 21:45 CDT HISTORY: Fall from wheelchair, AMS Comparison: 07/03/2023. RESULT: Lines, tubes, and devices: None. Lungs and pleura: Mild diffuse reticular opacities. Ill-defined subsegmental airspace disease in the left lower lung. Cardiomediastinal silhouette: Stable. Other: No acute osseous or upper abdominal finding. IMPRESSION: Small focus of atelectasis/consolidation in the left lower lung. Senescent change versus mild interstitial edema. EXAMINATION: CT brain wo con DATE: 12/03/2023 23:12 INDICATION: head injury . TECHNIQUE: Computed tomography (CT) of the head was performed without intravenous contrast. The mA was adjusted according to patient size. Iterative reconstruction technique was employed. The dose-length product was 605.33 mGy- cm. COMPARISON: 07/17/2023. FINDINGS: No acute intracranial hemorrhage or extra-axial fluid collection. No hydrocephalus, mass, or herniation. No acute ischemic infarct. Unremarkable dural venous sinus attenuation. No acute osseous abnormality. Right temporal subcutaneous contusion. The aerated spaces are clear. Moderate atrophy and chronic white matter change. Atherosclerotic intracranial calcification. Bilateral lens replacements. Right parietal approach SHEETFED PRESS OPERATOR shunt, tip indents and displaces the septum pellucidum. IMPRESSION: No acute intracranial process. EXAMINATION: CT abdomen pelvis wo con DATE: 12/03/2023 23:21 INDICATION: Back pain fall from wheelchair TECHNIQUE: Computed tomography (CT) of the abdomen and pelvis was performed without intravenous contrast. Automated exposure control and iterative reconstruction technique were employed. The dose-length product was 1517.94 mGy- cm. COMPARISON: 05/24/2023, 11/06/2019. FINDINGS: Lower thorax: 7 mm peripheral right lower lobe nodule. Dependent atelectasis. Cardiomegaly. Liver: Normal. Biliary/Gallbladder: Gallbladder is partially collapsed but otherwise normal in appearance. No bile duct dilation. Pancreas: Moderate fatty infiltration. Spleen: Normal. Adrenals:No mass. Kidneys: No suspicious mass, obstructing stone, or hydronephrosis. GI tract: No small or large bowel dilation. Normal appendix. Diverticulosis without diverticulitis. Mesentery/Peritoneum: No ascites, mass, or free air. Retroperitoneum: No mass. Atherosclerotic abdominal aortic and/or arterial calcifications. Pelvis: Mostly empty urinary bladder with mild wall thickening. Costa catheter in place. A right-sided SHEETFED PRESS OPERATOR shunt terminates in the left upper pelvis anterior to the bladder. Absent uterus. Bilateral ovaries not confidently visualized. Soft Tissues: Soft tissues and body wall unremarkable. Bones: No acute osseous finding. Uncomplicated appearing posterior lumbar fusion hardware. IMPRESSION: No acute abdominopelvic process detected. 7 mm right lower lobe pulmonary nodule, stable over the intervening 6 months. Consider follow-up low-dose noncontrast CT of the chest in 12-18 months. Review of Systems 2 Review of Systems: ROS unobtainable: Yes unobtainable due to mental status (lethargy) [facility] Past Medical History Medical History Arthritis Deep venous thrombosis 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 Post-menopausal Prediabetes Spinal stenosis at L4-L5 level Surgical History Surgical History History of back surgery History of carpal tunnel surgery History of cataract extraction History of cervical discectomy History of colonoscopy with polypectomy History of decompression of ulnar nerve History of excision of lamina of cervical vertebra for decompression of spinal cord History of hysterectomy History of tonsillectomy Family History Family History Mother Diabetes mellitus Hypertension Cerebrovascular accident Sibling Breast cancer Family history of arthritis Other Family history of cardiovascular disease Family history of coronary artery disease Family history of malignant neoplasm Family history of premature coronary heart disease Social History Social History Social History: Surrogate medical decision maker: Daly Jaramillo, spouse. Code status: Do not resuscitate. Smoking status: Never smoker Second hand tobacco smoke exposure: No Alcohol intake: never Alcohol use details: social Substance use: never Substance use type: does not use Do You Feel Safe in your Home?: Yes Lack of Transportation: No Lack of Food: Never True Current Housing: I Have Housing Concerned About Future Housing: No Difficulty Paying Gas/Electric Bills: No Difficulty Paying for Meds: No Currently Unemployed: No Education: High School Diploma/GED Difficulty w/ Childcare or Family Care: No Living arrangements: with family Occupation/Education: retired Gender identity (if verbalized by the patient): Female Spiritual care concerns: No Meds Home Medications and Allergies Home Medications Medication Instructions Recorded Confirmed Type latanoprost 0.005 % eye drops 1 drp LEFT EYE HS 01/28/22 12/04/23 History prednisolone acetate 1 % eye 1 drp RIGHT EYE HS 01/28/22 12/04/23 History drops,suspension cholecalciferol (vitamin D3) 50 50 mcg PO DAILY #90 tabs 04/29/22 12/04/23 Rx mcg (2,000 unit) tablet dorzolamide 22.3 mg-timolol 6.8 1 drp EACH EYE Q12H 06/04/22 12/04/23 History mg/mL eye drops metoprolol succinate 25 mg 25 mg PO BID #180 tabs 03/25/23 12/04/23 Rx tablet,extended release 24 hr sertraline 25 mg tablet 25 mg PO QAM 05/23/23 12/04/23 History apixaban 5 mg tablet (Eliquis) 5 mg PO Q12H #60 tabs 07/11/23 12/04/23 Rx atorvastatin 80 mg tablet 80 mg PO HS 08/20/23 12/04/23 History desmopressin 0.1 mg tablet 0.1 mg PO .MWF 08/20/23 12/04/23 History hydrocortisone 10 mg tablet 10 mg PO DAILY@0800 08/20/23 12/04/23 History omeprazole 20 mg capsule,delayed 20 mg PO DAILY 08/20/23 12/04/23 History release acetaminophen 500 mg tablet 1,000 mg PO Q6H PRN Pain (Scale 11/12/23 12/04/23 History (Tylenol Extra Strength) Score 1-3) gabapentin 300 mg capsule 300 mg PO TID 11/12/23 12/04/23 History memantine 5 mg tablet 10 mg PO BID 11/12/23 12/04/23 History ramelteon 8 mg tablet 8 mg PO QHS PRN Insomnia 11/12/23 12/04/23 History sennosides 8.6 mg-docusate sodium 1 tab-cap PO DAILY 11/12/23 12/04/23 History 50 mg capsule (Senna Plus) bisacodyl 5 mg tablet,delayed 10 mg PO PRN PRN Constipation 12/04/23 12/04/23 History release hydrocortisone 5 mg tablet 5 mg PO DAILY 12/04/23 12/04/23 History lidocaine 5 % topical patch 1 patch topical DAILY 12/04/23 12/04/23 History oxycodone 5 mg tablet 5 mg PO Q4H PRN Pain 12/04/23 12/04/23 History polyethylene glycol 3350 17 gram 17 g PO QAM 12/04/23 12/04/23 History oral powder packet (Miralax) Allergies Allergy/AdvReac Type Severity Reaction Status Date / Time No Known Allergies Allergy Verified 11/12/23 09:30 Vital Signs Vital Signs - 24 hr 12/03/23 20:45 12/03/23 20:55 12/03/23 22:00 Temperature 91.5 F L Pulse Rate 55 L 55 L 51 L Respiratory Rate 14 16 Blood Pressure Pulse Oximetry Oxygen Delivery Room Air 12/03/23 22:18 12/03/23 22:25 12/03/23 22:25 Temperature 91.6 F L 91.6 F L Pulse Rate 50 L Respiratory Rate 19 Blood Pressure 168/98 H Pulse Oximetry 99 99 Oxygen Delivery Room Air 12/03/23 22:40 12/03/23 22:55 12/03/23 22:45 Temperature 91.6 F L 91.7 F L Pulse Rate 50 L Respiratory Rate 17 Blood Pressure 151/88 H Pulse Oximetry 97 Oxygen Delivery 12/03/23 23:33 12/03/23 23:33 12/04/23 00:37 Temperature 91.7 F L 91.7 F L 92.6 F L Pulse Rate 50 L 54 L Respiratory Rate 13 16 Blood Pressure 162/94 H 122/76 Pulse Oximetry 99 99 Oxygen Delivery 12/04/23 00:41 Temperature 92.6 F L Pulse Rate Respiratory Rate Blood Pressure Pulse Oximetry Oxygen Delivery Exam Narrative: Patient is laying in a stretcher Const: General: comfortable, no acute distress, well developed, ill appearing acutely and obese Nutritional Appearance: average body habitus Orientation/consciousness: patient obtunded and lethargic HENMT: Head: normal to inspection, normocephalic and atraumatic Ears: hearing grossly normal bilaterally Face/Nose/Sinus: normal facial exam Face and sinus: normal facial exam Eyes: General: appearance normal, both eyes and all related structures Pupils: Equal, round and reactive pupils present EOM: EOMs intact bilaterally Neck: Neck: full ROM, no lymphadenopathy and no JVD Thyroid: thyroid normal Lymphatic: no lymphadenopathy noted Resp: Effort & Inspection: normal respiratory effort and able to speak in complete sentences Auscultation: clear to auscultation bilaterally Cardio: Jugular venous distension: no JVD Rate: regular rate Rhythm: regular rhythm Heart sounds: S1 normal heart sound present and S2 normal heart sound present GI: Inspection: Pannus present and obesity GI Palp: Yes Soft to palpation and Yes No hepatosplenomegaly present : General: Yes deferred Skin: Rashes: no rashes Wounds: no wounds Neuro: General: CN's II-XI intact bilaterally and patient obtunded Cranial nerves: Yes CN's II-XII intact bilaterally and Yes Equal, round and reactive pupils present Cognition (Neuro): abnormal cognition (Obtundation/lethargy) Speech: normal speech Gait exam (Neuro): Unable to assess gait Extrem: General: normal to inspection, full ROM, no joint enlargement and no pedal edema Other: Bilateral lower extremity chronic skin changes and discoloration H&P: Results Labs Labs: Short CBC 12/03/23 Range/Units 22:06 WBC 7.6 (4.5-10.0) K/mm3 Hgb 11.3 L (12.0-15.0) g/dL Hct 33.0 L (37.0-47.0) % Plt Count 187 (150-375) k/mm3 [facility] 12/03/23 22:06 Sodium 122 L Potassium 4.6 Chloride 83 L Carbon Dioxide 31 H BUN 17 D Creatinine 0.70 Glucose 88 Calcium 9.2 Cardiac Enzymes 12/03/23 Range/Units 22:06 Troponin I < 0.012 (0.000-0.034) ng/mL Liver Function 12/03/23 Range/Units 22:06 Total Bilirubin 0.9 (0.2-1.3) mg/dL AST 162 H (14-36) U/L ALT 197 H (6-35) U/L Alkaline Phosphatase 313 H (38-126) U/L Albumin 4.2 (3.5-5.1) g/dL Urine 12/03/23 Range/Units 22:06 Urine Color Yellow (Yellow) Urine Appearance Clear (Clear) Urine pH 7.5 (5.0-9.0) Ur Specific [place] 1.008 (1.001-1.035) Urine Protein 2+ H (Negative) mg/dL Urine Glucose (UA) Negative (Negative) mg/dL Assessment and Plan Assessment and plan (1) Sepsis: Code(s): A41.9 - Sepsis, unspecified organism Status: Acute (2) Acute UTI: Code(s): N39.0 - Urinary tract infection, site not specified Status: Acute (3) Lung infiltrate: Code(s): R91.8 - Other nonspecific abnormal finding of lung field Status: Acute (4) Stage 3a chronic kidney disease: Code(s): N18.31 - Chronic kidney disease, stage 3a Status: Acute (5) Altered mental status: Qualifiers: Altered mental status type: disorientation Qualified Code(s): R41.0 - Disorientation, unspecified Code(s): R41.82 - Altered mental status, unspecified Status: Acute (6) Adrenal insufficiency: Code(s): E27.40 - Unspecified adrenocortical insufficiency Status: Acute (7) Generalized weakness: Code(s): R53.1 - Weakness Status: Acute (8) Normal pressure hydrocephalus: Onset Date: 05/2023 Code(s): G91.2 - (Idiopathic) normal pressure hydrocephalus Status: Acute (9) Obesity, morbid, BMI 40.0-49.9: Code(s): E66.01 - Morbid (severe) obesity due to excess calories Status: Acute Hospitalist MIPS Advance Care Plan I have confirmed that the patient's Advanced Care Plan is present, code status is documented, or surrogate decision maker is listed in patient medical record.: Yes Medication Reconciliation I have utilized all available resources to obtain, update and review the patients current medications (includes all prescriptions, OTC, herbals, cannabis, and nutritional supplements).: Yes
--- NOTE | 2023-12-04 01:48 | ADMGEN ---
This patient, Jolie Banks, was admitted to IMU Room 206-02 at 0130. Patient/family oriented to hospital policies and general routines including ID bracelet, bed and alarms, visiting hours, pain management, procedures, bathroom and other care routines, personal items, smoking policy, room service/diet, and visiting hours. Information on how to activate the Rapid Response Team has been discussed. Patient/Family are encouraged to report perceived risks to care and to ask questions if they do not understand what they are told or what they should do.
[2023-12-04] MEDS: AZITHROMYCIN 500 MG/NS 250 ML 500 MG/250 ML BAG 250 MG IVPB (05:12)
[2023-12-04] MEDS: HYDROCORTISONE SODIUM SUCCINATE 100 MG/2 ML VIAL IV PUSH ×3 (05:16→22:02)
[2023-12-04] MEDS: VANCOMYCIN 1,250 MG/NS 250 ML 1,250 MG/250 ML BAG 166.67 MG IVPB ×2 (06:27→08:45)
[2023-12-04 07:45] LABS: MRSA (PCR) NOT DETECTED (NOT DETECTE)
--- NOTE | 2023-12-04 09:05 | PC.NURSE ---
RN made Judie PLUG CUTTER aware of Pharmacy med concerns with Cortef and Desmopressin. RN also made Judie aware of last NA, liver enzymes, and patient status. No new orders received. Judie made RN aware she will evaluate chart and patient and update RN.
[2023-12-04 09:48] LABS: Basophils Percent Auto 0.2 % (0.2-1.2); Eosinophils Percent Auto 0.2 % (0-4.4); Hematocrit 27.3 % (37.0-47.0); Hemoglobin 9.1 g/dL (12.0-15.0); Immature Granulocyte Absolute 0.01 K/mm3 (0.00-0.031); Immature Granulocyte Percent A 0.2 % (0-0.5); Lymphocytes Absolute Auto 0.69 K/mm3 (0.9-3.2); Lymphocytes Percent Auto 11.8 % (18.3-44.2); Mean Corpuscular HGB Conc 33.3 g/dl (32-36); Mean Platelet Volume 9.6 fl (7.4-10.4); Monocytes Absolute Auto 0.2 K/mm3 (0.1-0.6); Monocytes Percent Auto 2.7 % (2.6-8.5); Neutrophils Percent Auto 84.9 % (45.5-73.1); Nucleated Red Blood Cells Perc 0.5 % (0.0-0.2); Platelet Count Result 160 k/mm3 (150-375); Red Blood Count 3.25 M/mm3 (4.2-5.4); White Blood Count 5.9 K/mm3 (4.5-10.0)
[2023-12-04 09:56] LABS: Alanine Aminotransferase 131 U/L (6-35); Albumin Level 3.4 g/dL (3.5-5.1); Alkaline Phosphatase 262 U/L (38-126); Anion Gap 7 mmol/L (4-12); Aspartate Amino Transferase 109 U/L (14-36); Bilirubin,Total 0.9 mg/dL (0.2-1.3); Blood Urea Nitrogen 17 mg/dL (7-17); Calcium 8.5 mg/dL (8.4-10.2); Carbon Dioxide 27 mmol/L (22-30); Chloride 92 mmol/L (98-107); Estimated CRCL calculation 72 ml/min; Estimated Glomerular Filt Rate > 60; Glucose 83 mg/dL (65-110); Potassium 4.5 mmol/L (3.4-5.0); Sodium 126 mmol/L (137-145)
[2023-12-04] MEDS: LIDOCAINE 5% PATCH 1 PATCH TOPICAL (10:37)
[2023-12-04] MEDS: MEROPENEM 1 GM/NS 100 ML 1 GM/100 ML BAG IVPB ×2 (10:37→17:28)
[2023-12-04] MEDS: DORZOLAMIDE/TIMOLOL OPHTH SOL 10 ML BOTTLE 1 DROP EACH EYE ×2 (10:38→22:02)
--- NOTE | 2023-12-04 11:17 | P.CONNP_ITS ---
Assessment and Plan Assessment and plan (1) Hyponatremia: Code(s): E87.1 - Hypo-osmolality and hyponatremia Status: Acute Assessment and Plan: * as noted on admission with sodium of 122 * most recent sodium up to 126 * DDAVP on hold given this issue * suspect was not eating and drinking well due to AMS and continued to receive DDAVP which led to low sodium * follow up on urine testing as well as serum/urine osmolality * follow trend of repeat sodium levels (2) Altered mental status: Qualifiers: Altered mental status type: disorientation Qualified Code(s): R41.0 - Disorientation, unspecified Code(s): R41.82 - Altered mental status, unspecified Status: Acute Assessment and Plan: * etiology?? * infection versus low sodium versus seizure versus hypothermia versus other.... * follow culture data * on antibiotics * EEG and MRI of brain ordered * Neurology consulted * follow mentation (3) UTI (urinary tract infection): Code(s): N39.0 - Urinary tract infection, site not specified Status: Acute Assessment and Plan: * urinalysis highly suggestive on admission * urine culture pending * on antibiotics (4) Pneumonia: Code(s): J18.9 - Pneumonia, unspecified organism Status: Acute Assessment and Plan: * suggested by admission CXR * follow culture data * on antibiotics (5) Diabetes insipidus: Onset Date: 05/2023 Code(s): E23.2 - Diabetes insipidus Status: Suspected Assessment and Plan: * suspected due to work-up and evaluation on May 2023 admission/ hospitalzation * noted MRI of pituitary at that time (enlargement of the lateral and fourth ventricles concerning for normal pressure hydrocephalus and empty sella). * empirically started on DDAVP at that time * saw Endocrinology to confirm/verify diagnosis (but has not yet had follow-up visit) * DDAVP on hold given #1 I will continue to follow the patient with you while she remains hospitalized make further recommendations as deemed necessary. Thank you for allowing me to participate in care of this patient. History of Present Illness Reason for Consult Consult date: 12/04/23 Reason for consult: hyponatremia and Other (diabetes insipidus) Chief Complaint Chief complaint: UTI, Sepsis History of Present Illness Narrative: All of the information I have obtained is from review of the electronic medical record as well as discussion with the physician / nurses involved in the patient's care as well as my personal recollection of seen this patient on previous hospitalizations and in my outpatient clinic as it is difficult to get any history from the patient due to her altered mentation. The patient is a 73-year-old female with a past medical history as outlined below who presented to [facility] yesterday from her nursing facility for further evaluation of altered mental status as well as a recent fall with accompanying head injury. she apparently fell out of her wheelchair in the nursing facility and hit the back of her head although I am unclear if her altered mental status was present prior to or after this event. In any case, due to the fall as well as her altered mentation, she was sent to the emergency room for further assessment. Workup and evaluation emergency room demonstrated stable hemodynamics and confirmed her altered mentation. Her head CT was negative for any acute intracranial process and routine blood test demonstrated a normal white blood cell count, stable anemia, and normal kidney function but with hyponatremia with a sodium level of 122. Her urinalysis showed 2+ protein, 2+ blood, trace leukocyte esterase, and greater than 100 red blood cells with the concern for a possible urinary tract infection. A subsequent CT scan of the abdomen pelvis was only si significant for stercoral colitis but no other significant intra- abdominal pathology. Given the concern that her altered mental status may be an early sign of infection/sepsis, after appropriate cultures were obtained, she was started on broad-spectrum IV antibiotics to cover her for pneumonia as well as a possible urinary tract infection. she was subsequently admitted to the hospital for further evaluation and therapy. Since her admission, her mental status had not really improved and apparently clinically worsened by early this morning. Neurology has been consulted as there are concerns that she may have had a seizure or have seizure activity based on her nonpurposeful movements in her arms and face with a [place] and eye deviation to the right when seen by the nursing staff and hospitalist. She otherwise remains hemodynamically stable and in no apparent distress. Renal consultation was requested due to the patient's suspected history of diabetes insipidus and hypernatremia as noted by admission labs. The patient is somewhat familiar to me as I have taking care of her before during her previous hospitalizations and have seen her in the office for follow-up with regard to her renal insufficiency and presumed diabetes insipidus. When I last saw the patient, she was at her baseline mentation which is usually alert oriented x2 and she is able to carry a conversation as well. During her hospitalization May of 2023, she had significant hypernatremia that did not really respond to conservative therapy. Subsequent workup and evaluation at that time was quite suspicious for diabetes insipidus (partial central) and she was started on DDAVP which seem to clinically improve/stabilize her hypernatremia. She was also found to have a low FSH and LH along with adrenal insufficiency with the suspicion that her diabetes insipidus and these subsequent findings were related to her empty sella syndrome as noted by previous imaging studies. She was subsequently referred to Endocrinology as an outpatient to complete any further testing/evaluation to confirm the diagnosis of diabetes insipidus but I am unclear if she has been back to see Endocrinology since her initial office visit. As already mentioned, admission labs actually showed hyponatremia and her DDAVP has since been discontinued given this laboratory finding. Her sodium level has already improved from 122 to 126mmol/L by recent testing. Currently, at the time of my visit, ? Review of Systems Review of Systems: As per HPI. 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 Post-menopausal Prediabetes Spinal stenosis at L4-L5 level Surgical History Surgical History History of back surgery History of carpal tunnel surgery History of cataract extraction History of cervical discectomy History of colonoscopy with polypectomy History of decompression of ulnar nerve History of excision of lamina of cervical vertebra for decompression of spinal cord History of hysterectomy History of tonsillectomy Family History Family History Mother Diabetes mellitus Hypertension Cerebrovascular accident Sibling Breast cancer Family history of arthritis Other Family history of cardiovascular disease Family history of coronary artery disease Family history of malignant neoplasm Family history of premature coronary heart disease Social History Social History Social History: Surrogate medical decision maker: Daly Jaramillo, spouse. Code status: Do not resuscitate. Smoking status: Never smoker Second hand tobacco smoke exposure: No Alcohol intake: never Alcohol use details: social Substance use: never Substance use type: does not use Do You Feel Safe in your Home?: Yes Lack of Transportation: No Lack of Food: Never True Current Housing: I Have Housing Concerned About Future Housing: No Difficulty Paying Gas/Electric Bills: No Difficulty Paying for Meds: No Currently Unemployed: No Education: High School Diploma/GED Difficulty w/ Childcare or Family Care: No Living arrangements: with family Occupation/Education: retired Gender identity (if verbalized by the patient): Female Spiritual care concerns: No Meds Home Medications and Allergies Home Medications Medication Instructions Recorded Confirmed Type latanoprost 0.005 % eye drops 1 drp LEFT EYE HS 01/28/22 12/04/23 History prednisolone acetate 1 % eye 1 drp RIGHT EYE HS 01/28/22 12/04/23 History drops,suspension cholecalciferol (vitamin D3) 50 50 mcg PO DAILY #90 tabs 04/29/22 12/04/23 Rx mcg (2,000 unit) tablet dorzolamide 22.3 mg-timolol 6.8 1 drp EACH EYE Q12H 06/04/22 12/04/23 History mg/mL eye drops metoprolol succinate 25 mg 25 mg PO BID #180 tabs 03/25/23 12/04/23 Rx tablet,extended release 24 hr sertraline 25 mg tablet 25 mg PO QA 05/23/23 12/04/23 History apixaban 5 mg tablet (Eliquis) 5 mg PO Q12H #60 tabs 07/11/23 12/04/23 Rx atorvastatin 80 mg tablet 80 mg PO HS 08/20/23 12/04/23 History desmopressin 0.1 mg tablet 0.1 mg PO .MWF 08/20/23 12/04/23 History hydrocortisone 10 mg tablet 10 mg PO DAILY@0800 08/20/23 12/04/23 History omeprazole 20 mg capsule,delayed 20 mg PO DAILY 08/20/23 12/04/23 History release acetaminophen 500 mg tablet 1,000 mg PO Q6H PRN Pain (Scale 11/12/23 12/04/23 History (Tylenol Extra Strength) Score 1-3) gabapentin 300 mg capsule 300 mg PO TID 11/12/23 12/04/23 History memantine 5 mg tablet 10 mg PO BID 11/12/23 12/04/23 History ramelteon 8 mg tablet 8 mg PO QHS PRN Insomnia 11/12/23 12/04/23 History sennosides 8.6 mg-docusate sodium 1 tab-cap PO DAILY 11/12/23 12/04/23 History 50 mg capsule (Senna Plus) bisacodyl 5 mg tablet,delayed 10 mg PO PRN PRN Constipation 12/04/23 12/04/23 History release hydrocortisone 5 mg tablet 5 mg PO DAILY 12/04/23 12/04/23 History lidocaine 5 % topical patch 1 patch topical DAILY 12/04/23 12/04/23 History oxycodone 5 mg tablet 5 mg PO Q4H PRN Pain 12/04/23 12/04/23 History polyethylene glycol 3350 17 gram 17 g PO QAM 12/04/23 12/04/23 History oral powder packet (Miralax) Allergies Allergy/AdvReac Type Severity Reaction Status Date / Time No Known Allergies Allergy Verified 11/12/23 09:30 Vital Signs Vital Signs Temp Pulse Resp BP Pulse Ox O2 Del Method 12/04/23 10:00 68 12/04/23 08:00 67 12/04/23 08:00 97.1 F L 68 20 134/85 97 12/04/23 06:00 67 12/04/23 06:10 97.5 F L 67 16 120/90 100 12/04/23 04:00 Room Air 12/04/23 04:00 61 12/04/23 04:30 96.7 F L 12/04/23 03:30 93.3 F L 12/04/23 02:30 94.2 F L 12/04/23 01:30 93.3 F L 12/04/23 01:30 93.3 F L 58 L 16 130/65 100 12/04/23 01:07 93.1 F L 56 L 16 109/62 98 12/04/23 00:41 92.6 F L 12/04/23 00:37 92.6 F L 54 L 16 122/76 99 12/03/23 23:33 91.7 F L 50 L 13 162/94 H 99 12/03/23 23:33 91.7 F L 12/03/23 22:45 50 L 17 151/88 H 97 12/03/23 22:55 91.7 F L 12/03/23 22:40 91.6 F L 12/03/23 22:25 91.6 F L 12/03/23 22:25 91.6 F L 50 L 19 168/98 H 99 12/03/23 22:18 99 Room Air 12/03/23 22:00 91.5 F L 51 L 16 12/03/23 20:55 55 L 12/03/23 20:45 55 L 14 Room Air Exam Narrative: GENERAL APPEARANCE: elderly female in no acute distress HEENT: normocephalic, atraumatic, normal conjunctiva and sclera, nares patient NECK: no lymphadenopathy, thyromegaly, or JVD MOUTH: normal lips, teeth, and gums CARDIOVASCULAR: RRR, normal S1 and S2, no rub detected RESPIRATORY: clear to auscultation bilaterally ABDOMEN: soft, nontender, nondistended, positive bowel sounds present EXTREMITIES: no evidence of cyanosis, clubbing, or edema NEUROLOGICAL: unable to assess -- nonverbal and noncommunicative (unresponsive) Results Lab Results 12/04/23 09:29 12/04/23 09:29 Lab results: Most recent lab results Calcium 8.5 mg/dL (8.4-10.2) 12/04/23 09:29 Magnesium 1.6 mg/dL (1.6-2.3) 12/03/23 22:06 Urine Creatinine 15.1 mg/dL 12/04/23 10:53
--- NOTE | 2023-12-04 11:21 | P.PNIM_ITS ---
Progress Note: A&P Assessment and Plan (1) Acute UTI: Code(s): N39.0 - Urinary tract infection, site not specified Status: Acute Assessment and Plan: 12/04/23: * UA obtained and showing 2+ urine protein, 2+ urine blood, trace leukocyte, greater than 100 urine RBC, 11-20 urine WBC. * Urine and blood cultures obtained and are pending. 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 * Sodium level today is 122 * Desmopressin on hold * Will check a serum osmolarity, urine osmolarity, protein/creatinine ratio, urine sodium, urine specific gravity today. * Patient was also followed by Endocrinology plan was for an MRI of the pituitary however I cannot confirm if this was obtained are not. She has not had an MRI recently in our EMR. * Nephrology consulted (3) Lung infiltrate: Code(s): R91.8 - Other nonspecific abnormal finding of lung field Status: Acute Assessment and Plan: 12/04/23: * Chest x-ray showing small focus of atelectasis/consolidation in the left lower lung zone. * Patient was given a dose Zosyn, vancomycin, azithromycin while in the ED * Antibiotics changed to cefepime and azithromycin * Blood cultures obtained and are pending (4) Hypothermia: Code(s): T68.XXXA - Hypothermia, initial encounter Status: Acute Assessment and Plan: 12/04/23: * Initial temp on arrival to the hospital was 91.5 * Santos hugger placed overnight and now patient is 97.4 * Santos Hugger now off and patient is being warmed with blankets (5) Altered mental status: Qualifiers: Altered mental status type: disorientation Qualified Code(s): R41.0 - Disorientation, unspecified Code(s): R41.82 - Altered mental status, unspecified Status: Acute Assessment and Plan: 12/04/23: * Altered mental status likely due to hyponatremia versus acute urinary tract infection versus postictal versus active seizure activity, versus hypothermic shock * Continue neuro checks * Place on seizure precautions * Remain in IMU for closer monitoring * Continue cardiac monitoring * Blood and urine cultures were obtained and are pending * Patient had recent fall with head injury. * Head CT was negative for any acute intracranial process. * Will obtain EEG and MRA of the brain and brainstem with and without contrast today * Neurology consulted * Ativan ordered p.r.n. for seizure activity (6) Normal pressure hydrocephalus: Onset Date: 05/2023 Code(s): G91.2 - (Idiopathic) normal pressure hydrocephalus Status: Chronic Assessment and Plan: 12/04/23: * Patient has history of a [employer] shunt * Head CT showing no acute intracranial process, no hydrocephalus, mass or herniation noted. * Continue to monitor neuro status * Neurology consulted (7) Adrenal insufficiency: Code(s): E27.40 - Unspecified adrenocortical insufficiency Status: Chronic Assessment and Plan: 12/04/23: * Continue hydrocortisone for adrenal insufficiency (8) Stage 3a chronic kidney disease: Code(s): N18.31 - Chronic kidney disease, stage 3a Status: Chronic Assessment and Plan: 12/04/23: * Creatinine 0.8, EGFR greater than 60, estimated creatinine clearance 72 * Continue to trend (9) Obesity, morbid, BMI 40.0-49.9: Code(s): E66.01 - Morbid (severe) obesity due to excess calories Status: Chronic Assessment and Plan: 12/04/23: * BMI 38.3, 117.5 kg * Currently NPO Time Spent With Patient Time with patient: Greater than 35 minutes Subjective Date/time seen: 12/04/23 11:21 Interval history: Interval history: This is a 73-year-old female who presented to the hospital on 12/03/2023 with altered mental status and a recent fall from wheelchair with head injury. Workup in the hospital included a chest x-ray which shown small focus of consolidation in the left lower lung zone. Head CT was negative for any acute intracranial process. Abdomen pelvis CT was negative for any acute abdominal/pelvic process, showed a stable 7 mm right lower lobe pulmonary nodule which will need another CT in 12-18 months. Initial labs showed a normal white blood cell count of 7.6, hemoglobin 11.3, INR 1.3, sodium 122, chloride 83, AST 162, ALT 197, alk-phos 313, troponin negative, lipase 27, procalcitonin 0.1, TSH 2.110. A UA was obtained and showed 2+ urine protein, 2+ urine blood, trace leukocyte, greater than 100 urine RBC, 11-20 urine WBC. MRSA was negative. Blood and urine cultures were obtained and are pending. Last urine culture was reviewed and showed Proteus mirabilis with resistance. Patient was given a dose of Zosyn, vancomycin, and azithromycin. Antibiotics were changed today to Rocephin and azithromycin for coverage for pneumonia and urinary tract infection. Of note, According to the EMR patient has been seen by Nephrology and Endocrinology in the past. She was recently hospitalized in May of 2023 and was found to be hypernatremic with concerns for diabetes insipidus by Nephrology. She was started on desmopressin due to her hypernatremia, low urine osmolarity, borderline low urine specific gravity. Patient now presenting with low sodium of 122 and desmopressin has been held this admission. She also has some adrenal cortical insufficiency as well and has been on hydrocortisone. En docrinology referred her for an MRI of the pituitary however unsure if this was obtained or not. We do not have record of an MRI being done to date in our EMR. Subjective/objective: 12/04/23: Patient is unresponsive upon my examination and when assessing neuro status she was noted to have nonpurposeful movements of both arms and face, with eye deviation to the right. Unsure this is seizure activity?? She does not open eyes to voice or follow any commands. Her vital signs are stable, she is afebrile, she is currently on room air. Review of Systems Review of Systems: ROS unobtainable: Yes unobtainable due to mental status Exam Narrative: General:Unresponsive Head: acute encephalopathy Eyes: Pupils 2mm bilaterally, eyes deviated to the right with stimulation, no nystagmus seen ENT: moist mucous membranes, nasal passages clear Neck: supple, no JVD, no adenopathy, trachea midline Cardiac: Normal S1 and S2. No murmur, gallops or friction rubs, peripheral pulses intact. Respiratory: Lungs clear to auscultation, no adventitious lung sounds, currently on room air Gastrointestinal: soft, non-distended, non-tender, normoactive bowel sounds. : regalado catheter in place Extremities: nonpurposeful movements of the upper extremities with stimulation Skin: clean, dry, intact. No wounds or lesions. Neuro: Unresponsive, does not follow commands or open eyes to voice, unable to do a full neuro assessment. Psych: Unable to assess due to altered mental status Objective Data Vital Signs Vital Signs: Vital Signs - 24 hr 12/03/23 20:45 12/03/23 20:55 12/03/23 22:00 Temperature 91.5 F L Pulse Rate 55 L 55 L 51 L Respiratory Rate 14 16 Blood Pressure Pulse Oximetry Oxygen Delivery Room Air 12/03/23 22:18 12/03/23 22:25 12/03/23 22:25 Temperature 91.6 F L 91.6 F L Pulse Rate 50 L Respiratory Rate 19 Blood Pressure 168/98 H Pulse Oximetry 99 99 Oxygen Delivery Room Air 12/03/23 22:40 12/03/23 22:55 12/03/23 22:45 Temperature 91.6 F L 91.7 F L Pulse Rate 50 L Respiratory Rate 17 Blood Pressure 151/88 H Pulse Oximetry 97 Oxygen Delivery 12/03/23 23:33 12/03/23 23:33 12/04/23 00:37 Temperature 91.7 F L 91.7 F L 92.6 F L Pulse Rate 50 L 54 L Respiratory Rate 13 16 Blood Pressure 162/94 H 122/76 Pulse Oximetry 99 99 Oxygen Delivery 12/04/23 00:41 12/04/23 01:07 12/04/23 01:30 Temperature 92.6 F L 93.1 F L 93.3 F L Pulse Rate 56 L 58 L Respiratory Rate 16 16 Blood Pressure 109/62 130/65 Pulse Oximetry 98 100 Oxygen Delivery 12/04/23 01:30 12/04/23 02:30 12/04/23 03:30 Temperature 93.3 F L 94.2 F L 93.3 F L Pulse Rate Respiratory Rate Blood Pressure Pulse Oximetry Oxygen Delivery 12/04/23 04:30 12/04/23 04:00 12/04/23 04:00 Temperature 96.7 F L Pulse Rate 61 Respiratory Rate Blood Pressure Pulse Oximetry Oxygen Delivery Room Air 12/04/23 06:10 12/04/23 06:00 12/04/23 08:00 Temperature 97.5 F L 97.1 F L Pulse Rate 67 67 68 Respiratory Rate 16 20 Blood Pressure 120/90 134/85 Pulse Oximetry 100 97 Oxygen Delivery 12/04/23 08:00 12/04/23 10:00 Temperature Pulse Rate 67 68 Respiratory Rate Blood Pressure Pulse Oximetry Oxygen Delivery Intake/Output Intake/Output: Intake & Output 12/01/23 12/02/23 12/03/23 12/04/23 23:59 23:59 23:59 23:59 Intake Total 1000 350 Output Total 850 Balance 1000 -500 Meds/Results Medications: Active Medications Generic Name Dose Route Start Last Admin Trade Name Freq PRN Reason Stop Dose Admin Acetaminophen 650 mg 12/04/23 00:04 Acetaminophen 325 Mg Tablet PO Q4H PRN Mild Pain (1-3) or Fever Apixaban 5 mg 12/04/23 09:00 Apixaban 5 Mg Tablet PO Q12HR ASHLEY Bisacodyl 10 mg 12/04/23 05:29 Bisacodyl 5 Mg Tablet Ec PO DAILY PRN Constipation Desmopressin Acetate 0.1 mg 12/04/23 09:00 12/04/23 09:54 Desmopressin Acetate 0.1 Mg Tablet PO Not Given [id number] ASHLEY Dorzolamide/Timolol 1 drop 12/04/23 09:00 12/04/23 10:38 Dorzolamide/Timolol Ophth Yvonne 10 Ml Bottle EACH EYE 1 drop Q12HR ASHLEY Administration Gabapentin 300 mg 12/04/23 09:00 12/04/23 09:55 Gabapentin 300 Mg Capsule PO Not Given TID ASHLEY Hydrocortisone 5 mg 12/04/23 17:00 Hydrocortisone 5 Mg Tablet PO DAILY@1700 ASHLEY Hydrocortisone 10 mg 12/04/23 08:00 Hydrocortisone 10 Mg Tablet PO DAILY@0800 ASHLEY Hydrocortisone Sodium Succinate 100 mg 12/04/23 06:00 12/04/23 05:16 Hydrocortisone Sodium Succinate 100 Mg/2 Ml Vial IV PUSH 100 mg Q8HR ASHLEY Administration Sodium Chloride 1,000 mls @ 75 mls/hr 12/04/23 00:05 12/04/23 00:47 Normal Saline Iv IV CONT 75 mls/hr .[id number] ASHLEY Administration Azithromycin 500 mg in 250 mls @ 250 mls/hr 12/04/23 05:00 12/04/23 06:12 Zithromax IVPB Infused Q24H [facility] Infusion Meropenem 1 gm in 100 mls @ 200 mls/hr 12/04/23 09:00 12/04/23 10:37 IVPB 200 mls/hr Q8H [facility] Administration Latanoprost 1 drop 12/04/23 21:00 Latanoprost 0.005% Op Soln 2.5 Ml Btl LEFT EYE HS [facility] Lidocaine 1 patch 12/04/23 09:00 12/04/23 10:37 Lidocaine 5% Patch TOPICAL 1 patch DAILY [facility] Administration Memantine 10 mg 12/04/23 09:00 Memantine 5 Mg Tablet PO BID [facility] Metoprolol Succinate 25 mg 12/04/23 09:00 Metoprolol Succinate Ext Rel 25 Mg Tabcr PO Q12HR [facility] Miconazole Nitrate 1 applic 12/04/23 11:00 12/04/23 10:37 Miconazole 2% Antifungal Ointment 56 Gm TOPICAL 1 applic Q12HR [facility] Administration Miscellaneous Information 0 each 12/04/23 00:01 Ramelteon Non Formulary XX 01/03/24 00:00 CLARIFY [facility] Non-Formulary Medication 8 mg 12/04/23 05:29 Ramelteon PO QHS PRN Insomnia Ondansetron HCl 4 mg 12/04/23 00:04 Ondansetron Inj 4 Mg/2 Ml Vial IV PUSH Q4H PRN Nausea Oxycodone HCl 5 mg 12/04/23 05:29 Oxycodone Hcl (*Crx) 5 Mg Tab Ir PO Q4H PRN Pain Rated 7-10 Pantoprazole Sodium 40 mg 12/04/23 09:00 Pantoprazole 40 Mg Tablet PO DAILY [facility] Polyethylene Glycol 17 gm 12/04/23 09:00 12/04/23 09:55 Polyethylene Glycol 3350 17 Gm Powd.Pack PO Not Given QAM [facility] Prednisolone Acetate 1 drop 12/04/23 21:00 Prednisolone Acetate 1% Ophth 5 Ml RIGHT EYE HS [facility] Sertraline HCl 25 mg 12/04/23 09:00 Sertraline Hcl 25 Mg Tablet PO QAM [facility] Vitamin D 2,000 units 12/04/23 09:00 Cholecalciferol 1,000 Units Tablet PO DAILY [facility] Radiology Results: ITS Impressions Chest X-Ray 12/03/23 22:29 IMPRESSION: Small focus of atelectasis/consolidation in the left lower lung. Senescent change versus mild interstitial edema. Head CT 12/03/23 23:15 IMPRESSION: No acute intracranial process. Abdomen/Pelvis CT 12/03/23 23:22 IMPRESSION: No acute abdominopelvic process detected. 7 mm right lower lobe pulmonary nodule, stable over the intervening 6 months. Consider follow-up low-dose noncontrast CT of the chest in 12-18 months. Labs Labs: Laboratory Results - last 24 hr 12/03/23 12/04/23 12/04/23 22:06 05:10 09:29 WBC 7.6 5.9 RBC 3.91 L 3.25 L Hgb 11.3 L 9.1 L Hct 33.0 L 27.3 L MCV 84.4 84.0 MCH 28.9 28.0 MCHC 34.2 33.3 RDW 16.1 H 16.0 H Plt Count 187 160 MPV 9.4 9.6 Immature Gran % (Auto) 0.3 0.2 Neut % (Auto) 84.4 H 84.9 H Lymph % (Auto) 11.1 L 11.8 L [place] % (Auto) 3.6 2.7 Eos % (Auto) 0.3 0.2 Baso % (Auto) 0.3 0.2 Lymph # (Auto) 0.84 L 0.69 L [place] # (Auto) 0.3 0.2 Eos # (Auto) 0.0 0.0 Baso # (Auto) 0.0 0.0 Abs Immat Gran (auto) 0.02 0.01 Absolute Neuts (auto) 6.4 5.0 Absolute Nucleated RBC 0.000 0.030 H Nucleated RBC % 0.0 0.5 H PT 16.4 H INR 1.3 APTT 42.8 H Sodium 122 L 126 L Potassium 4.6 4.5 Chloride 83 L 92 L Carbon Dioxide 31 H 27 Anion Gap 8 7 BUN 17 D 17 Creatinine 0.70 0.80 Estim Creat Clear Calc 82 72 Estimated GFR > 60 > 60 Glucose 88 83 Lactic Acid 0.6 L Calcium 9.2 8.5 Magnesium 1.6 Total Bilirubin 0.9 0.9 AST 162 H 109 H ALT 197 H 131 H Alkaline Phosphatase 313 H 262 H Troponin I < 0.012 Total Protein 8.0 7.0 Albumin 4.2 3.4 L Lipase 27 Procalcitonin 0.1 TSH 2.110 Urine Color Yellow Urine Appearance Clear Urine pH 7.5 Ur Specific [place] 1.008 Urine Protein 2+ H Urine Glucose (UA) Negative Urine Ketones Negative Ur Blood (Man) 2+ H Urine Nitrate Negative Urine Bilirubin Negative Urine Urobilinogen 0.2 Add Ur Microanalysis Reviewed Leukocyte Esterase Rfl Trace H Urine RBC >100 H Urine WBC 11-20 H Ur Squamous Epith Cells None seen Urine Bacteria None seen Urine Casts 0-2 Nasal MRSA (PCR) Not detected Quality VTE Prophylaxis VTE prophylaxis: mechanical ordered
[2023-12-04 11:32] LABS: Creatinine Urine 15.1 mg/dL; Total Protein Urine Random 15 mg/dL; Ur Ttl Prot Creatinine Ratio 0.99 mg/mg (0-0.20)
[2023-12-04] MEDS: HYDROCORTISONE 10 MG TABLET PO (12:25)
[2023-12-04] MEDS: GABAPENTIN 300 MG CAPSULE PO ×2 (12:27→17:26)
[2023-12-04] MEDS: CHOLECALCIFEROL 1,000 UNITS TABLET 2000 UNITS PO (12:27)
[2023-12-04] MEDS: METOPROLOL SUCCINATE EXT REL 25 MG TABCR PO ×2 (12:27→22:00)
[2023-12-04] MEDS: MEMANTINE 5 MG TABLET 10 MG PO ×2 (12:27→17:25)
[2023-12-04] MEDS: APIXABAN 5 MG TABLET PO ×2 (12:27→22:00)
[2023-12-04] MEDS: SERTRALINE HCL 25 MG TABLET PO (12:27)
[2023-12-04] MEDS: PANTOPRAZOLE 40 MG TABLET PO (12:27)
--- NOTE | 2023-12-04 13:17 | PC.NURSE ---
EMERITA Dimas notified that patient's [employer] shunt is programmable, therefore, the MRI of brain can not be performed. Awaiting Neurology's consultation before proceeding.
[2023-12-04] MEDS: LIDOCAINE 5% PATCH 1 PATCH TRANSDERM (17:26)
[2023-12-04] MEDS: HYDROCORTISONE 5 MG TABLET PO (17:26)
[2023-12-04] MEDS: prednisoLONE ACETATE 1% OPHTH 5 ML 1 DROP RIGHT EYE (22:02)
[2023-12-04] MEDS: LATANOPROST 0.005% OP SOLN 2.5 ML BTL 1 DROP LEFT EYE (22:02)
[2023-12-05] VITALS (15 sets, daily range): BP systolic 107–161; BP diastolic 58–90; PULSE 54–73; RESP 12–20; TEMP 36.1–36.4; O2SAT 96–100
[2023-12-05] MEDS: MEROPENEM 1 GM/NS 100 ML 1 GM/100 ML BAG IVPB ×3 (01:12→17:54)
[2023-12-05] MEDS: SODIUM CHLORIDE 0.9% IV 1,000 ML 75 ML IV CONT (02:35)
[2023-12-05 04:41] LABS: Basophils Percent Auto 0.1 % (0.2-1.2); Hematocrit 28.7 % (37.0-47.0); Hemoglobin 9.6 g/dL (12.0-15.0); Immature Granulocyte Absolute 0.04 K/mm3 (0.00-0.031); Immature Granulocyte Percent A 0.5 % (0-0.5); Lymphocytes Absolute Auto 0.81 K/mm3 (0.9-3.2); Lymphocytes Percent Auto 9.8 % (18.3-44.2); Mean Corpuscular HGB Conc 33.4 g/dl (32-36); Mean Corpuscular Hemoglobin 28.2 pg (26-34); Mean Corpuscular Volume 84.4 fl (80-100); Mean Platelet Volume 10.2 fl (7.4-10.4); Monocytes Absolute Auto 0.1 K/mm3 (0.1-0.6); Monocytes Percent Auto 1.5 % (2.6-8.5); Neutrophils Absolute Auto 7.3 K/mm3 (1.3-6.7); Neutrophils Percent Auto 88.1 % (45.5-73.1); Nucleated Red Blood Cells Perc 0.2 % (0.0-0.2); Platelet Count Result 171 k/mm3 (150-375); Red Cell Distribution Width 16.4 % (11.5-14.5); White Blood Count 8.3 K/mm3 (4.5-10.0)
[2023-12-05 04:48] LABS: Alanine Aminotransferase 117 U/L (6-35); Albumin Level 3.6 g/dL (3.5-5.1); Alkaline Phosphatase 245 U/L (38-126); Anion Gap 8 mmol/L (4-12); Aspartate Amino Transferase 85 U/L (14-36); Bilirubin,Total 0.7 mg/dL (0.2-1.3); Blood Urea Nitrogen 24 mg/dL (7-17); Calcium 9.1 mg/dL (8.4-10.2); Carbon Dioxide 26 mmol/L (22-30); Chloride 103 mmol/L (98-107); Estimated CRCL calculation 65 ml/min; Estimated Glomerular Filt Rate > 60; Glucose 113 mg/dL (65-110); Potassium 4.2 mmol/L (3.4-5.0); Sodium 137 mmol/L (137-145)
[2023-12-05] MEDS: HYDROCORTISONE SODIUM SUCCINATE 100 MG/2 ML VIAL IV PUSH ×3 (06:03→21:13)
[2023-12-05] MEDS: AZITHROMYCIN 500 MG/NS 250 ML 500 MG/250 ML BAG 250 MG IVPB (06:03)
[2023-12-05] MEDS: APIXABAN 5 MG TABLET PO ×2 (09:33→21:14)
[2023-12-05] MEDS: HYDROCORTISONE 10 MG TABLET PO (09:34)
[2023-12-05] MEDS: CHOLECALCIFEROL 1,000 UNITS TABLET 2000 UNITS PO (09:34)
[2023-12-05] MEDS: GABAPENTIN 300 MG CAPSULE PO ×3 (09:34→17:53)
[2023-12-05] MEDS: MEMANTINE 5 MG TABLET 10 MG PO ×2 (09:34→17:53)
[2023-12-05] MEDS: polyethylene glycoL 3350 17 GM POWD.PACK PO (09:35)
[2023-12-05] MEDS: METOPROLOL SUCCINATE EXT REL 25 MG TABCR PO ×2 (09:35→20:50)
[2023-12-05] MEDS: SERTRALINE HCL 25 MG TABLET PO (09:35)
[2023-12-05] MEDS: PANTOPRAZOLE 40 MG TABLET PO (09:35)
[2023-12-05] MEDS: LIDOCAINE 5% PATCH 1 PATCH TOPICAL (09:36)
[2023-12-05] MEDS: LIDOCAINE 5% PATCH 1 PATCH TRANSDERM (09:36)
[2023-12-05] MEDS: DORZOLAMIDE/TIMOLOL OPHTH SOL 10 ML BOTTLE 1 DROP EACH EYE ×2 (09:37→21:13)
[2023-12-05] MEDS: DEXTROSE 5% IN WATER 500 ML 250 ML IV CONT (09:38)
--- NOTE | 2023-12-05 09:58 | P.PNIM_ITS ---
Progress Note: A&P Assessment and Plan (1) Acute UTI: Code(s): N39.0 - Urinary tract infection, site not specified Status: Acute Assessment and Plan: 12/04/23: * UA obtained and showing 2+ urine protein, 2+ urine blood, trace leukocyte, greater than 100 urine RBC, 11-20 urine WBC. * Urine and blood cultures obtained and are pending. * Patient had a previous urine culture back on 07/16/2023 which showed Proteus mirabilis which was showing some resistant and on 07/03/2023 urine culture showed E coli with some resistance * Patient started on meropenem 12/05/23: * Urine culture was negative. 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 * Sodium level today is 122 * Desmopressin on hold * Will check a serum osmolarity, urine osmolarity, protein/creatinine ratio, urine sodium, urine specific gravity today. * Patient was also followed by Endocrinology plan was for an MRI of the pituitary however I cannot confirm if this was obtained are not. She has not had an MRI recently in our EMR. * Nephrology consulted 12/05/23: * Sodium level today is 137 today, alert and oriented x3 * Nephrology following * Labs are still pending * Continue to hold desmopressin * Ok to move to regular med/tele floor * Continuous cardiac monitoring (3) Lung infiltrate: Code(s): R91.8 - Other nonspecific abnormal finding of lung field Status: Acute Assessment and Plan: 12/04/23: * Chest x-ray showing small focus of atelectasis/consolidation in the left lower lung zone. * Patient was given a dose Zosyn, vancomycin, azithromycin while in the ED * Antibiotics changed to cefepime and azithromycin * Blood cultures obtained and are pending 12/04/23: * Continue cefepime and azithromycin * Blood culture showing no growth to date on preliminary read * PT and OT ordered (4) Hypothermia: Code(s): T68.XXXA - Hypothermia, initial encounter Status: Acute Assessment and Plan: 12/04/23: * Initial temp on arrival to the hospital was 91.5 * Santos hugger placed overnight and now patient is 97.4 * Santos Hugger now off and patient is being warmed with blankets 12/05/23: * Temperature 97.5? * Continue to monitor (5) Transaminitis: Code(s): R74.01 - Elevation of levels of liver transaminase levels Status: Acute Assessment and Plan: 12/05/23: * Initial AST 109/ALT 131 * Today AST 85, ALT 117 * Continue to trend (6) Altered mental status: Qualifiers: Altered mental status type: disorientation Qualified Code(s): R41.0 - Disorientation, unspecified Code(s): R41.82 - Altered mental status, unspecified Status: Acute Assessment and Plan: 12/04/23: * Altered mental status likely due to hyponatremia versus acute urinary tract infection versus postictal versus active seizure activity, versus hypothermic shock * Continue neuro checks * Place on seizure precautions * Remain in IMU for closer monitoring * Continue cardiac monitoring * Blood and urine cultures were obtained and are pending * Patient had recent fall with head injury. * Head CT was negative for any acute intracranial process. * Will obtain EEG and MRA of the brain and brainstem with and without contrast today * Neurology consulted * Ativan ordered p.r.n. for seizure activity 12/05/23: * Patient unable to get MRI due to JIG INSPECTOR shunt * Currently Alert and oriented x3 * Awaiting EEG * Awaiting Neurology input * Continue IMU status for now. (7) Normal pressure hydrocephalus: Onset Date: 05/2023 Code(s): G91.2 - (Idiopathic) normal pressure hydrocephalus Status: Chronic Assessment and Plan: 12/04/23: * Patient has history of a JIG INSPECTOR shunt * Head CT showing no acute intracranial process, no hydrocephalus, mass or herniation noted. * Continue to monitor neuro status * Neurology consulted 12/05/23: * No change (8) Adrenal insufficiency: Code(s): E27.40 - Unspecified adrenocortical insufficiency Status: Chronic Assessment and Plan: 12/04/23: * Continue hydrocortisone for adrenal insufficiency 12/05/23: * No change to current treatment plan (9) Stage 3a chronic kidney disease: Code(s): N18.31 - Chronic kidney disease, stage 3a Status: Chronic Assessment and Plan: 12/04/23: * Creatinine 0.8, EGFR greater than 60, estimated creatinine clearance 72 * Continue to trend 12/05/23: * Continue to monitor (10) Obesity, morbid, BMI 40.0-49.9: Code(s): E66.01 - Morbid (severe) obesity due to excess calories Status: Chronic Assessment and Plan: 12/04/23: * BMI 38.3, 117.5 kg * Currently NPO 12/05/23: * No change Time Spent With Patient Time with patient: 25 - 35 minutes Subjective Date/time seen: 12/05/23 09:58 Interval history: Interval history: This is a 73-year-old female who presented to the hospital on 12/03/2023 with altered mental status and a recent fall from wheelchair with head injury. Workup in the hospital included a chest x-ray which shown small focus of consolidation in the left lower lung zone. Head CT was negative for any acute intracranial process. Abdomen pelvis CT was negative for any acute abdominal/pelvic process, showed a stable 7 mm right lower lobe pulmonary nodule which will need another CT in 12-18 months. Initial labs showed a normal white blood cell count of 7.6, hemoglobin 11.3, INR 1.3, sodium 122, chloride 83, AST 162, ALT 197, alk-phos 313, troponin negative, lipase 27, procalcitonin 0.1, TSH 2.110. A UA was obtained and showed 2+ urine protein, 2+ urine blood, trace leukocyte, greater than 100 urine RBC, 11-20 urine WBC. MRSA was negative. Blood and urine cultures were obtained and are pending. Last urine culture was reviewed and showed Proteus mirabilis with resistance. Patient was given a dose of Zosyn, vancomycin, and azithromycin. Antibiotics were changed today to R ocephin and azithromycin for coverage for pneumonia and urinary tract infection. Of note, According to the EMR patient has been seen by Nephrology and Endocrinology in the past. She was recently hospitalized in May of 2023 and was found to be hypernatremic with concerns for diabetes insipidus by Nephrology. She was started on desmopressin due to her hypernatremia, low urine osmolarity, borderline low urine specific gravity. Patient now presenting with low sodium of 122 and desmopressin has been held this admission. She also has some adrenal cortical insufficiency as well and has been on hydrocortisone. Endocrinology referred her for an MRI of the pituitary however unsure if this was obtained or not. We do not have record of an MRI being done to date in our EMR. Subjective/objective: 12/04/23: Patient is unresponsive upon my examination and when assessing neuro status she was noted to have nonpurposeful movements of both arms and face, with eye nora ation to the right. Unsure this is seizure activity?? She does not open eyes to voice or follow any commands. Her vital signs are stable, she is afebrile, she is currently on room air. 12/05/23: Patient is alert and oriented x3 today. She is somewhat tearful. She denies any nausea, vomiting, diarrhea, abdominal pain, chest pain, shortness of breath. Labs reviewed. Review of Systems Review of Systems: All systems reviewed & are unremarkable except as noted in HPI and below Constitutional: Constitutional: Reports as per HPI and Reports no additional constitutional complaints Eyes: Eyes: Reports as per HPI and Reports no additional eye complaints ENT: Reports system reviewed and no additional complaints, except as documented and Reports as per HPI Cardiovascular: Cardiovascular: Reports as per HPI and Reports no additional cardiovascular complaints Respiratory: Respiratory: Reports as per HPI and Reports no additional respiratory complaints Gastrointestinal: Gastrointestinal: Reports as per HPI and Reports no additional gastrointestinal complaints Genitourinary: Genitourinary: Reports no additional female genitourinary complaints and Reports as per HPI Musculoskeletal: Musculoskeletal: Reports no additional musculoskeletal complaints and Reports as per HPI Integumentary/Breasts: Skin/Breast: Reports system reviewed and no additional complaints, except as docu and Reports as per HPI Neurologic: Reports system reviewed and no additional complaints, except as documented and Reports as per HPI Psychiatric: Psychiatric: Reports no additional psychiatric complaints and Reports as per HPI Exam Narrative: General: well nourished Eyes: PERRLA Cardiac: Normal S1 and S2. No murmur, gallops or friction rubs, peripheral pulses intact. Respiratory: Lungs clear to auscultation, no adventitious lung sounds, currently on room air Gastrointestinal: soft, non-distended, non-tender, normoactive bowel sounds. : regalado catheter in place Neuro: Alert and oriented x3, no neuro deficits. Psych: tearful today Objective Data Vital Signs Vital Signs: Vital Signs - 24 hr 12/04/23 10:00 08/23/24 12:00 12/04/23 12:00 Temperature 97.4 F L Pulse Rate 68 71 67 Respiratory Rate 20 Blood Pressure 142/91 H Pulse Oximetry 98 Oxygen Delivery Fraction of Inspired Oxygen 12/04/23 14:06 12/04/23 14:00 12/04/23 16:00 Temperature 97.6 F Pulse Rate 70 68 Respiratory Rate 18 Blood Pressure 112/62 Pulse Oximetry 97 97 Oxygen Delivery Room Air Fraction of Inspired Oxygen 21 12/04/23 16:00 12/04/23 18:00 12/04/23 20:00 Temperature 97.7 F Pulse Rate 68 73 78 Respiratory Rate 18 Blood Pressure 109/57 L Pulse Oximetry 99 Oxygen Delivery Fraction of Inspired Oxygen 12/04/23 22:00 12/04/23 20:00 12/05/23 00:00 Temperature 96.9 F L Pulse Rate 71 67 Respiratory Rate 16 Blood Pressure 130/70 Pulse Oximetry 97 Oxygen Delivery Room Air Fraction of Inspired Oxygen 12/05/23 00:00 12/05/23 04:00 12/05/23 04:00 Temperature 97.3 F L Pulse Rate 70 Respiratory Rate 16 Blood Pressure 133/85 Pulse Oximetry 99 Oxygen Delivery Room Air Room Air Fraction of Inspired Oxygen 12/04/23 20:00 12/04/23 22:00 12/05/23 00:00 Temperature Pulse Rate 77 71 66 Respiratory Rate Blood Pressure Pulse Oximetry Oxygen Delivery Fraction of Inspired Oxygen 12/05/23 02:00 12/05/23 04:00 12/05/23 06:00 Temperature Pulse Rate 67 65 66 Respiratory Rate Blood Pressure Pulse Oximetry Oxygen Delivery Fraction of Inspired Oxygen 12/05/23 08:00 12/05/23 09:35 Temperature 97.5 F L Pulse Rate 68 73 Respiratory Rate 12 Blood Pressure 146/85 H Pulse Oximetry 99 Oxygen Delivery Fraction of Inspired Oxygen Intake/Output Intake/Output: Intake & Output 12/02/23 12/03/23 12/04/23 12/05/23 23:59 23:59 23:59 23:59 Intake Total 1000 2296.2 1628.8 Output Total 1450 3100 Balance 1000 846.2 -1471.2 Meds/Results Medications: Active Medications Generic Name Dose Route Start Last Admin Trade Name Freq PRN Reason Stop Dose Admin Acetaminophen 650 mg 12/04/23 00:04 Acetaminophen 325 Mg Tablet PO Q4H PRN Mild Pain (1-3) or Fever Apixaban 5 mg 12/04/23 09:00 12/05/23 09:33 Apixaban 5 Mg Tablet PO 5 mg Q12HR ASHLEY Administration Bisacodyl 10 mg 12/04/23 05:29 Bisacodyl 5 Mg Tablet Ec PO DAILY PRN Constipation Desmopressin Acetate 0.1 mg 12/04/23 09:00 12/04/23 09:54 Desmopressin Acetate 0.1 Mg Tablet PO Not Given [email or web address] ASHLEY Dorzolamide/Timolol 1 drop 12/04/23 09:00 12/05/23 09:37 Dorzolamide/Timolol Ophth Yvonne 10 Ml Bottle EACH EYE 1 drop Q12HR ASHLEY Administration Gabapentin 300 mg 12/04/23 09:00 12/05/23 09:34 Gabapentin 300 Mg Capsule PO 300 mg TID ASHLEY Administration Hydrocortisone 5 mg 12/04/23 17:00 12/04/23 17:26 Hydrocortisone 5 Mg Tablet PO 5 mg DAILY@1700 ASHLEY Administration Hydrocortisone 10 mg 12/04/23 08:00 12/05/23 09:34 Hydrocortisone 10 Mg Tablet PO 10 mg DAILY@0800 ASHLEY Administration Hydrocortisone Sodium Succinate 100 mg 12/04/23 06:00 12/05/23 06:03 Hydrocortisone Sodium Succinate 100 Mg/2 Ml Vial IV PUSH 100 mg Q8HR ASHLEY Administration Meropenem 1 gm in 100 mls @ 200 mls/hr 12/04/23 09:00 12/05/23 01:45 IVPB Infused Q8H ASHLEY Infusion Azithromycin 500 mg in 250 mls @ 250 mls/hr 12/05/23 05:00 12/05/23 06:03 Zithromax IVPB 250 mls/hr Q24H ASHLEY Administration Latanoprost 1 drop 12/04/23 21:00 12/04/23 22:02 Latanoprost 0.005% Op Soln 2.5 Ml Btl LEFT EYE 1 drop HS ASHLEY Administration Lidocaine 1 patch 12/04/23 09:00 12/05/23 09:36 Lidocaine 5% Patch TOPICAL 1 patch DAILY ASHLEY Administration Lidocaine 1 patch 12/04/23 14:55 12/05/23 09:36 Lidocaine 5% Patch TRANSDERM 1 patch DAILY ASHLEY Administration Lorazepam 0.5 mg 12/04/23 12:19 Lorazepam Inj (*Crx) 2 Mg/Ml Vial IV PUSH Q6H PRN Seizure Activity Memantine 10 mg 12/04/23 09:00 12/05/23 09:34 Memantine 5 Mg Tablet PO 10 mg BID ASHLEY Administration Metoprolol Succinate 25 mg 12/04/23 09:00 12/05/23 09:35 Metoprolol Succinate Ext Rel 25 Mg Tabcr PO 25 mg Q12HR ASHLEY Administration Miconazole Nitrate 1 applic 12/04/23 11:00 12/04/23 22:01 Miconazole 2% Antifungal Ointment 56 Gm TOPICAL 1 applic Q12HR ASHLEY Administration Miscellaneous Information 0 each 12/04/23 00:01 Ramelteon Non Formulary XX 01/03/24 00:00 [facility] Non-Formulary Medication 8 mg 12/04/23 05:29 Ramelteon PO QHS PRN Insomnia Ondansetron HCl 4 mg 12/04/23 00:04 Ondansetron Inj 4 Mg/2 Ml Vial IV PUSH Q4H PRN Nausea Oxycodone HCl 5 mg 12/04/23 05:29 Oxycodone Hcl (*Crx) 5 Mg Tab Ir PO Q4H PRN Pain Rated 7-10 Pantoprazole Sodium 40 mg 12/04/23 09:00 12/05/23 09:35 Pantoprazole 40 Mg Tablet PO 40 mg DAILY ASHLEY Administration Polyethylene Glycol 17 gm 12/04/23 09:00 12/05/23 09:35 Polyethylene Glycol 3350 17 Gm Powd.Pack PO 17 gm QAM ASHLEY Administration Prednisolone Acetate 1 drop 12/04/23 21:00 12/04/23 22:02 Prednisolone Acetate 1% Ophth 5 Ml RIGHT EYE 1 drop HS ASHLEY Administration Sertraline HCl 25 mg 12/04/23 09:00 12/05/23 09:35 Sertraline Hcl 25 Mg Tablet PO 25 mg QAM [facility] Administration Vitamin D 2,000 units 12/04/23 09:00 12/05/23 09:34 Cholecalciferol 1,000 Units Tablet PO 2,000 units DAILY ASHLEY Administration Radiology Results: ITS Impressions Chest X-Ray 12/03/23 22:29 IMPRESSION: Small focus of atelectasis/consolidation in the left lower lung. Senescent change versus mild interstitial edema. Head CT 12/03/23 23:15 IMPRESSION: No acute intracranial process. Abdomen/Pelvis CT 12/03/23 23:22 IMPRESSION: No acute abdominopelvic process detected. 7 mm right lower lobe pulmonary nodule, stable over the intervening 6 months. Consider follow-up low-dose noncontrast CT of the chest in 12-18 months. Labs Labs: Laboratory Results - last 24 hr 12/04/23 12/04/23 12/05/23 09:29 10:53 04:08 WBC 8.3 RBC 3.40 L Hgb 9.6 L Hct 28.7 L MCV 84.4 MCH 28.2 MCHC 33.4 RDW 16.4 H Plt Count 171 MPV 10.2 Immature Gran % (Auto) 0.5 Neut % (Auto) 88.1 H Lymph % (Auto) 9.8 L [place] % (Auto) 1.5 L Eos % (Auto) 0.0 Baso % (Auto) 0.1 L Lymph # (Auto) 0.81 L [place] # (Auto) 0.1 Eos # (Auto) 0.0 Baso # (Auto) 0.0 Abs Immat Gran (auto) 0.04 H Absolute Neuts (auto) 7.3 H Absolute Nucleated RBC 0.020 H Nucleated RBC % 0.2 Sodium 137 Potassium 4.2 Chloride 103 Carbon Dioxide 26 Anion Gap 8 BUN 24 H Creatinine 0.90 Estim Creat Clear Calc 65 Estimated GFR > 60 Glucose 113 H Calcium 9.1 Total Bilirubin 0.7 AST 85 H ALT 117 H Alkaline Phosphatase 245 H Total Protein 7.0 Albumin 3.6 TSH 2.110 Random Cortisol 68.70 U Random Total Protein 15 Urine Creatinine 15.1 Protein/Creat Ratio 2 0.99 H Quality VTE Prophylaxis VTE prophylaxis: mechanical ordered
[2023-12-05 10:38] LABS: Sodium 138 mmol/L (137-145)
--- NOTE | 2023-12-05 11:05 | P.PNNP_ITS ---
Progress Note: A&P Assessment and Plan (1) Diabetes insipidus: Onset Date: 05/2023 Code(s): E23.2 - Diabetes insipidus Status: Suspected Assessment and Plan: * suspected due to work-up and evaluation on May 2023 admission/hospitalization * noted MRI of pituitary at that time (enlargement of the lateral and fourth ventricles concerning for normal pressure hydrocephalus and empty sella) * empirically started on DDAVP at that time * saw Endocrinology to confirm/verify diagnosis (but has not yet had follow-up visit) * DDAVP on hold given previous hyponatremia -- suspect we may need to restart soon * despite her increased free water intake, she still had issues with hypernatremia * noted increased urine output overnight.... * follow trend of repeat sodiums (2) Hyponatremia: Code(s): E87.1 - Hypo-osmolality and hyponatremia Status: Resolved Assessment and Plan: * as noted on admission with sodium of 122 * corrected with holding DDAVP and normal saline IVF * suspect was not eating and drinking well due to AMS (impaired thirst mechanism) and continued to receive DDAVP which led to low sodium * concern of overcorrection exists but I suspect her sodium fluctuates to extremes at baseline * follow trend of repeat sodium levels (3) Altered mental status: Qualifiers: Altered mental status type: disorientation Qualified Code(s): R41.0 - Disorientation, unspecified Code(s): R41.82 - Altered mental status, unspecified Status: Acute Assessment and Plan: * improvement noted (if not back to baseline) * etiology?? * infection versus low sodium versus seizure versus hypothermia versus other.... 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 Subjective Date/time seen: 12/05/23 11:05 Interval history: Follow-up for acute hyponatremia and suspected diagnosis of diabetes insipidus. Sodium level has corrected with a combination of IVFs and holding DDAVP with noted increase in urine output in the last 24 hours; mental status appears to have improved significantly -- awake and alert and conversive at the time of my visit; no apparent distress noted otherwise. Exam Narrative: General: elderly but WD/WN female in NAD Heart: normal S1 and S2; no rub Lungs: clear to auscultation Abdomen: soft, nontender, nondistended, positive bowel sounds Extremities: no cyanosis or clubbing; no edema Skin: warm and dry Objective Data Vital Signs Vital Signs: Vital Signs Temp Pulse Resp BP Pulse Ox O2 Del Method 12/05/23 10:00 61 12/05/23 09:35 73 12/05/23 08:00 97.5 F L 68 12 146/85 H 99 12/05/23 06:00 66 12/05/23 04:00 65 12/05/23 02:00 67 12/05/23 00:00 66 12/04/23 22:00 71 12/04/23 20:00 77 12/05/23 04:00 97.3 F L 70 16 133/85 99 12/05/23 04:00 Room Air 12/05/23 00:00 Room Air 12/05/23 00:00 96.9 F L 67 16 130/70 97 12/04/23 20:00 Room Air 12/04/23 22:00 71 12/04/23 20:00 97.7 F 78 18 109/57 L 99 12/04/23 18:00 73 12/04/23 16:00 68 12/04/23 16:00 97.6 F 68 18 112/62 97 Intake/Output Intake/Output: Intake & Output 12/02/23 12/03/23 12/04/23 12/05/23 23:59 23:59 23:59 23:59 Intake Total 1000 2296.2 1628.8 Output Total 1450 3100 Balance 1000 846.2 -1471.2 Meds/Results Medications: Active Medications Generic Name Dose Route Start Last Admin Trade Name Freq PRN Reason Stop Dose Admin Acetaminophen 650 mg 12/04/23 00:04 Acetaminophen 325 Mg Tablet PO Q4H PRN Mild Pain (1-3) or Fever Apixaban 5 mg 12/04/23 09:00 12/05/23 09:33 Apixaban 5 Mg Tablet PO 5 mg Q12HR ASHLEY Administration Bisacodyl 10 mg 12/04/23 05:29 Bisacodyl 5 Mg Tablet Ec PO DAILY PRN Constipation Desmopressin Acetate 0.1 mg 12/04/23 09:00 12/04/23 09:54 Desmopressin Acetate 0.1 Mg Tablet PO Not Given [email or web address] ASHLEY Dorzolamide/Timolol 1 drop 12/04/23 09:00 12/05/23 09:37 Dorzolamide/Timolol Ophth Yvonne 10 Ml Bottle EACH EYE 1 drop Q12HR ASHLEY Administration Gabapentin 300 mg 12/04/23 09:00 12/05/23 14:31 Gabapentin 300 Mg Capsule PO 300 mg TID ASHLEY Administration Hydrocortisone 5 mg 12/04/23 17:00 12/04/23 17:26 Hydrocortisone 5 Mg Tablet PO 5 mg DAILY@1700 ASHLEY Administration Hydrocortisone 10 mg 12/04/23 08:00 12/05/23 09:34 Hydrocortisone 10 Mg Tablet PO 10 mg DAILY@0800 ASHLEY Administration Hydrocortisone Sodium Succinate 100 mg 12/04/23 06:00 12/05/23 14:31 Hydrocortisone Sodium Succinate 100 Mg/2 Ml Vial IV PUSH 100 mg Q8HR ASHLEY Administration Meropenem 1 gm in 100 mls @ 200 mls/hr 12/04/23 09:00 12/05/23 10:04 IVPB 200 mls/hr Q8H ASHLEY Administration Azithromycin 500 mg in 250 mls @ 250 mls/hr 12/05/23 05:00 12/05/23 06:03 Zithromax IVPB 250 mls/hr Q24H ASHLEY Administration Latanoprost 1 drop 12/04/23 21:00 12/04/23 22:02 Latanoprost 0.005% Op Soln 2.5 Ml Btl LEFT EYE 1 drop HS ASHLEY Administration Lidocaine 1 patch 12/04/23 09:00 12/05/23 09:36 Lidocaine 5% Patch TOPICAL 1 patch DAILY ASHLEY Administration Lidocaine 1 patch 12/04/23 14:55 12/05/23 09:36 Lidocaine 5% Patch TRANSDERM 1 patch DAILY ASHLEY Administration Lorazepam 0.5 mg 12/04/23 12:19 Lorazepam Inj (*Crx) 2 Mg/Ml Vial IV PUSH Q6H PRN Seizure Activity Memantine 10 mg 12/04/23 09:00 12/05/23 09:34 Memantine 5 Mg Tablet PO 10 mg BID ASHLEY Administration Metoprolol Succinate 25 mg 12/04/23 09:00 12/05/23 09:35 Metoprolol Succinate Ext Rel 25 Mg Tabcr PO 25 mg Q12HR ASHLEY Administration Miconazole Nitrate 1 applic 12/04/23 11:00 12/05/23 14:31 Miconazole 2% Antifungal Ointment 56 Gm TOPICAL 1 applic Q12HR ASHLEY Administration Miscellaneous Information 0 each 12/04/23 00:01 Ramelteon Non Formulary XX 01/03/24 00:00 [facility] Non-Formulary Medication 8 mg 12/04/23 05:29 Ramelteon PO QHS PRN Insomnia Ondansetron HCl 4 mg 12/04/23 00:04 Ondansetron Inj 4 Mg/2 Ml Vial IV PUSH Q4H PRN Nausea Oxycodone HCl 5 mg 12/04/23 05:29 Oxycodone Hcl (*Crx) 5 Mg Tab Ir PO Q4H PRN Pain Rated 7-10 Pantoprazole Sodium 40 mg 12/04/23 09:00 12/05/23 09:35 Pantoprazole 40 Mg Tablet PO 40 mg DAILY ASHLEY Administration Polyethylene Glycol 17 gm 12/04/23 09:00 12/05/23 09:35 Polyethylene Glycol 3350 17 Gm Powd.Pack PO 17 gm QAM ASHLEY Administration Prednisolone Acetate 1 drop 12/04/23 21:00 12/04/23 22:02 Prednisolone Acetate 1% Ophth 5 Ml RIGHT EYE 1 drop HS ASHLEY Administration Sertraline HCl 25 mg 12/04/23 09:00 12/05/23 09:35 Sertraline Hcl 25 Mg Tablet PO 25 mg QAM ASHLEY Administration Vitamin D 2,000 units 12/04/23 09:00 12/05/23 09:34 Cholecalciferol 1,000 Units Tablet PO 2,000 units DAILY ASHLEY Administration Radiology Results: ITS Impressions Chest X-Ray 12/03/23 22:29 IMPRESSION: Small focus of atelectasis/consolidation in the left lower lung. Senescent change versus mild interstitial edema. Head CT 12/03/23 23:15 IMPRESSION: No acute intracranial process. Abdomen/Pelvis CT 12/03/23 23:22 IMPRESSION: No acute abdominopelvic process detected. 7 mm right lower lobe pulmonary nodule, stable over the intervening 6 months. Consider follow-up low-dose noncontrast CT of the chest in 12-18 months. Labs Labs: Laboratory Tests 12/05/23 04:08 12/05/23 04:08 Sodium 137 Potassium 4.2 Chloride 103 Carbon Dioxide 26 Anion Gap 8 BUN 24 H Creatinine 0.90 Estim Creat Clear Calc 65 Estimated GFR > 60 Glucose 113 H Calcium 9.1 Total Bilirubin 0.7 AST 85 H ALT 117 H Alkaline Phosphatase 245 H Total Protein 7.0 Albumin 3.6 Microbiology 12/03/23 23:41 Blood Blood Culture - Preliminary 12/03/23 23:41 Blood Blood Culture - Preliminary 12/03/23 22:06 Urine Catheterized Urine Culture - Final
[2023-12-05 11:55] LABS: Glucose Point of Care 191 mg/dl (65-105)
[2023-12-05 12:45] LABS: Sodium 139 mmol/L (137-145)
--- NOTE | 2023-12-05 14:36 | WPDNEUROLOGY ---
Neurology EEG Report General Information Date of Study: 12/04/23 TEST Electroencephalogram DIAGNOSIS possible seizure activity CONDITION OF RECORDING bedside recording EEG NUMBER [id number] CLINICAL HISTORY possible seizure disorder. Patient has history of normal pressure hydrocephalus and has a shunt on the right side. EEG DESCRIPTION During wakefulness the background activity consists of posterior dominant rhythm in theta range. Intermittently delta activity was seen intermixed with the background activity. Patient may be further drowsy during which further attenuation of background activity was noted however patient did not progress to stage 2 sleep. Hyperventilation or photic stimulation were not performed. IMPRESSION This is an abnormal EEG due to presence of moderate diffuse background slowing suggestive of generalized encephalopathy however no definite focal or paroxysmal epileptiform abnormality was not seen.
--- NOTE | 2023-12-05 17:00 | WPDNEURCNPN ---
Assessment and Plan Assessment and plan (1) Status post fall: Code(s): Z91.81 - History of falling Status: Acute Assessment and Plan: The etiology of fall may include possibility of accidental fall versus a neurological metabolic etiology. The patient appears to have physically somewhat limited. However we should follow-up regarding these issues. (2) Normal pressure hydrocephalus: Onset Date: 05/2023 Code(s): G91.2 - (Idiopathic) normal pressure hydrocephalus Status: Chronic Assessment and Plan: The patient appears to have a functioning shunt. However she does have dementia and she is on Namenda. (3) Left-sided cerebrovascular accident (CVA): Code(s): I63.9 - Cerebral infarction, unspecified Status: Acute Assessment and Plan: I noted the patient has mild weakness of the right face and right upper limb. It is not clear to me whether it is new or pre-existing since he does have history of neurological problems although most of the history seems to be surrounding the ventriculomegaly and shunting for that. Plan I am not sure about the finding of weakness in the right face and right upper limb being old or new however there is no reference to this in the previous notes and hence I would suggest an MRI of the brain. The previous MRI of the brain performed at this hospital on 07/08/2023 had shown stable ventriculomegaly but there was no evidence for any significant cerebral infarctions. A carotid Doppler study and EEG and lipid profile are recommended. patient also appears to have evidence for dementia however this may be longstanding require some follow-up. her liver enzymes were somewhat high. Her mobility is also restricted his possibility of any pneumonia or urinary tract infection should be under surveillance. Thank you very much Consult date: 12/05/23 HPI: Jolie Banks is a 73 year old female Who fell out of a wheelchair. The patient is a awake and alert and tells me that she is getting worse by the 2nd since he has abnormal feeling in her right ear. However she does not appear to be reliable historian and does not answer to most questions asked although she is able to partially here and follow some of the commands. The patient has history of chronic kidney disease, deep vein thrombosis, normal pressure hydrocephalus and has a ventriculoperitoneal shunt on the right side. She is known to have dementia. Her liver enzymes were somewhat high. She is also suspected urinary tract infection. She was thought to be more confused than usual by the [facility] staff. Her previous records and home medications were reviewed. CT scan of brain shows the shunt is on the right side in the size of the ventricle She was seen by a neurosurgeon at [facility] 09/23/2023 who suggested a shunting.. Review of Systems Review of Systems: ROS unobtainable: Yes unobtainable due to mental status PMFSH Past Medical History Medical History (Updated 12/05/23 @ 17:15 by Freedom Bowens MD) Arthritis Deep venous thrombosis Diabetes insipidus (05/2023) Essential (primary) hypertension Glaucoma Herniated disc lower back History of colon polyps Hypercholesteremia Left-sided cerebrovascular accident (CVA) Mixed hyperlipidemia Normal pressure hydrocephalus (05/2023) Suspected NPH with enlargement of the lateral and 4th ventricles and empty sella on MRI. Post-menopausal Prediabetes Spinal stenosis at L4-L5 level Surgical History Surgical History History of back surgery History of carpal tunnel surgery History of cataract extraction History of cervical discectomy History of colonoscopy with polypectomy History of decompression of ulnar nerve History of excision of lamina of cervical vertebra for decompression of spinal cord History of hysterectomy History of tonsillectomy Family History Family History Mother Diabetes mellitus Hypertension Cerebrovascular accident Sibling Breast cancer Family history of arthritis Other Family history of cardiovascular disease Family history of coronary artery disease Family history of malignant neoplasm Family history of premature coronary heart disease Social History Social History Social History: Surrogate medical decision maker: Daly Jaramillo, spouse. Code status: Do not resuscitate. Smoking status: Never smoker Second hand tobacco smoke exposure: No Alcohol intake: never Alcohol use details: social Substance use: never Substance use type: does not use Do You Feel Safe in your Home?: Yes Lack of Transportation: No Lack of Food: Never True Current Housing: I Have Housing Concerned About Future Housing: No Difficulty Paying Gas/Electric Bills: No Difficulty Paying for Meds: No Currently Unemployed: No Education: High School Diploma/GED Difficulty w/ Childcare or Family Care: No Living arrangements: with family Occupation/Education: retired Gender identity (if verbalized by the patient): Female Spiritual care concerns: No Meds Home Medications and Allergies Home Medications Medication Instructions Recorded Confirmed Type latanoprost 0.005 % eye drops 1 drp LEFT EYE HS 01/28/22 12/04/23 History prednisolone acetate 1 % eye 1 drp RIGHT EYE HS 01/28/22 12/04/23 History drops,suspension cholecalciferol (vitamin D3) 50 50 mcg PO DAILY #90 tabs 04/29/22 12/04/23 Rx mcg (2,000 unit) tablet dorzolamide 22.3 mg-timolol 6.8 1 drp EACH EYE Q12H 06/04/22 12/04/23 History mg/mL eye drops metoprolol succinate 25 mg 25 mg PO BID #180 tabs 03/25/23 12/04/23 Rx tablet,extended release 24 hr sertraline 25 mg tablet 25 mg PO QAM 05/23/23 12/04/23 History apixaban 5 mg tablet (Eliquis) 5 mg PO Q12H #60 tabs 07/11/23 12/04/23 Rx atorvastatin 80 mg tablet 80 mg PO HS 08/20/23 12/04/23 History desmopressin 0.1 mg tablet 0.1 mg PO .MWF 08/20/23 12/04/23 History hydrocortisone 10 mg tablet 10 mg PO DAILY@0800 08/20/23 12/04/23 History omeprazole 20 mg capsule,delayed 20 mg PO DAILY 08/20/23 12/04/23 History release acetaminophen 500 mg tablet 1,000 mg PO Q6H PRN Pain (Scale 11/12/23 12/04/23 History (Tylenol Extra Strength) Score 1-3) gabapentin 300 mg capsule 300 mg PO TID 11/12/23 12/04/23 History memantine 5 mg tablet 10 mg PO BID 11/12/23 12/04/23 History ramelteon 8 mg tablet 8 mg PO QHS PRN Insomnia 11/12/23 12/04/23 History sennosides 8.6 mg-docusate sodium 1 tab-cap PO DAILY 11/12/23 12/04/23 History 50 mg capsule (Senna Plus) bisacodyl 5 mg tablet,delayed 10 mg PO PRN PRN Constipation 12/04/23 12/04/23 History release hydrocortisone 5 mg tablet 5 mg PO DAILY 12/04/23 12/04/23 History lidocaine 5 % topical patch 1 patch topical DAILY 12/04/23 12/04/23 History oxycodone 5 mg tablet 5 mg PO Q4H PRN Pain 12/04/23 12/04/23 History polyethylene glycol 3350 17 gram 17 g PO QAM 12/04/23 12/04/23 History oral powder packet (Miralax) Allergies Allergy/AdvReac Type Severity Reaction Status Date / Time No Known Allergies Allergy Verified 11/12/23 09:30 Vital Signs Vital Signs - 24 hr 12/04/23 18:00 12/04/23 20:00 12/04/23 22:00 Temperature 97.7 F Pulse Rate 73 78 71 Respiratory Rate 18 Blood Pressure 109/57 L Pulse Oximetry 99 Oxygen Delivery 12/04/23 20:00 12/05/23 00:00 12/05/23 00:00 Temperature 96.9 F L Pulse Rate 67 Respiratory Rate 16 Blood Pressure 130/70 Pulse Oximetry 97 Oxygen Delivery Room Air Room Air 12/05/23 04:00 12/05/23 04:00 12/04/23 20:00 Temperature 97.3 F L Pulse Rate 70 77 Respiratory Rate 16 Blood Pressure 133/85 Pulse Oximetry 99 Oxygen Delivery Room Air 12/04/23 22:00 12/05/23 00:00 12/05/23 02:00 Temperature Pulse Rate 71 66 67 Respiratory Rate Blood Pressure Pulse Oximetry Oxygen Delivery 12/05/23 04:00 12/05/23 06:00 12/05/23 08:00 Temperature 97.5 F L Pulse Rate 65 66 68 Respiratory Rate 12 Blood Pressure 146/85 H Pulse Oximetry 99 Oxygen Delivery 12/05/23 09:35 12/05/23 12:00 12/05/23 08:00 Temperature Pulse Rate 73 63 69 Respiratory Rate 16 Blood Pressure 107/58 L Pulse Oximetry 98 Oxygen Delivery 12/05/23 10:00 12/05/23 12:00 12/05/23 14:00 Temperature Pulse Rate 61 61 54 L Respiratory Rate Blood Pressure Pulse Oximetry Oxygen Delivery 12/05/23 16:00 12/05/23 16:00 Temperature Pulse Rate 62 55 L Respiratory Rate 16 Blood Pressure 161/90 H Pulse Oximetry 100 Oxygen Delivery Exam Narrative: Patient is fully conscious alert but she appears to have some cognitive impairment. I am not able to get any good answers from her she seems to repeat things many times and became very emotional and started crying. There is a mild weakness of the right face and also mild weakness of the right upper limb. Lower limb probably symmetric on both sides. Patient not able to cooperate very well. Deep tendon reflexes did not show any significant asymmetry. No involuntary movements are seen. Results Labs 12/05/23 04:08 12/05/23 12:31 Labs: Short CBC 12/05/23 Range/Units 04:08 WBC 8.3 (4.5-10.0) K/mm3 Hgb 9.6 L (12.0-15.0) g/dL Hct 28.7 L (37.0-47.0) % Plt Count 171 (150-375) k/mm3 BMP 12/05/23 12/05/23 12/05/23 04:08 10:17 12:31 Sodium 137 138 139 Potassium 4.2 Chloride 103 Carbon Dioxide 26 BUN 24 H Creatinine 0.90 Glucose 113 H Calcium 9.1 Liver Function 12/05/23 Range/Units 04:08 Total Bilirubin 0.7 (0.2-1.3) mg/dL AST 85 H (14-36) U/L ALT 117 H (6-35) U/L Alkaline Phosphatase 245 H (38-126) U/L Albumin 3.6 (3.5-5.1) g/dL Imaging Attestation: I personally reviewed and interpreted this imaging study as follows: ( Current and previous CT scan of the head) My impression: current CT scan of the brain shows the ventricle size is less than before and there is a shunt noted in the right ventricle.
[2023-12-05] MEDS: HYDROCORTISONE 5 MG TABLET PO (17:53)
[2023-12-05 18:59] LABS: Cholesterol 177 mg/dL (0-200); HDL Direct 62 mg/dL; Triglycerides 37 mg/dL (<150)
[2023-12-05 19:10] LABS: LDL Cholesterol Direct 64 mg/dL
[2023-12-05 19:16] LABS: Vitamin D 25 Hydroxy 35.9 ng/mL
[2023-12-05 20:08] LABS: Folic Acid 4.1 ng/mL (2.76->20)
[2023-12-05] MEDS: prednisoLONE ACETATE 1% OPHTH 5 ML 1 DROP RIGHT EYE (21:13)
[2023-12-05] MEDS: LATANOPROST 0.005% OP SOLN 2.5 ML BTL 1 DROP LEFT EYE (21:13)
[2023-12-05] MEDS: traZODone HCL 50 MG TABLET PO (23:47)
[2023-12-06] VITALS (18 sets, daily range): BP systolic 95–153; BP diastolic 57–89; PULSE 53–73; RESP 16–28; TEMP 34.4–36.8; O2SAT 94–100
[2023-12-06] MEDS: MEROPENEM 1 GM/NS 100 ML 1 GM/100 ML BAG IVPB ×3 (01:00→18:34)
[2023-12-06] MEDS: LORazepam INJ (*CRX) 2 MG/ML VIAL 1 MG IV PUSH (01:25)
[2023-12-06] MEDS: HYDROCORTISONE SODIUM SUCCINATE 100 MG/2 ML VIAL IV PUSH ×3 (05:57→21:13)
[2023-12-06] MEDS: AZITHROMYCIN 500 MG/NS 250 ML 500 MG/250 ML BAG 250 MG IVPB (05:57)
[2023-12-06 07:02] LABS: Basophils Percent Auto 0.1 % (0.2-1.2); Hematocrit 28.3 % (37.0-47.0); Hemoglobin 8.9 g/dL (12.0-15.0); Immature Granulocyte Absolute 0.05 K/mm3 (0.00-0.031); Immature Granulocyte Percent A 0.4 % (0-0.5); Lymphocytes Absolute Auto 1.03 K/mm3 (0.9-3.2); Lymphocytes Percent Auto 8.9 % (18.3-44.2); Mean Corpuscular HGB Conc 31.4 g/dl (32-36); Mean Corpuscular Hemoglobin 27.8 pg (26-34); Mean Corpuscular Volume 88.4 fl (80-100); Mean Platelet Volume 10.4 fl (7.4-10.4); Monocytes Absolute Auto 0.3 K/mm3 (0.1-0.6); Monocytes Percent Auto 2.5 % (2.6-8.5); Neutrophils Absolute Auto 10.2 K/mm3 (1.3-6.7); Neutrophils Percent Auto 88.1 % (45.5-73.1); Nucleated Red Blood Cells Perc 0.3 % (0.0-0.2); Platelet Count Result 176 k/mm3 (150-375); White Blood Count 11.6 K/mm3 (4.5-10.0)
[2023-12-06 07:20] LABS: Alanine Aminotransferase 100 U/L (6-35); Albumin Level 3.4 g/dL (3.5-5.1); Alkaline Phosphatase 237 U/L (38-126); Anion Gap 7 mmol/L (4-12); Aspartate Amino Transferase 65 U/L (14-36); Bilirubin,Total 0.6 mg/dL (0.2-1.3); Blood Urea Nitrogen 20 mg/dL (7-17); Calcium 9.3 mg/dL (8.4-10.2); Carbon Dioxide 30 mmol/L (22-30); Chloride 112 mmol/L (98-107); Estimated CRCL calculation 81 ml/min; Estimated Glomerular Filt Rate > 60; Glucose 106 mg/dL (65-110); Potassium 3.7 mmol/L (3.4-5.0); Sodium 149 mmol/L (137-145)
--- NOTE | 2023-12-06 07:44 | PC.NURSE ---
Called hospitalist number at [phone]; advised that patient's rectal temp was 93.9 and that jaden hugger was put back on patient. Patient was also transferred back to IMU status. No new orders.
[2023-12-06] MEDS: LIDOCAINE 5% PATCH 1 PATCH TRANSDERM (09:59)
[2023-12-06] MEDS: LIDOCAINE 5% PATCH 1 PATCH TOPICAL (09:59)
[2023-12-06] MEDS: SERTRALINE HCL 25 MG TABLET PO (10:00)
[2023-12-06] MEDS: PANTOPRAZOLE 40 MG TABLET PO (10:00)
[2023-12-06] MEDS: APIXABAN 5 MG TABLET PO ×2 (10:00→21:13)
[2023-12-06] MEDS: MEMANTINE 5 MG TABLET 10 MG PO ×2 (10:00→18:34)
[2023-12-06] MEDS: GABAPENTIN 300 MG CAPSULE PO ×3 (10:00→18:34)
[2023-12-06] MEDS: HYDROCORTISONE 10 MG TABLET PO (10:01)
[2023-12-06] MEDS: CHOLECALCIFEROL 1,000 UNITS TABLET 2000 UNITS PO (10:01)
[2023-12-06] MEDS: METOPROLOL SUCCINATE EXT REL 25 MG TABCR PO ×2 (10:01→21:12)
[2023-12-06] MEDS: polyethylene glycoL 3350 17 GM POWD.PACK PO (10:02)
[2023-12-06] MEDS: DORZOLAMIDE/TIMOLOL OPHTH SOL 10 ML BOTTLE 1 DROP EACH EYE ×2 (10:03→22:33)
--- NOTE | 2023-12-06 13:30 | P.PNNP_ITS ---
Progress Note: A&P Assessment and Plan (1) Diabetes insipidus: Onset Date: 05/2023 Code(s): E23.2 - Diabetes insipidus Status: Suspected Assessment and Plan: * suspected due to work-up and evaluation on May 2023 admission/hospitalization * noted MRI of pituitary at that time (enlargement of the lateral and fourth ventricles concerning for normal pressure hydrocephalus and empty sella) * empirically started on DDAVP at that time * saw Endocrinology to confirm/verify diagnosis (but has not yet had follow-up visit) * DDAVP on hold given previous hyponatremia... * given significant UOP in the last 24 hours with hypernatremia, dose with DDAVP today and resume 3x/week schedule next week * follow trend of repeat sodiums (2) Hyponatremia: Code(s): E87.1 - Hypo-osmolality and hyponatremia Status: Resolved Assessment and Plan: * resolved * as noted on admission with sodium of 122 * corrected with holding DDAVP and normal saline IVF * suspect was not eating and drinking well due to AMS (impaired thirst mechanism) and continued to receive DDAVP which led to low sodium * concern of overcorrection exists but I suspect her sodium fluctuates to extremes at baseline (3) Altered mental status: Qualifiers: Altered mental status type: disorientation Qualified Code(s): R41.0 - Disorientation, unspecified Code(s): R41.82 - Altered mental status, unspecified Status: Acute Assessment and Plan: * improvement noted (if not back to baseline) * etiology?? * infection versus low sodium versus seizure versus hypothermia versus other.... 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 Subjective Date/time seen: 12/06/23 13:30 Interval history: Follow-up for acute hyponatremia and suspected diagnosis of diabetes insipidus. Significant polyuria in the last 24 hours in association with rise in sodium level/hypernatremia; already given a dose of DDAVP and will resume 3x/week as was orginally given prior to admission; mentation seems stabe if not better; no apparent distress voiced. Exam Narrative: General: elderly but WD/WN female in NAD Heart: normal S1 and S2; no rub Lungs: clear to auscultation Abdomen: soft, nontender, nondistended, positive bowel sounds Extremities: no cyanosis or clubbing; no edema Skin: warm and intact Objective Data Vital Signs Vital Signs: Vital Signs Temp Pulse Resp BP Pulse Ox O2 Del Method 12/06/23 12:00 95.3 F L 62 18 125/87 100 Room Air 12/06/23 10:01 59 L 12/06/23 08:37 95.4 F L 56 L 153/76 H 96 12/06/23 08:09 95.5 F L 65 18 148/84 H 94 12/06/23 07:21 95 F L 58 L 18 151/87 H 100 12/06/23 06:52 93.9 F L 60 16 130/89 98 12/06/23 06:00 94.2 F L 54 L 20 127/70 99 12/06/23 04:00 53 L 12/06/23 02:00 67 12/05/23 20:00 Room Air 12/06/23 00:00 73 12/05/23 22:00 71 12/05/23 20:00 64 12/05/23 23:56 97.5 F L 64 20 154/84 H 99 12/05/23 20:50 68 12/05/23 20:00 97.5 F L 63 20 139/80 96 Intake/Output Intake/Output: Intake & Output 12/03/23 12/04/23 12/05/23 12/06/23 23:59 23:59 23:59 23:59 Intake Total 1000 2296.2 2818.8 340 Output Total 1450 6900 2000 Balance 1000 846.2 -4081.2 -1660 Meds/Results Medications: Active Medications Generic Name Dose Route Start Last Admin Trade Name Freq PRN Reason Stop Dose Admin Acetaminophen 650 mg 12/04/23 00:04 Acetaminophen 325 Mg Tablet PO Q4H PRN Mild Pain (1-3) or Fever Apixaban 5 mg 12/04/23 09:00 12/06/23 10:00 Apixaban 5 Mg Tablet PO 5 mg Q12HR ASHLEY Administration Bisacodyl 10 mg 12/04/23 05:29 Bisacodyl 5 Mg Tablet Ec PO DAILY PRN Constipation Desmopressin Acetate 0.1 mg 12/04/23 09:00 12/04/23 09:54 Desmopressin Acetate 0.1 Mg Tablet PO Not Given [id number]@[id number] ASHLEY Dorzolamide/Timolol 1 drop 12/04/23 09:00 12/06/23 10:03 Dorzolamide/Timolol Ophth Yvonne 10 Ml Bottle EACH EYE 1 drop Q12HR ASHLEY Administration Gabapentin 300 mg 12/04/23 09:00 12/06/23 13:41 Gabapentin 300 Mg Capsule PO 300 mg TID ASHLEY Administration Hydrocortisone 5 mg 12/04/23 17:00 12/05/23 17:53 Hydrocortisone 5 Mg Tablet PO 5 mg DAILY@1700 ASHLEY Administration Hydrocortisone 10 mg 12/04/23 08:00 12/06/23 10:01 Hydrocortisone 10 Mg Tablet PO 10 mg DAILY@0800 ASHLEY Administration Hydrocortisone Sodium Succinate 100 mg 12/04/23 06:00 12/06/23 13:41 Hydrocortisone Sodium Succinate 100 Mg/2 Ml Vial IV PUSH 100 mg Q8HR ASHLEY Administration Meropenem 1 gm in 100 mls @ 200 mls/hr 12/04/23 09:00 12/06/23 10:02 IVPB 200 mls/hr Q8H ASHLEY Administration Azithromycin 500 mg in 250 mls @ 250 mls/hr 12/05/23 05:00 12/06/23 05:57 Zithromax IVPB 250 mls/hr Q24H ASHLEY Administration Latanoprost 1 drop 12/04/23 21:00 12/05/23 21:13 Latanoprost 0.005% Op Soln 2.5 Ml Btl LEFT EYE 1 drop HS ASHLEY Administration Lidocaine 1 patch 12/04/23 09:00 12/06/23 09:59 Lidocaine 5% Patch TOPICAL 1 patch DAILY ASHLEY Administration Lidocaine 1 patch 12/04/23 14:55 12/06/23 09:59 Lidocaine 5% Patch TRANSDERM 1 patch DAILY ASHLEY Administration Lorazepam 0.5 mg 12/04/23 12:19 Lorazepam Inj (*Crx) 2 Mg/Ml Vial IV PUSH Q6H PRN Seizure Activity Memantine 10 mg 12/04/23 09:00 12/06/23 10:00 Memantine 5 Mg Tablet PO 10 mg BID ASHLEY Administration Metoprolol Succinate 25 mg 12/04/23 09:00 12/06/23 10:01 Metoprolol Succinate Ext Rel 25 Mg Tabcr PO 25 mg Q12HR ASHLEY Administration Miconazole Nitrate 1 applic 12/04/23 11:00 12/05/23 21:13 Miconazole 2% Antifungal Ointment 56 Gm TOPICAL 1 applic Q12HR ASHLEY Administration Miscellaneous Information 0 each 12/04/23 00:01 Ramelteon Non Formulary XX 01/03/24 00:00 [facility] Non-Formulary Medication 8 mg 12/04/23 05:29 Ramelteon PO QHS PRN Insomnia Ondansetron HCl 4 mg 12/04/23 00:04 Ondansetron Inj 4 Mg/2 Ml Vial IV PUSH Q4H PRN Nausea Oxycodone HCl 5 mg 12/04/23 05:29 Oxycodone Hcl (*Crx) 5 Mg Tab Ir PO Q4H PRN Pain Rated 7-10 Pantoprazole Sodium 40 mg 12/04/23 09:00 12/06/23 10:00 Pantoprazole 40 Mg Tablet PO 40 mg DAILY ASHLEY Administration Polyethylene Glycol 17 gm 12/04/23 09:00 12/06/23 10:02 Polyethylene Glycol 3350 17 Gm Powd.Pack PO 17 gm QAM ASHLEY Administration Prednisolone Acetate 1 drop 12/04/23 21:00 12/05/23 21:13 Prednisolone Acetate 1% Ophth 5 Ml RIGHT EYE 1 drop HS ASHLEY Administration Sertraline HCl 25 mg 12/04/23 09:00 12/06/23 10:00 Sertraline Hcl 25 Mg Tablet PO 25 mg QAM [facility] Administration Vitamin D 2,000 units 12/04/23 09:00 12/06/23 10:01 Cholecalciferol 1,000 Units Tablet PO 2,000 units DAILY ASHLEY Administration Radiology Results: ITS Impressions Chest X-Ray 12/03/23 22:29 IMPRESSION: Small focus of atelectasis/consolidation in the left lower lung. Senescent change versus mild interstitial edema. Head CT 12/03/23 23:15 IMPRESSION: No acute intracranial process. Abdomen/Pelvis CT 12/03/23 23:22 IMPRESSION: No acute abdominopelvic process detected. 7 mm right lower lobe pulmonary nodule, stable over the intervening 6 months. Consider follow-up low-dose noncontrast CT of the chest in 12-18 months. Carotid Doppler Study 12/06/23 13:56 IMPRESSION: 1. <50% stenosis in the right internal carotid artery. 2. <50% stenosis in the left internal carotid artery. Labs Labs: Laboratory Tests 12/06/23 06:49 12/06/23 06:49 Calcium 9.3 Total Bilirubin 0.6 AST 65 H ALT 100 H Alkaline Phosphatase 237 H Total Protein 7.0 Albumin 3.4 L
[2023-12-06] MEDS: DESMOPRESSIN ACETATE 0.1 MG TABLET PO (13:38)
--- NOTE | 2023-12-06 15:19 | P.PN_ITS ---
Progress Note: A&P Assessment and Plan (1) Acute UTI: Code(s): N39.0 - Urinary tract infection, site not specified Status: Acute Assessment and Plan: 12/04/23: * UA obtained and showing 2+ urine protein, 2+ urine blood, trace leukocyte, greater than 100 urine RBC, 11-20 urine WBC. * Urine and blood cultures obtained and are pending. * Patient had a previous urine culture back on 07/16/2023 which showed Proteus mirabilis which was showing some resistant and on 07/03/2023 urine culture showed E coli with some resistance * Patient started on meropenem 12/05/23: * Urine culture was negative. 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 * Sodium level today is 122 * Desmopressin on hold * Will check a serum osmolarity, urine osmolarity, protein/creatinine ratio, urine sodium, urine specific gravity today. * Patient was also followed by Endocrinology plan was for an MRI of the pituitary however I cannot confirm if this was obtained are not. She has not had an MRI recently in our EMR. * Nephrology consulted 12/05/23: * Sodium level today is 137 today, alert and oriented x3 * Nephrology following * Labs are still pending * Continue to hold desmopressin * Ok to move to regular med/tele floor * Continuous cardiac monitoring (3) Lung infiltrate: Code(s): R91.8 - Other nonspecific abnormal finding of lung field Status: Acute Assessment and Plan: 12/04/23: * Chest x-ray showing small focus of atelectasis/consolidation in the left lower lung zone. * Patient was given a dose Zosyn, vancomycin, azithromycin while in the ED * Antibiotics changed to cefepime and azithromycin * Blood cultures obtained and are pending 12/04/23: * Continue cefepime and azithromycin * Blood culture showing no growth to date on preliminary read * PT and OT ordered (4) Hypothermia: Code(s): T68.XXXA - Hypothermia, initial encounter Status: Acute Assessment and Plan: 12/04/23: * Initial temp on arrival to the hospital was 91.5 * Santos hugger placed overnight and now patient is 97.4 * Santos Hugger now off and patient is being warmed with blankets 12/05/23: * Temperature 97.5? * Continue to monitor (5) Transaminitis: Code(s): R74.01 - Elevation of levels of liver transaminase levels Status: Acute Assessment and Plan: 12/05/23: * Initial AST 109/ALT 131 * Today AST 85, ALT 117 * Continue to trend (6) Altered mental status: Qualifiers: Altered mental status type: disorientation Qualified Code(s): R41.0 - Disorientation, unspecified Code(s): R41.82 - Altered mental status, unspecified Status: Acute Assessment and Plan: 12/04/23: * Altered mental status likely due to hyponatremia versus acute urinary tract infection versus postictal versus active seizure activity, versus hypothermic shock * Continue neuro checks * Place on seizure precautions * Remain in IMU for closer monitoring * Continue cardiac monitoring * Blood and urine cultures were obtained and are pending * Patient had recent fall with head injury. * Head CT was negative for any acute intracranial process. * Will obtain EEG and MRA of the brain and brainstem with and without contrast today * Neurology consulted * Ativan ordered p.r.n. for seizure activity 12/05/23: * Patient unable to get MRI due to FINANCIAL RISK MANAGER shunt * Currently Alert and oriented x3 * Awaiting EEG * Awaiting Neurology input * Continue IMU status for now. (7) Normal pressure hydrocephalus: Onset Date: 05/2023 Code(s): G91.2 - (Idiopathic) normal pressure hydrocephalus Status: Chronic Assessment and Plan: 12/04/23: * Patient has history of a FINANCIAL RISK MANAGER shunt * Head CT showing no acute intracranial process, no hydrocephalus, mass or herniation noted. * Continue to monitor neuro status * Neurology consulted 12/05/23: * No change (8) Adrenal insufficiency: Code(s): E27.40 - Unspecified adrenocortical insufficiency Status: Chronic Assessment and Plan: 12/04/23: * Continue hydrocortisone for adrenal insufficiency 12/05/23: * No change to current treatment plan (9) Stage 3a chronic kidney disease: Code(s): N18.31 - Chronic kidney disease, stage 3a Status: Chronic Assessment and Plan: 12/04/23: * Creatinine 0.8, EGFR greater than 60, estimated creatinine clearance 72 * Continue to trend 12/05/23: * Continue to monitor (10) Obesity, morbid, BMI 40.0-49.9: Code(s): E66.01 - Morbid (severe) obesity due to excess calories Status: Chronic Assessment and Plan: 12/04/23: * BMI 38.3, 117.5 kg * Currently NPO 12/05/23: * No change Plan patient with history of normal hydrocephalus and empty sella, diabetes insipidus resulting in hyponatremia, patient is seen by nenprologist and started patient on DDAVP, patient also has UTI no growth so far, unfortunately patient is not able to provide detailed review of symptom due to dementia and hallucinating patient seen by Neurology and further recommendation to follow. Subjective Date/time seen: 12/06/23 15:19 Interval history: patient with history of normal hydrocephalus and empty sella, diabetes insipidus resulting in hyponatremia, patient is seen by nenprologist and started patient on DDAVP, patient also has UTI no growth so far, unfortunately patient is not able to provide detailed review of symptom due to dementia and hallucinating patient seen by Neurology and further recommendation to follow. Review of Systems Review of Systems: ROS unobtainable: Yes unobtainable due to mental status Exam Narrative: Patient is comfortable, NAD HEENT: eyes are clear and none icteric LUNGS:CTA HEART: RR S1S2 ABD: BS+, Soft and nontender Lower extremities: no edema SKIN: nonjaundiced Neuro:dementia. Objective Data Vital Signs Vital Signs: Vital Signs - 24 hr 12/05/23 16:00 12/05/23 16:00 12/05/23 18:00 Temperature Pulse Rate 62 55 L 60 Respiratory Rate 16 Blood Pressure 161/90 H Pulse Oximetry 100 Oxygen Delivery 12/05/23 20:00 12/05/23 20:50 12/05/23 23:56 Temperature 36.4 C L 36.4 C L Pulse Rate 63 68 64 Respiratory Rate 20 20 Blood Pressure 139/80 154/84 H Pulse Oximetry 96 99 Oxygen Delivery 12/05/23 20:00 12/05/23 22:00 12/06/23 00:00 Temperature Pulse Rate 64 71 73 Respiratory Rate Blood Pressure Pulse Oximetry Oxygen Delivery 12/05/23 20:00 12/06/23 02:00 12/06/23 04:00 Temperature Pulse Rate 67 53 L Respiratory Rate Blood Pressure Pulse Oximetry Oxygen Delivery Room Air 12/06/23 06:00 12/06/23 06:52 12/06/23 07:21 Temperature 34.6 C L 34.4 C L 35 C L Pulse Rate 54 L 60 58 L Respiratory Rate 20 16 18 Blood Pressure 127/70 130/89 151/87 H Pulse Oximetry 99 98 100 Oxygen Delivery 12/06/23 08:09 12/06/23 08:37 12/06/23 10:01 Temperature 35.3 C L 35.2 C L Pulse Rate 65 56 L 59 L Respiratory Rate 18 Blood Pressure 148/84 H 153/76 H Pulse Oximetry 94 96 Oxygen Delivery 12/06/23 08:00 12/06/23 12:11 12/06/23 12:00 Temperature 35.2 C L Pulse Rate 60 62 Respiratory Rate 18 Blood Pressure 125/87 Pulse Oximetry 100 Oxygen Delivery Room Air 12/06/23 12:00 12/06/23 14:00 Temperature Pulse Rate 60 59 L Respiratory Rate Blood Pressure Pulse Oximetry Oxygen Delivery Intake/Output Intake/Output: Intake & Output 12/03/23 12/04/23 12/05/23 12/06/23 23:59 23:59 23:59 23:59 Intake Total 1000 2296.2 2818.8 340 Output Total 1450 6900 2000 Balance 1000 846.2 -4081.2 -1660 Meds/Results Medications: Active Medications Generic Name Dose Route Start Last Admin Trade Name Shabana PRN Reason Stop Dose Admin Acetaminophen 650 mg 12/04/23 00:04 Acetaminophen 325 Mg Tablet PO Q4H PRN Mild Pain (1-3) or Fever Apixaban 5 mg 12/04/23 09:00 12/06/23 10:00 Apixaban 5 Mg Tablet PO 5 mg Q12HR [facility] Administration Bisacodyl 10 mg 12/04/23 05:29 Bisacodyl 5 Mg Tablet Ec PO DAILY PRN Constipation Desmopressin Acetate 0.1 mg 12/04/23 09:00 12/04/23 09:54 Desmopressin Acetate 0.1 Mg Tablet PO Not Given MoWeFr@0900 [facility] Dorzolamide/Timolol 1 drop 12/04/23 09:00 12/06/23 10:03 Dorzolamide/Timolol Ophth Yvonne 10 Ml Bottle EACH EYE 1 drop Q12HR [facility] Administration Gabapentin 300 mg 12/04/23 09:00 12/06/23 13:41 Gabapentin 300 Mg Capsule PO 300 mg TID [facility] Administration Hydrocortisone 5 mg 12/04/23 17:00 12/05/23 17:53 Hydrocortisone 5 Mg Tablet PO 5 mg DAILY@1700 [facility] Administration Hydrocortisone 10 mg 12/04/23 08:00 12/06/23 10:01 Hydrocortisone 10 Mg Tablet PO 10 mg DAILY@0800 [facility] Administration Hydrocortisone Sodium Succinate 100 mg 12/04/23 06:00 12/06/23 13:41 Hydrocortisone Sodium Succinate 100 Mg/2 Ml Vial IV PUSH 100 mg Q8HR [facility] Administration Meropenem 1 gm in 100 mls @ 200 mls/hr 12/04/23 09:00 12/06/23 10:02 IVPB 200 mls/hr Q8H [facility] Administration Azithromycin 500 mg in 250 mls @ 250 mls/hr 12/05/23 05:00 12/06/23 05:57 Zithromax IVPB 250 mls/hr Q24H [facility] Administration Latanoprost 1 drop 12/04/23 21:00 12/05/23 21:13 Latanoprost 0.005% Op Soln 2.5 Ml Btl LEFT EYE 1 drop HS [facility] Administration Lidocaine 1 patch 12/04/23 09:00 12/06/23 09:59 Lidocaine 5% Patch TOPICAL 1 patch DAILY [facility] Administration Lidocaine 1 patch 12/04/23 14:55 12/06/23 09:59 Lidocaine 5% Patch TRANSDERM 1 patch DAILY [facility] Administration Lorazepam 0.5 mg 12/04/23 12:19 Lorazepam Inj (*Crx) 2 Mg/Ml Vial IV PUSH Q6H PRN Seizure Activity Memantine 10 mg 12/04/23 09:00 12/06/23 10:00 Memantine 5 Mg Tablet PO 10 mg BID [facility] Administration Metoprolol Succinate 25 mg 12/04/23 09:00 12/06/23 10:01 Metoprolol Succinate Ext Rel 25 Mg Tabcr PO 25 mg Q12HR [facility] Administration Miconazole Nitrate 1 applic 12/04/23 11:00 12/05/23 21:13 Miconazole 2% Antifungal Ointment 56 Gm TOPICAL 1 applic Q12HR [facility] Administration Miscellaneous Information 0 each 12/04/23 00:01 Ramelteon Non Formulary XX 01/03/24 00:00 CLARIFY [facility] Non-Formulary Medication 8 mg 12/04/23 05:29 Ramelteon PO QHS PRN Insomnia Ondansetron HCl 4 mg 12/04/23 00:04 Ondansetron Inj 4 Mg/2 Ml Vial IV PUSH Q4H PRN Nausea Oxycodone HCl 5 mg 12/04/23 05:29 Oxycodone Hcl (*Crx) 5 Mg Tab Ir PO Q4H PRN Pain Rated 7-10 Pantoprazole Sodium 40 mg 12/04/23 09:00 12/06/23 10:00 Pantoprazole 40 Mg Tablet PO 40 mg DAILY [facility] Administration Polyethylene Glycol 17 gm 12/04/23 09:00 12/06/23 10:02 Polyethylene Glycol 3350 17 Gm Powd.Pack PO 17 gm QAM [facility] Administration Prednisolone Acetate 1 drop 12/04/23 21:00 12/05/23 21:13 Prednisolone Acetate 1% Ophth 5 Ml RIGHT EYE 1 drop HS [facility] Administration Sertraline HCl 25 mg 12/04/23 09:00 12/06/23 10:00 Sertraline Hcl 25 Mg Tablet PO 25 mg QAM [facility] Administration Vitamin D 2,000 units 12/04/23 09:00 12/06/23 10:01 Cholecalciferol 1,000 Units Tablet PO 2,000 units DAILY [facility] Administration Radiology Results: ITS Impressions Chest X-Ray 12/03/23 22:29 IMPRESSION: Small focus of atelectasis/consolidation in the left lower lung. Senescent change versus mild interstitial edema. Head CT 12/03/23 23:15 IMPRESSION: No acute intracranial process. Abdomen/Pelvis CT 12/03/23 23:22 IMPRESSION: No acute abdominopelvic process detected. 7 mm right lower lobe pulmonary nodule, stable over the intervening 6 months. Consider follow-up low-dose noncontrast CT of the chest in 12-18 months. Carotid Doppler Study 12/06/23 13:56 IMPRESSION: 1. <50% stenosis in the right internal carotid artery. 2. <50% stenosis in the left internal carotid artery. Labs Labs: Laboratory Results - last 24 hr 12/05/23 12/06/23 10:16 06:49 WBC 11.6 H RBC 3.20 L Hgb 8.9 L Hct 28.3 L MCV 88.4 MCH 27.8 MCHC 31.4 L RDW 17.0 H Plt Count 176 MPV 10.4 Immature Gran % (Auto) 0.4 Neut % (Auto) 88.1 H Lymph % (Auto) 8.9 L [place] % (Auto) 2.5 L Eos % (Auto) 0.0 Baso % (Auto) 0.1 L Lymph # (Auto) 1.03 [place] # (Auto) 0.3 Eos # (Auto) 0.0 Baso # (Auto) 0.0 Abs Immat Gran (auto) 0.05 H Absolute Neuts (auto) 10.2 H Absolute Nucleated RBC 0.030 H Nucleated RBC % 0.3 H Sodium 149 H Potassium 3.7 Chloride 112 H Carbon Dioxide 30 Anion Gap 7 BUN 20 H Creatinine 0.70 Estim Creat Clear Calc 81 Estimated GFR > 60 Glucose 106 Calcium 9.3 Total Bilirubin 0.6 AST 65 H ALT 100 H Alkaline Phosphatase 237 H Total Protein 7.0 Albumin 3.4 L Triglycerides 37 Cholesterol 177 LDL Cholesterol Direct 64 HDL Direct 62 Vitamin B12 649.0 Vitamin D 25-Hydroxy 35.9 Folate 4.1 TSH 1.020
[2023-12-06] MEDS: HYDROCORTISONE 5 MG TABLET PO (18:34)
[2023-12-06] MEDS: LATANOPROST 0.005% OP SOLN 2.5 ML BTL 1 DROP LEFT EYE (22:32)
[2023-12-06] MEDS: prednisoLONE ACETATE 1% OPHTH 5 ML 1 DROP RIGHT EYE (22:34)
[2023-12-07] VITALS (20 sets, daily range): BP systolic 110–162; BP diastolic 62–100; PULSE 48–111; RESP 16–28; TEMP 35.6–36.6; O2SAT 91–100
[2023-12-07] MEDS: MEROPENEM 1 GM/NS 100 ML 1 GM/100 ML BAG IVPB ×2 (00:27→10:43)
[2023-12-07] MEDS: AZITHROMYCIN 500 MG/NS 250 ML 500 MG/250 ML BAG 250 MG IVPB (04:52)
[2023-12-07 05:36] LABS: Basophils Percent Auto 0.1 % (0.2-1.2); Hematocrit 26.7 % (37.0-47.0); Hemoglobin 8.4 g/dL (12.0-15.0); Immature Granulocyte Absolute 0.11 K/mm3 (0.00-0.031); Immature Granulocyte Percent A 1.1 % (0-0.5); Lymphocytes Absolute Auto 1.19 K/mm3 (0.9-3.2); Lymphocytes Percent Auto 11.4 % (18.3-44.2); Mean Corpuscular HGB Conc 31.5 g/dl (32-36); Mean Corpuscular Hemoglobin 27.9 pg (26-34); Mean Corpuscular Volume 88.7 fl (80-100); Mean Platelet Volume 10.7 fl (7.4-10.4); Monocytes Absolute Auto 0.3 K/mm3 (0.1-0.6); Monocytes Percent Auto 3.2 % (2.6-8.5); Neutrophils Absolute Auto 8.8 K/mm3 (1.3-6.7); Neutrophils Percent Auto 84.2 % (45.5-73.1); Nucleated Red Blood Cells Perc 0.5 % (0.0-0.2); Platelet Count Result 158 k/mm3 (150-375); Red Blood Count 3.01 M/mm3 (4.2-5.4); Red Cell Distribution Width 17.2 % (11.5-14.5); White Blood Count 10.5 K/mm3 (4.5-10.0)
[2023-12-07 05:49] LABS: Alanine Aminotransferase 86 U/L (6-35); Albumin Level 3.2 g/dL (3.5-5.1); Alkaline Phosphatase 230 U/L (38-126); Anion Gap 7 mmol/L (4-12); Aspartate Amino Transferase 54 U/L (14-36); Bilirubin,Total 0.6 mg/dL (0.2-1.3); Blood Urea Nitrogen 21 mg/dL (7-17); Carbon Dioxide 30 mmol/L (22-30); Chloride 104 mmol/L (98-107); Estimated CRCL calculation 64 ml/min; Estimated Glomerular Filt Rate > 60; Glucose 114 mg/dL (65-110); Magnesium 2.3 mg/dL (1.6-2.3); Potassium 3.7 mmol/L (3.4-5.0); Sodium 141 mmol/L (137-145)
[2023-12-07] MEDS: HYDROCORTISONE SODIUM SUCCINATE 100 MG/2 ML VIAL IV PUSH ×3 (06:24→21:00)
--- NOTE | 2023-12-07 06:43 | PC.NURSE ---
MRI called, stated patient's MRI will be cancelled d/t not having someone to reprogram her programmable shunt following the MRI
[2023-12-07] MEDS: LIDOCAINE 5% PATCH 1 PATCH TRANSDERM (10:30)
[2023-12-07] MEDS: METOPROLOL SUCCINATE EXT REL 25 MG TABCR PO (10:41)
[2023-12-07] MEDS: APIXABAN 5 MG TABLET PO ×2 (10:41→20:54)
[2023-12-07] MEDS: GABAPENTIN 300 MG CAPSULE PO ×3 (10:41→17:16)
[2023-12-07] MEDS: CHOLECALCIFEROL 1,000 UNITS TABLET 2000 UNITS PO (10:41)
[2023-12-07] MEDS: SERTRALINE HCL 25 MG TABLET PO (10:42)
[2023-12-07] MEDS: MEMANTINE 5 MG TABLET 10 MG PO ×2 (10:42→17:13)
[2023-12-07] MEDS: PANTOPRAZOLE 40 MG TABLET PO (10:42)
[2023-12-07] MEDS: LIDOCAINE 5% PATCH 1 PATCH TOPICAL (10:44)
[2023-12-07] MEDS: DORZOLAMIDE/TIMOLOL OPHTH SOL 10 ML BOTTLE 1 DROP EACH EYE ×2 (10:45→20:55)
[2023-12-07] MEDS: HYDROCORTISONE 10 MG TABLET PO (10:46)
--- NOTE | 2023-12-07 11:12 | P.PNNP_ITS ---
Progress Note: A&P Assessment and Plan (1) Diabetes insipidus: Onset Date: 05/2023 Code(s): E23.2 - Diabetes insipidus Status: Suspected Assessment and Plan: * suspected due to work-up and evaluation on May 2023 admission/hospitalization * noted MRI of pituitary at that time (enlargement of the lateral and fourth ventricles concerning for normal pressure hydrocephalus and empty sella) * empirically started on DDAVP at that time * saw Endocrinology to confirm/verify diagnosis (but has not yet had follow-up visit) * initially DDAVP on hold given previous hyponatremia... * resumed on DDAVP due to polyuria and hypernatremia by labs on 12/06/23 * follow trend of repeat sodiums (2) Hyponatremia: Code(s): E87.1 - Hypo-osmolality and hyponatremia Status: Resolved Assessment and Plan: * resolved * as noted on admission with sodium of 122 * corrected with holding DDAVP and normal saline IVF * suspect was not eating and drinking well due to AMS (impaired thirst mechanism) and continued to receive DDAVP which led to low sodium * concern of overcorrection exists but I suspect her sodium fluctuates to extremes at baseline (3) Altered mental status: Qualifiers: Altered mental status type: disorientation Qualified Code(s): R41.0 - Disorientation, unspecified Code(s): R41.82 - Altered mental status, unspecified Status: Acute Assessment and Plan: * improvement noted (if not back to baseline) * etiology?? * infection versus low sodium versus seizure versus hypothermia versus other.... 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-shunt * Neurology following * follow mentation (4) UTI (urinary tract infection): Code(s): N39.0 - Urinary tract infection, site not specified Status: Acute Assessment and Plan: * urinalysis highly suggestive on admission * urine culture negative * on antibiotics (5) Pneumonia: Code(s): J18.9 - Pneumonia, unspecified organism Status: Acute Assessment and Plan: * suggested by admission CXR * follow culture data * on antibiotics Not much else to add -- will continue to follow intermittently Subjective Date/time seen: 12/07/23 11:12 Interval history: Follow-up for acute hyponatremia and suspected diagnosis of diabetes insipidus. Resumed on DDAVP at this time with expected decline in UOP as to be expected with normalization of previous hypernatremia; mentation remains stable if not better; nursing reporting fluctuating temperature (temp via regalado catheter low but orally within normal) so on/off jaden hugger; no other issues/events ove rnight or earlier this AM. Exam Narrative: General: elderly but WD/WN female in NAD Heart: normal S1 and S2; no rub Lungs: clear to auscultation Abdomen: soft, nontender, nondistended, positive bowel sounds Extremities: no cyanosis or clubbing; no edema Skin: no rash or nodules Objective Data Vital Signs Vital Signs: Vital Signs Temp Pulse Resp BP Pulse Ox O2 Del Method 12/07/23 11:01 97.2 F L 111 H 16 150/74 H 100 12/07/23 10:41 62 12/07/23 08:00 96.1 F L 54 L 16 157/100 H 99 12/07/23 06:00 55 L 12/07/23 06:08 96.9 F L 86 28 H 148/91 H 100 12/07/23 04:00 52 L 12/07/23 04:00 55 L 28 H 95 Room Air 12/07/23 02:00 55 L 12/07/23 00:00 52 L 12/07/23 00:00 53 L 28 H 95 Room Air 12/07/23 00:20 97.9 F 53 L 28 H 110/62 95 12/06/23 22:00 59 L 12/06/23 20:00 65 12/06/23 20:00 65 28 H 100 Room Air 12/06/23 21:12 60 12/06/23 20:37 98.3 F 65 28 H 140/68 100 12/06/23 18:00 72 12/06/23 16:00 55 L 12/06/23 16:00 98.3 F 58 L 28 H 95/57 L 98 12/06/23 14:00 59 L Intake/Output Intake/Output: Intake & Output 12/04/23 12/05/23 12/06/23 12/07/23 23:59 23:59 23:59 23:59 Intake Total 2296.2 2818.8 2790 1670 Output Total 1450 6900 2850 0 Balance 846.2 -4081.2 -60 1670 Meds/Results Medications: Active Medications Generic Name Dose Route Start Last Admin Trade Name Freq PRN Reason Stop Dose Admin Acetaminophen 650 mg 12/04/23 00:04 Acetaminophen 325 Mg Tablet PO Q4H PRN Mild Pain (1-3) or Fever Apixaban 5 mg 12/04/23 09:00 12/07/23 10:41 Apixaban 5 Mg Tablet PO 5 mg Q12HR [facility] Administration Bisacodyl 10 mg 12/04/23 05:29 Bisacodyl 5 Mg Tablet Ec PO DAILY PRN Constipation Desmopressin Acetate 0.1 mg 12/09/23 09:00 Desmopressin Acetate 0.1 Mg Tablet PO MoWeFr@0900 [facility] Dorzolamide/Timolol 1 drop 12/04/23 09:00 12/07/23 10:45 Dorzolamide/Timolol Ophth Yvonne 10 Ml Bottle EACH EYE 1 drop Q12HR [facility] Administration Gabapentin 300 mg 12/04/23 09:00 12/07/23 10:41 Gabapentin 300 Mg Capsule PO 300 mg TID [facility] Administration Hydrocortisone 5 mg 12/04/23 17:00 12/06/23 18:34 Hydrocortisone 5 Mg Tablet PO 5 mg DAILY@1700 [facility] Administration Hydrocortisone 10 mg 12/04/23 08:00 12/07/23 10:46 Hydrocortisone 10 Mg Tablet PO 10 mg DAILY@0800 [facility] Administration Hydrocortisone Sodium Succinate 100 mg 12/04/23 06:00 12/07/23 06:24 Hydrocortisone Sodium Succinate 100 Mg/2 Ml Vial IV PUSH 100 mg Q8HR [facility] Administration Meropenem 1 gm in 100 mls @ 200 mls/hr 12/04/23 09:00 12/07/23 11:20 IVPB Infused Q8H [facility] Infusion Azithromycin 500 mg in 250 mls @ 250 mls/hr 12/05/23 05:00 12/07/23 07:28 Zithromax IVPB Infused Q24H [facility] Infusion Latanoprost 1 drop 12/04/23 21:00 12/06/23 22:32 Latanoprost 0.005% Op Soln 2.5 Ml Btl LEFT EYE 1 drop HS [facility] Administration Lidocaine 1 patch 12/04/23 09:00 12/07/23 10:44 Lidocaine 5% Patch TOPICAL 1 patch DAILY [facility] Administration Lidocaine 1 patch 12/04/23 14:55 12/07/23 10:30 Lidocaine 5% Patch TRANSDERM 1 patch DAILY [facility] Administration Lorazepam 0.5 mg 12/04/23 12:19 Lorazepam Inj (*Crx) 2 Mg/Ml Vial IV PUSH Q6H PRN Seizure Activity Memantine 10 mg 12/04/23 09:00 12/07/23 10:42 Memantine 5 Mg Tablet PO 10 mg BID [facility] Administration Metoprolol Succinate 25 mg 12/04/23 09:00 12/07/23 10:41 Metoprolol Succinate Ext Rel 25 Mg Tabcr PO 25 mg Q12HR [facility] Administration Miconazole Nitrate 1 applic 12/04/23 11:00 12/07/23 10:43 Miconazole 2% Antifungal Ointment 56 Gm TOPICAL 1 applic Q12HR [facility] Administration Miscellaneous Information 0 each 12/04/23 00:01 Ramelteon Non Formulary XX 01/03/24 00:00 CLARIFY [facility] Non-Formulary Medication 8 mg 12/04/23 05:29 Ramelteon PO QHS PRN Insomnia Ondansetron HCl 4 mg 12/04/23 00:04 Ondansetron Inj 4 Mg/2 Ml Vial IV PUSH Q4H PRN Nausea Oxycodone HCl 5 mg 12/04/23 05:29 Oxycodone Hcl (*Crx) 5 Mg Tab Ir PO Q4H PRN Pain Rated 7-10 Pantoprazole Sodium 40 mg 12/04/23 09:00 12/07/23 10:42 Pantoprazole 40 Mg Tablet PO 40 mg DAILY [facility] Administration Polyethylene Glycol 17 gm 12/04/23 09:00 12/07/23 12:32 Polyethylene Glycol 3350 17 Gm Powd.Pack PO 17 gm QAM [facility] Administration Prednisolone Acetate 1 drop 12/04/23 21:00 12/06/23 22:34 Prednisolone Acetate 1% Ophth 5 Ml RIGHT EYE 1 drop HS [facility] Administration Sertraline HCl 25 mg 12/04/23 09:00 12/07/23 10:42 Sertraline Hcl 25 Mg Tablet PO 25 mg QAM [facility] Administration Vitamin D 2,000 units 12/04/23 09:00 12/07/23 10:41 Cholecalciferol 1,000 Units Tablet PO 2,000 units DAILY [facility] Administration Radiology Results: ITS Impressions Chest X-Ray 12/03/23 22:29 IMPRESSION: Small focus of atelectasis/consolidation in the left lower lung. Senescent change versus mild interstitial edema. Head CT 12/03/23 23:15 IMPRESSION: No acute intracranial process. Abdomen/Pelvis CT 12/03/23 23:22 IMPRESSION: No acute abdominopelvic process detected. 7 mm right lower lobe pulmonary nodule, stable over the intervening 6 months. Consider follow-up low-dose noncontrast CT of the chest in 12-18 months. Carotid Doppler Study 12/06/23 13:56 IMPRESSION: 1. <50% stenosis in the right internal carotid artery. 2. <50% stenosis in the left internal carotid artery. Labs Labs: Laboratory Tests 12/07/23 05:12 12/07/23 05:12 Calcium 9.0 Magnesium 2.3 Total Bilirubin 0.6 AST 54 H ALT 86 H Alkaline Phosphatase 230 H Total Protein 7.0 Albumin 3.2 L
[2023-12-07] MEDS: polyethylene glycoL 3350 17 GM POWD.PACK PO (12:32)
[2023-12-07 13:13] LABS: Osmolality, Urine 114 mOsm/kg (50-1200)
[2023-12-07] MEDS: AMOXICILLIN/CLAVULANATE K 875-125 MG TAB 1 TABLET PO ×2 (14:58→20:54)
[2023-12-07] MEDS: HYDROCORTISONE 5 MG TABLET PO (17:13)
--- NOTE | 2023-12-07 20:18 | P.PN_ITS ---
Progress Note: A&P Assessment and Plan (1) Acute UTI: Code(s): N39.0 - Urinary tract infection, site not specified Status: Acute Assessment and Plan: 12/04/23: * UA obtained and showing 2+ urine protein, 2+ urine blood, trace leukocyte, greater than 100 urine RBC, 11-20 urine WBC. * Urine and blood cultures obtained and are pending. * Patient had a previous urine culture back on 07/16/2023 which showed Proteus mirabilis which was showing some resistant and on 07/03/2023 urine culture showed E coli with some resistance * Patient started on meropenem 12/05/23: * Urine culture was negative. 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 * Sodium level today is 122 * Desmopressin on hold * Will check a serum osmolarity, urine osmolarity, protein/creatinine ratio, urine sodium, urine specific gravity today. * Patient was also followed by Endocrinology plan was for an MRI of the pituitary however I cannot confirm if this was obtained are not. She has not had an MRI recently in our EMR. * Nephrology consulted 12/05/23: * Sodium level today is 137 today, alert and oriented x3 * Nephrology following * Labs are still pending * Continue to hold desmopressin * Ok to move to regular med/tele floor * Continuous cardiac monitoring (3) Lung infiltrate: Code(s): R91.8 - Other nonspecific abnormal finding of lung field Status: Acute Assessment and Plan: 12/04/23: * Chest x-ray showing small focus of atelectasis/consolidation in the left lower lung zone. * Patient was given a dose Zosyn, vancomycin, azithromycin while in the ED * Antibiotics changed to cefepime and azithromycin * Blood cultures obtained and are pending 12/04/23: * Continue cefepime and azithromycin * Blood culture showing no growth to date on preliminary read * PT and OT ordered (4) Hypothermia: Code(s): T68.XXXA - Hypothermia, initial encounter Status: Acute Assessment and Plan: 12/04/23: * Initial temp on arrival to the hospital was 91.5 * Santos hugger placed overnight and now patient is 97.4 * Santos Hugger now off and patient is being warmed with blankets 12/05/23: * Temperature 97.5? * Continue to monitor (5) Transaminitis: Code(s): R74.01 - Elevation of levels of liver transaminase levels Status: Acute Assessment and Plan: 12/05/23: * Initial AST 109/ALT 131 * Today AST 85, ALT 117 * Continue to trend (6) Altered mental status: Qualifiers: Altered mental status type: disorientation Qualified Code(s): R41.0 - Disorientation, unspecified Code(s): R41.82 - Altered mental status, unspecified Status: Acute Assessment and Plan: 12/04/23: * Altered mental status likely due to hyponatremia versus acute urinary tract infection versus postictal versus active seizure activity, versus hypothermic shock * Continue neuro checks * Place on seizure precautions * Remain in IMU for closer monitoring * Continue cardiac monitoring * Blood and urine cultures were obtained and are pending * Patient had recent fall with head injury. * Head CT was negative for any acute intracranial process. * Will obtain EEG and MRA of the brain and brainstem with and without contrast today * Neurology consulted * Ativan ordered p.r.n. for seizure activity 12/05/23: * Patient unable to get MRI due to HEALTH SERVICES DIRECTOR shunt * Currently Alert and oriented x3 * Awaiting EEG * Awaiting Neurology input * Continue IMU status for now. (7) Normal pressure hydrocephalus: Onset Date: 05/2023 Code(s): G91.2 - (Idiopathic) normal pressure hydrocephalus Status: Chronic Assessment and Plan: 12/04/23: * Patient has history of a HEALTH SERVICES DIRECTOR shunt * Head CT showing no acute intracranial process, no hydrocephalus, mass or herniation noted. * Continue to monitor neuro status * Neurology consulted 12/05/23: * No change (8) Adrenal insufficiency: Code(s): E27.40 - Unspecified adrenocortical insufficiency Status: Chronic Assessment and Plan: 12/04/23: * Continue hydrocortisone for adrenal insufficiency 12/05/23: * No change to current treatment plan (9) Stage 3a chronic kidney disease: Code(s): N18.31 - Chronic kidney disease, stage 3a Status: Chronic Assessment and Plan: 12/04/23: * Creatinine 0.8, EGFR greater than 60, estimated creatinine clearance 72 * Continue to trend 12/05/23: * Continue to monitor (10) Obesity, morbid, BMI 40.0-49.9: Code(s): E66.01 - Morbid (severe) obesity due to excess calories Status: Chronic Assessment and Plan: 12/04/23: * BMI 38.3, 117.5 kg * Currently NPO 12/05/23: * No change Plan patient with history of normal hydrocephalus and empty sella, diabetes insipidus resulting in hyponatremia, today patient sodium is patient is seen by nep hrologist and started patient on DDAVP, patient also has UTI no growth so far, discussed with ID pharmacist and deescalated to Augmentin, unfortunately patient is not able to provide detailed review of symptom due to dementia and hallucinating patient seen by Neurology and further recommendation to follow. Subjective Date/time seen: 12/07/23 20:18 Interval history: patient with history of normal hydrocephalus and empty sella, diabetes insipidus resulting in hyponatremia, today patient sodium is patient is seen by wall insulation sprayer and started patient on DDAVP, patient also has UTI no growth so far, discussed with ID pharmacist and deescalated to Augmentin, unfortunately patient is not able to provide detailed review of symptom due to dementia and hallucinating patient seen by Neurology and further recommendation to follow. Review of Systems Review of Systems: ROS unobtainable: Yes unobtainable due to mental status Exam Narrative: Patient is comfortable, NAD HEENT: eyes are clear and none icteric LUNGS:CTA HEART: RR S1S2 ABD: BS+, Soft and nontender Lower extremities: no edema SKIN: nonjaundiced Neuro:dementia. Objective Data Vital Signs Vital Signs: Vital Signs - 24 hr 12/06/23 20:37 12/06/23 21:12 12/06/23 22:00 Temperature 36.8 C Pulse Rate 65 60 59 L Respiratory Rate 28 H Blood Pressure 140/68 Pulse Oximetry 100 Oxygen Delivery 12/07/23 00:20 12/07/23 00:00 12/07/23 00:00 Temperature 36.6 C Pulse Rate 53 L 53 L 52 L Respiratory Rate 28 H 28 H Blood Pressure 110/62 Pulse Oximetry 95 95 Oxygen Delivery Room Air 12/07/23 02:00 12/07/23 04:00 12/07/23 04:00 Temperature Pulse Rate 55 L 55 L 52 L Respiratory Rate 28 H Blood Pressure Pulse Oximetry 95 Oxygen Delivery Room Air 12/07/23 06:08 12/07/23 06:00 12/07/23 08:00 Temperature 36.1 C L 35.6 C L Pulse Rate 86 55 L 54 L Respiratory Rate 28 H 16 Blood Pressure 148/91 H 157/100 H Pulse Oximetry 100 99 Oxygen Delivery 12/07/23 10:41 12/07/23 11:41 12/07/23 08:30 Temperature 36.2 C L Pulse Rate 62 111 H 53 L Respiratory Rate 16 Blood Pressure 150/74 H Pulse Oximetry 100 Oxygen Delivery 12/07/23 16:00 12/07/23 10:00 12/07/23 12:00 Temperature 36.3 C L Pulse Rate 100 58 L 54 L Respiratory Rate 22 H Blood Pressure 151/91 H Pulse Oximetry 97 Oxygen Delivery 12/07/23 14:00 12/07/23 16:00 12/07/23 18:00 Temperature Pulse Rate 57 L 48 L 52 L Respiratory Rate Blood Pressure Pulse Oximetry Oxygen Delivery 12/07/23 20:00 12/07/23 20:15 Temperature 36.6 C Pulse Rate 52 L 54 L Respiratory Rate 22 H 28 H Blood Pressure 162/92 H Pulse Oximetry 97 91 Oxygen Delivery Room Air Intake/Output Intake/Output: Intake & Output 12/04/23 12/05/23 12/06/23 12/07/23 23:59 23:59 23:59 23:59 Intake Total 2296.2 2818.8 2790 2405 Output Total 1450 6900 2850 550 Balance 846.2 -4081.2 -60 1855 Meds/Results Medications: Active Medications Generic Name Dose Route Start Last Admin Trade Name Freq PRN Reason Stop Dose Admin Acetaminophen 650 mg 12/04/23 00:04 Acetaminophen 325 Mg Tablet PO Q4H PRN Mild Pain (1-3) or Fever Amoxicillin/Clavulanate Potassium 1 tablet 12/07/23 14:00 12/07/23 14:58 Amoxicillin/Clavulanate K 875-125 Mg Tab PO 12/10/23 21:01 1 tablet Q12HR ASHLEY Administration Apixaban 5 mg 12/04/23 09:00 12/07/23 10:41 Apixaban 5 Mg Tablet PO 5 mg Q12HR ASHLEY Administration Azithromycin 500 mg 12/08/23 09:00 Azithromycin 250 Mg Tablet PO 12/08/23 09:01 ONCE ONE Bisacodyl 10 mg 12/04/23 05:29 Bisacodyl 5 Mg Tablet Ec PO DAILY PRN Constipation Desmopressin Acetate 0.1 mg 12/09/23 09:00 Desmopressin Acetate 0.1 Mg Tablet PO MoWeFr@0900 ASHLEY Dorzolamide/Timolol 1 drop 12/04/23 09:00 12/07/23 10:45 Dorzolamide/Timolol Ophth Yvonne 10 Ml Bottle EACH EYE 1 drop Q12HR ASHLEY Administration Gabapentin 300 mg 12/04/23 09:00 12/07/23 17:16 Gabapentin 300 Mg Capsule PO 300 mg TID ASHLEY Administration Hydrocortisone 5 mg 12/04/23 17:00 12/07/23 17:13 Hydrocortisone 5 Mg Tablet PO 5 mg DAILY@1700 ASHLEY Administration Hydrocortisone 10 mg 12/04/23 08:00 12/07/23 10:46 Hydrocortisone 10 Mg Tablet PO 10 mg DAILY@0800 ASHLEY Administration Hydrocortisone Sodium Succinate 100 mg 12/04/23 06:00 12/07/23 13:18 Hydrocortisone Sodium Succinate 100 Mg/2 Ml Vial IV PUSH 100 mg Q8HR ASHLEY Administration Latanoprost 1 drop 12/04/23 21:00 12/06/23 22:32 Latanoprost 0.005% Op Soln 2.5 Ml Btl LEFT EYE 1 drop HS ASHLEY Administration Lidocaine 1 patch 12/04/23 09:00 12/07/23 10:44 Lidocaine 5% Patch TOPICAL 1 patch DAILY ASHLEY Administration Lidocaine 1 patch 12/04/23 14:55 12/07/23 10:30 Lidocaine 5% Patch TRANSDERM 1 patch DAILY ASHLEY Administration Lorazepam 0.5 mg 12/04/23 12:19 Lorazepam Inj (*Crx) 2 Mg/Ml Vial IV PUSH Q6H PRN Seizure Activity Memantine 10 mg 12/04/23 09:00 12/07/23 17:13 Memantine 5 Mg Tablet PO 10 mg BID ASHLEY Administration Metoprolol Succinate 25 mg 12/04/23 09:00 12/07/23 10:41 Metoprolol Succinate Ext Rel 25 Mg Tabcr PO 25 mg Q12HR ASHLEY Administration Miconazole Nitrate 1 applic 12/04/23 11:00 12/07/23 10:43 Miconazole 2% Antifungal Ointment 56 Gm TOPICAL 1 applic Q12HR ASHLEY Administration Miscellaneous Information 0 each 12/04/23 00:01 Ramelteon Non Formulary XX 01/03/24 00:00 [facility] Non-Formulary Medication 8 mg 12/04/23 05:29 Ramelteon PO QHS PRN Insomnia Ondansetron HCl 4 mg 12/04/23 00:04 Ondansetron Inj 4 Mg/2 Ml Vial IV PUSH Q4H PRN Nausea Oxycodone HCl 5 mg 12/04/23 05:29 Oxycodone Hcl (*Crx) 5 Mg Tab Ir PO Q4H PRN Pain Rated 7-10 Pantoprazole Sodium 40 mg 12/04/23 09:00 12/07/23 10:42 Pantoprazole 40 Mg Tablet PO 40 mg DAILY ASHLEY Administration Polyethylene Glycol 17 gm 12/04/23 09:00 12/07/23 12:32 Polyethylene Glycol 3350 17 Gm Powd.Pack PO 17 gm QAM ASHLEY Administration Prednisolone Acetate 1 drop 12/04/23 21:00 12/06/23 22:34 Prednisolone Acetate 1% Ophth 5 Ml RIGHT EYE 1 drop HS ASHLEY Administration Sertraline HCl 25 mg 12/04/23 09:00 12/07/23 10:42 Sertraline Hcl 25 Mg Tablet PO 25 mg QAM ASHLEY Administration Vitamin D 2,000 units 12/04/23 09:00 12/07/23 10:41 Cholecalciferol 1,000 Units Tablet PO 2,000 units DAILY ASHLEY Administration Radiology Results: ITS Impressions Chest X-Ray 12/03/23 22:29 IMPRESSION: Small focus of atelectasis/consolidation in the left lower lung. Senescent pedersen e versus mild interstitial edema. Head CT 12/03/23 23:15 IMPRESSION: No acute intracranial process. Abdomen/Pelvis CT 12/03/23 23:22 IMPRESSION: No acute abdominopelvic process detected. 7 mm right lower lobe pulmonary nodule, stable over the intervening 6 months. Consider follow-up low-dose noncontrast CT of the chest in 12-18 months. Carotid Doppler Study 12/06/23 13:56 IMPRESSION: 1. <50% stenosis in the right internal carotid artery. 2. <50% stenosis in the left internal carotid artery. Labs Labs: Laboratory Results - last 24 hr 12/04/23 12/04/23 12/07/23 09:29 10:53 05:12 WBC 10.5 H RBC 3.01 L Hgb 8.4 L Hct 26.7 L MCV 88.7 MCH 27.9 MCHC 31.5 L RDW 17.2 H Plt Count 158 MPV 10.7 H Immature Gran % (Auto) 1.1 H Neut % (Auto) 84.2 H Lymph % (Auto) 11.4 L [place] % (Auto) 3.2 Eos % (Auto) 0.0 Baso % (Auto) 0.1 L Lymph # (Auto) 1.19 [place] # (Auto) 0.3 Eos # (Auto) 0.0 Baso # (Auto) 0.0 Abs Immat Gran (auto) 0.11 H Absolute Neuts (auto) 8.8 H Absolute Nucleated RBC 0.050 H Nucleated RBC % 0.5 H Sodium 141 Potassium 3.7 Chloride 104 Carbon Dioxide 30 Anion Gap 7 BUN 21 H Creatinine 0.90 Estim Creat Clear Calc 64 Estimated GFR > 60 Glucose 114 H Serum Osmolality 263 L Calcium 9.0 Magnesium 2.3 Total Bilirubin 0.6 AST 54 H ALT 86 H Alkaline Phosphatase 230 H Total Protein 7.0 Albumin 3.2 L Urine Osmolality 114
--- NOTE | 2023-12-07 20:39 | PC.NURSE ---
Spoke with Dr. Crook regarding patient HR 49-52. Received orders to hold just tonights dose of metoprolol. Also discussed patient crying nonstop and yelling out about a man in her room, something wrong with a baby, multiple complaints. Received order for 1x dose of risperdal.
[2023-12-07] MEDS: LATANOPROST 0.005% OP SOLN 2.5 ML BTL 1 DROP LEFT EYE (20:53)
[2023-12-07] MEDS: prednisoLONE ACETATE 1% OPHTH 5 ML 1 DROP RIGHT EYE (20:56)
[2023-12-07] MEDS: risperiDONE 1 MG TABLET PO (21:37)
[2023-12-08] VITALS (17 sets, daily range): BP systolic 133–174; BP diastolic 82–96; PULSE 44–55; RESP 12–28; TEMP 36.3–36.6; O2SAT 97–100
--- NOTE | 2023-12-08 04:10 | PC.NURSE ---
Patient has slept all night since shortly after taking risperdal
[2023-12-08 05:38] LABS: Basophils Percent Auto 0.1 % (0.2-1.2); Hematocrit 26.3 % (37.0-47.0); Hemoglobin 8.5 g/dL (12.0-15.0); Immature Granulocyte Absolute 0.09 K/mm3 (0.00-0.031); Immature Granulocyte Percent A 1.1 % (0-0.5); Lymphocytes Absolute Auto 1.34 K/mm3 (0.9-3.2); Lymphocytes Percent Auto 16.6 % (18.3-44.2); Mean Corpuscular HGB Conc 32.3 g/dl (32-36); Mean Corpuscular Hemoglobin 28.3 pg (26-34); Mean Corpuscular Volume 87.7 fl (80-100); Mean Platelet Volume 10.7 fl (7.4-10.4); Monocytes Absolute Auto 0.2 K/mm3 (0.1-0.6); Neutrophils Absolute Auto 6.4 K/mm3 (1.3-6.7); Neutrophils Percent Auto 79.2 % (45.5-73.1); Nucleated Red Blood Cells Perc 0.4 % (0.0-0.2); Platelet Count Result 145 k/mm3 (150-375); White Blood Count 8.1 K/mm3 (4.5-10.0)
[2023-12-08 05:53] LABS: Alanine Aminotransferase 308 U/L (6-35); Albumin Level 3.3 g/dL (3.5-5.1); Alkaline Phosphatase 349 U/L (38-126); Anion Gap 6 mmol/L (4-12); Aspartate Amino Transferase 433 U/L (14-36); Bilirubin,Total 0.8 mg/dL (0.2-1.3); Blood Urea Nitrogen 22 mg/dL (7-17); Calcium 8.8 mg/dL (8.4-10.2); Carbon Dioxide 30 mmol/L (22-30); Chloride 98 mmol/L (98-107); Estimated CRCL calculation 74 ml/min; Estimated Glomerular Filt Rate > 60; Glucose 111 mg/dL (65-110); Magnesium 2.3 mg/dL (1.6-2.3); Potassium 3.8 mmol/L (3.4-5.0); Sodium 134 mmol/L (137-145)
[2023-12-08] MEDS: HYDROCORTISONE SODIUM SUCCINATE 100 MG/2 ML VIAL IV PUSH ×3 (06:05→20:48)
[2023-12-08] MEDS: LIDOCAINE 5% PATCH 1 PATCH TOPICAL (08:55)
[2023-12-08] MEDS: LIDOCAINE 5% PATCH 1 PATCH TRANSDERM (08:55)
[2023-12-08] MEDS: MEMANTINE 5 MG TABLET 10 MG PO ×2 (08:56→17:50)
[2023-12-08] MEDS: CHOLECALCIFEROL 1,000 UNITS TABLET 2000 UNITS PO (08:56)
[2023-12-08] MEDS: APIXABAN 5 MG TABLET PO ×2 (08:56→20:47)
[2023-12-08] MEDS: SERTRALINE HCL 25 MG TABLET PO (08:57)
[2023-12-08] MEDS: GABAPENTIN 300 MG CAPSULE PO ×3 (08:57→17:49)
[2023-12-08] MEDS: HYDROCORTISONE 10 MG TABLET PO (08:57)
[2023-12-08] MEDS: PANTOPRAZOLE 40 MG TABLET PO (08:58)
[2023-12-08] MEDS: AMOXICILLIN/CLAVULANATE K 875-125 MG TAB 1 TABLET PO ×2 (08:58→20:47)
[2023-12-08] MEDS: DORZOLAMIDE/TIMOLOL OPHTH SOL 10 ML BOTTLE 1 DROP EACH EYE ×2 (09:00→23:19)
[2023-12-08] MEDS: polyethylene glycoL 3350 17 GM POWD.PACK PO (09:02)
[2023-12-08] MEDS: amLODIPine BESYLATE 5 MG TABLET PO (09:05)
[2023-12-08 10:30] LABS: INR 1.4; Prothrombin Time 17.5 Seconds (11.1-14.7)
[2023-12-08 11:18] LABS: Hepatitis B Surface Antigen Negative (Negative)
[2023-12-08 11:24] LABS: HAV RESULT Negative (Negative); Hepatitis B Core IgM Result Negative (Negative)
[2023-12-08 11:36] LABS: Hepatitis C Virus Antibody Negative (Negative)
[2023-12-08 13:09] LABS: Homocysteine 12.7 umol/L (<10.4)
--- NOTE | 2023-12-08 13:15 | PCOTNOTE ---
Per RN, Patient not to be seen, Patient is going down for a stat CT.
--- NOTE | 2023-12-08 13:55 | P.PN_ITS ---
Progress Note: A&P Assessment and Plan (1) Acute UTI: Code(s): N39.0 - Urinary tract infection, site not specified Status: Acute Assessment and Plan: 12/04/23: * UA obtained and showing 2+ urine protein, 2+ urine blood, trace leukocyte, greater than 100 urine RBC, 11-20 urine WBC. * Urine and blood cultures obtained and are pending. * Patient had a previous urine culture back on 07/16/2023 which showed Proteus mirabilis which was showing some resistant and on 07/03/2023 urine culture showed E coli with some resistance * Patient started on meropenem 12/05/23: * Urine culture was negative. 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 * Sodium level today is 122 * Desmopressin on hold * Will check a serum osmolarity, urine osmolarity, protein/creatinine ratio, urine sodium, urine specific gravity today. * Patient was also followed by Endocrinology plan was for an MRI of the pituitary however I cannot confirm if this was obtained are not. She has not had an MRI recently in our EMR. * Nephrology consulted 12/05/23: * Sodium level today is 137 today, alert and oriented x3 * Nephrology following * Labs are still pending * Continue to hold desmopressin * Ok to move to regular med/tele floor * Continuous cardiac monitoring (3) Lung infiltrate: Code(s): R91.8 - Other nonspecific abnormal finding of lung field Status: Acute Assessment and Plan: 12/04/23: * Chest x-ray showing small focus of atelectasis/consolidation in the left lower lung zone. * Patient was given a dose Zosyn, vancomycin, azithromycin while in the ED * Antibiotics changed to cefepime and azithromycin * Blood cultures obtained and are pending 12/04/23: * Continue cefepime and azithromycin * Blood culture showing no growth to date on preliminary read * PT and OT ordered (4) Hypothermia: Code(s): T68.XXXA - Hypothermia, initial encounter Status: Acute Assessment and Plan: 12/04/23: * Initial temp on arrival to the hospital was 91.5 * Santos hugger placed overnight and now patient is 97.4 * Santos Hugger now off and patient is being warmed with blankets 12/05/23: * Temperature 97.5? * Continue to monitor (5) Transaminitis: Code(s): R74.01 - Elevation of levels of liver transaminase levels Status: Acute Assessment and Plan: 12/05/23: * Initial AST 109/ALT 131 * Today AST 85, ALT 117 * Continue to trend (6) Altered mental status: Qualifiers: Altered mental status type: disorientation Qualified Code(s): R41.0 - Disorientation, unspecified Code(s): R41.82 - Altered mental status, unspecified Status: Acute Assessment and Plan: 12/04/23: * Altered mental status likely due to hyponatremia versus acute urinary tract infection versus postictal versus active seizure activity, versus hypothermic shock * Continue neuro checks * Place on seizure precautions * Remain in IMU for closer monitoring * Continue cardiac monitoring * Blood and urine cultures were obtained and are pending * Patient had recent fall with head injury. * Head CT was negative for any acute intracranial process. * Will obtain EEG and MRA of the brain and brainstem with and without contrast today * Neurology consulted * Ativan ordered p.r.n. for seizure activity 12/05/23: * Patient unable to get MRI due to SPARERIBS TRIMMER shunt * Currently Alert and oriented x3 * Awaiting EEG * Awaiting Neurology input * Continue IMU status for now. (7) Normal pressure hydrocephalus: Onset Date: 05/2023 Code(s): G91.2 - (Idiopathic) normal pressure hydrocephalus Status: Chronic Assessment and Plan: 12/04/23: * Patient has history of a SPARERIBS TRIMMER shunt * Head CT showing no acute intracranial process, no hydrocephalus, mass or herniation noted. * Continue to monitor neuro status * Neurology consulted 12/05/23: * No change (8) Adrenal insufficiency: Code(s): E27.40 - Unspecified adrenocortical insufficiency Status: Chronic Assessment and Plan: 12/04/23: * Continue hydrocortisone for adrenal insufficiency 12/05/23: * No change to current treatment plan (9) Stage 3a chronic kidney disease: Code(s): N18.31 - Chronic kidney disease, stage 3a Status: Chronic Assessment and Plan: 12/04/23: * Creatinine 0.8, EGFR greater than 60, estimated creatinine clearance 72 * Continue to trend 12/05/23: * Continue to monitor (10) Obesity, morbid, BMI 40.0-49.9: Code(s): E66.01 - Morbid (severe) obesity due to excess calories Status: Chronic Assessment and Plan: 12/04/23: * BMI 38.3, 117.5 kg * Currently NPO 12/05/23: * No change Plan patient with history of normal hydrocephalus and empty sella, diabetes insipidus resulting in hyponatremia, today patient sodium is 134 patient is seen by hydro sprayer operator and started patient on DDAVP, patient also has UTI no growth so far, discussed with ID pharmacist and deescalated to Augmentin, unfortunately patient is not able to provide detailed review of symptom due to dementia and hallucinating patient seen by Neurology and further recommendation to follow. today patient is more somnolent to further evaluate ct scan of the head was ordered no acute finding, also patient liver enzyme have significant elevated acute hepatitis panel is negative for any infection, her liver function is stable, albumin is slight low and her INR 1.4, liver US is pending. patient is seen by hydro sprayer operator and neurologist further recommendation to follow. Subjective Date/time seen: 12/08/23 13:55 Interval history: patient with history of normal hydrocephalus and empty sella, diabetes insipidus resulting in hyponatremia, today patient sodium is 134 patient is seen by hydro sprayer operator and started patient on DDAVP, patient also has UTI no growth so far, discussed with ID pharmacist and deescalated to Augmentin, unfortunately patient is not able to provide detailed review of symptom due to dementia and hallucinating patient seen by Neurology and further recommendation to follow. today patient is more somnolent to further evaluate ct scan of the head was ordered no acute finding, also patient liver enzyme have significant elevated acute hepatitis panel is negative for any infection, her liver function is stable, albumin is slight low and her INR 1.4, liver US is pending. patient is seen by hydro sprayer operator and neurologist further recommendation to follow. Review of Systems Review of Systems: ROS unobtainable: Yes unobtainable due to mental status Exam Narrative: Patient is comfortable, NAD HEENT: eyes are clear and none icteric LUNGS:CTA HEART: RR S1S2 ABD: BS+, Soft and nontender Lower extremities: no edema SKIN: nonjaundiced Neuro:dementia. Objective Data Vital Signs Vital Signs: Vital Signs - 24 hr 12/07/23 16:00 12/07/23 14:00 12/07/23 16:00 Temperature 36.3 C L Pulse Rate 100 57 L 48 L Respiratory Rate 22 H Blood Pressure 151/91 H Pulse Oximetry 97 Oxygen Delivery 12/07/23 18:00 12/07/23 20:00 12/07/23 20:15 Temperature 36.6 C Pulse Rate 52 L 52 L 54 L Respiratory Rate 22 H 28 H Blood Pressure 162/92 H Pulse Oximetry 97 91 Oxygen Delivery Room Air 12/07/23 20:57 12/07/23 20:00 12/07/23 22:00 Temperature Pulse Rate 51 L 78 50 L Respiratory Rate Blood Pressure Pulse Oximetry Oxygen Delivery 12/07/23 23:31 12/08/23 00:25 12/08/23 00:00 Temperature 36.6 C Pulse Rate 50 L 47 L 46 L Respiratory Rate 28 H 28 H Blood Pressure 133/93 H Pulse Oximetry 91 97 Oxygen Delivery Room Air 12/08/23 02:00 12/08/23 04:00 12/08/23 04:00 Temperature Pulse Rate 49 L 49 L 47 L Respiratory Rate 28 H Blood Pressure Pulse Oximetry 97 Oxygen Delivery Room Air 12/08/23 05:10 12/08/23 06:32 12/08/23 08:00 Temperature 36.4 C 36.4 C L Pulse Rate 49 L 47 L 46 L Respiratory Rate 22 H 16 Blood Pressure 149/82 H 169/85 H Pulse Oximetry 100 100 Oxygen Delivery 12/08/23 09:00 12/08/23 12:00 Temperature 36.3 C L Pulse Rate 47 L 50 L Respiratory Rate 16 Blood Pressure 174/91 H Pulse Oximetry 100 Oxygen Delivery Intake/Output Intake/Output: Intake & Output 12/05/23 12/06/23 12/07/23 12/08/23 23:59 23:59 23:59 23:59 Intake Total 2818.8 2790 2405 222 Output Total 6900 2850 550 600 [facility] -[id number] [id number] [phone] Meds/Results Medications: Active Medications Generic Name Dose Route Start Last Admin Trade Name Freq PRN Reason Stop Dose Admin Acetaminophen 650 mg 12/04/23 00:04 Acetaminophen 325 Mg Tablet PO Q4H PRN Mild Pain (1-3) or Fever Amlodipine Besylate 5 mg 12/08/23 09:00 12/08/23 09:05 Amlodipine Besylate 5 Mg Tablet PO 5 mg DAILY ASHLEY Administration Amoxicillin/Clavulanate Potassium 1 tablet 12/07/23 14:00 12/08/23 08:58 Amoxicillin/Clavulanate K 875-125 Mg Tab PO 12/10/23 21:01 1 tablet Q12HR ASHLEY Administration Apixaban 5 mg 12/04/23 09:00 12/08/23 08:56 Apixaban 5 Mg Tablet PO 5 mg Q12HR ASHLEY Administration Bisacodyl 10 mg 12/04/23 05:29 Bisacodyl 5 Mg Tablet Ec PO DAILY PRN Constipation Desmopressin Acetate 0.1 mg 12/09/23 09:00 Desmopressin Acetate 0.1 Mg Tablet PO MoWeFr@0900 ASHLEY Dorzolamide/Timolol 1 drop 12/04/23 09:00 12/08/23 09:00 Dorzolamide/Timolol Ophth Yvonne 10 Ml Bottle EACH EYE 1 drop Q12HR ASHLEY Administration Gabapentin 300 mg 12/04/23 09:00 12/08/23 08:57 Gabapentin 300 Mg Capsule PO 300 mg TID ASHLEY Administration Hydrocortisone 5 mg 12/04/23 17:00 12/07/23 17:13 Hydrocortisone 5 Mg Tablet PO 5 mg DAILY@1700 ASHLEY Administration Hydrocortisone 10 mg 12/04/23 08:00 12/08/23 08:57 Hydrocortisone 10 Mg Tablet PO 10 mg DAILY@0800 ASHLEY Administration Hydrocortisone Sodium Succinate 100 mg 12/04/23 06:00 12/08/23 06:05 Hydrocortisone Sodium Succinate 100 Mg/2 Ml Vial IV PUSH 100 mg Q8HR ASHLEY Administration Latanoprost 1 drop 12/04/23 21:00 12/07/23 20:53 Latanoprost 0.005% Op Soln 2.5 Ml Btl LEFT EYE 1 drop HS ASHLEY Administration Lidocaine 1 patch 12/04/23 09:00 12/08/23 08:55 Lidocaine 5% Patch TOPICAL 1 patch DAILY ASHLEY Administration Lidocaine 1 patch 12/04/23 14:55 12/08/23 08:55 Lidocaine 5% Patch TRANSDERM 1 patch DAILY ASHLEY Administration Lorazepam 0.5 mg 12/04/23 12:19 Lorazepam Inj (*Crx) 2 Mg/Ml Vial IV PUSH Q6H PRN Seizure Activity Memantine 10 mg 12/04/23 09:00 12/08/23 08:56 Memantine 5 Mg Tablet PO 10 mg BID ASHLEY Administration Metoprolol Succinate 25 mg 12/04/23 09:00 12/08/23 09:00 Metoprolol Succinate Ext Rel 25 Mg Tabcr PO Not Given Q12HR REPLACED BY [facility] Miconazole Nitrate 1 applic 12/04/23 11:00 12/08/23 08:59 Miconazole 2% Antifungal Ointment 56 Gm TOPICAL 1 applic Q12HR ASHLEY Administration Miscellaneous Information 0 each 12/04/23 00:01 Ramelteon Non Formulary XX 01/03/24 00:00 CLARIFY REPLACED BY [facility] Non-Formulary Medication 8 mg 12/04/23 05:29 Ramelteon PO QHS PRN Insomnia Ondansetron HCl 4 mg 12/04/23 00:04 Ondansetron Inj 4 Mg/2 Ml Vial IV PUSH Q4H PRN Nausea Oxycodone HCl 5 mg 12/04/23 05:29 Oxycodone Hcl (*Crx) 5 Mg Tab Ir PO Q4H PRN Pain Rated 7-10 Pantoprazole Sodium 40 mg 12/04/23 09:00 12/08/23 08:58 Pantoprazole 40 Mg Tablet PO 40 mg DAILY ASHLEY Administration Polyethylene Glycol 17 gm 12/04/23 09:00 12/08/23 09:02 Polyethylene Glycol 3350 17 Gm Powd.Pack PO 17 gm QAM ASHLEY Administration Prednisolone Acetate 1 drop 12/04/23 21:00 12/07/23 20:56 Prednisolone Acetate 1% Ophth 5 Ml RIGHT EYE 1 drop HS ASHLEY Administration Sertraline HCl 25 mg 12/04/23 09:00 12/08/23 08:57 Sertraline Hcl 25 Mg Tablet PO 25 mg QAM ASHLEY Administration Vitamin D 2,000 units 12/04/23 09:00 12/08/23 08:56 Cholecalciferol 1,000 Units Tablet PO 2,000 units DAILY ASHLEY Administration Radiology Results: ITS Impressions Chest X-Ray 12/03/23 22:29 IMPRESSION: Small focus of atelectasis/consolidation in the left lower lung. Senescent change versus mild interstitial edema. Abdomen/Pelvis CT 12/03/23 23:22 IMPRESSION: No acute abdominopelvic process detected. 7 mm right lower lobe pulmonary nodule, stable over the intervening 6 months. Consider follow-up low-dose noncontrast CT of the chest in 12-18 months. Carotid Doppler Study 12/06/23 13:56 IMPRESSION: 1. <50% stenosis in the right internal carotid artery. 2. <50% stenosis in the left internal carotid artery. Head CT 12/08/23 13:43 Impression: No acute abnormality. Stable mild diffuse ventricular dilatation with ventriculostomy shunt catheter in place. Labs Labs: Laboratory Results - last 24 hr 12/06/23 12/08/23 12/08/23 06:49 05:12 10:01 WBC 8.1 RBC 3.00 L Hgb 8.5 L Hct 26.3 L MCV 87.7 MCH 28.3 MCHC 32.3 RDW 17.0 H Plt Count 145 L MPV 10.7 H Immature Gran % (Auto) 1.1 H Neut % (Auto) 79.2 H Lymph % (Auto) 16.6 L [place] % (Auto) 3.0 Eos % (Auto) 0.0 Baso % (Auto) 0.1 L Lymph # (Auto) 1.34 [place] # (Auto) 0.2 Eos # (Auto) 0.0 Baso # (Auto) 0.0 Abs Immat Gran (auto) 0.09 H Absolute Neuts (auto) 6.4 Absolute Nucleated RBC 0.030 H Nucleated RBC % 0.4 H PT INR Sodium 134 L Potassium 3.8 Chloride 98 Carbon Dioxide 30 Anion Gap 6 BUN 22 H Creatinine 0.80 Estim Creat Clear Calc 74 Estimated GFR > 60 Glucose 111 H Calcium 8.8 Magnesium 2.3 Total Bilirubin 0.8 AST 433 H ALT 308 H Alkaline Phosphatase 349 H Total Protein 7.0 Albumin 3.3 L Homocysteine 12.7 H Hepatitis A IgM Ab Negative Hep Bs Antigen Negative Hep B Core IgM Ab Negative Hepatitis C Ab Screen Negative 12/08/23 10:06 WBC RBC Hgb Hct MCV MCH MCHC RDW Plt Count MPV Immature Gran % (Auto) Neut % (Auto) Lymph % (Auto) [place] % (Auto) Eos % (Auto) Baso % (Auto) Lymph # (Auto) [place] # (Auto) Eos # (Auto) Baso # (Auto) Abs Immat Gran (auto) Absolute Neuts (auto) Absolute Nucleated RBC Nucleated RBC % PT 17.5 H INR 1.4 Sodium Potassium Chloride Carbon Dioxide Anion Gap BUN Creatinine Estim Creat Clear Calc Estimated GFR Glucose Calcium Magnesium Total Bilirubin AST ALT Alkaline Phosphatase Total Protein Albumin Homocysteine Hepatitis A IgM Ab Hep Bs Antigen Hep B Core IgM Ab Hepatitis C Ab Screen
[2023-12-08] MEDS: AZITHROMYCIN 250 MG TABLET 500 MG PO (14:17)
[2023-12-08] MEDS: HYDROCORTISONE 5 MG TABLET PO (17:49)
--- NOTE | 2023-12-08 20:55 | PC.NURSE ---
0900- am dose of toprol xl not given due to SB 40's - Dr. Adler informed
[2023-12-08] MEDS: LATANOPROST 0.005% OP SOLN 2.5 ML BTL 1 DROP LEFT EYE (23:18)
[2023-12-08] MEDS: prednisoLONE ACETATE 1% OPHTH 5 ML 1 DROP RIGHT EYE (23:18)
[2023-12-09] VITALS (17 sets, daily range): BP systolic 143–168; BP diastolic 68–113; PULSE 44–93; RESP 12–20; TEMP 35.9–36.6; O2SAT 93–100
[2023-12-09 04:58] LABS: Hematocrit 31.5 % (37.0-47.0); Hemoglobin 10.2 g/dL (12.0-15.0); Immature Granulocyte Absolute 0.06 K/mm3 (0.00-0.031); Immature Granulocyte Percent A 0.9 % (0-0.5); Lymphocytes Absolute Auto 0.83 K/mm3 (0.9-3.2); Lymphocytes Percent Auto 12.9 % (18.3-44.2); Mean Corpuscular HGB Conc 32.4 g/dl (32-36); Mean Corpuscular Hemoglobin 28.7 pg (26-34); Mean Corpuscular Volume 88.5 fl (80-100); Mean Platelet Volume 10.8 fl (7.4-10.4); Monocytes Absolute Auto 0.2 K/mm3 (0.1-0.6); Neutrophils Absolute Auto 5.3 K/mm3 (1.3-6.7); Neutrophils Percent Auto 83.2 % (45.5-73.1); Nucleated Red Blood Cells Perc 0.3 % (0.0-0.2); Platelet Count Result 169 k/mm3 (150-375); Red Blood Count 3.56 M/mm3 (4.2-5.4); Red Cell Distribution Width 17.2 % (11.5-14.5); White Blood Count 6.4 K/mm3 (4.5-10.0)
[2023-12-09 05:05] LABS: Alanine Aminotransferase 322 U/L (6-35); Albumin Level 3.8 g/dL (3.5-5.1); Alkaline Phosphatase 412 U/L (38-126); Anion Gap 7 mmol/L (4-12); Aspartate Amino Transferase 379 U/L (14-36); Bilirubin,Total 1.1 mg/dL (0.2-1.3); Blood Urea Nitrogen 25 mg/dL (7-17); Calcium 9.7 mg/dL (8.4-10.2); Carbon Dioxide 36 mmol/L (22-30); Chloride 107 mmol/L (98-107); Estimated CRCL calculation 72 ml/min; Estimated Glomerular Filt Rate > 60; Glucose 115 mg/dL (65-110); Magnesium 2.6 mg/dL (1.6-2.3); Potassium 3.2 mmol/L (3.4-5.0); Sodium 150 mmol/L (137-145)
[2023-12-09] MEDS: HYDROCORTISONE SODIUM SUCCINATE 100 MG/2 ML VIAL IV PUSH (05:41)
[2023-12-09] MEDS: polyethylene glycoL 3350 17 GM POWD.PACK PO (09:13)
[2023-12-09] MEDS: CHOLECALCIFEROL 1,000 UNITS TABLET 2000 UNITS PO (09:13)
[2023-12-09] MEDS: GABAPENTIN 300 MG CAPSULE PO ×3 (09:14→17:19)
[2023-12-09] MEDS: amLODIPine BESYLATE 5 MG TABLET PO (09:14)
[2023-12-09] MEDS: PANTOPRAZOLE 40 MG TABLET PO (09:14)
[2023-12-09] MEDS: SERTRALINE HCL 25 MG TABLET PO (09:14)
[2023-12-09] MEDS: AMOXICILLIN/CLAVULANATE K 875-125 MG TAB 1 TABLET PO ×2 (09:14→20:10)
[2023-12-09] MEDS: APIXABAN 5 MG TABLET PO ×2 (09:14→20:10)
[2023-12-09] MEDS: MEMANTINE 5 MG TABLET 10 MG PO ×2 (09:14→17:19)
[2023-12-09] MEDS: HYDROCORTISONE 10 MG TABLET PO (09:16)
[2023-12-09] MEDS: LIDOCAINE 5% PATCH 1 PATCH TOPICAL ×2 (09:16→09:17)
[2023-12-09] MEDS: LIDOCAINE 5% PATCH 1 PATCH TRANSDERM (09:17)
[2023-12-09] MEDS: DORZOLAMIDE/TIMOLOL OPHTH SOL 10 ML BOTTLE 1 DROP EACH EYE ×2 (09:19→20:10)
[2023-12-09] MEDS: POTASSIUM CHLORIDE 20 MEQ ER TABLET 40 MEQ PO (09:21)
[2023-12-09] MEDS: DESMOPRESSIN ACETATE 0.1 MG TABLET PO (09:22)
--- NOTE | 2023-12-09 11:27 | PCNFU ---
Nutrition Follow-Up Complete: Inadequate oral intake related to loss of appetite, dementia as evidenced by 0% meal intake Improve PO intake to at least 50% meals and supplements - Not meeting goal with intakes 25% meals. Continue with same goal Goal: Pt current nutrition is Heart healthy diet, Ensure Compact BID for additional 220 kcal and 9 g protein each. Nutrition recommendation: No new nutrition recommendations. Continue with current heart healthy diet and supplements. Agree with orders. Last recorded weight is 114.8 kg. Bowel Motility: BMs are not recorded Labs Reviewed: Hgb 10.2, Hct 31.5, Na 150, BUN 25, Mag 2.6 Meds Noted: Eliquis, Duclolax, Solu-cortef, Zofran, protonix, miralax Skin: No pressure. friction to buttocks Additional Notes: Appetite remains poor. Pt is more sleepy today. Drinking some Ensure. Continue current orders Monitoring intakes, weights, labs, supplement tolerance, plan of care FOllow up in 5 days
--- NOTE | 2023-12-09 12:32 | PM.IMPN ---
Progress Note: A&P Assessment and Plan (1) Hyponatremia: Code(s): E87.1 - Hypo-osmolality and hyponatremia Status: Resolved Assessment and Plan: Teresa rasheedht normal hydrocephalus and empty sella with diabetes insipidus and hx of hypernatremia She follows with nephrology She was hyponatremic on admission but this improved rapidily with stopping her chronic medications. na 150 so getting back to stable sodium values. She is still confused but may be close to baseline. Discussed with cargo bracer. (2) Lung infiltrate: Code(s): R91.8 - Other nonspecific abnormal finding of lung field Status: Acute Assessment and Plan: Chest x-ray showing small focus of atelectasis/consolidation in the left lower lung zone. Patient was given a dose Zosyn, vancomycin, azithromycin while in the ED. Abx changed to cefepime and azithromycin MRSA nasal swab negative UCx negative. BCx NGTD Abx narrowed to oral regiment (3) Hypothermia: Code(s): T68.XXXA - Hypothermia, initial encounter Status: Acute Assessment and Plan: Initial temp on arrival to the hospital was 91.5. Santos hugger placed overnight and temperature improved. She was able to maintain normal temperature and Santos Hugger able to be weaned off Probably related to above. Resolved (4) Transaminitis: Code(s): R74.01 - Elevation of levels of liver transaminase levels Status: Acute Assessment and Plan: AST was elevated on admission but much higher yesterday. Better today. ALT followed similar pattern Hepatitis panel negative. Abd US showing diffuse fatty infiltration of the liver Unclear why her levels have worsened. Follow (5) Altered mental status: Qualifiers: Altered mental status type: disorientation Qualified Code(s): R41.0 - Disorientation, unspecified Code(s): R41.82 - Altered mental status, unspecified Status: Acute Assessment and Plan: Altered mental status likely due to hyponatremia versus PNA versus hypothermic shock Head CT was negative for any acute intracranial process. Neurology following She is on Solu-Cortef and not sleeping well. Will decrease IC Solu-Cortef and hold oral HC for now. Trazodone for insomnia tonight (6) Normal pressure hydrocephalus: Onset Date: 05/2023 Code(s): G91.2 - (Idiopathic) normal pressure hydrocephalus Status: Chronic Assessment and Plan: Patient has history of a TIRE TRUCKER shunt. Head CT showing no acute intracranial process, no hydrocephalus, mass or herniation noted. Continue to monitor neuro status Neurology consulted (7) Adrenal insufficiency: Code(s): E27.40 - Unspecified adrenocortical insufficiency Status: Chronic Assessment and Plan: Started on stress dose steroids. BP better. Will begin to wean IV Solu-Cortef Hold oral HC until close to home dose. (8) Stage 3a chronic kidney disease: Code(s): N18.31 - Chronic kidney disease, stage 3a Status: Chronic Assessment and Plan: Renal function well controlled (9) Acute UTI: Code(s): N39.0 - Urinary tract infection, site not specified Status: Acute Assessment and Plan: UA is consistent with UTI. UCx collected. Abx started. UCx negative. UTI ruled out Plan DVT prophylaxis - Eliquis Code status - DNR Subjective Date/time seen: 12/09/23 12:32 Interval history: 73yo female with HTN, pre-DM, dementia and normal hydrocephalus and empty sella with diabetes insipidus here for AMS. Assuming care. Chart reviewed. Patient is unabel to provide hx due to her dementia. Review of Systems Review of Systems: ROS unobtainable: Yes unobtainable due to mental status Exam Narrative: AF 96.8 167/92 93 20 93% ra Gen - NARD Chest - CTA bilaterally, nml RR CV - RRR S1/S2 Abd - Soft, obese, NT, Positive BS - Costa secured draining clear yellow urine ([place] placed 12/02) Ext - No pedal edema Neuro - Alert but confused Psych - Nml mood and affect Skin - Warm and dry Objective Data Vital Signs Vital Signs: Vital Signs - 24 hr 12/08/23 15:54 12/08/23 14:00 12/08/23 16:00 Temperature 97.4 F L Pulse Rate 47 L 53 L 48 L Respiratory Rate 12 Blood Pressure 161/85 H Pulse Oximetry 100 12/08/23 18:00 12/08/23 21:29 12/09/23 00:06 Temperature 97.6 F 97.8 F Pulse Rate 55 L 50 L 46 L Respiratory Rate 12 12 Blood Pressure 146/96 H 143/93 H Pulse Oximetry 100 95 12/08/23 20:00 12/08/23 22:00 12/09/23 00:00 Temperature Pulse Rate 53 L 52 L 45 L Respiratory Rate Blood Pressure Pulse Oximetry 12/09/23 02:00 12/09/23 04:38 12/09/23 04:00 Temperature 97.8 F Pulse Rate 54 L 48 L 53 L Respiratory Rate 12 Blood Pressure 168/92 H Pulse Oximetry 12/09/23 06:00 12/09/23 08:00 12/09/23 11:36 Temperature 97 F L Pulse Rate 49 L 63 45 L Respiratory Rate 18 Blood Pressure 150/68 H Pulse Oximetry 99 12/09/23 12:00 Temperature 96.8 F L Pulse Rate 93 Respiratory Rate 20 Blood Pressure 167/92 H Pulse Oximetry 93 Intake/Output Intake/Output: Intake & Output 12/06/23 12/07/23 12/08/23 12/09/23 23:59 23:59 23:59 23:59 Intake Total 2790 2405 1042 862 Output Total 2850 550 2600 4700 Balance -60 4377 -1721 -0172 Meds/Results Medications: Active Medications Generic Name Dose Route Start Last Admin Trade Name Freq PRN Reason Stop Dose Admin Acetaminophen 650 mg 12/04/23 00:04 Acetaminophen 325 Mg Tablet PO Q4H PRN Mild Pain (1-3) or Fever Amlodipine Besylate 5 mg 12/08/23 09:00 12/09/23 09:14 Amlodipine Besylate 5 Mg Tablet PO 5 mg DAILY ASHLEY Administration Amoxicillin/Clavulanate Potassium 1 tablet 12/07/23 14:00 12/09/23 09:14 Amoxicillin/Clavulanate K 875-125 Mg Tab PO 12/10/23 21:01 1 tablet Q12HR ASHLEY Administration Apixaban 5 mg 12/04/23 09:00 12/09/23 09:14 Apixaban 5 Mg Tablet PO 5 mg Q12HR ASHLEY Administration Bisacodyl 10 mg 12/04/23 05:29 Bisacodyl 5 Mg Tablet Ec PO DAILY PRN Constipation Desmopressin Acetate 0.1 mg 12/09/23 09:00 12/09/23 09:22 Desmopressin Acetate 0.1 Mg Tablet PO 0.1 mg MoWeFr@0900 ASHLEY Administration Dorzolamide/Timolol 1 drop 12/04/23 09:00 12/09/23 09:19 Dorzolamide/Timolol Ophth Yvonne 10 Ml Bottle EACH EYE 1 drop Q12HR ASHLEY Administration Gabapentin 300 mg 12/04/23 09:00 12/09/23 09:14 Gabapentin 300 Mg Capsule PO 300 mg TID ASHLEY Administration Hydrocortisone 5 mg 12/04/23 17:00 12/08/23 17:49 Hydrocortisone 5 Mg Tablet PO 5 mg DAILY@1700 ASHLEY Administration Hydrocortisone 10 mg 12/04/23 08:00 12/09/23 09:16 Hydrocortisone 10 Mg Tablet PO 10 mg DAILY@0800 ASHLEY Administration Hydrocortisone Sodium Succinate 100 mg 12/04/23 06:00 12/09/23 05:41 Hydrocortisone Sodium Succinate 100 Mg/2 Ml Vial IV PUSH 100 mg Q8HR ASHLEY Administration Latanoprost 1 drop 12/04/23 21:00 12/08/23 23:18 Latanoprost 0.005% Op Soln 2.5 Ml Btl LEFT EYE 1 drop HS ASHLEY Administration Lidocaine 1 patch 12/04/23 09:00 12/09/23 09:17 Lidocaine 5% Patch TOPICAL 1 patch DAILY ASHLEY Administration Lidocaine 1 patch 12/04/23 14:55 12/09/23 09:17 Lidocaine 5% Patch TRANSDERM 1 patch DAILY ASHLEY Administration Lorazepam 0.5 mg 12/04/23 12:19 Lorazepam Inj (*Crx) 2 Mg/Ml Vial IV PUSH Q6H PRN Seizure Activity Memantine 10 mg 12/04/23 09:00 12/09/23 09:14 Memantine 5 Mg Tablet PO 10 mg BID ASHLEY Administration Metoprolol Succinate 25 mg 12/04/23 09:00 12/09/23 11:36 Metoprolol Succinate Ext Rel 25 Mg Tabcr PO Not Given Q12HR [facility] Miconazole Nitrate 1 applic 12/04/23 11:00 12/09/23 09:15 Miconazole 2% Antifungal Ointment 56 Gm TOPICAL 1 applic Q12HR ASHLEY Administration Miscellaneous Information 0 each 12/04/23 00:01 12/09/23 09:22 Ramelteon Non Formulary XX 01/03/24 00:00 Not Given CLARIFY [facility] Non-Formulary Medication 8 mg 12/04/23 05:29 Ramelteon PO QHS PRN Insomnia Ondansetron HCl 4 mg 12/04/23 00:04 Ondansetron Inj 4 Mg/2 Ml Vial IV PUSH Q4H PRN Nausea Oxycodone HCl 5 mg 12/04/23 05:29 Oxycodone Hcl (*Crx) 5 Mg Tab Ir PO Q4H PRN Pain Rated 7-10 Pantoprazole Sodium 40 mg 12/04/23 09:00 12/09/23 09:14 Pantoprazole 40 Mg Tablet PO 40 mg DAILY ASHLEY Administration Polyethylene Glycol 17 gm 12/04/23 09:00 12/09/23 09:13 Polyethylene Glycol 3350 17 Gm Powd.Pack PO 17 gm QAM ASHLEY Administration Prednisolone Acetate 1 drop 12/04/23 21:00 12/08/23 23:18 Prednisolone Acetate 1% Ophth 5 Ml RIGHT EYE 1 drop HS ASHLEY Administration Sertraline HCl 25 mg 12/04/23 09:00 12/09/23 09:14 Sertraline Hcl 25 Mg Tablet PO 25 mg QAM ASHLEY Administration Vitamin D 2,000 units 12/04/23 09:00 12/09/23 09:13 Cholecalciferol 1,000 Units Tablet PO 2,000 units DAILY ASHLEY Administration Radiology Results: ITS Impressions Chest X-Ray 12/03/23 22:29 IMPRESSION: Small focus of atelectasis/consolidation in the left lower lung. Senescent change versus mild interstitial edema. Abdomen/Pelvis CT 12/03/23 23:22 IMPRESSION: No acute abdominopelvic process detected. 7 mm right lower lobe pulmonary nodule, stable over the intervening 6 months. Consider follow-up low-dose noncontrast CT of the chest in 12-18 months. Carotid Doppler Study 12/06/23 13:56 IMPRESSION: 1. <50% stenosis in the right internal carotid artery. 2. <50% stenosis in the left internal carotid artery. Head CT 12/08/23 13:43 Impression: No acute abnormality. Stable mild diffuse ventricular dilatation with ventriculostomy shunt catheter in place. Abdomen Ultrasound 12/08/23 14:16 Impression: Diffuse fatty infiltration of the liver. Labs Labs: Laboratory Results - last 24 hr 12/06/23 12/09/23 06:49 04:36 WBC 6.4 RBC 3.56 L Hgb 10.2 L Hct 31.5 L MCV 88.5 MCH 28.7 MCHC 32.4 RDW 17.2 H Plt Count 169 MPV 10.8 H Immature Gran % (Auto) 0.9 H Neut % (Auto) 83.2 H Lymph % (Auto) 12.9 L [place] % (Auto) 3.0 Eos % (Auto) 0.0 Baso % (Auto) 0.0 L Lymph # (Auto) 0.83 L [place] # (Auto) 0.2 Eos # (Auto) 0.0 Baso # (Auto) 0.0 Abs Immat Gran (auto) 0.06 H Absolute Neuts (auto) 5.3 Absolute Nucleated RBC 0.020 H Nucleated RBC % 0.3 H Sodium 150 H Potassium 3.2 L Chloride 107 Carbon Dioxide 36 H Anion Gap 7 BUN 25 H Creatinine 0.80 Estim Creat Clear Calc 72 Estimated GFR > 60 Glucose 115 H Calcium 9.7 Magnesium 2.6 H Total Bilirubin 1.1 AST 379 H ALT 322 H Alkaline Phosphatase 412 H Total Protein 8.0 Albumin 3.8 Homocysteine 12.7 H
--- NOTE | 2023-12-09 12:52 | PC.NURSE ---
0800-Phone call made to Dr. Morton about patient's heart rate being sinus dany for past 24- 48 hours. Patient has metoprolol ER BID scheduled. Made Dr. Morton aware no dose has been given since 12/06 AM dose. Let MD know patient did not sleep over night and has been hallucinating, yelling, and agitated since 0600 per PM nurse. No new orders received. 1000- RN verbally notified MD about patient's heart rate ranging from 40s-low 60s sinus. RN made MD aware that RN held morning metoprolol ER. RN made MD aware patient still has not been asleep and still continuing to hallucinate, yell, and agitation. No new orders received.
[2023-12-09] MEDS: HYDROCORTISONE SODIUM SUCCINATE 100 MG/2 ML VIAL 50 MG IV PUSH ×2 (13:24→22:23)
[2023-12-09] MEDS: LATANOPROST 0.005% OP SOLN 2.5 ML BTL 1 DROP LEFT EYE (20:10)
[2023-12-09] MEDS: prednisoLONE ACETATE 1% OPHTH 5 ML 1 DROP RIGHT EYE (20:10)
[2023-12-09] MEDS: traZODone HCL 25 MG TABLET PO (20:11)
[2023-12-09] MEDS: BISACODYL 5 MG TABLET EC 10 MG PO (20:11)
[2023-12-09] MEDS: oxyCODONE HCL (*CRX) 5 MG TAB IR PO (22:23)
[2023-12-10] VITALS (22 sets, daily range): BP systolic 136–181; BP diastolic 68–109; PULSE 43–75; RESP 2–20; TEMP 34.3–36.6; O2SAT 98–100
[2023-12-10 04:56] LABS: Basophils Percent Auto 0.1 % (0.2-1.2); Hematocrit 31.2 % (37.0-47.0); Immature Granulocyte Absolute 0.05 K/mm3 (0.00-0.031); Immature Granulocyte Percent A 0.5 % (0-0.5); Lymphocytes Absolute Auto 1.18 K/mm3 (0.9-3.2); Lymphocytes Percent Auto 11.4 % (18.3-44.2); Mean Corpuscular HGB Conc 32.1 g/dl (32-36); Mean Corpuscular Hemoglobin 28.2 pg (26-34); Mean Corpuscular Volume 87.9 fl (80-100); Mean Platelet Volume 10.8 fl (7.4-10.4); Monocytes Absolute Auto 0.4 K/mm3 (0.1-0.6); Monocytes Percent Auto 3.5 % (2.6-8.5); Neutrophils Absolute Auto 8.8 K/mm3 (1.3-6.7); Neutrophils Percent Auto 84.5 % (45.5-73.1); Platelet Count Result 170 k/mm3 (150-375); Red Blood Count 3.55 M/mm3 (4.2-5.4); Red Cell Distribution Width 16.9 % (11.5-14.5); White Blood Count 10.4 K/mm3 (4.5-10.0)
[2023-12-10 05:09] LABS: Alanine Aminotransferase 285 U/L (6-35); Albumin Level 3.8 g/dL (3.5-5.1); Alkaline Phosphatase 376 U/L (38-126); Anion Gap 4 mmol/L (4-12); Aspartate Amino Transferase 216 U/L (14-36); Bilirubin,Total 0.9 mg/dL (0.2-1.3); Blood Urea Nitrogen 25 mg/dL (7-17); Calcium 9.4 mg/dL (8.4-10.2); Carbon Dioxide 38 mmol/L (22-30); Chloride 100 mmol/L (98-107); Estimated CRCL calculation 71 ml/min; Estimated Glomerular Filt Rate > 60; Glucose 106 mg/dL (65-110); Magnesium 2.4 mg/dL (1.6-2.3); Potassium 3.4 mmol/L (3.4-5.0); Sodium 142 mmol/L (137-145)
[2023-12-10] MEDS: HYDROCORTISONE SODIUM SUCCINATE 100 MG/2 ML VIAL 50 MG IV PUSH ×3 (06:17→21:31)
[2023-12-10] MEDS: polyethylene glycoL 3350 17 GM POWD.PACK PO (08:47)
[2023-12-10] MEDS: MEMANTINE 5 MG TABLET 10 MG PO (08:47)
[2023-12-10] MEDS: APIXABAN 5 MG TABLET PO ×2 (08:48→21:31)
[2023-12-10] MEDS: PANTOPRAZOLE 40 MG TABLET PO (08:48)
[2023-12-10] MEDS: CHOLECALCIFEROL 1,000 UNITS TABLET 2000 UNITS PO (08:48)
[2023-12-10] MEDS: GABAPENTIN 300 MG CAPSULE PO ×2 (08:48→12:55)
[2023-12-10] MEDS: amLODIPine BESYLATE 5 MG TABLET PO (08:48)
[2023-12-10] MEDS: SERTRALINE HCL 25 MG TABLET PO (08:48)
[2023-12-10] MEDS: AMOXICILLIN/CLAVULANATE K 875-125 MG TAB 1 TABLET PO ×2 (08:48→21:31)
[2023-12-10] MEDS: LIDOCAINE 5% PATCH 1 PATCH TOPICAL (08:48)
[2023-12-10] MEDS: LIDOCAINE 5% PATCH 1 PATCH TRANSDERM (08:49)
[2023-12-10] MEDS: DORZOLAMIDE/TIMOLOL OPHTH SOL 10 ML BOTTLE 1 DROP EACH EYE ×2 (08:50→21:45)
--- NOTE | 2023-12-10 08:57 | P.PNIM_ITS ---
Progress Note: A&P Assessment and Plan (1) Hypothermia: Code(s): T68.XXXA - Hypothermia, initial encounter Status: Acute Assessment and Plan: Initial temp on arrival to the hospital was 91.5. Santos hugger placed overnight and temperature improved. She was able to maintain normal temperature and Santos Hugger able to be weaned off Temp again this morning was low at 93.7. TSH normal 12/04. On Solu-Cortef so hypoadrenalism unlikely. Could be central from NPH. 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 Sepsis seems less likely. Was started on Trazodone last night; although not listed as a side effect, this is the only new medication so will stop Stop Trazodone. BairHugger resumed. Check BCx, UA. Check CT brain (2) Hyponatremia: Code(s): E87.1 - Hypo-osmolality and hyponatremia Status: Resolved Assessment and Plan: Patient with normal hydrocephalus and empty sella with diabetes insipidus causing hypernatremia She follows with nephrology She was hyponatremic on admission but this improved rapidly with stopping her chronic medications. Na 150 so put back on her home meds. She is still confused but slightly better today Sodium better today. Nephrology following and appreciate their input (3) Pneumonia: Code(s): J18.9 - Pneumonia, unspecified organism Status: Acute Assessment and Plan: Chest x-ray showing small focus of atelectasis/consolidation in the left lower lung zone. Patient was given a dose Zosyn, vancomycin, azithromycin while in the ED. Abx changed to cefepime and azithromycin MRSA nasal swab negative UCx negative. BCx negative. Abx narrowed to oral regiment and will complete abx today. Repeat CXR (4) Transaminitis: Code(s): R74.01 - Elevation of levels of liver transaminase levels Status: Acute Assessment and Plan: AST was elevated on admission but much higher on 12/07. ALT followed similar pattern Hepatitis panel negative. Abd US showing diffuse fatty infiltration of the liver Unclear why her levels have worsened. AST and ALT trending down now. Follow. Check lipase (5) Bradycardia: Code(s): R00.1 - Bradycardia, unspecified Status: Acute Assessment and Plan: HR consistently low since admission. Worse over night. [place] initially related to hypothermia but persistent. Metoprolol has been held for many days. TSH okay. Check apnea link to exclude sleep apnea, either central or obstructive. (6) Altered mental status: Qualifiers: Altered mental status type: disorientation Qualified Code(s): R41.0 - Disorientation, unspecified Code(s): R41.82 - Altered mental status, unspecified Status: Acute Assessment and Plan: Altered mental status likely due to hyponatremia versus PNA versus hypothermia vs lack of sleep Head CT was negative for any acute intracranial process. Neurology following She is on Solu-Cortef and not sleeping well. We decreased IV Solu-Cortef and holding oral HC for now. 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 Head CT showing no acute abnormality Continue to monitor neuro status Neurology consulted Repeat CT brain (8) Adrenal insufficiency: Code(s): E27.40 - Unspecified adrenocortical insufficiency Status: Chronic Assessment and Plan: Started on stress dose steroids. BP better. Weaned IV Solu-Cortef yesterday but still at high dose so do not believe the cause of her hypothermia Hold oral HC until close to home dose. Continue to wean Solu-Cortef (9) Stage 3a chronic kidney disease: Code(s): N18.31 - Chronic kidney disease, stage 3a Status: Chronic Assessment and Plan: Renal function well controlled Follow (10) Acute UTI: Code(s): N39.0 - Urinary tract infection, site not specified Status: Acute Assessment and Plan: UA is consistent with UTI. UCx collected. Abx started. UCx negative. UTI ruled out Plan DVT prophylaxis - Eliquis Code status - DNR Subjective Date/time seen: 12/10/23 08:57 Interval history: 73yo female with HTN, pre-DM, dementia and normal hydrocephalus and empty sella with diabetes insipidus here for AMS. Patient is alert but confused and thus unable to provide hx due to her dementia. She did sleep some last night. She is eating well. She was noted to have low temperature again this morning. Review of Systems Review of Systems: ROS unobtainable: Yes unobtainable due to mental status Exam Narrative: AF 93.7 147/87 49 12 100% ra Gen - NARD sitting up in bed Chest - CTA bilaterally, nml RR CV - bradycardic, regular; Tele showing sinus bradycardia with HR consistently above 45 Abd - Soft, obese, NT, Positive BS - Costa secured draining clear yellow urine (Costa placed 12/02) Ext - No pedal edema Neuro - Alert but confused. no focal weakness Psych - Nml mood. she becomes tearful at times but easily redirected Skin - cool and dry Objective Data Vital Signs Vital Signs: Vital Signs - 24 hr 12/09/23 11:36 12/09/23 12:00 12/09/23 10:00 Temperature 96.8 F L Pulse Rate 45 L 93 59 L Respiratory Rate 20 Blood Pressure 167/92 H Pulse Oximetry 93 Oxygen Delivery 12/09/23 12:00 12/09/23 13:01 12/09/23 14:00 Temperature Pulse Rate 48 L 46 L 48 L Respiratory Rate Blood Pressure Pulse Oximetry Oxygen Delivery 12/09/23 16:00 12/09/23 16:00 12/09/23 16:00 Temperature 96.7 F L Pulse Rate 46 L 59 L Respiratory Rate 18 Blood Pressure 155/100 H Pulse Oximetry 94 Oxygen Delivery Room Air 12/09/23 18:00 12/09/23 20:00 12/09/23 20:00 Temperature 97 F L Pulse Rate 60 54 L 53 L Respiratory Rate 16 Blood Pressure 148/113 H Pulse Oximetry 97 Oxygen Delivery 12/09/23 22:00 12/09/23 23:55 12/10/23 00:00 Temperature 97.9 F Pulse Rate 50 L 47 L 46 L Respiratory Rate 20 Blood Pressure 152/89 H Pulse Oximetry 100 Oxygen Delivery 12/10/23 02:00 12/10/23 04:00 12/10/23 04:00 Temperature 97.9 F Pulse Rate 43 L 48 L 56 L Respiratory Rate 16 Blood Pressure 181/109 H Pulse Oximetry 98 Oxygen Delivery 12/10/23 06:00 12/10/23 08:00 12/10/23 08:45 Temperature 96.3 F L Pulse Rate 49 L 45 L 49 L Respiratory Rate 12 Blood Pressure 147/87 H Pulse Oximetry 100 Oxygen Delivery Intake/Output Intake/Output: Intake & Output 12/07/23 12/08/23 12/09/23 12/10/23 23:59 23:59 23:59 23:59 Intake Total 2405 1042 2002 300 Output Total 125 6678 2401 4961 Balance 3014 -4447 -4548 -3400 Meds/Results Medications: Active Medications Generic Name Dose Route Start Last Admin Trade Name Freq PRN Reason Stop Dose Admin Acetaminophen 650 mg 12/04/23 00:04 Acetaminophen 325 Mg Tablet PO Q4H PRN Mild Pain (1-3) or Fever Amlodipine Besylate 5 mg 12/08/23 09:00 12/10/23 08:48 Amlodipine Besylate 5 Mg Tablet PO 5 mg DAILY ASHLEY Administration Amoxicillin/Clavulanate Potassium 1 tablet 12/07/23 14:00 12/10/23 08:48 Amoxicillin/Clavulanate K 875-125 Mg Tab PO 12/10/23 21:01 1 tablet Q12HR ASHLEY Administration Apixaban 5 mg 12/04/23 09:00 12/10/23 08:48 Apixaban 5 Mg Tablet PO 5 mg Q12HR ASHLEY Administration Bisacodyl 10 mg 12/04/23 05:29 12/09/23 20:11 Bisacodyl 5 Mg Tablet Ec PO 10 mg DAILY PRN Administration Constipation Desmopressin Acetate 0.1 mg 12/09/23 09:00 12/09/23 09:22 Desmopressin Acetate 0.1 Mg Tablet PO 0.1 mg MoWeFr@0900 ASHLEY Administration Dorzolamide/Timolol 1 drop 12/04/23 09:00 12/10/23 08:50 Dorzolamide/Timolol Ophth Yvonne 10 Ml Bottle EACH EYE 1 drop Q12HR ASHLEY Administration Gabapentin 300 mg 12/04/23 09:00 12/10/23 08:48 Gabapentin 300 Mg Capsule PO 300 mg TID ASHLEY Administration Hydrocortisone 5 mg 12/04/23 17:00 12/08/23 17:49 Hydrocortisone 5 Mg Tablet PO 5 mg DAILY@1700 ASHLEY Administration Hydrocortisone 10 mg 12/04/23 08:00 12/09/23 09:16 Hydrocortisone 10 Mg Tablet PO 10 mg DAILY@0800 ASHLEY Administration Hydrocortisone Sodium Succinate 50 mg 12/09/23 14:00 12/10/23 06:17 Hydrocortisone Sodium Succinate 100 Mg/2 Ml Vial IV PUSH 50 mg Q8HR ASHLEY Administration Latanoprost 1 drop 12/04/23 21:00 12/09/23 20:10 Latanoprost 0.005% Op Soln 2.5 Ml Btl LEFT EYE 1 drop HS ASHLEY Administration Lidocaine 1 patch 12/04/23 09:00 12/10/23 08:48 Lidocaine 5% Patch TOPICAL 1 patch DAILY ASHLEY Administration Lidocaine 1 patch 12/04/23 14:55 12/10/23 08:49 Lidocaine 5% Patch TRANSDERM 1 patch DAILY ASHLEY Administration Lorazepam 0.5 mg 12/04/23 12:19 Lorazepam Inj (*Crx) 2 Mg/Ml Vial IV PUSH Q6H PRN Seizure Activity Memantine 10 mg 12/04/23 09:00 12/10/23 08:47 Memantine 5 Mg Tablet PO 10 mg BID ASHLEY Administration Metoprolol Succinate 12.5 mg 12/09/23 12:45 12/10/23 08:45 Metoprolol Succinate Ext Rel 12.5 Mg Tabcr PO Not Given QAM ASHLEY Miconazole Nitrate 1 applic 12/04/23 11:00 12/10/23 08:50 Miconazole 2% Antifungal Ointment 56 Gm TOPICAL 1 applic Q12HR ASHLEY Administration Ondansetron HCl 4 mg 12/04/23 00:04 Ondansetron Inj 4 Mg/2 Ml Vial IV PUSH Q4H PRN Nausea Oxycodone HCl 5 mg 12/04/23 05:29 12/09/23 22:23 Oxycodone Hcl (*Crx) 5 Mg Tab Ir PO 5 mg Q4H PRN Administration Pain Rated 7-10 Pantoprazole Sodium 40 mg 12/04/23 09:00 12/10/23 08:48 Pantoprazole 40 Mg Tablet PO 40 mg DAILY ASHLEY Administration Polyethylene Glycol 17 gm 12/04/23 09:00 12/10/23 08:47 Polyethylene Glycol 3350 17 Gm Powd.Pack PO 17 gm QAM ASHLEY Administration Prednisolone Acetate 1 drop 12/04/23 21:00 12/09/23 20:10 Prednisolone Acetate 1% Ophth 5 Ml RIGHT EYE 1 drop HS ASHLEY Administration Sertraline HCl 25 mg 12/04/23 09:00 12/10/23 08:48 Sertraline Hcl 25 Mg Tablet PO 25 mg QAM ASHLEY Administration Trazodone HCl 25 mg 12/09/23 12:38 12/09/23 20:11 Trazodone Hcl 25 Mg Tablet PO 25 mg HS PRN Administration Insomnia Vitamin D 2,000 units 12/04/23 09:00 12/10/23 08:48 Cholecalciferol 1,000 Units Tablet PO 2,000 units DAILY ASHLEY Administration Radiology Results: ITS Impressions Chest X-Ray 12/03/23 22:29 IMPRESSION: Small focus of atelectasis/consolidation in the left lower lung. Senescent change versus mild interstitial edema. Abdomen/Pelvis CT 12/03/23 23:22 IMPRESSION: No acute abdominopelvic process detected. 7 mm right lower lobe pulmonary nodule, stable over the intervening 6 months. Consider follow-up low-dose noncontrast CT of the chest in 12-18 months. Carotid Doppler Study 12/06/23 13:56 IMPRESSION: 1. <50% stenosis in the right internal carotid artery. 2. <50% stenosis in the left internal carotid artery. Head CT 12/08/23 13:43 Impression: No acute abnormality. Stable mild diffuse ventricular dilatation with ventriculostomy shunt catheter in place. Abdomen Ultrasound 12/08/23 14:16 Impression: Diffuse fatty infiltration of the liver. Labs Labs: Laboratory Results - last 24 hr 12/10/23 04:47 WBC 10.4 H RBC 3.55 L Hgb 10.0 L Hct 31.2 L MCV 87.9 MCH 28.2 MCHC 32.1 RDW 16.9 H Plt Count 170 MPV 10.8 H Immature Gran % (Auto) 0.5 Neut % (Auto) 84.5 H Lymph % (Auto) 11.4 L [place] % (Auto) 3.5 Eos % (Auto) 0.0 Baso % (Auto) 0.1 L Lymph # (Auto) 1.18 [place] # (Auto) 0.4 Eos # (Auto) 0.0 Baso # (Auto) 0.0 Abs Immat Gran (auto) 0.05 H Absolute Neuts (auto) 8.8 H Absolute Nucleated RBC 0.000 Nucleated RBC % 0.0 Sodium 142 Potassium 3.4 Chloride 100 Carbon Dioxide 38 H Anion Gap 4 BUN 25 H Creatinine 0.80 Estim Creat Clear Calc 71 Estimated GFR > 60 Glucose 106 Calcium 9.4 Magnesium 2.4 H Total Bilirubin 0.9 AST 216 H ALT 285 H Alkaline Phosphatase 376 H Total Protein 7.0 Albumin 3.8
[2023-12-10 09:43] LABS: Lipase 23 U/L (23-300)
[2023-12-10 13:25] LABS: Add Urine Microscopic? YES; Appearance Urine Clear (Clear); Bacteria Urine None Seen /hpf; Bilirubin Urine Negative (Negative); Blood Urine Negative (Negative); Budding Yeast Urine Present /hpf; Color Urine Yellow (Yellow); Glucose Urine UA Negative (Negative); Ketones Urine Negative (Negative); Leukocyte Esterase Ur 1+ LEU/UL (Negative); Need Manual Microscopic Reviewed; Nitrate Urine Negative (Negative); Non Pathogenic Casts 0-2; Protein Urine Negative (Negative); RBC Urine 51-100 /hpf (0-2); Specific Grav Ur 1.006 (1.001-1.035); Squamous Epithelial Cell Urine None Seen /hpf (Few); Urobilinogen Urine 0.2 mg/dL (<2.0); WBC Urine 0-5 /hpf (0-3)
[2023-12-10] MEDS: LORazepam (*CRX) 0.5 MG TABLET PO (14:54)
[2023-12-10 20:19] LABS: Methylmalonic Acid 122 nmol/L (69-390)
[2023-12-10] MEDS: LATANOPROST 0.005% OP SOLN 2.5 ML BTL 1 DROP LEFT EYE (21:32)
[2023-12-10] MEDS: prednisoLONE ACETATE 1% OPHTH 5 ML 1 DROP RIGHT EYE (21:33)
[2023-12-11] VITALS (12 sets, daily range): BP systolic 146–187; BP diastolic 85–98; PULSE 44–59; RESP 18; TEMP 36–36.4; O2SAT 95–100
[2023-12-11] MEDS: LORazepam (*CRX) 0.5 MG TABLET PO (03:36)
[2023-12-11] MEDS: HYDROCORTISONE SODIUM SUCCINATE 100 MG/2 ML VIAL 50 MG IV PUSH (06:12)
[2023-12-11 07:19] LABS: Basophils Percent Auto 0.1 % (0.2-1.2); Hematocrit 30.4 % (37.0-47.0); Hemoglobin 9.8 g/dL (12.0-15.0); Immature Granulocyte Absolute 0.05 K/mm3 (0.00-0.031); Immature Granulocyte Percent A 0.6 % (0-0.5); Lymphocytes Absolute Auto 1.19 K/mm3 (0.9-3.2); Lymphocytes Percent Auto 14.4 % (18.3-44.2); Mean Corpuscular HGB Conc 32.2 g/dl (32-36); Mean Corpuscular Hemoglobin 28.6 pg (26-34); Mean Corpuscular Volume 88.6 fl (80-100); Mean Platelet Volume 10.9 fl (7.4-10.4); Monocytes Absolute Auto 0.4 K/mm3 (0.1-0.6); Monocytes Percent Auto 4.7 % (2.6-8.5); Neutrophils Absolute Auto 6.6 K/mm3 (1.3-6.7); Neutrophils Percent Auto 80.2 % (45.5-73.1); Platelet Count Result 181 k/mm3 (150-375); Red Blood Count 3.43 M/mm3 (4.2-5.4); White Blood Count 8.3 K/mm3 (4.5-10.0)
[2023-12-11 07:27] LABS: Alanine Aminotransferase 201 U/L (6-35); Albumin Level 3.3 g/dL (3.5-5.1); Alkaline Phosphatase 318 U/L (38-126); Anion Gap 4 mmol/L (4-12); Aspartate Amino Transferase 109 U/L (14-36); Bilirubin,Total 0.9 mg/dL (0.2-1.3); Blood Urea Nitrogen 27 mg/dL (7-17); Calcium 8.8 mg/dL (8.4-10.2); Carbon Dioxide 35 mmol/L (22-30); Chloride 107 mmol/L (98-107); Estimated CRCL calculation 71 ml/min; Estimated Glomerular Filt Rate > 60; Glucose 106 mg/dL (65-110); Magnesium 2.5 mg/dL (1.6-2.3); Potassium 3.2 mmol/L (3.4-5.0); Sodium 146 mmol/L (137-145)
[2023-12-11] MEDS: POTASSIUM CHLORIDE 20 MEQ ER TABLET 40 MEQ PO (08:48)
[2023-12-11] MEDS: MEMANTINE 5 MG TABLET 10 MG PO ×2 (08:48→16:17)
[2023-12-11] MEDS: amLODIPine BESYLATE 5 MG TABLET PO (08:49)
[2023-12-11] MEDS: DORZOLAMIDE/TIMOLOL OPHTH SOL 10 ML BOTTLE 1 DROP EACH EYE (08:49)
[2023-12-11] MEDS: PANTOPRAZOLE 40 MG TABLET PO (08:49)
[2023-12-11] MEDS: SERTRALINE HCL 25 MG TABLET PO (08:49)
[2023-12-11] MEDS: GABAPENTIN 300 MG CAPSULE PO ×2 (08:49→16:17)
[2023-12-11] MEDS: CHOLECALCIFEROL 1,000 UNITS TABLET 2000 UNITS PO (08:49)
[2023-12-11] MEDS: APIXABAN 5 MG TABLET PO (08:49)
[2023-12-11] MEDS: DESMOPRESSIN ACETATE 0.1 MG TABLET PO (08:51)
[2023-12-11] MEDS: polyethylene glycoL 3350 17 GM POWD.PACK PO (09:01)
[2023-12-11] MEDS: LIDOCAINE 5% PATCH 1 PATCH TRANSDERM (09:03)
[2023-12-11] MEDS: LIDOCAINE 5% PATCH 1 PATCH TOPICAL (09:04)
[2023-12-11 10:09] LABS: ANCA Screen ATYP P-ANCA POS (NEGATIVE); Atyp PANCA Ttr Reflex Chg Test YES
--- NOTE | 2023-12-11 14:45 | PM.DS ---
DS: Admitting Diagnosis Discharge Date 12/11/23 Admitting Diagnosis Altered mental status DS: Discharge Diagnosis Discharge Diagnosis (1) Hypothermia: Code(s): T68.XXXA - Hypothermia, initial encounter Status: Acute (2) Hyponatremia: Code(s): E87.1 - Hypo-osmolality and hyponatremia Status: Resolved (3) Pneumonia: Code(s): J18.9 - Pneumonia, unspecified organism Status: Acute (4) Transaminitis: Code(s): R74.01 - Elevation of levels of liver transaminase levels Status: Acute (5) Bradycardia: Code(s): R00.1 - Bradycardia, unspecified Status: Acute (6) Altered mental status: Qualifiers: Altered mental status type: disorientation Qualified Code(s): R41.0 - Disorientation, unspecified Code(s): R41.82 - Altered mental status, unspecified Status: Acute (7) Normal pressure hydrocephalus: Onset Date: 05/2023 Code(s): G91.2 - (Idiopathic) normal pressure hydrocephalus Status: Chronic (8) Adrenal insufficiency: Code(s): E27.40 - Unspecified adrenocortical insufficiency Status: Chronic (9) Stage 3a chronic kidney disease: Code(s): N18.31 - Chronic kidney disease, stage 3a Status: Chronic (10) Acute UTI: Code(s): N39.0 - Urinary tract infection, site not specified Status: Acute DS: Summary Hospital Course Reason for hospitalization: 73yo female with HTN, pre-DM, dementia and normal hydrocephalus and empty sella with diabetes insipidus here for AMS. Please see H&P for detail. Hospital Course: Patietn with altered mental status likely due to hyponatremia versus PNA versus hypothermia vs lack of sleep. Head CT was negative for any acute intracranial process. Neurology following. She is on Solu-Cortef and not sleeping well. We decreased IV Solu-Cortef and holding oral HC for now. Mental status better so at least a component related to poor sleep hygeine. Initial temp on arrival to the hospital was 91.5. Santos hugger placed overnight and temperature improved. She was able to maintain normal temperature and Santos Hugger able to be weaned off. Temp dropped again and treated appropriately. TSH normal 12/04. On Solu-Cortef so hypoadrenalism unlikely. Could be central from NPH. 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 Sepsis unlikely. She was started on Trazodone. Although hypothermia not listed as a side effect, this is the only new medication so this was stopped. She was weaned off Santos Hugger. Repeat CT brain showing no change. Patient with normal hydrocephalus and empty sella with diabetes insipidus causing hypernatremia. She follows with nephrology. She was hyponatremic on admission but this improved rapidly with stopping her chronic medications. Na 150 so she was put back on her home meds. She is still mildly confused but much better today. Sodium better today. Nephrology following and appreciate their input. Chest x-ray showing small focus of atelectasis/consolidation in the left lower lung zone concerning for PNA. Patient was given a dose Zosyn, vancomycin, azithromycin while in the ED. Abx changed to cefepime and azithromycin. MRSA nasal swab negative. UCx negative. BCx negative. Abx narrowed to oral regiment and completed abx. AST was elevated on admission but much higher on 12/07. ALT followed similar pattern. Hepatitis panel negative. Abd US showing diffuse fatty infiltration of the liver. Unclear why her levels have worsened. AST and ALT trending down now. HR consistently low since admission. [place] initially related to hypothermia but persistent and more likely related to untreated sleep apnea. Metoprolol was held. TSH okay. Apnea link showing AHI 40 and RI 41. Mostly obstructive apnea. Only 37 min with SpO2< 88% and no overt hypoxia documented overnight. 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 Head CT showing no acute abnormality. Neurology consulted. Patient has a hx of adrenal insufficiency and was started on stress dose steroids. BP was soft at times but better with steroids. Weaned IV Solu-Cortef. She has stage 3a chronic kidney disease with renal function well controlled. UTI ruled out. She had clinical improvement. She overall did well and was able to be discharged on 12/11/23. Discussed with and hospital course and follow-up plan reviewed. All questions answered. Status at Discharge Cognitive/behavioral status at discharge: stable Time Spent with Patient Time attestation: Total time spent providing and/or coordinating discharge services:36 minutes Time spent: Greater than 30 minutes Exam Narrative: AF 97.6 146/87 46 18 95% ra Gen - NARD sitting up in bed Chest - CTA bilaterally, nml RR CV - bradycardic, regular; Tele showing sinus bradycardia Abd - Soft, obese, NT, Positive BS - Costa secured draining clear yellow urine (Costa changed out on 12/02) Ext - No pedal edema Neuro - Alert but confused. no focal weakness Psych - Nml mood. Oriented x3 (not Mitchell name) Skin - warm and dry DS: Data Data Completed and Pending Labs on day of discharge: Labs from last 24 hours 12/11/23 12/06/23 12/05/23 07:09 06:49 04:08 WBC 8.3 RBC 3.43 L Hgb 9.8 L Hct 30.4 L MCV 88.6 MCH 28.6 MCHC 32.2 RDW 17.0 H Plt Count 181 MPV 10.9 H Immature Gran % (Auto) 0.6 H Neut % (Auto) 80.2 H Lymph % (Auto) 14.4 L [place] % (Auto) 4.7 Eos % (Auto) 0.0 Baso % (Auto) 0.1 L Lymph # (Auto) 1.19 [place] # (Auto) 0.4 Eos # (Auto) 0.0 Baso # (Auto) 0.0 Abs Immat Gran (auto) 0.05 H Absolute Neuts (auto) 6.6 Absolute Nucleated RBC 0.000 Nucleated RBC % 0.0 Sodium 146 H Potassium 3.2 L Chloride 107 Carbon Dioxide 35 H Anion Gap 4 BUN 27 H Creatinine 0.80 Estim Creat Clear Calc 71 Estimated GFR > 60 Glucose 106 Calcium 8.8 Magnesium 2.5 H Total Bilirubin 0.9 AST 109 H ALT 201 H Alkaline Phosphatase 318 H Total Protein 7.0 Albumin 3.3 L Methylmalonic Acid 122 ANCA Screen Atyp p-anca pos A Atypical p-ANCA Titer 1:80 H Preliminary micro results at discharge 12/10/23 09:43 Blood Culture - Preliminary Blood 12/10/23 09:48 Blood Culture - Preliminary Blood Discharge Plan Discharge Attending physician on discharge: Mike Morton Consulting providers: Miguel Jimenez; Amy Gutierrez Discharging Clinician: Mike Morton Anticipated Discharge Date/Time: 12/11/23 15:02 Patient Disposition: NH Retirement/Asst Living Activity: as tolerated Diet: heart healthy Discharge Instructions: Check blood pressure and heart rate 1 to 2 times a day. Record for the doctor's review. Take precautions to avoid falls. Contact the doctor if the patient has any lightheadedness or other worrisome symptoms. Avoid NSAIDs (ibuprofen, naproxen, Aleve). Tylenol is safe to take. Follow-up with the provider at the facility. Follow-up with nephrology in 2-4 weeks. Please call for an appointment. Follow-up with neurology in 2-4 weeks. Please call for an appointment. Please schedule patient for outpatient overnight sleep study for positive Apnea Link. Thank you for using [facility] for your health care needs. Patient Instructions: Antibiotic Form, Apixaban (By mouth), Urinary Tract Infection in Women (GEN), Costa Catheter Placement and Care (DC), Sepsis (GEN), Urinary Tract Infection in Older Adults (GEN) Stand Alone Forms: General Discharge Information Follow-up/Referrals: Gerson Sykes APRN [Primary Care Provider] - Call for Appointment Amy Gutierrez MD [Physician] - Call for Appointment Miguel Jimenez MD [Physician] - Call for Appointment Discharge Medications: Continued Senna Plus 8.6-50 mg capsule 1 tab-cap PO DAILY latanoprost 0.005 % drops 1 drp LEFT EYE HS prednisolone acetate 1 % drops,suspension 1 drp RIGHT EYE HS hydrocortisone 10 mg tablet 10 mg PO DAILY@0800 desmopressin 0.1 mg tablet 0.1 mg PO .MWF omeprazole 20 mg capsule,delayed release(DR/EC) 20 mg PO DAILY memantine 5 mg tablet 10 mg PO BID dorzolamide-timolol 22.3-6.8 mg/mL drops 1 drp EACH EYE Q12H Eliquis 5 mg tablet 5 mg PO Q12H Qty: 60 0RF polyethylene glycol 3350 [Miralax] 17 gram powder in packet 17 g PO QAM lidocaine 5 % Adhesive Patch,Medicated 1 patch TOPICAL DAILY Rx Instructions: Apply to left hip bisacodyl 5 mg Tablet,Delayed Release (Dr/Ec) 10 mg PO PRN PRN (Reason: Constipation) sertraline 25 mg tablet 25 mg PO QAM gabapentin 300 mg capsule 300 mg PO TID cholecalciferol (vitamin D3) 50 mcg (2,000 unit) tablet 50 mcg PO DAILY Qty: 90 1RF Changed hydrocortisone 5 mg tablet 5 mg PO 1700 Qty: 10 0RF Rx Instructions: Administer daily at 1700 Held ramelteon 8 mg tablet 8 mg PO QHS PRN (Reason: Insomnia) acetaminophen [Tylenol Extra Strength] 500 mg tablet 1,000 mg PO Q6H PRN (Reason: Pain (Scale Score 1-3)) atorvastatin 80 mg tablet 80 mg PO HS metoprolol succinate 25 mg tablet extended release 24 hr 25 mg PO BID Qty: 180 1RF Discontinued oxycodone 5 mg Tablet 5 mg PO Q4H PRN (Reason: Pain) Other Ambulatory Orders: Complete Blood Count with Diff (Routine) Timeframe: 1 Week Location: Determined by Patient Ordered By: Mike Morton Comprehensive Metabolic Panel (Routine) Timeframe: 1 Week Location: Determined by Patient Ordered By: Mike Morton Date of admission: 12/04/23 08:54 Primary Care Provider: Gerson Sykes Admitting Provider: Demetri Crook V. Attending physician on admission: Demetri Crook V. Condition: Stable Hospitalist MIPS Heart Failure (Exclusion) Patient has history of Heart Transplant or Left Ventricular Assistive Device?: No IF YES, STOP HERE Heart Failure (Qualifier) Patient has current or prior documentation of LVEF less than or equal to 40%, or mod/servere depressed LVSF?: No IF NO, STOP HERE
[2023-12-11] MEDS: HYDROCORTISONE SODIUM SUCCINATE 100 MG/2 ML VIAL 25 MG IV PUSH (16:18)
--- NOTE | 2023-12-15 08:11 | PC.NURSE ---
Urine cx results faxed to Gerson Sykes, [employer], PCP for pt.
--- NOTE | 2023-12-15 12:47 | WPDNEUROLOGY ---
Neurology EEG Report General Information Date of Study: 01/08/24 TEST eeg DIAGNOSIS left hemispheric cerebrovascular accident and mental status changes CONDITION OF RECORDING drowsy and sleep EEG NUMBER [id number] CLINICAL HISTORY normal pressure hydrocephalus with left hemispheric stroke. EEG DESCRIPTION Background rhythm consists of low to medium voltage 5 to 7 hertz per 2nd theta activity admixed in superimposed by low voltage 15 to 18 hertz per 2nd beta activity. For paulino posterior gradient noted. Low-voltage beta activity seen admixed with theta activity evolving into bilateral symmetrical sleep activity with symmetrical sleep spindles. Photic stimulation not done. hyperventilation not done, non paroxysmal, Nonfocal, Nonlateralizing. IMPRESSION No significant abnormalities noted in this record clinical correlation recommended.
== END 2023-12-11 20:42 | DRG 194 ==
LOC: ANHED 12-04 00:05 → ANHIMU 12-04 00:53
PROVIDERS: Family Medicine; Internal Medicine Nephrology; Nurse Practitioner Acute Care; Psychiatry & Neurology Neurology; Admitting Provider Internal Medicine; Emergency Provider Emergency Medicine; PCP Nurse Practitioner; Visit Provider Internal Medicine
DX: J18.9 Pneumonia, unspecified organism (principal); E23.0 Hypopituitarism; E23.2 Diabetes insipidus; G91.2 (Idiopathic) normal pressure hydrocephalus; E66.01 Morbid (severe) obesity due to excess calories; E78.2 Mixed hyperlipidemia; F03.90 Unspecified dementia, unspecified severity, without behavioral disturbance, psychotic disturbance, mood disturbance, and anxiety; R68.0 Hypothermia, not associated with low environmental temperature; G47.33 Obstructive sleep apnea (adult) (pediatric); I12.9 Hypertensive chronic kidney disease with stage 1 through stage 4 chronic kidney disease, or unspecified chronic kidney disease; N18.31 Chronic kidney disease, stage 3a; R91.8 Other nonspecific abnormal finding of lung field; R74.01 Elevation of levels of liver transaminase levels; R41.0 Disorientation, unspecified; Z68.38 Body mass index [BMI] 38.0-38.9, adult; Z86.718 Personal history of other venous thrombosis and embolism; Z66 Do not resuscitate
CPT/HCPCS: 36415; 70450; 71045; 74176; 76705; 80053; 80061; 80074; 81001; 82306; 82533; 82570; 82607; 82746; 82948; 83090; 83605; 83690; 83735; 83921; 83930; 83935; 84145; 84156; 84295; 84443; 84484; 85025; 85610; 85730; 86036; 87040; 87086; 87088; 87106; 87641; 93005; 93880; 94762; 95816; 96361; 96365; 96367; 96375; 96376; 97110; 97162; 97165; 97530; 97535; 99285; A9270; G0378; J0456; J1720; J2060; J2185; J2543; J3370; J7030; J7060

== ENCOUNTER 2023-12-23 08:02 | Inpatient (IN) | payer MEDICARE, MEDICAID, SELFPAY ==
[2023-12-23] VITALS (75 sets, daily range): BP systolic 57–138; BP diastolic 23–109; PULSE 43–96; RESP 12–37; TEMP 33–36.2; O2SAT 90–100
--- NOTE | ~2023-12-23 | XR_ITS ---
EXAMINATION: XR chest PICC line DATE: 12/23/2023 14:35 INDICATION: PICC line insertion TECHNIQUE: frontal view of the chest was obtained. COMPARISON: Chest radiograph dated 12/23/2023 FINDINGS: Left upper extremity peripherally inserted central venous catheter (PICC) tip at the superior cavoat rial junction. Likely ventriculoperitoneal shunt projecting over the right side of the neck, right ch est and right upper quadrant of the abdomen. Continued progression of bilateral perihilar and lower lung predominant airspace opacities. No pneumo thorax or definitive pleural effusion. Cardiac silhouette is within normal limits for AP technique. IMPRESSION: 1. Continued progression of bilateral perihilar and lower lung predominant airspace opacities consist ent with pneumonia versus pulmonary edema. Reviewed, dictated and finalized at location B. IMPRESSION: 1. Continued progression of bilateral perihilar and lower lung predominant airs pace opacities consistent with pneumonia versus pulmonary edema.
--- NOTE | ~2023-12-23 | CT_ITS ---
EXAMINATION: CT chest abdomen pelvis wo con DATE: 12/23/2023 16:50 INDICATION: Sepsis TECHNIQUE: Computed tomography (CT) of the chest, abdomen, and pelvis was performed without intraveno us contrast. Automated exposure control and iterative reconstruction technique were employed. The dos e-length product was 1681.01 mGy-cm. COMPARISON: CT abdomen pelvis dated FINDINGS: CHEST CT: Evaluation the lower neck and upper chest somewhat limited by motion artifact. Left upper extremity p eripherally inserted central venous catheter (PICC) tip at the right atrium. Nasogastric tube extend s to the distal body of the stomach. There are groundglass opacities in the periphery of regions of c onsolidation with air bronchogram and without associated volume loss in all lobes most prominent in t he bilateral lower lobes and consistent with multifocal pneumonia. There are a few superficial nodule s along the right minor fissure the largest measuring 7 mm likely representing reactive intrafissural lymph nodes. No pleural effusion or pneumothorax. Borderline heart size. Atherosclerotic coronary ar cuco calcification is. No pericardial effusion. Thoracic aorta is normal in caliber. No pathologicall y enlarged dressing lymphadenopathy. There is a ventriculoperitoneal shunt which extends caudally fro m the right neck across anterior right chest, coiled in the right abdomen with distal tip in the righ t hemipelvis. Anterior plate-screw fixation and partially visualized posterior vertical gracie and later al mass screw fixation for including the visualized anterior and posterior cervical spinal fusion. Mi ld thoracic kyphosis with mild anterior wedging of a couple mid thoracic vertebral bodies. Moderate t o severe thoracic spondylosis. ABDOMEN/PELVIS CT: Liver, gallbladder, spleen, bilateral adrenal glands and kidneys are normal. There is moderate diffus e fatty pancreatic atrophy. Bowels are unremarkable with no obstruction. Costa catheter within the de compressed bladder. The uterus is not identified and has likely been surgically resected. No free int raperitoneal gas or fluid No pathologically enlarged abdominal or pelvic lymphadenopathy. Mild lumbar spondylosis. L4-L5 instrumented anterior and posterior spinal fusion with interbody fusion device an d bilateral vertical gracie and pedicle screw fixation.. IMPRESSION: 1. Multifocal pneumonia throughout both lungs. Line 2. No acute intra-abdominal/pelvic process. Reviewed, dictated and finalized at location B.
--- NOTE | ~2023-12-23 | XR_ITS ---
Upright portable view of the abdomen Clinical history: NG tube placement Findings: NG tube is in place, in satisfactory position. Bowel gas pattern is nonspecific. No evidenc e for obstruction or free air. No abnormal mass lesion or calcification is seen. Osseous structures a re intact. Impression: NG tube in satisfactory position. Reviewed, dictated and finalized at [facility]. Impression: NG tube in satisfactory position.
--- NOTE | ~2023-12-23 | CT_ITS ---
EXAMINATION: CT brain wo con DATE: 12/23/2023 16:49 INDICATION: Altered mental status TECHNIQUE: Computed tomography (CT) of the head was performed without intravenous contrast. Sagittal and coronal reconstructions were performed. The mA was adjusted according to patient size. Iterative reconstruction technique was employed. The dose-length product was 2043.00 mGy-cm. COMPARISON: head CT dated 12/10/19 FINDINGS: Again seen is a right sided ventriculostomy catheter with the tip extending to a raj hole into cornel nal region of the right lateral ventricle and with distal tip along the septum pellucidum which is te nted towards the left. No acute intracranial hemorrhage, acute infarction or abnormal extra axial flu id collection. There is mild scattered white matter hypoattenuation consistent with chronic small ves devante ischemic disease. The left and right lateral and third ventricles remain normal in size with unc hanged mild enlargement of the fourth ventricle. No mass/mass effect. Changes of bilateral intraocula r lens replacement. There is a likely bowel for glaucoma at the superolateral margin of the right jaky be. The paranasal sinuses and mastoid air cells are normal. IMPRESSION: 1. Stable mild enlargement of the fourth ventricle with unchanged position of a right ventricular ginger inage catheter with distal tip in the right lateral ventricle tenting the septum pellucidum. 2. Mild scattered white matter hypoattenuation consistent with chronic small vessel ischemic disease. Reviewed, dictated and finalized at location B. IMPRESSION: 1. Stable mild enlargement of the fourth ventricle with unchanged position of a right ventricular drainage catheter with distal tip in the right lateral ventr icle tenting the septum pellucidum. 2. Mild scattered white matter hypoattenuation consistent with chronic small ve ssel ischemic disease.
--- NOTE | ~2023-12-23 | XR_ITS ---
EXAMINATION: XR chest 1V portable DATE: 12/23/2023 09:26 INDICATION: Shortness of breath. TECHNIQUE: A single frontal view of the chest was obtained. COMPARISON: Chest single view 12/10/2023, 12/03/2023 FINDINGS: There are airspace opacities in right lower lung zone and left mid and lower lung zones. No pleural effusion or pneumothorax. The heart size is normal. 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 A right-sided ventriculoperitoneal shunt is noted. IMPRESSION: 1. Worsened airspace opacities in right lower lung zone and left mid and lower lung zones, consistent with pneumonia versus pulmonary edema. Reviewed, dictated and finalized at location A.
--- NOTE | ~2023-12-23 | XR_ITS ---
Portable chest x-ray Comparison: 12/23/2023 Clinical History: Respiratory failure Findings: NG tube and left-sided PICC line are in satisfactory positions. Extensive pulmonary consol idation present, sparing the lung apices. Cardiomediastinal silhouette is stable. Bones and soft tis sues are unremarkable. Impression: Extensive bibasilar and perihilar pulmonary consolidation. Findings suggest moderate to advanced bila teral pulmonary edema. Correlate clinically for pneumonia. Support tubes, as above. Reviewed, dictated and finalized at [facility]. Impression: Extensive bibasilar and perihilar pulmonary consolidation. Findings suggest mod erate to advanced bilateral pulmonary edema. Correlate clinically for pneumonia . Support tubes, as above.
--- NOTE | ~2023-12-23 | XR_ITS ---
EXAMINATION: XR chest 1V portable DATE: 12/26/2023 05:19 INDICATION: Respiratory failure TECHNIQUE: frontal view of the chest was obtained. COMPARISON: Chest radiograph dated 12/25/2023 FINDINGS: Right upper extremity peripherally inserted central venous catheter (PICC) tip at the right atrium. Nasogastric tube extends below the left hemidiaphragm with distal tip collimated off the study. Like ly ventriculoperitoneal shunt projects over the right neck, chest and upper abdomen. Increased interstitial and airspace opacities in the left lung, now fairly symmetric with the right l savita. No pneumothorax. Borderline heart size. IMPRESSION: 1. Bilateral diffuse interstitial and airspace opacities with increase on the left consistent with pn eumonia and/or pulmonary edema, possibly superimposed over small bilateral pleural effusions. Reviewed, dictated and finalized at location A. IMPRESSION: 1. Bilateral diffuse interstitial and airspace opacities with increase on the l eft consistent with pneumonia and/or pulmonary edema, possibly superimposed ove r small bilateral pleural effusions.
--- NOTE | ~2023-12-23 | XR_ITS ---
Portable chest x-ray Comparison: 12/24/2023 Clinical History: Respiratory failure Findings: NG tube and left-sided PICC line remain in place. There is extensive bilateral pulmonary c onsolidation, relatively sparing the left lung apex. Possible small right pleural effusion. Cardiome diastinal silhouette is stable. Bones and soft tissues are unremarkable. Impression: Extensive bilateral pulmonary consolidation with relative sparing of left lung apex. Correlate for se jasbir pulmonary edema and/or extensive pneumonia. Minimal right pleural effusion. Support tubes, as above. Reviewed, dictated and finalized at location . Impression: Extensive bilateral pulmonary consolidation with relative sparing of left lung apex. Correlate for severe pulmonary edema and/or extensive pneumonia. Minimal right pleural effusion. Support tubes, as above.
--- NOTE | 2023-12-23 08:05 | ECG_ITS ---
Test Date: 2023-12-23 08:14:53 Measurements Intervals [place] Rate: 59 P: 38 IL: 205 QRS: 39 QRSD: 92 T: 148 QT: 439 QTc: 438 Interpretive Statements SINUS BRADYCARDIA BORDERLINE AV CONDUCTION DELAY ST-T WAVE ABNORMALITY IN DIFFUSE LEADS- CONSIDER ISCHEMIA BASELINE ARTIFACT- I, II, III, AVR, AVL, AVF, V4-V6 ABNORMAL ECG Compared to ECG 12/03/2023 21:27:59 HEART RATE HAS INCREASED Electronically Signed On 12-23-2023 08:23:04 CDT by Obdulio Garcia D.O.
[2023-12-23 09:20] LABS: Hemoglobin 10.3 g/dL (12.0-15.0); Mean Corpuscular HGB Conc 32.2 g/dl (32-36); Mean Corpuscular Hemoglobin 29.3 pg (26-34); Mean Corpuscular Volume 90.9 fl (80-100); Mean Platelet Volume 11.3 fl (7.4-10.4); Platelet Count Result 162 k/mm3 (150-375); Red Blood Count 3.52 M/mm3 (4.2-5.4); Red Cell Distribution Width 18.4 % (11.5-14.5)
--- NOTE | 2023-12-23 09:22 | PC.NURSE ---
Pt covered in feces upon arrival. Pt cleaned up and linen changed. Fecal matter tracking into vagina, contaminating existing indwelling regalado catheter. Existing regalado catheter removed, and pt cleaned up. Pt rectal temperature 92.3. Temp regalado placed. Santos hugger applied. Oral hygiene performed, pt mouth dry and secretions dried to external mouth. blanket applied.
[2023-12-23 09:30] LABS: Lactic Acid Reflex 0.9 mmol/L (0.7-2.0)
[2023-12-23 09:33] LABS: INR 1.1; Partial Thromboplastin Time 37.6 Seconds (22.3-36.8); Prothrombin Time 14.9 Seconds (11.1-14.7)
[2023-12-23 09:39] LABS: NT Pro B Type Natriuretic Pept 855 pg/mL (19.9-100)
[2023-12-23 09:45] LABS: Band Neutrophils Percent 18 % (0-6); Eosinophils Absolute Manual 0.01 K/mm3 (0.02-0.50); Eosinophils Percent Manual 1 % (0-4); Lymphocytes Absolute Manual 0.48 K/mm3 (1.1-4.5); Lymphocytes Percent Manual 48 % (18-44); Monocytes Absolute Manual 0.05 K/mm3 (0.1-0.90); Monocytes Percent Manual 5 % (3-9); Neutrophils Absolute Manual 0.38 K/mm3 (1.7-7.2); Neutrophils Percent Manual 20 % (46-73); Total Cells Counted 100
[2023-12-23 09:46] LABS: Anisocytosis 2+; Burr Cells 2+; Nucleated Red Blood Cells 3 %; Ovalocytes 1+; Platelet Estimate Adequate (Adequate); Poikilocytosis 1+; Schistocytes None Seen
--- NOTE | 2023-12-23 09:48 | ED.GENADULT ---
HPI - General Adult General Chief complaint: Shortness of Breath/Dyspnea Stated complaint: SOB Time Seen by Provider: 12/23/23 08:02 History of Present Illness HPI narrative: Patient is a 73-year-old female who presents ER with shortness of breath. Found to be hypoxic in the 60s at her snf. Patient placed on non-rebreather by EMS with improvement of O2 saturation. Non-rebreather continued upon arrival here. She is incontinent of loose stool. She has coarse rales likely be heard from across the room. She is unable to provide any history. Mouth is very dry. longterm paperwork shows she is a DNR. Related Data Home Medications Medication Instructions Recorded Confirmed latanoprost 0.005 % eye drops 1 drp LEFT EYE HS 01/28/22 12/23/23 prednisolone acetate 1 % eye 1 drp RIGHT EYE HS 01/28/22 12/23/23 drops,suspension dorzolamide 22.3 mg-timolol 6.8 1 drp EACH EYE Q12H 06/04/22 12/23/23 mg/mL eye drops sertraline 25 mg tablet 25 mg PO QAM 05/23/23 12/23/23 desmopressin 0.1 mg tablet 0.1 mg PO .MWF 08/20/23 12/23/23 hydrocortisone 10 mg tablet 10 mg PO DAILY@0800 08/20/23 12/23/23 omeprazole 20 mg capsule,delayed 20 mg PO DAILY 08/20/23 12/23/23 release gabapentin 300 mg capsule 300 mg PO TID 11/12/23 12/23/23 memantine 5 mg tablet 10 mg PO BID 11/12/23 12/23/23 sennosides 8.6 mg-docusate sodium 1 tab-cap PO DAILY 11/12/23 12/23/23 50 mg capsule (Senna Plus) bisacodyl 5 mg tablet,delayed 10 mg PO PRN PRN Constipation 12/04/23 12/23/23 release lidocaine 5 % topical patch 1 patch topical DAILY 12/04/23 12/23/23 polyethylene glycol 3350 17 gram 17 g PO QAM 12/04/23 12/23/23 oral powder packet (Miralax) Allergies Allergy/AdvReac Type Severity Reaction Status Date / Time No Known Allergies Allergy Verified 11/12/23 09:30 Review of Systems Review of Systems: ROS unobtainable: Yes unobtainable due to medical condition [facility] Past Medical History Medical History Arthritis Deep venous thrombosis Diabetes insipidus (05/2023) Essential (primary) hypertension Glaucoma Herniated disc lower back History of colon polyps Hypercholesteremia Left-sided cerebrovascular accident (CVA) Mixed hyperlipidemia Normal pressure hydrocephalus (05/2023) Suspected NPH with enlargement of the lateral and 4th ventricles and empty sella on MRI. Post-menopausal Prediabetes Spinal stenosis at L4-L5 level Surgical History Surgical History History of back surgery History of carpal tunnel surgery History of cataract extraction History of cervical discectomy History of colonoscopy with polypectomy History of decompression of ulnar nerve History of excision of lamina of cervical vertebra for decompression of spinal cord History of hysterectomy History of tonsillectomy Family History Family History Mother Diabetes mellitus Hypertension Cerebrovascular accident Sibling Breast cancer Family history of arthritis Other Family history of cardiovascular disease Family history of coronary artery disease Family history of malignant neoplasm Family history of premature coronary heart disease Social History Social History Social History: Surrogate medical decision maker: Daly Jaramillo, spouse. Code status: Do not resuscitate. Smoking status: Never smoker Second hand tobacco smoke exposure: No Alcohol intake: never Alcohol use details: social Substance use: never Substance use type: does not use Do You Feel Safe in your Home?: Yes Lack of Transportation: No Lack of Food: Never True Current Housing: I Have Housing Concerned About Future Housing: No Difficulty Paying Gas/Electric Bills: No Difficulty Paying for Meds: No Currently Unemployed: No Education: High School Diploma/G
[2023-12-23 09:58] LABS: Alanine Aminotransferase 85 U/L (6-35); Albumin Level 3.6 g/dL (3.5-5.1); Alkaline Phosphatase 310 U/L (38-126); Anion Gap 9 mmol/L (4-12); Aspartate Amino Transferase 51 U/L (14-36); Bilirubin,Total 0.6 mg/dL (0.2-1.3); Blood Urea Nitrogen 16 mg/dL (7-17); Calcium 8.9 mg/dL (8.4-10.2); Carbon Dioxide 27 mmol/L (22-30); Chloride 91 mmol/L (98-107); Estimated CRCL calculation 52 ml/min; Estimated Glomerular Filt Rate 59; Glucose 62 mg/dL (65-110); Potassium 3.6 mmol/L (3.4-5.0); Sodium 127 mmol/L (137-145)
[2023-12-23] MEDS: cefTRIAXone 2 GM/NS 100 ML 2 GM/100 ML BAG IVPB (10:19)
[2023-12-23] MEDS: AZITHROMYCIN 500 MG/NS 250 ML 500 MG/250 ML BAG 250 MG IVPB (10:31)
--- NOTE | 2023-12-23 10:54 | PC.NURSE ---
Pt oxygen increased to 4L on NC d/t oxygen decreasing to 89-90%. Pt head of bed increased, pt still drowsy. pt oxygen not increasing on 4L NC. Pt Placed on NRB 12L and oxygen increased to 93%. made aware.
[2023-12-23 11:57] LABS: MRSA (PCR) NOT DETECTED (NOT DETECTE)
--- NOTE | 2023-12-23 12:30 | ADMGEN ---
This patient, Jolie Banks, was admitted to IMU Room 204-01. Patient/family oriented to hospital policies and general routines including ID bracelet, bed and alarms, visiting hours, pain management, procedures, bathroom and other care routines, personal items, smoking policy, room service/diet, and visiting hours. Information on how to activate the Rapid Response Team has been discussed. Patient/Family are encouraged to report perceived risks to care and to ask questions if they do not understand what they are told or what they should do.
[2023-12-23] MEDS: SODIUM CHLORIDE 0.9% IV 1,000 ML 125 ML IV CONT (12:43)
[2023-12-23] MEDS: CEFEPIME 2 GM/NS 50 ML 2 GM/50 ML BAG IVPB (12:52)
[2023-12-23] MEDS: VANCOMYCIN 1,250 MG/NS 250 ML 1,250 MG/250 ML BAG 166.67 MG IVPB ×2 (12:53→15:39)
--- NOTE | 2023-12-23 13:31 | PM.IMHP ---
H&P: HPI History of Present Illness Date/Time: 12/23/23 13:31 Chief Complaint: Hypoxia Narrative: 73 y/o F presents here with hypoxia with PMH of CKD, HTN, pre diabetes, dementia, DVT (left femoral, on Eliquis), and normal pressure hydrocephalus and empty sella with diabetes insipidus (05/2023) s/p [employer]IDE [employer] SAL[employer] CONSULTANT shunt placement. Patient unable to contribute to HPI due to current mental status. The patient presents here from [facility] for further evaluation of hypoxia. Per EMS report to the ED, [place] [facility] staff found patient to be hypoxic at 60% on room air. Upon their arrival patient had a sat of 88% on room air with audible rales. EMS placed patient on a non-rebreather with increase in sat to 99%. Patient has history of dementia and is A&O x2 at baseline. Per chart review, patient was most recently admitted here from 12/04/2023 to 12/11/2023 for altered mental status. Alteration thought to be multifactorial or due to: hyponatremia, pneumonia, hypothermia, lack of sleep. Patient responded well to decreasing Solu-Cortef which led to increased sleep. Initially needed Santos Hugger which was able to be tolerated, hypothermia thought to be related to hypopituitarism versus NPH. Home medications were held and hyponatremia resolved and home medications were restarted at discharge. Pneumonia was treated with cefepime and azithromycin. Patient recently followed up with her neurologist on 12/15/2023, at this visit she reported improvement since INSIDE [employer] SAL[employer] CONSULTANT shunt placement 6 weeks prior. Did report a watching sound in her right ear. Plan was to let her body equal every 8 for another few months before making changes to shunt, setting at 2.5, and plan to return in 3-4 months for repeat head CT. Per ED provider documentation, patient initially admitted to IMU as DNR and family wished to forego a central line or pressors. However, after re-discussion with rounding physician the patient elected to move forward with a central line and pressors due citing that the better understood the procedure/medications. Initial VS at presentation: 91.4? F, HR 60, RR 24, 119/60 and 96% on 2L NC. Has since been transitioned to a NRB. ED workup showed: WBC 1.0, hemoglobin 10.3 (previously 9.8 on 12/11/2023), sodium 127, creatinine 1.1 and GFR 59, mild bump in LFTs, CRP 14, BNP 855. MRSA negative. CXR showed worsened airspace opacities in the right lower lung zone and left mid and lower lung zones consistent with pneumonia versus pulmonary edema. Review of Systems Review of Systems: ROS unobtainable: Yes unobtainable due to mental status (Limited, dementia) [facility] Past Medical History Medical History Arthritis Deep venous thrombosis Diabetes insipidus (05/2023) Essential (primary) hypertension Glaucoma Herniated disc lower back History of colon polyps Hypercholesteremia Left-sided cerebrovascular accident (CVA) Mixed hyperlipidemia Normal pressure hydrocephalus (05/2023) Suspected NPH with enlargement of the lateral and 4th ventricles and empty sella on MRI. Post-menopausal Prediabetes Spinal stenosis at L4-L5 level Surgical History Surgical History History of back surgery History of carpal tunnel surgery History of cataract extraction History of cervical discectomy History of colonoscopy with polypectomy History of decompression of ulnar nerve History of excision of lamina of cervical vertebra for decompression of spinal cord History of hysterectomy History of tonsillectomy Family History Family History Mother Diabetes mellitus Hypertension Cerebrovascular accident Sibling Breast cancer Family history of arthritis Other Family history of cardiovascular disease Family history of coronary artery disease Family history of malignant neoplasm Family history of premature coronary hear
--- NOTE | 2023-12-23 14:02 | WPDCNINT ---
Assessment and Plan Assessment and plan (1) Septic shock: Code(s): A41.9 - Sepsis, unspecified organism; R65.21 - Severe sepsis with septic shock Status: Acute Assessment and Plan: Chest x-ray suggest pneumonia. Patient may also have UTI or meningitis/encephalitis/infection of the patient as patient had surgery 6 weeks ago Blood cultures have been sent Check UA and urine culture Empiric vancomycin azithromycin. Switch cefepime to meropenem provide coverage for aspiration pneumonia Check lactic acid level and procalcitonin level Patient had recent urine culture which grew out Jazmine hence will add empiric micafungin (2) Transaminitis: Code(s): R74.01 - Elevation of levels of liver transaminase levels Status: Acute Assessment and Plan: Likely secondary to sepsis shock. Monitor at this time (3) DVT (deep venous thrombosis): Qualifiers: Affected thrombotic vein of extremity: femoral Chronicity: acute DVT location: lower extremity Laterality: left Qualified Code(s): I82.412 - Acute embolism and thrombosis of left femoral vein Code(s): I82.409 - Acute embolism and thrombosis of unspecified deep veins of unspecified lower extremity Status: Acute Assessment and Plan: Patient has history of DVT left femoral vein. She is on Eliquis. Eliquis on hold at this time will obtain head CT in light of altered mental status (4) ELIZABETH (acute kidney injury): Code(s): N17.9 - Acute kidney failure, unspecified Status: Acute Assessment and Plan: Presented with elevated creatinine 1.1 which is likely secondary to shock and sepsis. Patient has received adequate amount of IV fluids. Will hold further IV fluids as patient appears to be developing volume overload Start vasopressors to maintain mean arterial pressure Monitor electrolytes creatinine and urine output (5) Altered mental status: Qualifiers: Altered mental status type: delirium Qualified Code(s): R41.0 - Disorientation, unspecified Code(s): R41.82 - Altered mental status, unspecified Status: Acute Assessment and Plan: Patient has altered mental status and is barely responsive to painful stimuli. Patient is DNR DNI and family does not want intubation Altered mental status can be secondary to adrenal insufficiency, septic shock, medications as patient is on some medications that can be sedative. This could be also secondary to meningitis or encephalitis. Obstructed BP showed or infected [employer] DES[employer] shunt Patient also has history of hypothyroidism and electrolyte abnormality in the form hyponatremia Obtain head CT. Check ammonia and TSH Start hydrocortisone and levothyroxine IV Monitor and treat electrolyte abnormality May need EEG Family does not want lumbar puncture (6) Normal pressure hydrocephalus: Onset Date: 05/2023 Code(s): G91.2 - (Idiopathic) normal pressure hydrocephalus Status: Chronic Assessment and Plan: See above (7) Diabetes insipidus: Onset Date: 05/2023 Code(s): E23.2 - Diabetes insipidus Status: Suspected Assessment and Plan: Patient has diagnosis of diabetes insipidus and is currently on desmopressin but presenting sodium was low hence will hold desmopressin at this time and monitor electrolytes in sodium level. May have to consult nephrology (8) Hypothermia: Code(s): T68.XXXA - Hypothermia, initial encounter Status: Acute Assessment and Plan: See above (9) Adrenal insufficiency: Code(s): E27.40 - Unspecified adrenocortical insufficiency Status: Chronic Assessment and Plan: Patient presented with altered mental status hypothermia bradycardia hypotension and low WBC count suggestive of adrenal insufficiency Patient will be started on stress dose hydrocortisone at at this time (10) Hypoglycemia: Code(s): E16.2 - Hypoglycemia, unspecified Status: Acute Assess
[2023-12-23 14:15] LABS: Glucose Point of Care 68 mg/dl (65-105)
[2023-12-23] MEDS: DEXTROSE 50% 25 GM/50 ML SYRINGE IV PUSH (14:22)
--- NOTE | 2023-12-23 14:38 | PC.NURSE ---
This patient, Jolie Banks, was transferred to ICU 6 on 12/23/23 at 1357. Personal belongings sent with patient. Report given to Millie. Appropriate documentation sent with patient.
[2023-12-23] MEDS: LIDOCAINE HCL 1% PF INJ 5 ML VIAL INFILTRATE (14:40)
[2023-12-23] MEDS: NOREPINEPHRINE 8 MG/D5W 250 ML 8 MG/250 ML BAG 37.5 MG IV CONT (14:54)
[2023-12-23] MEDS: HYDROCORTISONE SODIUM SUCCINATE 100 MG/2 ML VIAL IV PUSH ×2 (14:57→22:41)
[2023-12-23] MEDS: LEVOTHYROXINE SODIUM INJ 100 MCG/5 ML VIAL 12.5 MCG IV PUSH (14:58)
[2023-12-23 15:01] LABS: Ammonia < 9 umol/L (9-30)
[2023-12-23 15:03] LABS: Lactic Acid Reflex 1.1 mmol/L (0.7-2.0)
[2023-12-23 15:04] LABS: Anion Gap 6 mmol/L (4-12); Blood Urea Nitrogen 15 mg/dL (7-17); Calcium 7.4 mg/dL (8.4-10.2); Carbon Dioxide 22 mmol/L (22-30); Chloride 97 mmol/L (98-107); Creatine Kinase 61 U/L (30-135); Estimated CRCL calculation 48 ml/min; Estimated Glomerular Filt Rate 53; Glucose 155 mg/dL (65-110); Potassium 3.8 mmol/L (3.4-5.0); Sodium 125 mmol/L (137-145)
[2023-12-23] MEDS: VASOPRESSIN INJ 100 UNITS in DEXTROSE 5% 95 ML IV CONT (15:07)
[2023-12-23] MEDS: DEXTROSE 5%/0.9% SOD CHL 1,000 ML 50 ML IV CONT (15:10)
[2023-12-23] MEDS: MEROPENEM 1 GM/NS 100 ML 1 GM/100 ML BAG IVPB ×2 (15:22→21:33)
[2023-12-23 15:30] LABS: Procalcitonin 3.9 ng/mL
[2023-12-23 15:41] LABS: Base Excess ABG -5.6 mEq/l (+/-2.0); Device NON-REBREATHER MASK; Fractional Inspired Oxygen 100 %; Modified Allen's Test Pass; Oxygen Content ABG 12.4 %vol (16.0-22.0); Oxyhemoglobin 94.6 % THb (90.0-100.0); PO2 FiO2 Ratio Arterial Blood 0.83 %; Site Drawn RIGHT RADIAL; Total Hemoglobin 9.2 g/dL (12.0-18.0); pH ABG 7.228 (7.350-7.450)
[2023-12-23] MEDS: EPINEPHrine INJ 1 MG in DEXTROSE 5% IN WATER 250 ML 15.06 MG IV CONT (16:02)
--- NOTE | 2023-12-23 16:57 | PC.NURSE ---
Called pt's on phone. Updated on current medications and stated that pt is very sick. Discussed pt's breathing status and explained Bipap to . Went over risks and benefits, but stated ultimately that it would be a risk given pt's current neurological status. stated that at this time he would not like to do Bipap. Updated Jenny FELDER. She called family to confirm 's wishes. See her note also. Continuing current care.
[2023-12-23 17:04] LABS: Influenza A QL RT-PCR Negative (Negative); Influenza B QL RT-PCR Negative (Negative); RSV RNA, RT-PCR Negative (Negative); SARS-CoV-2 RNA PCR Negative (Negative)
[2023-12-23] MEDS: MICAFUNGIN SODIUM 100 MG in SODIUM CHLORIDE 0.9% IV 100 ML IVPB (17:48)
[2023-12-23 18:49] LABS: Add Urine Microscopic? YES; Appearance Urine Turbid (Clear); Bacteria Urine None Seen /hpf; Bilirubin Urine Negative (Negative); Blood Urine 3+ (Negative); Color Urine Yellow (Yellow); Glucose Urine UA Negative (Negative); Hyaline Casts Urine Present /lpf; Ketones Urine Negative (Negative); Leukocyte Esterase Ur 1+ LEU/UL (Negative); Nitrate Urine Negative (Negative); Protein Urine 1+ mg/dL (Negative); RBC Urine 51-100 /hpf (0-2); Specific Grav Ur 1.016 (1.001-1.035); Squamous Epithelial Cell Urine Few /hpf (Few); Urobilinogen Urine 0.2 mg/dL (<2.0)
[2023-12-23] MEDS: NOREPINEPHRINE 8 MG/D5W 250 ML 8 MG/250 ML BAG 56.25 MG IV CONT (19:06)
--- NOTE | 2023-12-23 19:29 | PC.NURSE ---
There was a brief huddle performed at shift change with Millie ALVARADO the day shift RN, Lanette WALL STEAMER, and myself. This was done at the bedside regarding the patient's condition, her status including severe sepsis, current medications including pressor support, respiratory support, antibiotics, and other care activities.
--- NOTE | 2023-12-23 19:40 | PC.NURSE ---
I spoke with Dr. Sandoval on the phone and gave him an update on the patient's condition. He ordered to wean epi first, then levo as appropriate, and allow the vaso to remain in place overnight. Additionally, he ordered bicarb and inquired about imaging results.
[2023-12-23] MEDS: SODIUM BICARBONATE 8.4% 50 MEQ/50 ML SYRINGE IV PUSH (19:55)
[2023-12-23 20:02] LABS: Glucose Point of Care 162 mg/dl (65-105)
[2023-12-23] MEDS: DORZOLAMIDE/TIMOLOL OPHTH SOL 10 ML BOTTLE 1 DROP EACH EYE (20:50)
[2023-12-23] MEDS: prednisoLONE ACETATE 1% OPHTH 5 ML 1 DROP RIGHT EYE (20:50)
[2023-12-23] MEDS: APIXABAN 5 MG TABLET PO (20:50)
[2023-12-23] MEDS: LATANOPROST 0.005% OP SOLN 2.5 ML BTL 1 DROP LEFT EYE (20:51)
[2023-12-23] MEDS: CENTRAL LINE FLUSH 10 ML IV PUSH (22:42)
[2023-12-24] VITALS (39 sets, daily range): BP systolic 88–146; BP diastolic 55–93; PULSE 91–104; RESP 28–36; TEMP 35.9–36.6; O2SAT 88–99; BMI 37.9
[2023-12-24 00:33] LABS: Glucose Point of Care 175 mg/dl (65-105)
[2023-12-24 05:14] LABS: Hematocrit 25.8 % (37.0-47.0); Hemoglobin 8.5 g/dL (12.0-15.0); Immature Platelet Fraction Pct 2.9 % (0.9-11.2); Mean Corpuscular HGB Conc 32.9 g/dl (32-36); Mean Corpuscular Hemoglobin 29.1 pg (26-34); Mean Corpuscular Volume 88.4 fl (80-100); Mean Platelet Volume 9.7 fl (7.4-10.4); Platelet Count Result 129 k/mm3 (150-375); Red Blood Count 2.92 M/mm3 (4.2-5.4); Red Cell Distribution Width 17.6 % (11.5-14.5); White Blood Count 3.6 K/mm3 (4.5-10.0)
[2023-12-24 05:14] LABS: Glucose Point of Care 118 mg/dl (65-105)
[2023-12-24 05:28] LABS: Alanine Aminotransferase 54 U/L (6-35); Albumin Level 2.8 g/dL (3.5-5.1); Alkaline Phosphatase 309 U/L (38-126); Anion Gap 8 mmol/L (4-12); Aspartate Amino Transferase 42 U/L (14-36); Bilirubin,Total 0.5 mg/dL (0.2-1.3); Blood Urea Nitrogen 15 mg/dL (7-17); Carbon Dioxide 22 mmol/L (22-30); Chloride 97 mmol/L (98-107); Estimated CRCL calculation 57 ml/min; Estimated Glomerular Filt Rate > 60; Glucose 129 mg/dL (65-110); Magnesium 1.6 mg/dL (1.6-2.3); Potassium 4.1 mmol/L (3.4-5.0); Sodium 127 mmol/L (137-145)
[2023-12-24] MEDS: MEROPENEM 1 GM/NS 100 ML 1 GM/100 ML BAG IVPB ×3 (06:10→22:28)
[2023-12-24] MEDS: HYDROCORTISONE SODIUM SUCCINATE 100 MG/2 ML VIAL IV PUSH ×3 (06:10→22:28)
[2023-12-24] MEDS: LEVOTHYROXINE SODIUM INJ 100 MCG/5 ML VIAL 12.5 MCG IV PUSH (06:10)
[2023-12-24] MEDS: CENTRAL LINE FLUSH 10 ML IV PUSH ×3 (06:11→22:28)
[2023-12-24 08:22] LABS: Glucose Point of Care 154 mg/dl (65-105)
[2023-12-24] MEDS: AZITHROMYCIN 500 MG/NS 250 ML 500 MG/250 ML BAG 250 MG IVPB (08:50)
[2023-12-24] MEDS: PANTOPRAZOLE SODIUM IV 40 MG VIAL IV PUSH (08:51)
[2023-12-24] MEDS: DORZOLAMIDE/TIMOLOL OPHTH SOL 10 ML BOTTLE 1 DROP EACH EYE ×2 (08:52→21:03)
[2023-12-24] MEDS: APIXABAN 5 MG TABLET PO ×2 (08:52→21:03)
[2023-12-24] MEDS: MAGNESIUM SULF 2 GM/WATER 50ML 2 GM/50 ML BAG IVPB (08:58)
--- NOTE | 2023-12-24 09:14 | WPDINTPN ---
Progress Note: A&P Assessment and Plan (1) Septic shock: Code(s): A41.9 - Sepsis, unspecified organism; R65.21 - Severe sepsis with septic shock Status: Acute Assessment and Plan: Secondary to pneumonia and UTI. Although meningitis/encephalitis/infection of the ANALYTICAL ENGINEER shunt (patient had surgery 6 weeks ago) was also suspected. UA was consistent with UTI. Elevated procalcitonin Blood and urine cultures have been sent Continue empiric vancomycin azithromycin meropenem and micafungin Patient had recent urine culture which grew out Jazmine hence will add empiric micafungin (2) Adrenal insufficiency: Code(s): E27.40 - Unspecified adrenocortical insufficiency Status: Chronic Assessment and Plan: Patient presented with altered mental status hypothermia bradycardia hypotension and low WBC count suggestive of adrenal insufficiency. Patient was started hydrocortisone with marked improvement within 12 hours with improved heart rate blood pressure with weaning off most of the vasopressors and improvement in mental status. Continue stress dose hydrocortisone at at this time (3) Transaminitis: Code(s): R74.01 - Elevation of levels of liver transaminase levels Status: Acute Assessment and Plan: Likely secondary to sepsis shock. Improving Monitor at this time (4) DVT (deep venous thrombosis): Qualifiers: Affected thrombotic vein of extremity: femoral Chronicity: acute DVT location: lower extremity Laterality: left Qualified Code(s): I82.412 - Acute embolism and thrombosis of left femoral vein Code(s): I82.409 - Acute embolism and thrombosis of unspecified deep veins of unspecified lower extremity Status: Acute Assessment and Plan: Patient has history of DVT left femoral vein. She is on Eliquis. Which will be continued (5) ELIZABETH (acute kidney injury): Code(s): N17.9 - Acute kidney failure, unspecified Status: Acute Assessment and Plan: Presented with elevated creatinine 1.1 which is likely secondary to shock and sepsis. Patient has received adequate amount of IV fluids and holding further IV fluids as patient appears to be developing volume overload Continue vasopressors to maintain mean arterial pressure Creatinine 1.0 today Monitor electrolytes creatinine and urine output (6) Altered mental status: Qualifiers: Altered mental status type: delirium Qualified Code(s): R41.0 - Disorientation, unspecified Code(s): R41.82 - Altered mental status, unspecified Status: Acute Assessment and Plan: Patient has altered mental status and is barely responsive to painful stimuli on admission to ICU. Patient is DNR DNI and family did not want intubation. Altered mental status most likely secondary to adrenal insufficiency and septic shock along with medications as patient is on some medications that can be sedative. Unlikely to be secondary to meningitis or encephalitis with significant improvement within [address] scan of the head as above TSH normal. Sodium 127 Normal ammonia and TSH Continue hydrocortisone and levothyroxine Monitor and treat electrolyte abnormality Family did not want lumbar puncture (7) Normal pressure hydrocephalus: Onset Date: 05/2023 Code(s): G91.2 - (Idiopathic) normal pressure hydrocephalus Status: Chronic Assessment and Plan: Status post ANALYTICAL ENGINEER shunt insertion (8) Diabetes insipidus: Onset Date: 05/2023 Code(s): E23.2 - Diabetes insipidus Status: Suspected Assessment and Plan: Patient has diagnosis of diabetes insipidus and is currently on desmopressin but presenting sodium was low hence will hold desmopressin at this time and monitor electrolytes in sodium level. Will consult nephrology (9) Hypothermia: Qualifiers: Encounter type: initial encounter Qualified Code(s): T68.XXXA - Hypothermia, initial encounter Code(s): T68.
[2023-12-24] MEDS: VANCOMYCIN 1,500 MG/NS 500 ML 1,500 MG/500 ML BAG 250 MG IVPB (11:43)
[2023-12-24 11:57] LABS: Glucose Point of Care 110 mg/dl (65-105)
--- NOTE | 2023-12-24 12:30 | PM.CNNEP ---
Assessment and Plan Assessment and plan (1) Hyponatremia: Code(s): E87.1 - Hypo-osmolality and hyponatremia Status: Acute Assessment and Plan: as noted on admission with sodium of 127 DDAVP on hold given this issue suspect was not eating and drinking well due to AMS and continued to receive DDAVP which led to low sodium (but hard to know for sure) follow trend of repeat sodium levels (as suspect will rise once urine output picks up) (2) Diabetes insipidus: Onset Date: 05/2023 Code(s): E23.2 - Diabetes insipidus Status: Suspected Assessment and Plan: suspected due to work-up and evaluation on May 2023 admission/hospitalzation noted MRI of pituitary at that time (enlargement of the lateral and fourth ventricles concerning for normal pressure hydrocephalus and empty sella). empirically started on DDAVP at that time saw Endocrinology to confirm/verify diagnosis (but has not yet had follow-up visit) DDAVP on hold given #1 (but will eventually need to restart) (3) ELIZABETH (acute kidney injury): Code(s): N17.9 - Acute kidney failure, unspecified Status: Acute Assessment and Plan: creatinie up a bit since admission suspect due to sepsis and initial shock/hemodynamic instability s/p IVF resuscitation follow repeat labs and UOP (4) Septic shock: Code(s): A41.9 - Sepsis, unspecified organism; R65.21 - Severe sepsis with septic shock Status: Acute Assessment and Plan: presumsed etiology being pnuemonia concern for possible meningitis/encephalitis given recent neurosurgery 6 weeks ago... family not interested in pursuing lumbar puncture follow culture date on IV antibiotics off vasopressor therapy with stable hemodynamics continue supportive therapy (5) Altered mental status: Qualifiers: Altered mental status type: delirium Qualified Code(s): R41.0 - Disorientation, unspecified Code(s): R41.82 - Altered mental status, unspecified Status: Acute Assessment and Plan: unresponsive/obtunded since admission DNR/DNI per family request presumably secondary to adrenal insufficiency, septic shock, possible medications or brain infection.. brain imaging noted continue ongoing therapy (6) Hypothermia: Qualifiers: Encounter type: initial encounter Qualified Code(s): T68.XXXA - Hypothermia, initial encounter Code(s): T68.XXXA - Hypothermia, initial encounter Status: Acute Assessment and Plan: as noted on admission Santos avalos in place monitor temperature (7) Transaminitis: Code(s): R74.01 - Elevation of levels of liver transaminase levels Status: Acute Assessment and Plan: due to hemodynamic instability/shock follow trend of LFTs I will continue to follow the patient with you while she remains hospitalized and make further recommendations as deemed necessary. Thank you for allowing me to participate in the care of this patient. History of Present Illness Reason for Consult Consult date: 12/24/23 Reason for consult: hypernatremia and Other (diabetes insipidus) Chief Complaint Chief complaint: septic shiock,pneumonia,hypothermia,leukopenia History of Present Illness Narrative: All of the information I have obtained is from review of the electronic medical record as well as discussion with the physician/nurses involved in the patient's care as well as my personal recollection of seeing this patient on previous hospitalizations and in my office as it is difficult to get any history from the patient due to her altered mentation and current clinical status. The patient is a 73-year-old female with a past medical history as outlined below who presented to [facility] Emergency Room from her nursing facility for hypoxia. The staff at her retirement noted the patient was hypoxic at 60% on room air although I am unclear
--- NOTE | 2023-12-24 12:30 | P.CONNP_ITS ---
Assessment and Plan Assessment and plan (1) Hyponatremia: Code(s): E87.1 - Hypo-osmolality and hyponatremia Status: Acute Assessment and Plan: * as noted on admission with sodium of 127 * DDAVP on hold given this issue * suspect was not eating and drinking well due to AMS and continued to receive DDAVP which led to low sodium (but hard to know for sure) * follow trend of repeat sodium levels (as suspect will rise once urine output picks up) (2) Diabetes insipidus: Onset Date: 05/2023 Code(s): E23.2 - Diabetes insipidus Status: Suspected Assessment and Plan: * suspected due to work-up and evaluation on May 2023 admission/hospitalzation * noted MRI of pituitary at that time (enlargement of the lateral and fourth ventricles concerning for normal pressure hydrocephalus and empty sella). * empirically started on DDAVP at that time * saw Endocrinology to confirm/verify diagnosis (but has not yet had follow-up visit) * DDAVP on hold given #1 (but will eventually need to restart) (3) ELIZABETH (acute kidney injury): Code(s): N17.9 - Acute kidney failure, unspecified Status: Acute Assessment and Plan: * creatinie up a bit since admission * suspect due to sepsis and initial shock/hemodynamic instability * s/p IVF resuscitation * follow repeat labs and UOP (4) Septic shock: Code(s): A41.9 - Sepsis, unspecified organism; R65.21 - Severe sepsis with septic shock Status: Acute Assessment and Plan: * presumsed etiology being pnuemonia * concern for possible meningitis/encephalitis given recent neurosurgery 6 weeks ago... * family not interested in pursuing lumbar puncture * follow culture date * on IV antibiotics * off vasopressor therapy with stable hemodynamics * continue supportive therapy (5) Altered mental status: Qualifiers: Altered mental status type: delirium Qualified Code(s): R41.0 - Disorientation, unspecified Code(s): R41.82 - Altered mental status, unspecified Status: Acute Assessment and Plan: * unresponsive/obtunded since admission * DNR/DNI per family request * presumably secondary to adrenal insufficiency, septic shock, possible medications or brain infection.. * brain imaging noted * continue ongoing therapy (6) Hypothermia: Qualifiers: Encounter type: initial encounter Qualified Code(s): T68.XXXA - Hypothermia, initial encounter Code(s): T68.XXXA - Hypothermia, initial encounter Status: Acute Assessment and Plan: * as noted on admission * Santos hugger in place * monitor temperature (7) Transaminitis: Code(s): R74.01 - Elevation of levels of liver transaminase levels Status: Acute Assessment and Plan: * due to hemodynamic instability/shock * follow trend of LFTs I will continue to follow the patient with you while she remains hospitalized and make further recommendations as deemed necessary. Thank you for allowing me to participate in the care of this patient. History of Present Illness Reason for Consult Consult date: 12/24/23 Reason for consult: hypernatremia and Other (diabetes insipidus) Chief Complaint Chief complaint: septic shiock,pneumonia,hypothermia,leukopenia History of Present Illness Narrative: All of the information I have obtained is from review of the electronic medical record as well as discussion with the physician/nurses involved in the patient's care as well as my personal recollection of seeing this
--- NOTE | 2023-12-24 15:49 | P.PNIM_ITS ---
Progress Note: A&P Assessment and Plan (1) Septic shock: Code(s): A41.9 - Sepsis, unspecified organism; R65.21 - Severe sepsis with septic shock Status: Acute Assessment and Plan: Secondary to pneumonia and UTI. Although meningitis/encephalitis/infection of the DIE STAMPER shunt (patient had surgery 6 weeks ago) was also suspected. UA was consistent with UTI. Elevated procalcitonin Blood and urine cultures have been sent Continue empiric vancomycin azithromycin meropenem and micafungin Patient had recent urine culture which grew out Jazmine hence will add empiric micafungin (2) Adrenal insufficiency: Code(s): E27.40 - Unspecified adrenocortical insufficiency Status: Chronic Assessment and Plan: Patient presented with altered mental status hypothermia bradycardia hypotension and low WBC count suggestive of adrenal insufficiency. Patient was started hy drocortisone with marked improvement within 12 hours with improved heart rate blood pressure with weaning off most of the vasopressors and improvement in mental status. Continue stress dose hydrocortisone at at this time (3) Transaminitis: Code(s): R74.01 - Elevation of levels of liver transaminase levels Status: Acute Assessment and Plan: Likely secondary to sepsis shock. Improving Monitor at this time (4) DVT (deep venous thrombosis): Qualifiers: Affected thrombotic vein of extremity: femoral Chronicity: acute DVT location: lower extremity Laterality: left Qualified Code(s): I82.412 - Acute embolism and thrombosis of left femoral vein Code(s): I82.409 - Acute embolism and thrombosis of unspecified deep veins of unspecified lower extremity Status: Acute Assessment and Plan: Patient has history of DVT left femoral vein. She is on Eliquis. Which will be continued (5) ELIZABETH (acute kidney injury): Code(s): N17.9 - Acute kidney failure, unspecified Status: Acute Assessment and Plan: Presented with elevated creatinine 1.1 which is likely secondary to shock and sepsis. Patient has received adequate amount of IV fluids and holding further IV fluids as patient appears to be developing volume overload Continue vasopressors to maintain mean arterial pressure Creatinine 1.0 today Monitor electrolytes creatinine and urine output (6) Altered mental status: Qualifiers: Altered mental status type: delirium Qualified Code(s): R41.0 - Disorientation, unspecified Code(s): R41.82 - Altered mental status, unspecified Status: Acute Assessment and Plan: Patient has altered mental status and is barely responsive to painful stimuli on admission to ICU. Patient is DNR DNI and family did not want intubation. Altered mental status most likely secondary to adrenal insufficiency and septic shock along with medications as patient is on some medications that can be sedative. Unlikely to be secondary to meningitis or encephalitis with significant improvement within [address] scan of the head as above TSH normal. Sodium 127 Normal ammonia and TSH Continue hydrocortisone and levothyroxine Monitor and treat electrolyte abnormality Family did not want lumbar puncture (7) Normal pressure hydrocephalus: Onset Date: 05/2023 Code(s): G91.2 - (Idiopathic) normal pressure hydrocephalus Status: Chronic Assessment and Plan: Status post DIE STAMPER shunt insertion (8) Diabetes insipidus: Onset Date: 05/2023 Code(s): E23.2 - Diabetes insipidus Status: Suspected Assessment and Plan: Patient has diagnosis of diabetes in
[2023-12-24 16:42] LABS: Glucose Point of Care 116 mg/dl (65-105)
[2023-12-24] MEDS: MICAFUNGIN SODIUM 100 MG in SODIUM CHLORIDE 0.9% IV 100 ML IVPB (17:22)
--- NOTE | 2023-12-24 18:35 | ECG_ITS ---
Test Date: 2023-12-24 18:50:47 Measurements Intervals [place] Rate: 120 P: 63 FL: 133 QRS: 32 QRSD: 90 T: 0 QT: 270 QTc: 382 Interpretive Statements SINUS TACHYCARDIA ST-T WAVE ABNORMALITY IN DIFFUSE LEADS- CONSIDER ISCHEMIA BASELINE ARTIFACT- II, III, AVR, AVF, ABNORMAL ECG Compared to ECG 12/23/2023 08:14:53 HEART RATE HAS INCREASED Electronically Signed On 12-24-2023 19:24:42 CDT by Obdulio Garcia D.O.
[2023-12-24] MEDS: prednisoLONE ACETATE 1% OPHTH 5 ML 1 DROP RIGHT EYE (21:03)
[2023-12-24] MEDS: LATANOPROST 0.005% OP SOLN 2.5 ML BTL 1 DROP LEFT EYE (21:03)
[2023-12-24 21:08] LABS: Glucose Point of Care 114 mg/dl (65-105)
[2023-12-25] VITALS (16 sets, daily range): BP systolic 96–154; BP diastolic 49–91; PULSE 97–104; RESP 23–45; TEMP 36–36.4; O2SAT 88–99
[2023-12-25 01:13] LABS: Glucose Point of Care 126 mg/dl (65-105)
[2023-12-25 05:41] LABS: Hematocrit 26.1 % (37.0-47.0); Hemoglobin 8.7 g/dL (12.0-15.0); Mean Corpuscular HGB Conc 33.3 g/dl (32-36); Mean Corpuscular Hemoglobin 28.8 pg (26-34); Mean Corpuscular Volume 86.4 fl (80-100); Mean Platelet Volume 9.9 fl (7.4-10.4); Platelet Count Result 103 k/mm3 (150-375); Red Blood Count 3.02 M/mm3 (4.2-5.4); Red Cell Distribution Width 17.9 % (11.5-14.5); White Blood Count 8.6 K/mm3 (4.5-10.0)
[2023-12-25] MEDS: HYDROCORTISONE SODIUM SUCCINATE 100 MG/2 ML VIAL IV PUSH ×2 (05:45→08:10)
[2023-12-25] MEDS: MEROPENEM 1 GM/NS 100 ML 1 GM/100 ML BAG IVPB ×3 (05:45→22:02)
[2023-12-25] MEDS: CENTRAL LINE FLUSH 10 ML IV PUSH ×3 (05:46→22:02)
[2023-12-25 05:54] LABS: Alanine Aminotransferase 49 U/L (6-35); Alkaline Phosphatase 317 U/L (38-126); Anion Gap 5 mmol/L (4-12); Aspartate Amino Transferase 37 U/L (14-36); Bilirubin,Total 0.7 mg/dL (0.2-1.3); Blood Urea Nitrogen 14 mg/dL (7-17); Calcium 9.2 mg/dL (8.4-10.2); Carbon Dioxide 27 mmol/L (22-30); Chloride 113 mmol/L (98-107); Estimated CRCL calculation 53 ml/min; Estimated Glomerular Filt Rate 59; Glucose 104 mg/dL (65-110); Magnesium 2.6 mg/dL (1.6-2.3); Sodium 145 mmol/L (137-145)
[2023-12-25] MEDS: LEVOTHYROXINE SODIUM 12.5 MCG TABLET FEED TUBE (06:26)
[2023-12-25] MEDS: AZITHROMYCIN 500 MG/NS 250 ML 500 MG/250 ML BAG 250 MG IVPB (08:10)
[2023-12-25] MEDS: PANTOPRAZOLE SODIUM IV 40 MG VIAL IV PUSH (08:10)
[2023-12-25] MEDS: APIXABAN 5 MG TABLET PO ×2 (08:10→20:23)
[2023-12-25] MEDS: DORZOLAMIDE/TIMOLOL OPHTH SOL 10 ML BOTTLE 1 DROP EACH EYE ×2 (08:11→20:23)
[2023-12-25 08:13] LABS: Glucose Point of Care 115 mg/dl (65-105)
[2023-12-25] MEDS: DESMOPRESSIN ACETATE 4 MCG/ML AMP 1 MCG IV PUSH (08:34)
--- NOTE | 2023-12-25 09:14 | P.PNINT_ITS ---
Progress Note: A&P Assessment and Plan (1) Septic shock: Code(s): A41.9 - Sepsis, unspecified organism; R65.21 - Severe sepsis with septic shock Status: Acute Assessment and Plan: Secondary to pneumonia and UTI. Although meningitis/encephalitis/infection of the SHAREPOINT NET DEVELOPER shunt (patient had surgery 6 weeks ago) was also suspected. UA was consistent with UTI. Elevated procalcitonin Blood and urine cultures have been sent and negative till now Continue empiric vancomycin azithromycin meropenem and micafungin Patient had recent urine culture which grew out Jazmine hence will add empiric micafungin (2) Adrenal insufficiency: Code(s): E27.40 - Unspecified adrenocortical insufficiency Status: Chronic Assessment and Plan: Patient presented with altered mental status hypothermia bradycardia hypotension and low WBC count suggestive of adrenal insufficiency. Patient was started hydrocortisone with marked improvement within 12 hours with improved heart rate blood pressure with weaning off most of the vasopressors and improvement in mental status. Continue hydrocortisone at this time but decrease dose to q.a.m. (3) Transaminitis: Code(s): R74.01 - Elevation of levels of liver transaminase levels Status: Acute Assessment and Plan: Likely secondary to sepsis shock. Improving Monitor at this time (4) DVT (deep venous thrombosis): Qualifiers: Affected thrombotic vein of extremity: femoral Chronicity: acute DVT location: lower extremity Laterality: left Qualified Code(s): I82.412 - Acute embolism and thrombosis of left femoral vein Code(s): I82.409 - Acute embolism and thrombosis of unspecified deep veins of unspecified lower extremity Status: Acute Assessment and Plan: Patient has history of DVT left femoral vein. She is on Eliquis. Which will be continued (5) ELIZABETH (acute kidney injury): Code(s): N17.9 - Acute kidney failure, unspecified Status: Acute Assessment and Plan: Presented with elevated creatinine 1.1 which is likely secondary to shock and sepsis. Patient has received adequate amount of IV fluids and holding further IV fluids as patient appears to be developing volume overload Continue vasopressors to maintain mean arterial pressure Creatinine improved Monitor electrolytes creatinine and urine output (6) Altered mental status: Qualifiers: Altered mental status type: delirium Qualified Code(s): R41.0 - Disorientation, unspecified Code(s): R41.82 - Altered mental status, unspecified Status: Acute Assessment and Plan: Patient has altered mental status and is barely responsive to painful stimuli on admission to ICU. Patient is DNR DNI and family did not want intubation. Altered mental status most likely secondary to adrenal insufficiency and septic shock along with medications as patient is on some medications that can be sedative. Unlikely to be secondary to meningitis or encephalitis with significant improvement within [address] scan of the head as above TSH normal. Sodium was 127 but has now improved Normal ammonia and TSH Continue hydrocortisone but decrease dose to q.day and continue levothyroxine Monitor and treat electrolyte abnormality Family did not want lumbar puncture (7) Normal pressure hydrocephalus: Onset Date: 05/2023 Code(s): G91.2 - (Idiopathic) normal pressure hydrocephalus Status: Chronic Assessment and Plan: Status post SH[employer]POINT [employer] DEVELOPER shunt insertion (8) Diabetes insipidus: Onset Date: 05/2023 Code(s): E23.2 - Diabetes insipidus
--- NOTE | 2023-12-25 09:36 | PM.PNNEP ---
Progress Note: A&P Assessment and Plan (1) Diabetes insipidus: Onset Date: 05/2023 Code(s): E23.2 - Diabetes insipidus Status: Suspected Assessment and Plan: suspected due to work-up and evaluation on May 2023 admission/hospitalzation noted MRI of pituitary at that time (enlargement of the lateral and fourth ventricles concerning for normal pressure hydrocephalus and empty sella). empirically started on DDAVP at that time saw Endocrinology to confirm/verify diagnosis (but has not yet had follow-up visit) DDAVP initially on hold given hyponatremia on admission will restart today (particularly given significant increase in urine output) could consider D5W IVFs as well but I am not sure her respiratory status would tolerate this intervention... (2) ELIZABETH (acute kidney injury): Code(s): N17.9 - Acute kidney failure, unspecified Status: Acute Assessment and Plan: creatinie up a bit since admission suspect due to sepsis and initial shock/hemodynamic instability s/p IVF resuscitation follow repeat labs and UOP (3) Septic shock: Code(s): A41.9 - Sepsis, unspecified organism; R65.21 - Severe sepsis with septic shock Status: Acute Assessment and Plan: presumsed etiology being pnuemonia concern for possible meningitis/encephalitis given recent neurosurgery 6 weeks ago... family not interested in pursuing lumbar puncture follow culture date on IV antibiotics off vasopressor therapy with stable hemodynamics continue supportive therapy (4) Altered mental status: Qualifiers: Altered mental status type: delirium Qualified Code(s): R41.0 - Disorientation, unspecified Code(s): R41.82 - Altered mental status, unspecified Status: Acute Assessment and Plan: unresponsive/obtunded since admission some mild improvement at this time DNR/DNI per family request presumably secondary to adrenal insufficiency, septic shock, possible medications or brain infection.. brain imaging noted. continue ongoing therapy (5) Hypothermia: Qualifiers: Encounter type: initial encounter Qualified Code(s): T68.XXXA - Hypothermia, initial encounter Code(s): T68.XXXA - Hypothermia, initial encounter Status: Acute Assessment and Plan: as noted on admission Santos hugger in place monitor temperature (6) Transaminitis: Code(s): R74.01 - Elevation of levels of liver transaminase levels Status: Acute Assessment and Plan: due to hemodynamic instability/shock follow trend of LFTs Will continue to follow Subjective Date/time seen: 12/25/23 09:36 Interval history: Follow-up for diabetes insipidus and mild acute kidney injury/acute renal failure. Sodium has normalized but noted significant increase in urine output/polyuria in the last 24 hours; body temperature fluctuating and continues to have issues with hypothermia; remains hemodynamically stable without the need for vasopressor therapy; mentation also appears better as well (but not back to baseline from my previous interactions with her) -- moaning but did not answer any questions. Exam Narrative: General: elderly but WD/WN female confused but in NAD Heart: normal S1 and S2; no rub Lungs: a few bibasilar crackles Abdomen: soft, nontender, nondistended, positive bowel sounds Extremities: no cyanosis or clubbing; 1+ edema Skin: chronic venous stasis changes present (over LEs) Objective Data Vital Signs Vital Signs: Vital Signs Temp Pulse Resp BP Pulse Ox O2 Del Method O2 Flow Rate 12/25/23 08:00 96.8 F L 102 H 36 H 120/75 91 Nasal Cannula 3 12/25/23 06:00 96.8 F L 97 26 H 121/76 94 12/25/23 04:00 97.4 F L 101 H 25 H 103/60 88 L 12/25/23 04:00 95 Nasal Cannula 3 12/25/23 02:00 98 12/25/23 02:05 111/68 12/25/23 02:00 97.5 F L 98 23 H 96/52 L
--- NOTE | 2023-12-25 09:36 | P.PNNP_ITS ---
Progress Note: A&P Assessment and Plan (1) Diabetes insipidus: Onset Date: 05/2023 Code(s): E23.2 - Diabetes insipidus Status: Suspected Assessment and Plan: * suspected due to work-up and evaluation on May 2023 admission/hospitalzation * noted MRI of pituitary at that time (enlargement of the lateral and fourth ventricles concerning for normal pressure hydrocephalus and empty sella). * empirically started on DDAVP at that time * saw Endocrinology to confirm/verify diagnosis (but has not yet had follow-up visit) * DDAVP initially on hold given hyponatremia on admission * will restart today (particularly given significant increase in urine output) * could consider D5W IVFs as well but I am not sure her respiratory status would tolerate this intervention... (2) ELIZABETH (acute kidney injury): Code(s): N17.9 - Acute kidney failure, unspecified Status: Acute Assessment and Plan: * creatinie up a bit since admission * suspect due to sepsis and initial shock/hemodynamic instability * s/p IVF resuscitation * follow repeat labs and UOP (3) Septic shock: Code(s): A41.9 - Sepsis, unspecified organism; R65.21 - Severe sepsis with septic shock Status: Acute Assessment and Plan: * presumsed etiology being pnuemonia * concern for possible meningitis/encephalitis given recent neurosurgery 6 weeks ago... * family not interested in pursuing lumbar puncture * follow culture date * on IV antibiotics * off vasopressor therapy with stable hemodynamics * continue supportive therapy (4) Altered mental status: Qualifiers: Altered mental status type: delirium Qualified Code(s): R41.0 - Disorientation, unspecified Code(s): R41.82 - Altered mental status, unspecified Status: Acute Assessment and Plan: * unresponsive/obtunded since admission * some mild improvement at this time * DNR/DNI per family request * presumably secondary to adrenal insufficiency, septic shock, possible medications or brain infection.. * brain imaging noted. * continue ongoing therapy (5) Hypothermia: Qualifiers: Encounter type: initial encounter Qualified Code(s): T68.XXXA - Hypothermia, initial encounter Code(s): T68.XXXA - Hypothermia, initial encounter Status: Acute Assessment and Plan: * as noted on admission * Santos hugger in place * monitor temperature (6) Transaminitis: Code(s): R74.01 - Elevation of levels of liver transaminase levels Status: Acute Assessment and Plan: * due to hemodynamic instability/shock * follow trend of LFTs Will continue to follow Subjective Date/time seen: 12/25/23 09:36 Interval history: Follow-up for diabetes insipidus and mild acute kidney injury/acute renal failure. Sodium has normalized but noted significant increase in urine output/polyuria in the last 24 hours; body temperature fluctuating and continues to have issues with hypothermia; remains hemodynamically stable without the need for vasopressor therapy; mentation also appears better as well (but not back to baseline from my previous interactions with her) -- moaning but did not answer any questions. Exam Narrative: General: elderly but WD/WN female confused but in NAD Heart: normal S1 and S2; no rub Lungs: a few bibasilar crackles Abdomen: soft, nontender, nondistended, positive bowel sounds Extremities: no cyanosis or clubbing; 1+ edema Skin: chronic venous st
[2023-12-25 11:26] LABS: Vancomycin Trough 15.2 ug/mL (10.0-20.0)
[2023-12-25 11:59] LABS: Glucose Point of Care 144 mg/dl (65-105)
[2023-12-25] MEDS: VANCOMYCIN 1,500 MG/NS 500 ML 1,500 MG/500 ML BAG 250 MG IVPB (12:49)
--- NOTE | 2023-12-25 14:07 | PCNFU ---
Nutrition Follow-Up Complete: Swallowing Difficulties as related to AMS as evidenced by NGT feedings. Goal: Meet estimated nutritional needs. Patient will continue current goal. Pt current nutrition is Jevity 1.2 at 30 ml/hr. Last recorded weight is 117.7 kg, up from 116.5 kg on admit. Bowel Motility: last reported BM on 12/23 per nursing. Labs Reviewed: Mg 2.6,Na 145, Hct 26.1,Hgb 8.7 Meds Noted:Vancomycin, Synthroid, Protonix Skin:Friction noted on buttock. Additional Notes: Patient had pulled NGT. Plans for swallow eval 12/24. If diet order does not advance to oral feedings recommend increasing tube feedings of Jevity 1.2 to 65 ml/hr. Tube feedings at goal rate providing 1716 kcal/79 gm protein/1154 ml water. Flush free water 50 ml q 4 hours. Will monitor weight , labs, skin, tube feeding tolerance, meds every 3 days.
[2023-12-25] MEDS: FLUCONAZOLE 100 MG TABLET 200 MG PO (14:32)
--- NOTE | 2023-12-25 14:48 | PCSTNOTE ---
Please refer to the Bedside Swallow Evaluation in the EMR. Please note, silent aspiration cannot be ruled out at bedside.
[2023-12-25 16:34] LABS: Glucose Point of Care 136 mg/dl (65-105)
[2023-12-25 16:36] LABS: Anion Gap 8 mmol/L (4-12); Blood Urea Nitrogen 15 mg/dL (7-17); Calcium 9.1 mg/dL (8.4-10.2); Carbon Dioxide 26 mmol/L (22-30); Chloride 116 mmol/L (98-107); Estimated CRCL calculation 59 ml/min; Estimated Glomerular Filt Rate > 60; Glucose 140 mg/dL (65-110); Potassium 3.7 mmol/L (3.4-5.0); Sodium 150 mmol/L (137-145)
--- NOTE | 2023-12-25 16:58 | PC.NURSE ---
Spoke with Dr. Gutierrez about pt's Na levels trend, medications given and urine output for today. No orders given, to check Na in the morning.
--- NOTE | 2023-12-25 17:36 | PM.IMPN ---
Progress Note: A&P Assessment and Plan (1) Septic shock: Code(s): A41.9 - Sepsis, unspecified organism; R65.21 - Severe sepsis with septic shock Status: Acute Assessment and Plan: Secondary to pneumonia and UTI. Although meningitis/encephalitis/infection of the SHREDDED FILLER HOPPER FEEDER shunt (patient had surgery 6 weeks ago) was also suspected. UA was consistent with UTI. Elevated procalcitonin Blood and urine cultures have been sent and negative till now Continue empiric vancomycin azithromycin meropenem and micafungin Patient had recent urine culture which grew out Jazmine hence will add empiric micafungin (2) Adrenal insufficiency: Code(s): E27.40 - Unspecified adrenocortical insufficiency Status: Chronic Assessment and Plan: Patient presented with altered mental status hypothermia bradycardia hypotension and low WBC count suggestive of adrenal insufficiency. Patient was started hydrocortisone with marked improvement within 12 hours with improved heart rate blood pressure with weaning off most of the vasopressors and improvement in mental status. Continue hydrocortisone at this time but decrease dose to q.a.m. (3) Transaminitis: Code(s): R74.01 - Elevation of levels of liver transaminase levels Status: Acute Assessment and Plan: Likely secondary to sepsis shock. Improving Monitor at this time (4) DVT (deep venous thrombosis): Qualifiers: Affected thrombotic vein of extremity: femoral Chronicity: acute DVT location: lower extremity Laterality: left Qualified Code(s): I82.412 - Acute embolism and thrombosis of left femoral vein Code(s): I82.409 - Acute embolism and thrombosis of unspecified deep veins of unspecified lower extremity Status: Acute Assessment and Plan: Patient has history of DVT left femoral vein. She is on Eliquis. Which will be continued (5) ELIZABETH (acute kidney injury): Code(s): N17.9 - Acute kidney failure, unspecified Status: Acute Assessment and Plan: Presented with elevated creatinine 1.1 which is likely secondary to shock and sepsis. Patient has received adequate amount of IV fluids and holding further IV fluids as patient appears to be developing volume overload Continue vasopressors to maintain mean arterial pressure Creatinine improved Monitor electrolytes creatinine and urine output (6) Altered mental status: Qualifiers: Altered mental status type: delirium Qualified Code(s): R41.0 - Disorientation, unspecified Code(s): R41.82 - Altered mental status, unspecified Status: Acute Assessment and Plan: Patient has altered mental status and is barely responsive to painful stimuli on admission to ICU. Patient is DNR DNI and family did not want intubation. Altered mental status most likely secondary to adrenal insufficiency and septic shock along with medications as patient is on some medications that can be sedative. Unlikely to be secondary to meningitis or encephalitis with significant improvement within [address] scan of the head as above TSH normal. Sodium was 127 but has now improved Normal ammonia and TSH Continue hydrocortisone but decrease dose to q.day and continue levothyroxine Monitor and treat electrolyte abnormality Family did not want lumbar puncture (7) Normal pressure hydrocephalus: Onset Date: 05/2023 Code(s): G91.2 - (Idiopathic) normal pressure hydrocephalus Status: Chronic Assessment and Plan: Status post SHREDDED FILLER HOPPER FEEDER shunt insertion (8) Diabetes insipidus: Onset Date: 05/2023 Code(s): E23.2 - Diabetes insipidus Status: Suspected Assessment and Plan: Patient has diagnosis of diabetes insipidus and was on desmopressin as an outpatient but presenting sodium was low hence desmopressin was held and patient was given IV fluids sepsis Over last 24 hours patient has had significant increase in urine output with increase in sodium. I wi
[2023-12-25] MEDS: MORPHINE SULFATE (*CRX) 4 MG/ML INJ IV PUSH (19:49)
[2023-12-25] MEDS: LORazepam INJ (*CRX) 2 MG/ML VIAL 1 MG IV PUSH (19:49)
[2023-12-25] MEDS: prednisoLONE ACETATE 1% OPHTH 5 ML 1 DROP RIGHT EYE (20:23)
[2023-12-25] MEDS: LATANOPROST 0.005% OP SOLN 2.5 ML BTL 1 DROP LEFT EYE (20:23)
[2023-12-25 23:28] LABS: Glucose Point of Care 132 mg/dl (65-105)
[2023-12-26] VITALS (20 sets, daily range): BP systolic 54–120; BP diastolic 36–83; PULSE 62–93; RESP 20–51; TEMP 35.1–36.6; O2SAT 81–99
[2023-12-26 00:33] LABS: Glucose Point of Care 130 mg/dl (65-105)
[2023-12-26 04:57] LABS: Hematocrit 26.4 % (37.0-47.0); Hemoglobin 8.2 g/dL (12.0-15.0); Mean Corpuscular HGB Conc 31.1 g/dl (32-36); Mean Corpuscular Hemoglobin 28.9 pg (26-34); Mean Platelet Volume 11.7 fl (7.4-10.4); Red Blood Count 2.84 M/mm3 (4.2-5.4); Red Cell Distribution Width 18.9 % (11.5-14.5); White Blood Count 7.1 K/mm3 (4.5-10.0)
[2023-12-26 04:59] LABS: Platelet Count Result 100 k/mm3 (150-375)
[2023-12-26 05:06] LABS: Alanine Aminotransferase 43 U/L (6-35); Albumin Level 2.8 g/dL (3.5-5.1); Alkaline Phosphatase 271 U/L (38-126); Anion Gap 7 mmol/L (4-12); Aspartate Amino Transferase 32 U/L (14-36); Bilirubin,Total 0.7 mg/dL (0.2-1.3); Blood Urea Nitrogen 17 mg/dL (7-17); Calcium 8.8 mg/dL (8.4-10.2); Carbon Dioxide 26 mmol/L (22-30); Chloride 116 mmol/L (98-107); Estimated CRCL calculation 59 ml/min; Estimated Glomerular Filt Rate > 60; Glucose 123 mg/dL (65-110); Magnesium 2.7 mg/dL (1.6-2.3); Potassium 3.6 mmol/L (3.4-5.0); Sodium 149 mmol/L (137-145)
[2023-12-26] MEDS: CENTRAL LINE FLUSH 10 ML IV PUSH (05:53)
[2023-12-26] MEDS: MEROPENEM 1 GM/NS 100 ML 1 GM/100 ML BAG IVPB (05:53)
[2023-12-26] MEDS: LEVOTHYROXINE SODIUM 12.5 MCG TABLET FEED TUBE (05:53)
[2023-12-26 06:02] LABS: Glucose Point of Care 122 mg/dl (65-105)
[2023-12-26 08:25] LABS: Glucose Point of Care 78 mg/dl (65-105)
[2023-12-26 10:10] LABS: Glucose Point of Care 87 mg/dl (65-105)
[2023-12-26] MEDS: PANTOPRAZOLE SODIUM IV 40 MG VIAL IV PUSH (10:10)
[2023-12-26] MEDS: APIXABAN 5 MG TABLET PO (10:10)
[2023-12-26] MEDS: AZITHROMYCIN 500 MG/NS 250 ML 500 MG/250 ML BAG 250 MG IVPB (10:10)
[2023-12-26] MEDS: HYDROCORTISONE SODIUM SUCCINATE 100 MG/2 ML VIAL IV PUSH (10:10)
[2023-12-26] MEDS: DORZOLAMIDE/TIMOLOL OPHTH SOL 10 ML BOTTLE 1 DROP EACH EYE (10:15)
[2023-12-26] MEDS: DESMOPRESSIN ACETATE 0.1 MG TABLET PO (10:17)
--- NOTE | 2023-12-26 10:26 | PM.IMPN ---
Subjective Date/time seen: 12/26/23 10:26 Interval history: Nursing team reports of having low blood pressure. we gave 1 dose of albumin. In the meantime patient has respiratory distress. Patient's saturation was in mid 70s in non-rebreather . We called her And explained in detail in regards to her respiration and low blood pressure and it was about having comfort care since patient is DNR. patient wants to come to the hospital and make the final decision.Patient is currently transferred to ICU to receive vasopressor.Will discuss with the family the long-term goal. As per chart review family denies any aggressive treatment. Objective Data Vital Signs Vital Signs: Vital Signs - 24 hr 12/25/23 12:00 12/25/23 12:00 12/25/23 12:00 Temperature 97 F L Pulse Rate 102 H 104 H Respiratory Rate 30 H Blood Pressure 134/84 Pulse Oximetry 92 92 Oxygen Delivery Nasal Cannula Oxygen Flow Rate 3 12/25/23 14:00 12/25/23 16:00 12/25/23 16:00 Temperature 97.5 F L Pulse Rate 104 H 101 H Respiratory Rate 40 H Blood Pressure 137/90 Pulse Oximetry 91 91 Oxygen Delivery Nasal Cannula Oxygen Flow Rate 3 12/25/23 16:00 12/25/23 18:00 12/25/23 19:39 Temperature 97.5 F L Pulse Rate 103 H 102 H 104 H Respiratory Rate 45 H Blood Pressure 154/91 H Pulse Oximetry 98 Oxygen Delivery Oxygen Flow Rate 12/25/23 20:00 12/25/23 20:00 12/25/23 20:00 Temperature 97.6 F Pulse Rate 99 99 Respiratory Rate 36 H Blood Pressure 133/78 Pulse Oximetry 92 99 Oxygen Delivery Nasal Cannula Oxygen Flow Rate 3 12/25/23 22:00 12/26/23 00:00 12/26/23 00:00 Temperature Pulse Rate 97 62 Respiratory Rate Blood Pressure Pulse Oximetry 91 Oxygen Delivery Nasal Cannula Oxygen Flow Rate 3 12/26/23 00:00 12/26/23 01:55 12/26/23 02:00 Temperature 97.8 F Pulse Rate 62 Respiratory Rate 22 H Blood Pressure 105/50 L Pulse Oximetry 95 87 L 92 Oxygen Delivery High Flow Nasal Cannula High Flow Nasal Cannula Oxygen Flow Rate 3 6 12/26/23 02:00 12/26/23 03:42 12/26/23 03:42 Temperature Pulse Rate 92 Respiratory Rate Blood Pressure Pulse Oximetry 83 L 94 Oxygen Delivery Nasal Cannula Non-Rebreather Mask Oxygen Flow Rate 6 15 12/26/23 04:00 12/26/23 04:00 12/26/23 04:00 Temperature 97.3 F L Pulse Rate 93 93 Respiratory Rate 32 H Blood Pressure 120/83 Pulse Oximetry 96 96 Oxygen Delivery Non-Rebreather Mask Oxygen Flow Rate 15 12/26/23 06:00 12/26/23 08:00 12/26/23 08:14 Temperature Pulse Rate 92 88 Respiratory Rate 20 Blood Pressure 92/49 L 97/53 L Pulse Oximetry 98 Oxygen Delivery Oxygen Flow Rate 12/26/23 08:49 12/26/23 08:56 12/26/23 09:36 Temperature 95.2 F L 97.2 F L 96.2 F L Pulse Rate 88 Respiratory Rate 40 H Blood Pressure 81/43 L Pulse Oximetry 91 Oxygen Delivery Oxygen Flow Rate Intake/Output Intake/Output: Intake & Output 12/23/23 12/24/23 12/25/23 12/26/23 23:59 23:59 23:59 23:59 Intake Total 4683.8 2234.4 2089 640 Output Total 100 1450 6550 300 Balance 4583.8 784.4 -7245 340 Meds/Results Medications: Active Medications Generic Name Dose Route Start Last Admin Trade Name Freq PRN Reason Stop Dose Admin Acetaminophen 650 mg 12/23/23 10:51 Acetaminophen 325 Mg Tablet PO Q4H PRN Mild Pain (1-3) or Fever Apixaban 5 mg 12/23/23 21:00 12/26/23 10:10 Apixaban 5 Mg Tablet PO 5 mg Q12H ASHLEY Administration Desmopressin Acetate 0.1 mg 12/28/23 09:00 Desmopressin Acetate 0.1 Mg Tablet PO MoWeFr ASHLEY Dextrose 12.5 gm 12/23/23 13:55 12/23/23 14:22 Dextrose 50% 25 Gm/50 Ml Syringe IV PUSH 12.5 gm PRN PRN Administration Hypoglycemia Protocol Dorzolamide/Timolol 1 drop 12/23/23 21:00 12/26/23 10:15 Dorzolamide/Timolol Ophth Yvonne 10 Ml Bottle EACH EYE 1 drop Q12H ASHLEY Admin
[2023-12-26] MEDS: ALBUMIN HUMAN 25% 25 GM/100 ML 100 ML IVPB (10:43)
[2023-12-26 11:46] LABS: Alveolar/Arterial O2 Gradient 593.6 mmHg; Base Excess ABG 0.5 mEq/l (+/-2.0); Fractional Inspired Oxygen 100 %; HCO3 ABG 28.1 mEq/l (22.0-26.0); Oxygen Content ABG 8.9 %vol (16.0-22.0); PO2 ABG 53.6 mmHg (80.0-100.0); PO2 FiO2 Ratio Arterial Blood 0.54 %
[2023-12-26 11:48] LABS: PCO2 ABG 65.8 mmHg (35.0-45.0); pH ABG 7.249 (7.350-7.450)
[2023-12-26 11:49] LABS: Oxygen Saturation ABG 81.3 % (95.0-100.0); Total Hemoglobin 7.7 g/dL (12.0-18.0)
[2023-12-26 11:50] LABS: Device NASAL CANNULA; Modified Allen's Test Pass; Oxyhemoglobin 81.9 % THb (90.0-100.0); Site Drawn RIGHT RADIAL
[2023-12-26] MEDS: NOREPINEPHRINE 8 MG/D5W 250 ML 8 MG/250 ML BAG 9.38 MG IV CONT (11:55)
[2023-12-26] MEDS: SODIUM BICARBONATE 8.4% 50 MEQ/50 ML SYRINGE IV PUSH (11:59)
--- NOTE | 2023-12-26 12:01 | WPDINTPN ---
Progress Note: A&P Assessment and Plan (1) Septic shock: Code(s): A41.9 - Sepsis, unspecified organism; R65.21 - Severe sepsis with septic shock Status: Acute Assessment and Plan: Secondary to pneumonia and UTI. Although meningitis/encephalitis/infection of the ENAMEL DIPPER shunt (patient had surgery 6 weeks ago) was also suspected. UA was consistent with UTI. Elevated procalcitonin Blood and urine cultures have been sent and negative till now Continue empiric vancomycin azithromycin meropenem and micafungin Patient had recent urine culture which grew out Jazmine hence will add empiric micafungin which was later switched to fluconazole 12/25 patient was off of vasopressors for close to 48 hours but now again hypotensive. Patient is overall volume overloaded hence will not give any additional fluids. Patient was transferred back to ICU and started back on Levophed (2) Altered mental status: Qualifiers: Altered mental status type: delirium Qualified Code(s): R41.0 - Disorientation, unspecified Code(s): R41.82 - Altered mental status, unspecified Status: Acute Assessment and Plan: Patient has altered mental status and is barely responsive to painful stimuli on admission to ICU. Patient is DNR DNI and family did not want intubation. Altered mental status most likely secondary to adrenal insufficiency, electrolyte abnormality and septic shock along with medications as patient is on some medications that can be sedative. CT scan of the head as above TSH normal. Sodium was 127 but has now improved Normal ammonia and TSH Patient mental status improved initially and patient was transferred out of ICU 12/25 worsening of mental status likely secondary to medications as patient received Ativan and morphine and hypercarbia with respiratory acidosis along with hypertension Hold sedatives and opioids at this time. Management of respiratory failure and and hypercarbia as above. Vent of shock as above Continue hydrocortisone but decrease dose to q.day and continue levothyroxine Monitor and treat electrolyte abnormality Family did not want lumbar puncture she (3) Adrenal insufficiency: Code(s): E27.40 - Unspecified adrenocortical insufficiency Status: Chronic Assessment and Plan: Patient initially presented with altered mental status hypothermia bradycardia hypotension and low WBC count suggestive of adrenal insufficiency. Patient was started hydrocortisone with marked improvement within 12 hours with improved heart rate blood pressure with weaning off most of the vasopressors and improvement in mental status. Once patient came off vasopressors hydrocortisone dose was increased to 100 mg q.a.m. As patient now is hypotensive I will increase the dose back up to q.8 hours (4) Transaminitis: Code(s): R74.01 - Elevation of levels of liver transaminase levels Status: Acute Assessment and Plan: Likely secondary to sepsis shock. Improving Monitor at this time (5) DVT (deep venous thrombosis): Qualifiers: Affected thrombotic vein of extremity: femoral Chronicity: acute DVT location: lower extremity Laterality: left Qualified Code(s): I82.412 - Acute embolism and thrombosis of left femoral vein Code(s): I82.409 - Acute embolism and thrombosis of unspecified deep veins of unspecified lower extremity Status: Acute Assessment and Plan: Patient has history of DVT left femoral vein. She is on Eliquis. Which will be continued (6) ELIZABETH (acute kidney injury): Code(s): N17.9 - Acute kidney failure, unspecified Status: Acute Assessment and Plan: Presented with elevated creatinine 1.1 which is likely secondary to shock and sepsis. Creatinine improved with IV fluids and vasopressors Monitor electrolytes creatinine and urine output (7) Normal pressure hydrocephalus: Onset Date: 05/2023 Code(s): G91.2 - (Idiopathic) normal pressure h
[2023-12-26 12:11] LABS: Glucose Point of Care 92 mg/dl (65-105)
[2023-12-26 12:20] LABS: Glucose Point of Care 91 mg/dl (65-105)
--- NOTE | 2023-12-26 12:27 | PC.NURSE ---
This patient, Jolie Banks, was received from [[id number]] on 12/26/23 at 1150. Patient/family oriented to unit policies and routines
--- NOTE | 2023-12-26 12:37 | P.PNNP_ITS ---
Progress Note: A&P Assessment and Plan (1) Diabetes insipidus: Onset Date: 05/2023 Code(s): E23.2 - Diabetes insipidus Status: Suspected Assessment and Plan: * suspected due to work-up and evaluation on May 2023 admission/hospitalzation * noted MRI of pituitary at that time (enlargement of the lateral and fourth ventricles concerning for normal pressure hydrocephalus and empty sella). * empirically started on DDAVP at that time * saw Endocrinology to confirm/verify diagnosis (but has not yet had follow-up visit) * DDAVP initially on hold given hyponatremia on admission. However now the sodium is up to 149. * DDAVP was restarted yesterday. * She cannot take p.o. so will switch to nasal DDAVP (2) ELIZABETH (acute kidney injury): Code(s): N17.9 - Acute kidney failure, unspecified Status: Acute Assessment and Plan: * creatinine is back to normal (3) Septic shock: Code(s): A41.9 - Sepsis, unspecified organism; R65.21 - Severe sepsis with septic shock Status: Acute Assessment and Plan: * presumsed etiology being pnuemonia * concern for possible meningitis/encephalitis given recent neurosurgery 6 weeks ago... * family not interested in pursuing lumbar puncture * follow culture date * on IV antibiotics * off vasopressor therapy with stable hemodynamics * continue supportive therapy (4) Altered mental status: Qualifiers: Altered mental status type: delirium Qualified Code(s): R41.0 - Disorientation, unspecified Code(s): R41.82 - Altered mental status, unspecified Status: Acute Assessment and Plan: * unresponsive/obtunded since admission * some mild improvement at this time * DNR/DNI per family request * presumably secondary to adrenal insufficiency, septic shock, possible medications or brain infection.. * brain imaging noted. * The family gathering to decide on aggressiveness of care (5) Hypothermia: Qualifiers: Encounter type: initial encounter Qualified Code(s): T68.XXXA - Hypothermia, initial encounter Code(s): T68.XXXA - Hypothermia, initial encounter Status: Acute Assessment and Plan: * as noted on admission * Santos hugger in place * monitor temperature (6) Transaminitis: Code(s): R74.01 - Elevation of levels of liver transaminase levels Status: Acute Assessment and Plan: * due to hemodynamic instability/shock * enzymes improving Will continue to follow Subjective Date/time seen: 12/26/23 12:37 Interval history: Patient is unresponsive. She is on BiPAP Her blood pressure is 110 off pressors right now Exam Narrative: General: elderly but WD/WN female confused but in NAD Heart: normal S1 and S2; no rub or gallop Lungs: a few bibasilar crackles Abdomen: soft, nontender, nondistended, positive bowel sounds Extremities: 1+ edema bilaterally Skin: chronic venous stasis changes present (over LEs) Objective Data Vital Signs Vital Signs: Vital Signs - 24 hr 12/25/23 14:00 12/25/23 16:00 12/25/23 16:00 Temperature 97.5 F L Pulse Rate 104 H 101 H Respiratory Rate 40 H Blood Pressure 137/90 Pulse Oximetry 91 91 Oxygen Delivery Nasal Cannula Oxygen Flow Rate 3 12/25/23 16:00 12/25/23 18:00 12/25/23
--- NOTE | 2023-12-26 12:37 | PM.PNNEP ---
Progress Note: A&P Assessment and Plan (1) Diabetes insipidus: Onset Date: 05/2023 Code(s): E23.2 - Diabetes insipidus Status: Suspected Assessment and Plan: suspected due to work-up and evaluation on May 2023 admission/hospitalzation noted MRI of pituitary at that time (enlargement of the lateral and fourth ventricles concerning for normal pressure hydrocephalus and empty sella). empirically started on DDAVP at that time saw Endocrinology to confirm/verify diagnosis (but has not yet had follow-up visit) DDAVP initially on hold given hyponatremia on admission. However now the sodium is up to 149. DDAVP was restarted yesterday. She cannot take p.o. so will switch to nasal DDAVP (2) ELIZABETH (acute kidney injury): Code(s): N17.9 - Acute kidney failure, unspecified Status: Acute Assessment and Plan: creatinine is back to normal (3) Septic shock: Code(s): A41.9 - Sepsis, unspecified organism; R65.21 - Severe sepsis with septic shock Status: Acute Assessment and Plan: presumsed etiology being pnuemonia concern for possible meningitis/encephalitis given recent neurosurgery 6 weeks ago... family not interested in pursuing lumbar puncture follow culture date on IV antibiotics off vasopressor therapy with stable hemodynamics continue supportive therapy (4) Altered mental status: Qualifiers: Altered mental status type: delirium Qualified Code(s): R41.0 - Disorientation, unspecified Code(s): R41.82 - Altered mental status, unspecified Status: Acute Assessment and Plan: unresponsive/obtunded since admission some mild improvement at this time DNR/DNI per family request presumably secondary to adrenal insufficiency, septic shock, possible medications or brain infection.. brain imaging noted. The family gathering to decide on aggressiveness of care (5) Hypothermia: Qualifiers: Encounter type: initial encounter Qualified Code(s): T68.XXXA - Hypothermia, initial encounter Code(s): T68.XXXA - Hypothermia, initial encounter Status: Acute Assessment and Plan: as noted on admission Santos vigger in place monitor temperature (6) Transaminitis: Code(s): R74.01 - Elevation of levels of liver transaminase levels Status: Acute Assessment and Plan: due to hemodynamic instability/shock enzymes improving Will continue to follow Subjective Date/time seen: 12/26/23 12:37 Interval history: Patient is unresponsive. She is on BiPAP Her blood pressure is 110 off pressors right now Exam Narrative: General: elderly but WD/WN female confused but in NAD Heart: normal S1 and S2; no rub or gallop Lungs: a few bibasilar crackles Abdomen: soft, nontender, nondistended, positive bowel sounds Extremities: 1+ edema bilaterally Skin: chronic venous stasis changes present (over LEs) Objective Data Vital Signs Vital Signs: Vital Signs - 24 hr 12/25/23 14:00 12/25/23 16:00 12/25/23 16:00 Temperature 97.5 F L Pulse Rate 104 H 101 H Respiratory Rate 40 H Blood Pressure 137/90 Pulse Oximetry 91 91 Oxygen Delivery Nasal Cannula Oxygen Flow Rate 3 12/25/23 16:00 12/25/23 18:00 12/25/23 19:39 Temperature 97.5 F L Pulse Rate 103 H 102 H 104 H Respiratory Rate 45 H Blood Pressure 154/91 H Pulse Oximetry 98 Oxygen Delivery Oxygen Flow Rate 12/25/23 20:00 12/25/23 20:00 12/25/23 20:00 Temperature 97.6 F Pulse Rate 99 99 Respiratory Rate 36 H Blood Pressure 133/78 Pulse Oximetry 92 99 Oxygen Delivery Nasal Cannula Oxygen Flow Rate 3 12/25/23 22:00 12/26/23 00:00 12/26/23 00:00 Temperature Pulse Rate 97 62 Respiratory Rate Blood Pressure Pulse Oximetry 91 Oxygen Delivery Nasal Cannula Oxygen Flow Rate 3 12/26/23 00:00 12/26/23 01:55 12/26/23 02:00 Stiven
--- NOTE | 2023-12-26 12:59 | PC.NURSE ---
This patient, Jolie Banks, was transferred to [ ICU 6 ] on 12/26/23 at 1140. Patient hypotensive (74/60), low oxygen saturations in the high 70% on 15 L NRB with high flow nasal cannula at 15L. Patient also has low temps of 96.2 degrees bladder temp despite bear hugger applied at 0900. Dr. TERAN confirmed with spouse, Daly, that he wanted everything done for his . Personal belongings sent with patient. Report given to [ Kelsey]. Appropriate documentation sent with patient.
--- NOTE | 2023-12-26 13:05 | P.PNCROSS_ITS ---
Event Note Event Note Event Note: Family Meeting I met with patient's , patient's brother, and another friend once they arrive to see patient after her transfer back to ICU today. I updated them with patient's status including altered mental status, worsening of hypotension requiring vasopressors, hypoxia/hypercarbia requiring BiPAP. I updated them with current treatment plan, expected prognosis and different potential outcomes. I answered their questions. Patient was already DNR DNI with no furt her escalation care. Family was clear that their goal was to keep patient comfortable and not make herself for more than she needs to. They feel the patient did not wanted to stay on life supporting measures. I have discussed options of palliative and comfort care. They said they have discussed among themselves and at this point want to proceed with comfort care. They have decided, in accordance with pt's wishes, to discontinue all medical therapy and institute comfort measures only. I have explained that I will use opioids, anxiolytics and other agents on as needed basis to promote comfort and discontinue all medical therapy, lab testing and invasive monitoring. Patient will eventually . They all were in agreement and verbalized understanding and agreed to proceed at this time I have requested nurse to notify primary physician of the treatment plan.
[2023-12-26] MEDS: MORPHINE SULFATE INJ (*CRX) 10 MG/ML AMP 5 MG IV PUSH (13:11)
--- NOTE | 2023-12-26 16:33 | P.DN_ITS ---
Discharge Summary Date and Time Date of : 12/26/23 Time of : 15:50 Provider Pronounced By: 2 RNs Name of First RN That Pronounced: Gerri CalixtoRN Name of Second RN That Pronounced: Kye Mosquera RN Probable Cause of Probable Cause of : Adrenal insufficiency, hypotension, respiratory failure Summary Hospital Course: Patient initially presented with altered mental status hypothermia bradycardia hypotension and low WBC count suggestive of adrenal insufficiency. Patient was started hydrocortisone showed improved heart rate blood pressure with weaning off most of the vasopressors and improvement in mental status.Once patient came off vasopressors hydrocortisone dose was increased to 100 mg q.a.m. Today 12/26/2023 after the patient was transferred from ICU to the floor Nursing team reports of having low blood pressure. we gave 1 dose of albumin. In the meantime patient has respiratory distress with saturation in mid 70s in non- rebreather . We called her And explained in detail about her respiratory status and low blood pressure and having comfort care since patient is DNR. patient wants to come to the hospital and make the final decision. Director Of Corporate Responsibility spoke with the family and agreed to keep patient comfortable and not make herself for more than she needs to.The patient on 12/26/2023. at that time, charge nurse Kye Mosquera and Gerri Calixto were called to see the patient. They evaluated the patient and found her skin to be warm. Her pupils were fixed and dilated. She had no oculocephalic reflex. There were no heart or lung sounds. She did not respond to any painful stimuli. The patient was pronounced at 15:50 on 12/26/2023 by her family aside. Additional Data Confirmation of as documented by pronouncing clinician: Pupillary Reflex, Palpable Pulses, Response to Stimuli, Heart Tones and Breath Sounds Name of Provider Notified: Dr. Kendrick Jimenes Time Provider Notified: 16:03 Provider Requests Autopsy: No Family Requests Autopsy: No Cut File Clerk Notified: Yes Date [facility] Notified of : 12/26/23 Time [facility] Notified of : 16:25
== END 2023-12-26 15:50 | disposition expired | DRG 871 ==
LOC: ANHED 09:51 → ANHIMU 11:25 → ANHICU 14:06 → ANHIMU 12-26 05:52 → ANHICU 12-26 11:46
PROVIDERS: Internal Medicine; Student in an Organized Health Care Education/Training Program; Admitting Provider General Practice; Emergency Provider Emergency Medicine; PCP Nurse Practitioner; Visit Provider General Practice
DX: A41.9 Sepsis, unspecified organism (principal); J18.9 Pneumonia, unspecified organism; R65.21 Severe sepsis with septic shock; J96.02 Acute respiratory failure with hypercapnia; J96.01 Acute respiratory failure with hypoxia; E27.40 Unspecified adrenocortical insufficiency; N17.9 Acute kidney failure, unspecified; G91.2 (Idiopathic) normal pressure hydrocephalus; E23.2 Diabetes insipidus; E87.1 Hypo-osmolality and hyponatremia; Z66 Do not resuscitate; R00.1 Bradycardia, unspecified; I10 Essential (primary) hypertension; M19.90 Unspecified osteoarthritis, unspecified site; F03.90 Unspecified dementia, unspecified severity, without behavioral disturbance, psychotic disturbance, mood disturbance, and anxiety; E03.9 Hypothyroidism, unspecified; E13.649 Other specified diabetes mellitus with hypoglycemia without coma; R68.0 Hypothermia, not associated with low environmental temperature; E13.22 Other specified diabetes mellitus with diabetic chronic kidney disease; N18.31 Chronic kidney disease, stage 3a; H40.9 Unspecified glaucoma; M48.061 Spinal stenosis, lumbar region without neurogenic claudication; E78.2 Mixed hyperlipidemia; Z20.822 Contact with and (suspected) exposure to COVID-19; Z86.718 Personal history of other venous thrombosis and embolism; Z86.73 Personal history of transient ischemic attack (TIA), and cerebral infarction without residual deficits; Z90.710 Acquired absence of both cervix and uterus; Z79.01 Long term (current) use of anticoagulants; Z51.5 Encounter for palliative care
CPT/HCPCS: 36415; 36569; 36600; 70450; 71045; 71250; 74176; 80048; 80053; 80202; 81001; 82140; 82550; 82805; 82810; 82948; 83605; 83735; 83880; 84145; 84443; 85025; 85027; 85055; 85610; 85730; 86140; 87040; 87070; 87086; 87205; 87637; 87641; 92610; 93005; 94002; 94003; 96361; 96365; 96366; 96367; 96368; 96375; 99291; A9270; G0378; J0171; J0456; J0650; J0692; J0696; J1720; J2060; J2185; J2248; J2270; J2470; J2597; J3370; J3475; J7030; J7040; J7042; J7060; P9047